=== PATIENT | female | born 1955 | race Caucasian/White ===

== ENCOUNTER 2016-11-10 20:14 | Inpatient (IN) | payer MEDICARE, MEDICAID ==
[2016-11-10 22:03] VITALS: BP 135/73
[2016-11-11] MEDS ORDERED: Magnesium Hydroxide (MOM) 30 mL UDC PO PRN (05:40)
[2016-11-11] MEDS ORDERED: INSULIN ASPART SLIDING SCALE 100 UNITS/ML UNIT SUBQ SCH (05:45)
[2016-11-11] MEDS: INSULIN ASPART SLIDING SCALE 100 UNITS/ML UNIT SUBQ SCH ×4 (06:30→21:20)
[2016-11-11] MEDS: Insulin Detemir 100 units/mL 10mL Vial SUBQ SCH ×2 (10:19→21:20)
--- NOTE | 2016-11-11 13:42 | History & Physical ---
INTERNAL MEDICINE CONSULT REFERRING PHYSICIAN: Dr. Ellis. REASON FOR CONSULT: Medical management, history of chronic renal insufficiency, anemia and type 2 diabetes. HISTORY OF PRESENT ILLNESS: The patient has been admitted to [facility] secondary to acute psych decompensation. She is a 61-year-old female with history of paranoid schizophrenia, medical noncompliance, who also has a history of type 2 diabetes, chronic renal insufficiency and anemia as mentioned above. She denies having any medical problems and apparently was recently admitted to [facility] where she was noted to have acute on chronic renal insufficiency for which she received IV fluids. She was also noted to have confusion consistent with encephalopathy, which was attributed in part to a urinary tract infection. She was placed on antibiotics and apparently had improvement both clinically and in her lab work. She has now been transferred for further psych supportive care. She currently denies any complaints including no chest pain, shortness of breath, palpitations or phlegm production. She does admit to daily smoking. PAST MEDICAL HISTORY: As noted above. PAST SURGICAL HISTORY: Denies. FAMILY HISTORY: Noncontributory. SOCIAL HISTORY: Smokes about a pack day and she was unable to quantify how many years, but she stated she started recently. Alcohol, does admit to occasional drinking socially. No IVDA. ALLERGIES: NKDA. TRANSFER MEDICATIONS: Tylenol 325 q. 6 h p.r.n., Keflex 500 mg q. 8, Epogen 10,000 units 3 times a week, famotidine 20 mg every day, insulin sliding scale per hospital protocol, Lantus insulin 8 units q. 12, lorazepam 1 mg q. 12 p.r.n. for anxiety, Milk of Magnesia 3 mL at bedtime, Risperdal 1.5 b.i.d., Renvela 800 mg q. 8 hours and Ambien 5 mg at bedtime p.r.n. for insomnia. REVIEW OF SYSTEMS: GENERAL: The patient denies any recent ailments. She denies any current fevers, chills. CARDIOVASCULAR: No chest pain. No angina type symptoms. PULMONARY: Denies any shortness of breath, any cough, any secretions. GASTROINTESTINAL: No bowel habit changes. GENITOURINARY: She does admit to having some dysuria the last few days, which has improved gradually improved with p.o. antibiotics. NEUROLOGIC: Denies any syncope, any changes in vision, any headaches. PHYSICAL EXAMINATION: VITAL SIGNS: She is afebrile, pulse 81, BP 135/73, respiratory rate 20, satting 98% on room air. GENERAL: She is awake, somewhat disoriented, and able to answer questions with yes and no, but overall poor historian. HEAD AND NECK: Normocephalic, atraumatic. Pupils are reactive to light. She is wearing eye glasses. NECK: There is no JVD or LAD. CARDIAC: Regular rate and rhythm with no murmurs noted. LUNGS: Decreased at the bases, but clear to auscultation overall. No rhonchi, wheezing or crackles noted. ABDOMEN: Soft, supple, nontender, nondistended, normoactive bowel sounds. EXTREMITIES: On lower extremity, there is no clubbing, cyanosis or edema. NEUROLOGIC: She is currently sitting up in a chair. Cranial nerves 2-12 appear to be intact. She is able to move all 4 extremities with equal force and strength. Gait and balance were not able to be tested. DIAGNOSTICS: Labs from previous hospitalization shows an H and H of 7.5/24 with a platelet count of 215. Sodium 130, potassium 4.1, chloride 104, CO2 20, BUN 64, creatinine 4 and glucose 253. UA was consistent with UTI with positive leukocyte. IMPRESSION: 1. Acute psych decompensation and slight psychosis. 2. History of paranoid schizophrenia. 3. Dementia. 4. Status post acute encephalopathy, which is likely secondary to urinary tract infection. 5. Urinary tract infection. 6. Acute on chronic renal insufficiency. 7. Type 2 diabetes. 8. Possible chronic obstructive pulmonary disease. 9. Nicotine dependence. PLAN: The patient has been admitted to [facility] for further management and care. At this time, the patient will be kept on her current medications including Epogen, insulin and the Keflex schedule. I will ask for a chem panel as well as CBC and repeat UA. I will also ask for TSH and a lipid panel. The patient will be followed on a daily basis. JOB# [id number]
[2016-11-11] MEDS: Epoetin Alfa 20000 Units/mL Vial SUBQ SCH (14:43)
[2016-11-11] MEDS ORDERED: Haloperidol Lactate 5 mg/mL 1mL Vial IM PRN (19:29)
--- NOTE | 2016-11-12 01:42 | Psychosocial Evaluation ---
INITIAL EVALUATION AND MENTAL STATUS EXAMINATION CHIEF COMPLAINT: Increased agitation and mood swings. HISTORY OF PRESENT ILLNESS: The patient is a 61-year-old female with history of psychosis. The patient has been paranoid and delusional and also confused. The patient also was not able to follow any directions [place] and she became more agitated and she was admitted to the hospital. In the hospital, the patient is confused and she is actively hallucinating. The patient also has not been cooperative with the staff. When I asked the patient about her age, she answered "15 years old." I was born in 2001. PAST PSYCHIATRIC HISTORY: The patient has history of psychosis and delusions. PAST MEDICAL HISTORY: The patient has history of kidney disease and urinary tract infection and diabetes mellitus. SOCIAL HISTORY: The patient lives in a detention. No known alcohol or drug use. Not much information known about her family ____ the patient says "I have 8 or 10 children." ALLERGIES: No known allergies. MENTAL STATUS EXAMINATION: The patient appears slightly older than her stated age. Anxious. Restless. Irritable mood. Thought processes are circumstantial and tangential with flight of ideas. The patient denies auditory or visual hallucinations, but seems to be actively responding to stimuli. The patient denies suicide or homicide. The patient is alert and is oriented to time, place, person and situation. The patient also is confused and impaired. Recent and remote memories ____ could not remember her first name or any events happened prior to her admission. Poor insight. Poor judgment. ASSESSMENT: PRIMARY DIAGNOSIS: Unspecified psychosis. SECONDARY DIAGNOSIS: Dementia, moderate, severe, with psychotic features. TREATMENT PLAN: We will monitor the patient's behavior closely. We will regret psychotic medications. Also, we will work on her uncooperativeness and delusion as well as poor impulse control. ESTIMATED LENGTH OF STAY: 7-10 days. THE PATIENT'S STRENGTHS AND WEAKNESSES: The patient's strength is not clear at this time. Weaknesses is ineffective coping and her paranoia and delusions. AFTER DISCHARGE PLAN: The patient will return to the detention and outpatient treatment and follow up and will continue as an outpatient. CRITERIA FOR DISCHARGE: The patient will not be psychotic and stabilize psychotropic medications and establish outpatient treatment plans. JOB# [id number]
[2016-11-12] MEDS: INSULIN ASPART SLIDING SCALE 100 UNITS/ML UNIT SUBQ SCH ×4 (06:36→20:47)
[2016-11-12] MEDS: Insulin Detemir 100 units/mL 10mL Vial SUBQ SCH ×2 (09:59→20:59)
[2016-11-12 14:08] LABS: % BASOPHILS 0.7 % (0.0-2.0); % EOSINOPHILS 1.6 % (0.0-5.0); % LYMPHOCYTES 25.9 % (20.0-50.0); % MONOCYTES 9.9 % (2.0-10.0); % NEUTROPHILS 61.9 % (40.0-80.0); ALB/GLOB RATIO 1.5 (1.0-1.8); ANION GAP 9.9 (7.0-16.0); BILIRUBIN,TOTAL 0.2 mg/dL (0.3-1.0); BUN/CREATININE RATIO 24.1; CALCIUM SERUM 9.2 mg/dL (8.6-10.3); CARBON DIOXIDE 21.4 mEq/L (21.0-31.0); CREATININE - SERUM 2.7 mg/dL (0.6-1.2); HEMATOCRIT 27.9 % (35.0-45.0); HEMOGLOBIN 9.3 gm/dL (11.7-15.5); MEAN CELL VOLUME 91.6 fl (81-100); MEAN CORPUSCULAR HEMOGLOBIN 30.5 pg (27.0-31.0); MEAN CORPUSCULAR HGB CONC 33.3 pg (28.0-36.0); MEAN PLATELET VOLUME 8.5 fl; NEUTROPHILE ABSOLUTE 2.1 Th/cmm (1.8-8.0); PLATELET COUNT 241 Th/cmm (150-400); POTASSIUM SERUM 4.3 mEq/L (3.5-5.1); RED BLOOD COUNT 3.05 Mil/cmm (3.80-5.10); RED CELL DISTRIBUTION WIDTH 13.9 % (11.5-20.0); WHITE BLOOD COUNT 3.4 Th/cmm (4.8-10.8)
[2016-11-12] MEDS: Ferrous Sulfate 325 MG TAB PO SCH (17:31)
[2016-11-13] MEDS: Levothyroxine 0.05 Mg Tab PO SCH (06:37)
[2016-11-13] MEDS: INSULIN ASPART SLIDING SCALE 100 UNITS/ML UNIT SUBQ SCH ×5 (06:39→20:31)
[2016-11-13] MEDS: Ferrous Sulfate 325 MG TAB PO SCH ×2 (08:22→16:28)
[2016-11-13] MEDS: Insulin Detemir 100 units/mL 10mL Vial SUBQ SCH ×3 (08:23→20:34)
[2016-11-13] MEDS: Epoetin Alfa 20000 Units/mL Vial SUBQ SCH (09:23)
--- NOTE | 2016-11-13 18:55 | Progress Notes ---
SUBJECTIVE: Chart reviewed and the patient interviewed. Also discussed the patient's condition with the staff and reviewed records and labs. The patient is still delusional and is still in irritable mood. The patient also is still suspicious and paranoid and confused. She also is still unable to make any appropriate answers and she is very paranoid and very suspicious. Otherwise, the patient started to comply with taking her medications with no side effects of medications. ASSESSMENT: The patient is still psychotic and agitated. TREATMENT PLAN: We will continue monitoring her behavior and her condition closely. Also, continue adjusting psychotropic medications and follow up closely. [facility]# [id number]
[2016-11-14] MEDS: Levothyroxine 0.05 Mg Tab PO SCH (06:32)
[2016-11-14] MEDS: INSULIN ASPART SLIDING SCALE 100 UNITS/ML UNIT SUBQ SCH ×4 (06:36→21:37)
[2016-11-14] MEDS: Ferrous Sulfate 325 MG TAB PO SCH ×2 (08:31→16:14)
[2016-11-14] MEDS: Insulin Detemir 100 units/mL 10mL Vial SUBQ SCH ×2 (08:32→21:35)
--- NOTE | 2016-11-14 09:40 | Progress Notes ---
Covering for Dr. Ellis. Case was discussed with staff of the patient, reviewed records. This is a 61-year-old female who was admitted on 11/10/2016, with a history of psychosis. She has been agitated. Mood irritable, paranoid, delusional, confused and unable to follow direction. She has a history of psychosis and delusion. The patient was diagnosed with unspecified psychosis and dementia. The patient continues to be delusional, continues to be unable to participate in a meaningful conversation. She has been on Haldol as needed. She is concerned ____ treating her with Haldol. She refused this medication that was approved by the conservator. Currently, she is on Risperdal ____ mg twice a day with no side effects, no sedation, no nausea and we will continue to work with the patient in group therapy, milieu therapy and adjust medication as needed. [facility]# [id number]
[2016-11-14] MEDS ORDERED: Maalox 30 mL Cup PO PRN (18:49)
[2016-11-15] MEDS: INSULIN ASPART SLIDING SCALE 100 UNITS/ML UNIT SUBQ SCH ×4 (06:39→20:48)
[2016-11-15] MEDS: Levothyroxine 0.05 Mg Tab PO SCH (06:42)
--- NOTE | 2016-11-15 08:29 | Progress Notes ---
The patient of Dr. Ellis. Case was discussed with staff of the patient, reviewed records. The patient continues to be confused and agitated, continues to be unable to make safe plan for self care, continues to need redirection. She is sleeping, eating well. She was able to go to the dining room and feed herself. No side effects from the medication, no sedation, no nausea, no extrapyramidal symptoms and we will continue to work with the patient in group therapy, milieu therapy, adjust medication as needed. JOB# [id number]
[2016-11-15] MEDS: Insulin Detemir 100 units/mL 10mL Vial SUBQ SCH ×2 (09:39→20:51)
[2016-11-15] MEDS: Ferrous Sulfate 325 MG TAB PO SCH ×2 (09:39→16:28)
--- NOTE | 2016-11-16 04:27 | Progress Notes ---
Covering for Dr. Ellis. Case discussed with staff of the patient, reviewed records. The patient continues to be unpredictable, impulsive, needing redirection. Continues to have poor insight. Continues to be unable to make safe plan for self-care, easily agitated. Looking disheveled, disorganized, internally preoccupied. Lab work showed negative ____ isolated and it was called to the medical doctor. His chemistry panel showed low bilirubin. Lipid panel within normal range. She also had low sodium, high chloride, high blood sugar, high BUN, high creatinine and that all will be reported to Dr. Malik. Her CBC also showed low hemoglobin and hematocrit, low white cells. TSH is high at 9.[address] Malik will be informed about it and no side effects with the medication, no sedation, no nausea and we will continue to work with patient in group therapy, milieu therapy, adjust the medication as needed. JOB# [id number]
[2016-11-16] MEDS: Levothyroxine 0.05 Mg Tab PO SCH (06:47)
[2016-11-16] MEDS: INSULIN ASPART SLIDING SCALE 100 UNITS/ML UNIT SUBQ SCH ×4 (06:48→21:10)
[2016-11-16] MEDS: Insulin Detemir 100 units/mL 10mL Vial SUBQ SCH ×2 (10:06→21:08)
[2016-11-16] MEDS: Ferrous Sulfate 325 MG TAB PO SCH ×2 (10:08→17:18)
[2016-11-16] MEDS: Epoetin Alfa 20000 Units/mL Vial SUBQ SCH (11:45)
--- NOTE | 2016-11-16 22:46 | Progress Notes ---
SUBJECTIVE: Chart reviewed and the patient interviewed. Also discussed the patient's condition with the staff and reviewed records and labs. The patient is still manicy and "will go to live in [place]." She also added "Bailee Del Rio is cristopher and the [facility] will come to pick me up." The patient has grandiose delusions and she is still delusional and paranoid. The patient also is suspicious and is still paranoid. She also is still restless and manicy and pacing around the unit interfering and intrusive to other patients and staff. The patient also at times is demanding. She also is in angry and in irritable mood. Otherwise, the patient is compliant with medications with no side effects of medications. During interview thought processes are circumstantial and tangential with flight of ideas. ASSESSMENT: The patient is still psychotic. TREATMENT PLAN: We will continue monitoring her behavior and her condition closely. Also, continue to work on her manic behavior and adjusting psychotropic medications and we will continue to follow up. JOB# [id number]
[2016-11-17] MEDS: Levothyroxine 0.05 Mg Tab PO SCH (06:40)
[2016-11-17] MEDS: INSULIN ASPART SLIDING SCALE 100 UNITS/ML UNIT SUBQ SCH ×4 (06:44→21:30)
[2016-11-17] MEDS: Ferrous Sulfate 325 MG TAB PO SCH ×2 (08:32→16:41)
[2016-11-17] MEDS: Insulin Detemir 100 units/mL 10mL Vial SUBQ SCH ×3 (08:43→21:32)
--- NOTE | 2016-11-18 04:32 | Progress Notes ---
SUBJECTIVE: Chart reviewed and the patient interviewed. Also discussed the patient's condition with the staff and reviewed records and labs. The patient continues to be delusional and continues to be paranoid. The patient also is less anxious ____. The patient is talking about wanting to go to home with "my Kenyon Patten." She also is still talking about Bailee Del Rio ____. She also is still restless and she is still intrusive to others. Otherwise, the patient is compliant with taking her medications with no side effect of medications. During interview, the patient is suspicious and paranoid and she is rambling. Also, hygiene is still poor. ASSESSMENT: The patient is still psychotic and manic ____ and has manic behavior. TREATMENT PLAN: We will continue monitoring her behavior and her condition closely. Also, we will increase Risperdal to 2 mg twice a day and start lithium 150 mg twice a day. Side effects, benefits and alternatives explained to the patient and the patient agreed to ____. JOB# [id number]
[2016-11-18] MEDS: Levothyroxine 0.05 Mg Tab PO SCH (06:36)
[2016-11-18] MEDS: INSULIN ASPART SLIDING SCALE 100 UNITS/ML UNIT SUBQ SCH ×4 (06:39→21:26)
[2016-11-18] MEDS: Ferrous Sulfate 325 MG TAB PO SCH ×2 (08:35→16:41)
[2016-11-18] MEDS: Insulin Detemir 100 units/mL 10mL Vial SUBQ SCH ×2 (08:38→21:26)
[2016-11-18] MEDS: Epoetin Alfa 20000 Units/mL Vial SUBQ SCH (09:39)
[2016-11-19] MEDS: INSULIN ASPART SLIDING SCALE 100 UNITS/ML UNIT SUBQ SCH ×4 (06:58→21:10)
[2016-11-19] MEDS: Levothyroxine 0.05 Mg Tab PO SCH (06:59)
[2016-11-19] MEDS: Insulin Detemir 100 units/mL 10mL Vial SUBQ SCH ×2 (09:14→21:21)
[2016-11-19] MEDS: Ferrous Sulfate 325 MG TAB PO SCH ×2 (09:15→16:44)
--- NOTE | 2016-11-19 09:18 | Progress Notes ---
SUBJECTIVE: Chart reviewed and the patient interviewed. Also, discussed the patient's condition with the staff and reviewed records and labs. The patient continued to be delusional and she is still in irritable mood. The patient has been suspicious and paranoid and delusional and she thinks that she is " ." The patient also is still intrusive to others and in angry and in irritable mood. On the other hand, but easier to redirect her and the patient has been compliant with taking her medications. During interview, the patient is paranoid and personal hygiene is still poor. She also is still rambling and disorganized thought. ASSESSMENT: The patient is still psychotic and ____ agitated. TREATMENT PLAN: We will continue monitoring her behavior and her condition closely and we will continue to follow up . JOB# [id number]
--- NOTE | 2016-11-20 06:05 | Progress Notes ---
SUBJECTIVE: Chart was reviewed and the patient interviewed. Also discussed the patient's condition with the staff and reviewed records and labs. The patient is still actively hallucinating and she is still actively responding to stimuli. The patient also is still talking about going to [place] and about ____ Quang who is the cristopher of [place] who will come to take her there. The patient also thinks that she is a Lady Gaga. She also is still manicky and hyperverbal, hyper-talkative with pressured speech. She also is still intrusive to other. On the other hand, slightly easier to redirect her. ASSESSMENT: The patient is still manicky. TREATMENT PLAN: We will continue monitoring her behavior and her condition closely. Also, continue to adjust psychotropic medications and we will continue to follow up. [facility]# [id number]
[2016-11-20] MEDS: Levothyroxine 0.05 Mg Tab PO SCH (06:38)
[2016-11-20] MEDS: INSULIN ASPART SLIDING SCALE 100 UNITS/ML UNIT SUBQ SCH ×4 (06:41→20:25)
[2016-11-20] MEDS: Ferrous Sulfate 325 MG TAB PO SCH ×2 (09:50→17:05)
[2016-11-20] MEDS: Insulin Detemir 100 units/mL 10mL Vial SUBQ SCH ×3 (09:51→21:30)
[2016-11-20] MEDS: Epoetin Alfa 20000 Units/mL Vial SUBQ SCH (09:54)
--- NOTE | 2016-11-20 21:46 | Progress Notes ---
SUBJECTIVE: The patient seen, chart reviewed, discussed with staff. The patient is currently in the hospital, paranoid, delusional, believes that "my ran after me." States the year is 2018. She knows the month. She currently states she is in the hospital with "just passing by for a visit." Not answering questions appropriately. Noted to be actively hallucinating, believing that she was 15 years old, born in 2001. The patient is still requiring a lot of prompting for ADLs, prompting for eating, not safe for discharge. ASSESSMENT: The patient remains symptomatic, highly confused, delusional, paranoid, psychotic, unable to care for herself at a lower level of care. PLAN: Continue to monitor. We will adjust medications. JOB# [id number]
[2016-11-21] MEDS: Levothyroxine 0.05 Mg Tab PO SCH (06:49)
[2016-11-21] MEDS: INSULIN ASPART SLIDING SCALE 100 UNITS/ML UNIT SUBQ SCH ×4 (07:11→21:47)
[2016-11-21] MEDS: Ferrous Sulfate 325 MG TAB PO SCH ×2 (08:47→16:51)
[2016-11-21] MEDS: Insulin Detemir 100 units/mL 10mL Vial SUBQ SCH ×2 (08:53→21:45)
[2016-11-21 21:35] LABS: URINE BILIRUBIN NEGATIVE (NEGATIVE); URINE BLOOD TRACE (NEGATIVE); URINE COLOR YELLOW; URINE GLUCOSE (UA) NEGATIVE (NEGATIVE); URINE KETONE NEGATIVE (NEGATIVE); URINE PROTEIN TRACE mg/dL (NEGATIVE); URINE UROBILINOGEN 0.2 E.U./dL (0.2 - 1.0)
[2016-11-21 21:36] LABS: URINE BACTERIA FEW /hpf (NONE SEEN); URINE EPITHELIAL CELLS OCCASIONAL /lpf (FEW); URINE RBC 0-2 /hpf (0-5)
--- NOTE | 2016-11-21 23:37 | Progress Notes ---
SUBJECTIVE: The patient seen, chart reviewed, discussed with staff. The patient remains delusional, sometime believes she is , very focused on food, hyperverbal, paranoid, delusional. The patient is believing that her is continuing to "run after her." She does not know where she is. She does not know why she is here, continues to actively hallucinate, still requiring a lot of prompting for ADLs, prompting for eating, not safe for discharge. No overt side effects noted. No EPS for example. ASSESSMENT: The patient remains symptomatic, highly confused, delusional believes that she is . PLAN: Continue to monitor. We will continue to adjust medications. Due to the severity of the patient's symptoms, she is not safe for a lower level of care at this time. [facility]# [id number]
[2016-11-22] MEDS: Levothyroxine 0.05 Mg Tab PO SCH (06:54)
[2016-11-22] MEDS: INSULIN ASPART SLIDING SCALE 100 UNITS/ML UNIT SUBQ SCH ×4 (06:55→21:37)
[2016-11-22] MEDS: Ferrous Sulfate 325 MG TAB PO SCH ×2 (08:17→16:50)
[2016-11-22] MEDS: Insulin Detemir 100 units/mL 10mL Vial SUBQ SCH ×2 (09:30→21:38)
[2016-11-23] MEDS: Levothyroxine 0.05 Mg Tab PO SCH (06:59)
[2016-11-23] MEDS: INSULIN ASPART SLIDING SCALE 100 UNITS/ML UNIT SUBQ SCH ×4 (07:00→20:48)
--- NOTE | 2016-11-23 07:53 | Progress Notes ---
Case was discussed with staff of the patient, reviewed records. This is a well known case to me, I have seen her. I will be covering for Dr. Ellis. The patient continues to be isolating herself, delusional, believes that she is , focus on food, hyperverbal, paranoid. Continues to be unable to participate in meaningful conversation or make safe plan for self-care. She has been compliant with the medication with no side effects. She is ____. She is on Haldol as needed. She refused oral medications. She is on lithium 150 mg twice a day and Risperdal was increased to 2 mg twice a day with no side effects, no sedation, no nausea. I will be increasing the dose to 2.5 mg twice a day and so far, no side effects, no sedation, no nausea, no extrapyramidal symptoms and we will continue to work with the patient in group therapy, milieu therapy, adjust the medication as needed. JOB# [id number]
[2016-11-23] MEDS: Ferrous Sulfate 325 MG TAB PO SCH ×3 (09:32→17:48)
[2016-11-23] MEDS: Insulin Detemir 100 units/mL 10mL Vial SUBQ SCH ×2 (09:38→20:47)
[2016-11-23] MEDS: Epoetin Alfa 20000 Units/mL Vial SUBQ SCH (10:27)
--- NOTE | 2016-11-24 02:52 | Progress Notes ---
Case was discussed with staff of the patient, reviewed records. The patient reported to be delusional, unpredictable, and impulsive needing redirection. Continues to have false belief that she is . Continues to be unpredictable. Continues to look disheveled and disorganized. She is compliant with the medication with no side effects, no sedation, no nausea, and no extrapyramidal symptoms. She is on Haldol, to be given if she refuses all her medication and [place]. I did increase her Risperdal dose yesterday to 2.5 mg twice a day, and we will continue to work with the patient in group therapy, milieu therapy, and adjust the medication as needed. JOB# [id number]
[2016-11-24] MEDS: Levothyroxine 0.05 Mg Tab PO SCH (06:35)
[2016-11-24] MEDS: INSULIN ASPART SLIDING SCALE 100 UNITS/ML UNIT SUBQ SCH ×3 (06:37→16:33)
[2016-11-24] MEDS: Insulin Detemir 100 units/mL 10mL Vial SUBQ SCH (09:33)
[2016-11-24] MEDS: Ferrous Sulfate 325 MG TAB PO SCH ×2 (09:41→16:34)
--- NOTE | 2016-11-24 18:39 | Discharge Summary ---
FINAL DIAGNOSIS/PRIMARY DIAGNOSIS: Bipolar disorder, mixed type, with psychotic features. SECONDARY DIAGNOSIS: Dementia, moderate, with psychotic features. REASON FOR HOSPITALIZATION: The patient was admitted to the hospital because of increased paranoia and delusions and confusion and manic behavior. HOSPITAL COURSE: The patient continued to be confused and continued to be in angry and in irritable mood. The patient also continued to be delusional. The patient was talking about being Lady [place] and that the [place] of [place], "Bailee Del Rio is coming to take her to [facility]." The patient on the other hand was compliant with taking her medications and no side effects of medications. Physical exam of the patient showed no acute medical problems. AFTER DISCHARGE PLANS: The patient will be discharged from the hospital to continue her treatment in [facility]. The patient will follow up there. DISCHARGE MEDICATIONS: [place] 150 mg twice a day and Risperdal 2.5 mg twice a day. EXPECTED OUTCOME AFTER DISCHARGE: Fair, if the patient continues to take her medications and follow up with treatment. [facility]# [id number]
== END 2016-11-24 16:55 | DRG 885 ==
LOC: GERO 20:14
PROVIDERS: ADMIT Psychiatry & Neurology Psychiatry; ATTEND Psychiatry & Neurology Psychiatry
DX: F31.60 Bipolar disorder, current episode mixed, unspecified (principal); G93.40 Encephalopathy, unspecified; N17.9 Acute kidney failure, unspecified; N18.4 Chronic kidney disease, stage 4 (severe); F03.90 Unspecified dementia, unspecified severity, without behavioral disturbance, psychotic disturbance, mood disturbance, and anxiety; N39.0 Urinary tract infection, site not specified; F29 Unspecified psychosis not due to a substance or known physiological condition; E11.22 Type 2 diabetes mellitus with diabetic chronic kidney disease; I12.9 Hypertensive chronic kidney disease with stage 1 through stage 4 chronic kidney disease, or unspecified chronic kidney disease; D63.1 Anemia in chronic kidney disease; E03.9 Hypothyroidism, unspecified; F20.0 Paranoid schizophrenia; F17.210 Nicotine dependence, cigarettes, uncomplicated; Z91.14 Patient's other noncompliance with medication regimen
CPT/HCPCS: 36415-UA; 80053-TC; 80061-TC; 81001-TC; 82948-90; 84443-TC; 85025-TC; 90899; 93005; G0410; J0885; J1815; Z7610

== ENCOUNTER 2017-07-04 15:59 | Inpatient (IN) | payer MEDICARE, MEDICAID ==
[2017-07-04 16:33] LABS: MEAN CELL VOLUME 90.6 fl (81-100); MEAN CORPUSCULAR HEMOGLOBIN 31.2 pg (27.0-31.0); MEAN CORPUSCULAR HGB CONC 34.4 pg (28.0-36.0); MEAN PLATELET VOLUME 6.8 fl; PLATELET COUNT 288 Th/cmm (150-400); RED CELL DISTRIBUTION WIDTH 13.4 % (11.5-20.0)
[2017-07-04 16:43] LABS: INR 0.95 (0.5-1.4); PROTHROMBIN TIME (TEST) 9.9 SECONDS (9.5-11.5)
[2017-07-04 16:46] LABS: ALB/GLOB RATIO 1.4 (1.0-1.8); ANION GAP 13.4 (7.0-16.0); BILIRUBIN,TOTAL 0.3 mg/dL (0.3-1.0); BUN/CREATININE RATIO 11.3; CALCIUM SERUM 9.3 mg/dL (8.6-10.3); CARBON DIOXIDE 16.2 mEq/L (21.0-31.0); CHOLESTEROL 159 mg/dL (<200); CREATININE - SERUM 3.2 mg/dL (0.6-1.2); POTASSIUM SERUM 3.6 mEq/L (3.5-5.1); TRIGLYCERIDES 102 mg/dL (<150)
[2017-07-04 16:50] LABS: HEMATOCRIT 16.3 % (35.0-45.0); HEMOGLOBIN 5.6 gm/dL (11.7-15.5)
--- NOTE | 2017-07-04 17:11 | ED Physician Chart ---
ED Chief Complaint/HPI - Patient Information Date Seen:: 07/04/17 Time Seen:: 16:06 Chief Complaint:: WEAKNESS History of Present Illness:: THIS IS A 61 YO FEMALE SENT TO THIS ER FOR EVALUATION AND TREATMENT AND PLACEMENT IN THE [facility]. SHE IS COOPERATIVE BUT DISORIENTED TIMES FOUR AND UNABLE TO GIVE A HISTORY AND REVIEW OF SYSTEMS. Allergies:: Allergies Allergy/AdvReac Type Severity Reaction Status Date / Time No Known Allergies Allergy Verified 11/10/16 22:03 Vitals:: Vital Signs - 8 hr 07/04/17 16:04 Temp 97.7 F HR 95 RR 18 BP 119/44 O2 Sat % 99 Historian:: EMS, Medical Records Review:: Nurse's Note Reviewed ED Review of Systems - Review of Systems General/Constitutional: No fever, No chills, No weight loss, No weakness, No diaphoresis, No edema, No loss of appetite, Other (SHE IS UNABLE TO GIVE A REVIEW OF SYSTEMS.) Skin: No skin lesions, No rash, No bruising Head: No headache, No light-headedness Eyes: No loss of vision, No pain, No diplopia ENT: No earache, No nasal drainage, No sore throat, No tinnitus Neck: No neck pain, No swelling, No thyromegaly, No stiffness, No mass noted Cardio Vascular: No chest pain, No palpitations, No PND, No orthopnea, No edema Pulmonary: No SOB, No cough, No sputum, No wheezing GI: No nausea, No vomiting, No diarrhea, No pain, No melena, No hematochezia, No constipation, No hematemesis G/U: No dysuria, No frequency, No hematuria Musculoskeletal: No bone or joint pain, No back pain, No muscle pain Endocrine: No polyuria, No polydipsia Psychiatric: No prior psych history, No depression, No anxiety, No suicidal ideation Hematopoietic: No bruising, No lymphadenopathy Allergic/Immuno: No urticaria, No angioedema Neurological: No syncope, No focal symptoms, No weakness, No paresthesia, No headache, No seizure, No dizziness, No confusion, No vertigo ED Past Medical History - Past Medical History Obtainable: Yes Past Medical History: HTN, Dyslipidemia, PUD/GERD, Thyroid disorder, Dementia, Other (CANCER OF THE MANDIBLE) Family History: None Social History: Non Smoker, No Alcohol, No Drug Use, Care Facility Surgical History: None Psychiatricy History: Schizophrenia, Dementia Medication: Reviewed Family Medical History - Family Member Mother History Unknown: Yes Ethnicity: Unknown Living Status: Unknown Hx Family Cancer: No Hx Family Coronary Artery Disease: No Hx Family Congestive Heart Failure: No Hx Family Hypertension: No Hx Family Stroke: No Hx Family Diabetes: No Hx Family Seizures: No Hx Family Dementia: No Hx Family AIDS: No Hx Family HIV: No Hx Family COPD: No Hx Family Hepatitis: No Hx Family Psychiatric Problems: No Hx Family Tuberculosis: No ED Physical Exam - Physical Examination General/Constitutional: Well-developed, well-nourished, Alert, No distress, GCS 15, Non-toxic appearing, Ambulatory Other Gen/Cons comments:: DISORIENTED TIMES FOUR Head: Atraumatic Eyes: Lids, conjuctiva normal, PERRL, EOMI Skin: Nl inspection, No rash, No skin lesions, No ecchymosis, Well hydrated, No lymphadenopathy ENMT: External ears, nose nl, Nasal exam nl, Lips, teeth, gums nl Neck: Nontender, Full ROM w/o pain, No JVD, No nuchal rigidity, No bruit, No mass, No stridor Respiratory: Nl effort/Exclusion, Clear to Auscultation, No Wheeze/Rhonchi/Rales Cardio Vascular: RRR, No murmur, gallop, rubs, NL S1 S2 GI: No tenderness/rebounding/guarding, No organomegaly, No hernia, Normal BS's, Nondistended, No mass/bruits, No McBurney tenderness : No CVA tenderness Extremities: No tenderness or effusion, Full ROM, normal strength in all extremities, No edema, Normal digits & nails Neuro/Psych: Alert/oriented, DTR's symmetric, Normal sensory exam, Normal motor strength, Judgement/insight normal, Mood normal, Normal gait, No focal deficits Misc: normal gait, Normal back, No paraspinal tenderness ED Labs/Radiology/EKG Results - Lab Results Results: Laboratory Tests 07/04/17 07/04/17 07/04/17 16:21 16:21 16:21 WBC 5.0 D RBC 1.80 L Hgb 5.6 L* Hct 16.3 L* D MCV 90.6 MCH 31.2 H MCHC Differential 34.4 RDW 13.4 Plt Count 288 MPV 6.8 PT 9.9 INR 0.95 PTT (Actin FS) 26.8 Sodium Potassium Chloride Carbon Dioxide Anion Gap BUN Creatinine Est GFR ( Amer) Est GFR (Non-Af Amer) BUN/Creatinine Ratio Glucose Calcium Total Bilirubin AST ALT Alkaline Phosphatase Troponin I Total Protein Albumin Globulin Albumin/Globulin Ratio Triglycerides 102 Cholesterol 159 LDL Cholesterol Direct 94 HDL Cholesterol 51 07/04/17 07/04/17 16:21 16:21 WBC RBC Hgb Hct MCV MCH MCHC Differential RDW Plt Count MPV PT INR PTT (Actin FS) Sodium 135 L Potassium 3.6 Chloride 109 H Carbon Dioxide 16.2 L Anion Gap 13.4 BUN 36 H Creatinine 3.2 H Est GFR ( Amer) 18.9 Est GFR (Non-Af Amer) 15.6 BUN/Creatinine Ratio 11.3 Glucose 158 H Calcium 9.3 Total Bilirubin 0.3 AST 13 ALT 5 L Alkaline Phosphatase 153 H Troponin I < 0.01 L Total Protein 6.6 Albumin 3.8 Globulin 2.8 Albumin/Globulin Ratio 1.4 Triglycerides Cholesterol LDL Cholesterol Direct HDL Cholesterol - Radiology Results Results: CHEST X-RAY = RIGHT HILAR AREA NODULE - EKG Interpretations EKG Time:: 16:22 Rate & Rhythm: RATE=93 SINUS [place]: RIGHT ED Assessment - Assessment General Assessment: SEVERE ANEMIA ED Septic Shock - . Is Septic Shock (SBP<90, OR Lactate>4 mmol\L) present?: No - <6hrs of presentation: Vital Signs: Vital Signs - 8 hr 07/04/17 16:04 Temp 97.7 F HR 95 RR 18 BP 119/44 O2 Sat % 99 ED Reassessment (Disposition) - Diagnosis Diagnosis:: SEVERE ANEMIA - Patient Disposition Discharge/Transfer:: Acute Care w/in this hosp Admitted to:: Med/Surg Admitting Medical Physician:: Alfonso Meza Condition at Disposition:: Stable ED Discharge Plan - Patient Disposition Admit/Discharge/Transfer: Acute Care w/in this hosp Condition at Disposition: Unchanged Instructions: Psychosis
[2017-07-04 17:42] LABS: ANISOCYTOSIS 1+; EOSINOPHIL 1 % (0-5); NEUTROPHILS 85 % (40-80); PLATELET ESTIMATE ADEQUATE (NORMAL); TOTAL CELLS COUNTED 100
[2017-07-04] MEDS ORDERED: Magnesium Hydroxide (MOM) 30 mL UDC PO PRN (20:34)
[2017-07-04 20:49] LABS: MEAN CELL VOLUME 90.6 fl (81-100); MEAN CORPUSCULAR HEMOGLOBIN 30.5 pg (27.0-31.0); MEAN CORPUSCULAR HGB CONC 33.7 pg (28.0-36.0); MEAN PLATELET VOLUME 7.3 fl; PLATELET COUNT 299 Th/cmm (150-400); RED BLOOD COUNT 1.87 Mil/cmm (3.80-5.10); RED CELL DISTRIBUTION WIDTH 13.9 % (11.5-20.0); WHITE BLOOD COUNT 5.6 Th/cmm (4.8-10.8)
[2017-07-04 20:53] LABS: HEMATOCRIT 16.9 % (35.0-45.0); HEMOGLOBIN 5.7 gm/dL (11.7-15.5)
[2017-07-04 22:22] LABS: BAND NEUTROPHILE 5 % (0-10); EOSINOPHIL 1 % (0-5); HYPOCHROMIA 2+; NEUTROPHILS 75 % (40-80); PLATELET ESTIMATE ADEQUATE (NORMAL); POLYCHROMASIA 1+; TOTAL CELLS COUNTED 100
[2017-07-04] MEDS: Sodium Chloride 0.9% 1,000 ML IV SCH (22:30)
[2017-07-04] MEDS ORDERED: Haloperidol Lactate 5 mg/mL 1mL Vial IM STA (23:17)
--- NOTE | 2017-07-04 23:53 | History & Physical ---
ADMIT DATE: 07/04/2017 The patient was brought to the Emergency Room for psych evaluation in Psych Unit, but apparently, the patient had medical issues including his sodium was 135 and his glucose was 158 and he also had a chest x-ray showed right hilar infiltrate and his hemoglobin was very low 5.6 indicating patient requires medical attention, so the patient was admitted. Essentially, this patient known to have history of psychosis, no prior history could be obtained and a very difficult historian. REVIEW OF SYSTEMS: Otherwise, negative. PAST MEDICAL HISTORY: Hypertension, hyperlipidemia, thyroid disorder, GERD, dementia. PHYSICAL EXAMINATION: HEAD: Normal. ENT: Normal. LUNGS: Clear. CARDIOVASCULAR SYSTEM: S1, S2 heard. ABDOMEN: Soft. Bowel sounds are heard. CENTRAL NERVOUS SYSTEM: Decreased sensorium and confused. LABORATORY DATA: Hemoglobin was 5.6, hematocrit was 16.6 and the right upper lobe perihilar nodule. EKG showed sinus rhythm. DIAGNOSES: Severe anemia, rule out gastrointestinal bleeding, history of psychosis, history of hyperlipidemia, history of gastroesophageal reflux disease, history of hypertension. PLAN: The patient is being admitted. I will go ahead and transfuse 2 unit and have GI consult and I will follow the patient closely and also replace electrolyte imbalance. JOB# [id number]
[2017-07-04] MEDS: Insulin Detemir 100 units/mL 10mL Vial SUBQ SCH (23:57)
[2017-07-05 01:54] VITALS: BP 103/65
[2017-07-05] MEDS ORDERED: Levothyroxine 0.05 Mg Tab PO SCH (07:30)
[2017-07-05 07:31] LABS: URINE BILIRUBIN NEGATIVE (NEGATIVE); URINE COLOR YELLOW; URINE GLUCOSE (UA) NEGATIVE (NEGATIVE); URINE KETONE NEGATIVE (NEGATIVE)
[2017-07-05 07:32] LABS: URINE BLOOD SMALL (NEGATIVE); URINE PH 6.5 (4.6 - 8.0); URINE PROTEIN 100 mg/dL (NEGATIVE); URINE UROBILINOGEN 0.2 E.U./dL (0.2 - 1.0)
[2017-07-05 07:36] LABS: URINE EPITHELIAL CELLS FEW /lpf (FEW); URINE WBC 50-100 /hpf (0-5)
[2017-07-05 07:37] LABS: URINE BACTERIA MANY /hpf (NONE SEEN)
--- NOTE | 2017-07-05 08:15 | Diagnostic Imaging Report ---
CHEST X-RAY: AP view INDICATION: Shortness of breath COMPARISON: None FINDINGS: Left-sided Port-A-Cath is seen with tip in the cavoatrial junction. Mild chronic lung changes are noted. There is no focal consolidation or pleural effusions mild cardiomegaly is noted. Suboptimal lung volumes are noted. Degenerative changes of the spine are noted. Right fourth and eighth rib fractures are noted. Left 6 rib fracture is noted. Findings are age indeterminate but favor chronic etiology. IMPRESSION: Mild chronic changes with no focal consolidation identified. Mild cardiomegaly. Left-sided Port-A-Cath noted. Bilateral rib fractures, age-indeterminate but probably chronic. Please correlate with clinical findings and old exams.
[2017-07-05] MEDS: Ferrous Sulfate 325 MG TAB PO SCH (10:18)
[2017-07-05] MEDS: Multivitamin w/ Minerals Tab PO SCH (10:19)
[2017-07-05] MEDS: Pantoprazole 40 mg EC Tab PO SCH (10:19)
[2017-07-05] MEDS: Insulin Detemir 100 units/mL 10mL Vial SUBQ SCH ×2 (10:20→22:57)
[2017-07-05 10:27] LABS: % BASOPHILS 0.6 % (0.0-2.0); % EOSINOPHILS 0.8 % (0.0-5.0); % MONOCYTES 7.7 % (2.0-10.0); % NEUTROPHILS 78.9 % (40.0-80.0); MEAN CELL VOLUME 88.3 fl (81-100); MEAN CORPUSCULAR HEMOGLOBIN 30.2 pg (27.0-31.0); MEAN CORPUSCULAR HGB CONC 34.2 pg (28.0-36.0); MEAN PLATELET VOLUME 6.8 fl; NEUTROPHILE ABSOLUTE 3.4 Th/cmm (1.8-8.0); PLATELET COUNT 263 Th/cmm (150-400); RED BLOOD COUNT 2.65 Mil/cmm (3.80-5.10); RED CELL DISTRIBUTION WIDTH 13.2 % (11.5-20.0); WHITE BLOOD COUNT 4.2 Th/cmm (4.8-10.8)
[2017-07-05] MEDS ORDERED: Pneumococcal Vaccine 0.5 mL Vial IM ONE (10:27)
[2017-07-05 10:41] LABS: HEMATOCRIT 23.4 % (35.0-45.0)
[2017-07-05 11:52] LABS: INR 0.96 (0.5-1.4)
[2017-07-05 12:04] LABS: ALB/GLOB RATIO 1.3 (1.0-1.8); ANION GAP 9.8 (7.0-16.0); BILIRUBIN,TOTAL 1.3 mg/dL (0.3-1.0); BUN/CREATININE RATIO 11.1; CALCIUM SERUM 8.6 mg/dL (8.6-10.3); CARBON DIOXIDE 19.3 mEq/L (21.0-31.0); CREATININE - SERUM 2.8 mg/dL (0.6-1.2); POTASSIUM SERUM 3.1 mEq/L (3.5-5.1)
[2017-07-05] MEDS: Sevelamer Carnonate 800 mg Tab PO SCH ×2 (14:15→17:45)
--- NOTE | 2017-07-05 14:24 | General Progress Note ---
Subjective - Review of Systems Events since last encounter: patient awake c/o weakness blood transfusion done yesterday Objective - Results Result Diagrams: 07/05/17 10:15 07/05/17 10:15 Recent Labs: Laboratory Last Values WBC 4.2 Th/cmm (4.8-10.8) L D 07/05/17 10:15 RBC 2.65 Mil/cmm (3.80-5.10) L 07/05/17 10:15 Hgb 8.0 gm/dL (11.7-15.5) L D 07/05/17 10:15 Hct 23.4 % (35.0-45.0) L* D 07/05/17 10:15 MCV 88.3 fl (81-100) 07/05/17 10:15 MCH 30.2 pg (27.0-31.0) 07/05/17 10:15 MCHC Differential 34.2 pg (28.0-36.0) 07/05/17 10:15 RDW 13.2 % (11.5-20.0) 07/05/17 10:15 Plt Count 263 Th/cmm (150-400) 07/05/17 10:15 MPV 6.8 fl 07/05/17 10:15 Neutrophils % 78.9 % (40.0-80.0) 07/05/17 10:15 Band Neutrophils % 5 % (0-10) 07/04/17 20:30 Lymphocytes % 12.0 % (20.0-50.0) L 07/05/17 10:15 Monocytes % 7.7 % (2.0-10.0) 07/05/17 10:15 Eosinophils % 0.8 % (0.0-5.0) 07/05/17 10:15 Basophils % 0.6 % (0.0-2.0) 07/05/17 10:15 Neutrophils (Manual) 75 % (40-80) 07/04/17 20:30 Lymphocytes 15 % (20-50) L 07/04/17 20:30 Monocytes 4 % (2-10) 07/04/17 20:30 Eosinophils 1 % (0-5) 07/04/17 20:30 Hypochromia 2+ 07/04/17 20:30 Platelet Estimate ADEQUATE (NORMAL) 07/04/17 20:30 Polychromasia 1+ 07/04/17 20:30 Anisocytosis 1+ 07/04/17 16:21 RBC Morph Micro Appear ABNORMAL (NORMAL) 07/04/17 16:21 PT 10.0 SECONDS (9.5-11.5) 07/05/17 10:15 INR 0.96 (0.5-1.4) 07/05/17 10:15 PTT (Actin FS) 26.6 SECONDS (26.0-38.0) 07/05/17 10:15 Sodium 134 mEq/L (136-145) L 07/05/17 10:15 Potassium 3.1 mEq/L (3.5-5.1) L 07/05/17 10:15 Chloride 108 mEq/L (98-107) H 07/05/17 10:15 Carbon Dioxide 19.3 mEq/L (21.0-31.0) L 07/05/17 10:15 Anion Gap 9.8 (7.0-16.0) 07/05/17 10:15 BUN 31 mg/dL (7-25) H 07/05/17 10:15 Creatinine 2.8 mg/dL (0.6-1.2) H 07/05/17 10:15 Est GFR ( Amer) 22.0 ml/min (>90) 07/05/17 10:15 Est GFR (Non-Af Amer) 18.2 ml/min 07/05/17 10:15 BUN/Creatinine Ratio 11.1 07/05/17 10:15 Glucose 188 mg/dL (70-105) H 07/05/17 10:15 POC Glucose 218 MG/DL (70 - 105) H 07/04/17 22:29 Hemoglobin A1c % 6.9 % (4.0-6.0) H 07/05/17 10:15 Calcium 8.6 mg/dL (8.6-10.3) 07/05/17 10:15 Total Bilirubin 1.3 mg/dL (0.3-1.0) H 07/05/17 10:15 AST 12 U/L (13-39) L 07/05/17 10:15 ALT 6 U/L (7-52) L 07/05/17 10:15 Alkaline Phosphatase 137 U/L (34-104) H 07/05/17 10:15 Troponin I < 0.01 ng/mL (0.01-0.05) L 07/04/17 16:21 Total Protein 6.0 gm/dL (6.0-8.3) 07/05/17 10:15 Albumin 3.4 gm/dL (3.7-5.3) L 07/05/17 10:15 Globulin 2.6 gm/dL 07/05/17 10:15 Albumin/Globulin Ratio 1.3 (1.0-1.8) 07/05/17 10:15 Triglycerides 102 mg/dL (<150) 07/04/17 16:21 Cholesterol 159 mg/dL (<200) 07/04/17 16:21 LDL Cholesterol Direct 94 mg/dL (75-193) 07/04/17 16:21 HDL Cholesterol 51 mg/dL (23-92) 07/04/17 16:21 TSH 1.98 uIU/ml (0.34-5.60) 07/04/17 16:21 Urine Source CLEAN C 07/05/17 06:00 Urine Color YELLOW 07/05/17 06:00 Urine Clarity HAZY (CLEAR) 07/05/17 06:00 Urine pH 6.5 (4.6 - 8.0) 07/05/17 06:00 Ur Specific [place] 1.015 (1.005-1.030) 07/05/17 06:00 Urine Protein 100 mg/dL (NEGATIVE) H 07/05/17 06:00 Urine Glucose (UA) NEGATIVE mg/dL (NEGATIVE) 07/05/17 06:00 Urine Ketones NEGATIVE mg/dL (NEGATIVE) 07/05/17 06:00 Urine Blood SMALL (NEGATIVE) H 07/05/17 06:00 Urine Nitrate POSITIVE (NEGATIVE) H 07/05/17 06:00 Urine Bilirubin NEGATIVE (NEGATIVE) 07/05/17 06:00 Urine Ictotest NEGATIVE (NEGATIVE) 07/05/17 06:00 Urine Urobilinogen 0.2 E.U./dL (0.2 - 1.0) 07/05/17 06:00 Ur Leukocyte Esterase LARGE (NEGATIVE) H 07/05/17 06:00 Urine RBC 5-10 /hpf (0-5) H 07/05/17 06:00 Urine WBC 50-100 /hpf (0-5) H 07/05/17 06:00 Ur Epithelial Cells FEW /lpf (FEW) 07/05/17 06:00 Urine Bacteria MANY /hpf (NONE SEEN) 07/05/17 06:00 RPR NONREACTIVE (NONREACTIVE) 07/04/17 16:21 Blood Type A POSITIVE 07/04/17 17:10 Antibody Screen NEGATIVE 07/04/17 17:10 Crossmatch See Detail 07/04/17 17:10 - Physical Exam Vitals and I&O: Vital Signs Temp 98.6 F 07/05/17 12:00 Pulse 72 07/05/17 12:00 Resp 18 07/05/17 12:00 BP 120/76 07/05/17 12:00 Pulse Ox 98 07/05/17 12:00 Intake & Output 07/04/17 07/05/17 07/05/17 18:59 06:59 18:59 Intake Total 150 Balance 150 Weight (lbs) 74.389 kg Intake: Oral 150 Other: # Voids 4 # Bowel Movements 0 Stool Characteristics Formed Active Medications: Current Medications Acetaminophen (Tylenol) 650 mg PO Q4H PRN PRN Reason: Pain (Moderate) Stop: 09/02/17 20:33 Docusate Sodium (Colace) 100 mg PO BID [facility] Stop: 09/03/17 08:59 Last Admin: 07/05/17 10:18 Dose: Not Given Ferrous Sulfate (Iron) 325 mg PO DAILY PABLO Stop: 09/03/17 08:59 Last Admin: 07/05/17 10:18 Dose: Not Given Folic Acid (Folate) 1 mg PO DAILY PABLO Stop: 09/03/17 08:59 Last Admin: 07/05/17 10:18 Dose: Not Given Sodium Chloride (Nacl 0.9%) 1,000 mls @ 100 mls/hr IV .Q10H PABLO Stop: 09/02/17 20:30 Last Admin: 07/04/17 22:30 Dose: 100 mls/hr Insulin Detemir (Levemir Insulin) 10 units SUBQ Q12HR PABLO PRN Reason: Protocol Stop: 09/02/17 20:59 Last Admin: 07/05/17 10:20 Dose: Not Given Levothyroxine Sodium (Synthroid) 0.075 mg PO QDAC [facility] Stop: 09/03/17 07:29 Last Admin: 07/05/17 06:52 Dose: 0.075 mg Lorazepam (Ativan) 1 mg IVP Q4HR PRN; Protocol PRN Reason: Agitation Stop: 09/02/17 22:33 Last Admin: 07/05/17 10:12 Dose: 1 mg Magnesium Hydroxide (Milk Of Magnesia) 30 ml PO DAILY PRN PRN Reason: Constipation Stop: 09/02/17 20:33 Pantoprazole Sodium (Protonix) 40 mg PO DAILY PABLO Stop: 09/03/17 08:59 Last Admin: 07/05/17 10:19 Dose: Not Given Quetiapine Fumarate (Seroquel) 50 mg PO BID PABLO PRN Reason: Protocol Stop: 09/03/17 08:59 Last Admin: 07/05/17 14:15 Dose: Not Given Sevelamer Carbonate (Renvela) 800 mg PO TIDWM [facility] Stop: 09/02/17 20:59 Last Admin: 07/05/17 14:15 Dose: Not Given General: No acute distress HEENT: Atraumatic Cardiovascular: Regular rate, Normal S1, Normal S2 Assessment/Plan - Problem List Patient Problems: All Active Problems UNCOOPERATIVE WITH CARE AND AGGRESSIVE (Acute) ANEMIA (Acute) CHRONIC RENAL INSUFFICIENCY (Acute) PARANOID SCHIZOPHRENIA (Acute) TYPE II DM (Acute) - Plan Plan: as per psych will monitor closely labs monitor vitals/diet
[2017-07-05] MEDS ORDERED: VTE Chemical Prophylaxis Screen/Admission MC PRN (15:04)
[2017-07-05 17:11] LABS: % BASOPHILS 0.2 % (0.0-2.0); % EOSINOPHILS 0.9 % (0.0-5.0); % LYMPHOCYTES 15.1 % (20.0-50.0); % MONOCYTES 9.3 % (2.0-10.0); % NEUTROPHILS 74.5 % (40.0-80.0); HEMATOCRIT 24.1 % (35.0-45.0); HEMOGLOBIN 8.4 gm/dL (11.7-15.5); MEAN CELL VOLUME 87.9 fl (81-100); MEAN CORPUSCULAR HEMOGLOBIN 30.5 pg (27.0-31.0); MEAN CORPUSCULAR HGB CONC 34.7 pg (28.0-36.0); PLATELET COUNT 269 Th/cmm (150-400); RED BLOOD COUNT 2.74 Mil/cmm (3.80-5.10); RED CELL DISTRIBUTION WIDTH 13.4 % (11.5-20.0)
[2017-07-05] MEDS ORDERED: Potassium Chloride 20 mEq ER Tab PO ONE (21:21)
[2017-07-05] MEDS ORDERED: Piperacillin Sodium/Tazobact 3.375 gm Vial IV ONE (22:29)
--- NOTE | 2017-07-05 22:39 | Consultation ---
DATE OF CONSULTATION: 07/05/2017 CONSULTING PHYSICIAN: Dr. Meza REASON FOR CONSULTATION: Anemia. HISTORY OF PRESENT ILLNESS: The patient is a 61-year-old female with past medical history significant for bipolar disorder with psychosis who was admitted to the hospital for a psych evaluation and found to be anemic. At the time of patient's interview, the patient is psychotic and unable to really give a history at all. Thus, most history is obtained from the chart. At the current time, the patient is perseverating on the fact that she is restrained in her bed and is not willing to answer any other questions and does not believe that she is undergoing the medical evaluation. In the ER, the patient was found to have hemoglobin of 5.7 and has been transfused 2 units since that time and now has a hemoglobin of 8.0 this morning. As per nursing report, there is no obvious melena or hematemesis that has occurred since the patient has been under supervised care. It is unable to be determined if the patient has had any sort of endoscopic evaluation in the past. PAST MEDICAL HISTORY: Bipolar disorder with psychosis as documented on previous visits to this hospital. PAST SURGICAL HISTORY: Unable to be obtained given the patient's mental status. FAMILY HISTORY: Unable to be obtained given the patient's mental status. SOCIAL HISTORY: Unable to be obtained given the patient's mental status. ALLERGIES: No known drug allergies. REVIEW OF SYSTEMS: A 12-point review of systems were unable to be performed given the patient's mental status. CURRENT MEDICATIONS: Tylenol, Colace, iron, folate, insulin, Synthroid, Ativan, milk of magnesia, Protonix, and Seroquel. PHYSICAL EXAMINATION: VITAL SIGNS: Blood pressure 125/70, pulse of 76 beats per minute, respiratory rate 18, oxygen saturation 99% on room air, and temperature 98.2 Fahrenheit. GENERAL: The patient is lying flat in bed. She has 2-point restraints on and is moving around violently. HEENT: No scleral icterus is obvious. Pupils are equal and reactive. Moist mucous membranes. NECK: Supple. No obvious thyromegaly. CHEST: Unable to be examined given the patient's refusal. CARDIOVASCULAR: Unable to be examined given the patient refusal. ABDOMEN: Soft. No obvious tenderness to palpation. No guarding. No rebound. EXTREMITIES: Moving all extremities spontaneously. No obvious pitting edema. SKIN: No obvious jaundice or other rashes. LABORATORY DATA: White blood cell count 5.0, hemoglobin on admission 5.6, now 8.0, and platelet count 288,000. INR is 0.9. Sodium 135, BUN 36, creatinine 3.2 on admission, now 2.8. AST 13. ALT 5. Alkaline phosphatase 153. Total bilirubin 0.3. IMAGING: No imaging was performed. IMPRESSION: This is a 61-year-old female with history of bipolar disorder with psychosis who was sent to the Emergency Room for psych evaluation and found to be acutely anemic. PROBLEMS: 1. Anemia. 2. Bipolar disorder with psychosis. DISCUSSION: The patient's anemia is certainly concerning, especially given no obvious source of overt gastrointestinal bleeding. I would suspect GI malignancy higher on the differential and endoscopic evaluation is definitely warranted, although the patient at current time is not able to consent for this and is frankly combative. Given there is no obvious bleeding that is going on at this moment, it is reasonable that the patient continues to have psychiatric treatment, so that she may be more lucid or at least able to undergo this procedure in a more reasonable manner. Of course if the patient does have any sort of decompensating event or large amount of GI bleeding, we can do a more urgent endoscopic evaluation using 2-physician consent. In the meantime, I will obtain iron study labs and continue to trend her hemoglobin levels. Given no procedure is planned at the moment, she can definitely be given a soft diet. PLAN: 1. Iron studies. 2. diet. 3. Recommend psychiatric evaluation and treatment, so the patient may be more agreeable to endoscopic evaluation of her GI tract. 4. Serial CBCs and transfusion to hemoglobin goal of 8. 5. If any sign of worsening GI bleeding, we will consider doing endoscopic evaluation more urgently with 2-physician consent. 6. I will continue to follow. Thank you for allowing me to participate in the care of this patient. Please call with any further questions. JOB# [id number]
--- NOTE | 2017-07-06 01:32 | Consultation ---
DATE OF CONSULTATION: 07/05/2017 Case was discussed. MENTAL STATUS EXAMINATION: The patient is looking disheveled, disorganized, yelling and screaming. Unable to participate in meaningful conversation and answer any question regarding a formal mental status exam. She is shouting, yelling, screaming, unpredictable, impulsive, unable to test her memory, and unable to answer questions or suicide, homicide hallucinations. I am not sure how she sleep or eat. Insight and judgment is impaired. IMPRESSION: AXIS I: Chronic undifferentiated schizophrenia. MEDICAL DIAGNOSIS: Refer to the medical doctor. Anemia. PLAN: Recommend to restart her psychotropic medication. The patient does have a conservator. Thank very much for allowing me to participate in the care of this most interesting lady. JOB# [id number]
--- NOTE | 2017-07-06 04:37 | Consultation ---
DATE OF CONSULTATION: 07/05/2017 IDENTIFYING INFORMATION: The patient is a 61-year-old female. HISTORY OF PRESENT ILLNESS: The patient was supposed to come to the [facility], but then she ended up in this place, because of her anemia. The patient herself was a poor historian. She was yelling and screaming, very irritable in her bed. Unable to participate in a meaningful conversation. She is a well-known case to me, as I have been seeing her at [place]. PAST PSYCHIATRIC HISTORY: The patient has multiple prior admissions to this facility and other facility because of psychosis. She is conserved. MEDICAL HISTORY: Deferred to the medical doctor. FAMILY AND SOCIAL HISTORY: Unobtainable at this time, but refer to her old records. MENTAL STATUS EXAMINATION: The patient is appropriately dressed, not well groomed. She was yelling and screaming, moving all her extremities. She is unpredictable, impulsive, needing redirection, unable to participate in a meaningful DICTATION ENDS HERE [facility]# [id number]
[2017-07-06] MEDS: Sodium Chloride 0.9% 1,000 ML IV SCH ×2 (06:41→21:04)
[2017-07-06] MEDS: Levothyroxine 0.075 Mg Tab PO SCH (06:55)
--- NOTE | 2017-07-06 09:54 | General Progress Note ---
Subjective - Review of Systems Events since last encounter: patient awake ,no acute distress still weak Objective - Results Result Diagrams: 07/05/17 17:00 07/05/17 10:15 Recent Labs: Laboratory Last Values WBC 4.0 Th/cmm (4.8-10.8) L 07/05/17 17:00 RBC 2.74 Mil/cmm (3.80-5.10) L 07/05/17 17:00 Hgb 8.4 gm/dL (11.7-15.5) L 07/05/17 17:00 Hct 24.1 % (35.0-45.0) L 07/05/17 17:00 MCV 87.9 fl (81-100) 07/05/17 17:00 MCH 30.5 pg (27.0-31.0) 07/05/17 17:00 MCHC Differential 34.7 pg (28.0-36.0) 07/05/17 17:00 RDW 13.4 % (11.5-20.0) 07/05/17 17:00 Plt Count 269 Th/cmm (150-400) 07/05/17 17:00 MPV 7.0 fl 07/05/17 17:00 Neutrophils % 74.5 % (40.0-80.0) 07/05/17 17:00 Band Neutrophils % 5 % (0-10) 07/04/17 20:30 Lymphocytes % 15.1 % (20.0-50.0) L 07/05/17 17:00 Monocytes % 9.3 % (2.0-10.0) 07/05/17 17:00 Eosinophils % 0.9 % (0.0-5.0) 07/05/17 17:00 Basophils % 0.2 % (0.0-2.0) 07/05/17 17:00 Neutrophils (Manual) 75 % (40-80) 07/04/17 20:30 Lymphocytes 15 % (20-50) L 07/04/17 20:30 Monocytes 4 % (2-10) 07/04/17 20:30 Eosinophils 1 % (0-5) 07/04/17 20:30 Hypochromia 2+ 07/04/17 20:30 Platelet Estimate ADEQUATE (NORMAL) 07/04/17 20:30 Polychromasia 1+ 07/04/17 20:30 Anisocytosis 1+ 07/04/17 16:21 RBC Morph Micro Appear ABNORMAL (NORMAL) 07/04/17 16:21 PT 10.0 SECONDS (9.5-11.5) 07/05/17 10:15 INR 0.96 (0.5-1.4) 07/05/17 10:15 PTT (Actin FS) 26.6 SECONDS (26.0-38.0) 07/05/17 10:15 Sodium 134 mEq/L (136-145) L 07/05/17 10:15 Potassium 3.1 mEq/L (3.5-5.1) L 07/05/17 10:15 Chloride 108 mEq/L (98-107) H 07/05/17 10:15 Carbon Dioxide 19.3 mEq/L (21.0-31.0) L 07/05/17 10:15 Anion Gap 9.8 (7.0-16.0) 07/05/17 10:15 BUN 31 mg/dL (7-25) H 07/05/17 10:15 Creatinine 2.8 mg/dL (0.6-1.2) H 07/05/17 10:15 Est GFR ( Amer) 22.0 ml/min (>90) 07/05/17 10:15 Est GFR (Non-Af Amer) 18.2 ml/min 07/05/17 10:15 BUN/Creatinine Ratio 11.1 07/05/17 10:15 Glucose 188 mg/dL (70-105) H 07/05/17 10:15 POC Glucose 150 MG/DL (70 - 105) H 07/05/17 21:50 Hemoglobin A1c % 6.9 % (4.0-6.0) H 07/05/17 10:15 Calcium 8.6 mg/dL (8.6-10.3) 07/05/17 10:15 Total Bilirubin 1.3 mg/dL (0.3-1.0) H 07/05/17 10:15 AST 12 U/L (13-39) L 07/05/17 10:15 ALT 6 U/L (7-52) L 07/05/17 10:15 Alkaline Phosphatase 137 U/L (34-104) H 07/05/17 10:15 Troponin I < 0.01 ng/mL (0.01-0.05) L 07/04/17 16:21 Total Protein 6.0 gm/dL (6.0-8.3) 07/05/17 10:15 Albumin 3.4 gm/dL (3.7-5.3) L 07/05/17 10:15 Globulin 2.6 gm/dL 07/05/17 10:15 Albumin/Globulin Ratio 1.3 (1.0-1.8) 07/05/17 10:15 Triglycerides 102 mg/dL (<150) 07/04/17 16:21 Cholesterol 159 mg/dL (<200) 07/04/17 16:21 LDL Cholesterol Direct 94 mg/dL (75-193) 07/04/17 16:21 HDL Cholesterol 51 mg/dL (23-92) 07/04/17 16:21 TSH 1.98 uIU/ml (0.34-5.60) 07/04/17 16:21 Urine Source CLEAN C 07/05/17 06:00 Urine Color YELLOW 07/05/17 06:00 Urine Clarity HAZY (CLEAR) 07/05/17 06:00 Urine pH 6.5 (4.6 - 8.0) 07/05/17 06:00 Ur Specific [place] 1.015 (1.005-1.030) 07/05/17 06:00 Urine Protein 100 mg/dL (NEGATIVE) H 07/05/17 06:00 Urine Glucose (UA) NEGATIVE mg/dL (NEGATIVE) 07/05/17 06:00 Urine Ketones NEGATIVE mg/dL (NEGATIVE) 07/05/17 06:00 Urine Blood SMALL (NEGATIVE) H 07/05/17 06:00 Urine Nitrate POSITIVE (NEGATIVE) H 07/05/17 06:00 Urine Bilirubin NEGATIVE (NEGATIVE) 07/05/17 06:00 Urine Ictotest NEGATIVE (NEGATIVE) 07/05/17 06:00 Urine Urobilinogen 0.2 E.U./dL (0.2 - 1.0) 07/05/17 06:00 Ur Leukocyte Esterase LARGE (NEGATIVE) H 07/05/17 06:00 Urine RBC 5-10 /hpf (0-5) H 07/05/17 06:00 Urine WBC 50-100 /hpf (0-5) H 07/05/17 06:00 Ur Epithelial Cells FEW /lpf (FEW) 07/05/17 06:00 Urine Bacteria MANY /hpf (NONE SEEN) 07/05/17 06:00 RPR NONREACTIVE (NONREACTIVE) 07/04/17 16:21 Blood Type A POSITIVE 07/04/17 17:10 Antibody Screen NEGATIVE 07/04/17 17:10 Crossmatch See Detail 07/04/17 17:10 - Physical Exam Vitals and I&O: Vital Signs Temp 97.9 F 07/06/17 04:00 Pulse 74 07/06/17 04:00 Resp 18 07/06/17 04:00 BP 107/73 07/06/17 04:00 Pulse Ox 100 07/06/17 04:00 Intake & Output 07/05/17 07/06/17 07/06/17 18:59 06:59 18:59 Intake Total 1500 305 Balance 1500 305 Weight (lbs) 70.08 kg 70.307 kg Intake: Intake, IV Amount 1000 105 Piperacillin Sodium/ 100 Tazobact 3.375 gm In Sodium Chloride 0.9% 50 ml @ 100 mls/hr IV Q8HR [facility] Rx#:[id number] Sodium Chloride 0.9% 1, 1000 5 000 ml @ 100 mls/hr IV . Q10H [facility] Rx#:[id number] Oral 500 200 Other: # Voids 3 2 # Bowel Movements 0 Active Medications: Current Medications Acetaminophen (Tylenol) 650 mg PO Q4H PRN PRN Reason: Pain (Moderate) Stop: 09/02/17 20:33 Docusate Sodium (Colace) 100 mg PO BID [facility] Stop: 09/03/17 08:59 Last Admin: 07/05/17 17:45 Dose: Not Given Ferrous Sulfate (Iron) 325 mg PO DAILY [facility] Stop: 09/03/17 08:59 Last Admin: 07/05/17 10:18 Dose: Not Given Folic Acid (Folate) 1 mg PO DAILY [facility] Stop: 09/03/17 08:59 Last Admin: 07/05/17 10:18 Dose: Not Given Sodium Chloride (Nacl 0.9%) 1,000 mls @ 100 mls/hr IV .Q10H [facility] Stop: 09/02/17 20:30 Last Infusion: 07/06/17 06:44 Dose: 100 mls/hr Piperacillin Sod/Tazobactam (Sod 3.375 gm/ Sodium Chloride) 50 mls @ 100 mls/ hr IV Q8HR [facility] Stop: 09/03/17 20:59 Last Infusion: 07/06/17 06:23 Dose: Infused Insulin Detemir (Levemir Insulin) 10 units SUBQ Q12HR [facility] PRN Reason: Protocol Stop: 09/02/17 20:59 Last Admin: 07/05/17 22:57 Dose: Not Given Levothyroxine Sodium (Synthroid) 0.075 mg PO QDAC [facility] Stop: 09/03/17 07:29 Last Admin: 07/06/17 06:55 Dose: 0.075 mg Lorazepam (Ativan) 1 mg IVP Q4HR PRN; Protocol PRN Reason: Agitation Stop: 09/02/17 22:33 Last Admin: 07/05/17 22:14 Dose: 1 mg Magnesium Hydroxide (Milk Of Magnesia) 30 ml PO DAILY PRN PRN Reason: Constipation Stop: 09/02/17 20:33 Miscellaneous (Vte Chemical Prophylaxis Screen/ Admission) 1 ea [facility] PRN PRN PRN Reason: PROTOCOL Stop: 09/03/17 15:03 Pantoprazole Sodium (Protonix) 40 mg PO DAILY [facility] Stop: 09/03/17 08:59 Last Admin: 07/05/17 10:19 Dose: Not Given Quetiapine Fumarate (Seroquel) 50 mg PO BID [facility] PRN Reason: Protocol Stop: 09/03/17 08:59 Last Admin: 07/05/17 17:45 Dose: Not Given Sevelamer Carbonate (Renvela) 800 mg PO TIDWM [facility] Stop: 09/02/17 20:59 Last Admin: 07/05/17 17:45 Dose: Not Given General: No acute distress HEENT: Atraumatic Cardiovascular: Regular rate, Normal S1, Normal S2 Assessment/Plan - Problem List Patient Problems: All Active Problems UNCOOPERATIVE WITH CARE AND AGGRESSIVE (Acute) ANEMIA (Acute) CHRONIC RENAL INSUFFICIENCY (Acute) PARANOID SCHIZOPHRENIA (Acute) TYPE II DM (Acute) - Plan Plan: as per psych will monitor closely labs monitor vitals/diet Nutritional Asmnt/Malnutr-PDOC - Dietary Evaluation Malnutrition Findings (Please click <Entered> for more info): Nutritional Asmnt/Malnutrition Start: 07/05/17 16: 56 Text: Status: Complete Freq: Document 07/05/17 16:56 GSUN (Rec: 07/05/17 17:05 [email or web address] [email or web address]) Nutritional Asmnt/Malnutrition Patient General Information Nutritional Screening Consult Diagnosis Severe anemia, r/o GI bleeding , chronic renal insufficiency, DM Pertinent Medical Hx/Surgical Hx HTN, hyperlipidemia, thyroid disorder, GERD, dementia, psychosis, apranoid schizophrenia Subjective Information 61 year old female from SNF. RD consult for elevated BG. Pt was verbally and physically agressive with restriants on during visit, unable to interview. Limited phsical assessment, observed large abdomen, lose skin to thighs, no wastings noted. Spoke to [employer]ITTING MACHINE OPERATOR HELPER sitter at [facility], SLITTING MACHINE OPERATOR HELPER stated pt with good apeptite, ate 100%, edentulous, no difficulties. Current Diet Order/ Nutrition Support [facility] soft ground, [facility] Pertinent Medications Colace, Iron, Folate, Levemir, MOM, Protonix, Seroquel Pertinent Labs Potassium 3.1L, BUN 31H, creatinine 2.8H, glucose 188H, A1c 6.9H Nutritional Hx/Data Height 1.52 m Height (Calculated Centimeters) 152.4 Current Weight (lbs) 70.08 kg Weight (Calculated Kilograms) 70.1 Weight (Calculated Grams) 93299.0 [place] Body Weight 100 Weight Status Overweight GI Symptoms Usual diet at home [place] [facility]: [facility] Skin Integrity/Comment: Tristan 15. Skin intact. Current %PO Good (75-100%) Estimated Nutritional Goals BEE in Kcals: Adj wt of IBW Calories/Kcals/Kg AdjBW 113.6lb/51.6kg Kcals Calculated 1290-1548kcal (25-30kcal/kg) Protein: Adj wt of IBW Protein Calculated 41-52g (0.8-1g/kg, monitor renal labs) Fluid: ml 1290-1548ml (1ml/kcal) Nutritional Problem 2. Problem Problem Impaired nutrient utilization related to Etiology chronic renal insufficiency aeb Signs/Symptoms: BUN 31H, creatinine 2.8H 1. Problem Problem Altered nutrition related laboratory values related to Etiology DM aeb Signs/Symptoms: A1c 6.9H, glucose 188H Intervention/Recommendation Comments 1. Recommend continue with current diet order with low sodium restriction to aid in renal function. Expected Outcomes/Goals Expected Outcomes/Goals 1. PO intake to meet at least 75% of estimated nutritional needs.
--- NOTE | 2017-07-06 11:03 | GI Progress Note ---
Subjective - Review of Systems Service Date: 07/06/17 Subjective: Pt still reporting that MD has mistaken her for her mother, does not acknowledge current clinical situation. Combatitive with staff Objective - Results Result Diagrams: 07/05/17 17:00 07/05/17 10:15 Recent Labs: Laboratory Last Values WBC 4.0 Th/cmm (4.8-10.8) L 07/05/17 17:00 RBC 2.74 Mil/cmm (3.80-5.10) L 07/05/17 17:00 Hgb 8.4 gm/dL (11.7-15.5) L 07/05/17 17:00 Hct 24.1 % (35.0-45.0) L 07/05/17 17:00 MCV 87.9 fl (81-100) 07/05/17 17:00 MCH 30.5 pg (27.0-31.0) 07/05/17 17:00 MCHC Differential 34.7 pg (28.0-36.0) 07/05/17 17:00 RDW 13.4 % (11.5-20.0) 07/05/17 17:00 Plt Count 269 Th/cmm (150-400) 07/05/17 17:00 MPV 7.0 fl 07/05/17 17:00 Neutrophils % 74.5 % (40.0-80.0) 07/05/17 17:00 Band Neutrophils % 5 % (0-10) 07/04/17 20:30 Lymphocytes % 15.1 % (20.0-50.0) L 07/05/17 17:00 Monocytes % 9.3 % (2.0-10.0) 07/05/17 17:00 Eosinophils % 0.9 % (0.0-5.0) 07/05/17 17:00 Basophils % 0.2 % (0.0-2.0) 07/05/17 17:00 Neutrophils (Manual) 75 % (40-80) 07/04/17 20:30 Lymphocytes 15 % (20-50) L 07/04/17 20:30 Monocytes 4 % (2-10) 07/04/17 20:30 Eosinophils 1 % (0-5) 07/04/17 20:30 Hypochromia 2+ 07/04/17 20:30 Platelet Estimate ADEQUATE (NORMAL) 07/04/17 20:30 Polychromasia 1+ 07/04/17 20:30 Anisocytosis 1+ 07/04/17 16:21 RBC Morph Micro Appear ABNORMAL (NORMAL) 07/04/17 16:21 PT 10.0 SECONDS (9.5-11.5) 07/05/17 10:15 INR 0.96 (0.5-1.4) 07/05/17 10:15 PTT (Actin FS) 26.6 SECONDS (26.0-38.0) 07/05/17 10:15 Sodium 134 mEq/L (136-145) L 07/05/17 10:15 Potassium 3.1 mEq/L (3.5-5.1) L 07/05/17 10:15 Chloride 108 mEq/L (98-107) H 07/05/17 10:15 Carbon Dioxide 19.3 mEq/L (21.0-31.0) L 07/05/17 10:15 Anion Gap 9.8 (7.0-16.0) 07/05/17 10:15 BUN 31 mg/dL (7-25) H 07/05/17 10:15 Creatinine 2.8 mg/dL (0.6-1.2) H 07/05/17 10:15 Est GFR ( Amer) 22.0 ml/min (>90) 07/05/17 10:15 Est GFR (Non-Af Amer) 18.2 ml/min 07/05/17 10:15 BUN/Creatinine Ratio 11.1 07/05/17 10:15 Glucose 188 mg/dL (70-105) H 07/05/17 10:15 POC Glucose 150 MG/DL (70 - 105) H 07/05/17 21:50 Hemoglobin A1c % 6.9 % (4.0-6.0) H 07/05/17 10:15 Calcium 8.6 mg/dL (8.6-10.3) 07/05/17 10:15 Total Bilirubin 1.3 mg/dL (0.3-1.0) H 07/05/17 10:15 AST 12 U/L (13-39) L 07/05/17 10:15 ALT 6 U/L (7-52) L 07/05/17 10:15 Alkaline Phosphatase 137 U/L (34-104) H 07/05/17 10:15 Troponin I < 0.01 ng/mL (0.01-0.05) L 07/04/17 16:21 Total Protein 6.0 gm/dL (6.0-8.3) 07/05/17 10:15 Albumin 3.4 gm/dL (3.7-5.3) L 07/05/17 10:15 Globulin 2.6 gm/dL 07/05/17 10:15 Albumin/Globulin Ratio 1.3 (1.0-1.8) 07/05/17 10:15 Triglycerides 102 mg/dL (<150) 07/04/17 16:21 Cholesterol 159 mg/dL (<200) 07/04/17 16:21 LDL Cholesterol Direct 94 mg/dL (75-193) 07/04/17 16:21 HDL Cholesterol 51 mg/dL (23-92) 07/04/17 16:21 TSH 1.98 uIU/ml (0.34-5.60) 07/04/17 16:21 Urine Source CLEAN C 07/05/17 06:00 Urine Color YELLOW 07/05/17 06:00 Urine Clarity HAZY (CLEAR) 07/05/17 06:00 Urine pH 6.5 (4.6 - 8.0) 07/05/17 06:00 Ur Specific [place] 1.015 (1.005-1.030) 07/05/17 06:00 Urine Protein 100 mg/dL (NEGATIVE) H 07/05/17 06:00 Urine Glucose (UA) NEGATIVE mg/dL (NEGATIVE) 07/05/17 06:00 Urine Ketones NEGATIVE mg/dL (NEGATIVE) 07/05/17 06:00 Urine Blood SMALL (NEGATIVE) H 07/05/17 06:00 Urine Nitrate POSITIVE (NEGATIVE) H 07/05/17 06:00 Urine Bilirubin NEGATIVE (NEGATIVE) 07/05/17 06:00 Urine Ictotest NEGATIVE (NEGATIVE) 07/05/17 06:00 Urine Urobilinogen 0.2 E.U./dL (0.2 - 1.0) 07/05/17 06:00 Ur Leukocyte Esterase LARGE (NEGATIVE) H 07/05/17 06:00 Urine RBC 5-10 /hpf (0-5) H 07/05/17 06:00 Urine WBC 50-100 /hpf (0-5) H 07/05/17 06:00 Ur Epithelial Cells FEW /lpf (FEW) 07/05/17 06:00 Urine Bacteria MANY /hpf (NONE SEEN) 07/05/17 06:00 RPR NONREACTIVE (NONREACTIVE) 07/04/17 16:21 Blood Type A POSITIVE 07/04/17 17:10 Antibody Screen NEGATIVE 07/04/17 17:10 Crossmatch See Detail 07/04/17 17:10 - Physical Exam Vitals and I&O: Vital Signs Temp 97.9 F 07/06/17 04:00 Pulse 74 07/06/17 04:00 Resp 18 07/06/17 04:00 BP 107/73 07/06/17 04:00 Pulse Ox 100 07/06/17 04:00 Intake & Output 07/05/17 07/06/17 07/06/17 18:59 06:59 18:59 Intake Total 1500 305 Balance 1500 305 Weight (lbs) 70.08 kg 70.307 kg Intake: Intake, IV Amount 1000 105 Piperacillin Sodium/ 100 Tazobact 3.375 gm In Sodium Chloride 0.9% 50 ml @ 100 mls/hr IV Q8HR [facility] Rx#:[id number] Sodium Chloride 0.9% 1, 1000 5 000 ml @ 100 mls/hr IV . Q10H [facility] Rx#:[id number] Oral 500 200 Other: # Voids 3 2 # Bowel Movements 0 Active Medications: Current Medications Acetaminophen (Tylenol) 650 mg PO Q4H PRN PRN Reason: Pain (Moderate) Stop: 09/02/17 20:33 Docusate Sodium (Colace) 100 mg PO BID [facility] Stop: 09/03/17 08:59 Last Admin: 07/05/17 17:45 Dose: Not Given Ferrous Sulfate (Iron) 325 mg PO DAILY [facility] Stop: 09/03/17 08:59 Last Admin: 07/05/17 10:18 Dose: Not Given Folic Acid (Folate) 1 mg PO DAILY [facility] Stop: 09/03/17 08:59 Last Admin: 07/05/17 10:18 Dose: Not Given Sodium Chloride (Nacl 0.9%) 1,000 mls @ 100 mls/hr IV .Q10H [facility] Stop: 09/02/17 20:30 Last Infusion: 07/06/17 06:44 Dose: 100 mls/hr Piperacillin Sod/Tazobactam (Sod 3.375 gm/ Sodium Chloride) 50 mls @ 100 mls/ hr IV Q8HR [facility] Stop: 09/03/17 20:59 Last Infusion: 07/06/17 06:23 Dose: Infused Insulin Detemir (Levemir Insulin) 10 units SUBQ Q12HR [facility] PRN Reason: Protocol Stop: 09/02/17 20:59 Last Admin: 07/05/17 22:57 Dose: Not Given Levothyroxine Sodium (Synthroid) 0.075 mg PO QDAC [facility] Stop: 09/03/17 07:29 Last Admin: 07/06/17 06:55 Dose: 0.075 mg Lorazepam (Ativan) 1 mg IVP Q4HR PRN; Protocol PRN Reason: Agitation Stop: 09/02/17 22:33 Last Admin: 07/05/17 22:14 Dose: 1 mg Magnesium Hydroxide (Milk Of Magnesia) 30 ml PO DAILY PRN PRN Reason: Constipation Stop: 09/02/17 20:33 Miscellaneous (Vte Chemical Prophylaxis Screen/ Admission) 1 ea [facility] PRN PRN PRN Reason: PROTOCOL Stop: 09/03/17 15:03 Pantoprazole Sodium (Protonix) 40 mg PO DAILY [facility] Stop: 09/03/17 08:59 Last Admin: 07/05/17 10:19 Dose: Not Given Quetiapine Fumarate (Seroquel) 50 mg PO BID [facility] PRN Reason: Protocol Stop: 09/03/17 08:59 Last Admin: 07/05/17 17:45 Dose: Not Given Sevelamer Carbonate (Renvela) 800 mg PO TIDWM [facility] Stop: 09/02/17 20:59 Last Admin: 07/05/17 17:45 Dose: Not Given General: No acute distress HEENT: Atraumatic Cardiovascular: Regular rate, Normal S1, Normal S2 Assessment/Plan - Problem List Patient Problems: All Active Problems UNCOOPERATIVE WITH CARE AND AGGRESSIVE (Acute) ANEMIA (Acute) CHRONIC RENAL INSUFFICIENCY (Acute) PARANOID SCHIZOPHRENIA (Acute) TYPE II DM (Acute) - Assessment Assessment: # Fe deficiency anemia # Bipolar disorder with psychosis Pt's presenting hgb of 5.6 is concerning for a GI source of blood loss, including malignancy. She warrants EGD and colonoscopy, but will need to become more cooperative with her treatment prior to this being done. If she shows active bleeding or becomes transfusion dependent, we can perform these exams on a more urgent basis. FOr now, will track her progress towards a more lucid psychiatric state before planning endoscopic examination. Plan: - EGD and colonoscopy after patient becomes more cooperative. Can do this more urgently if signs of active bleeding or recurrent anemia (consent would be from her conservator) - serial CBCs, transfuse as needed for hgb > 8 - continue psychiatric eval and treatment
[2017-07-06] MEDS: Sevelamer Carnonate 800 mg Tab PO SCH ×3 (11:54→18:19)
[2017-07-06] MEDS: Ferrous Sulfate 325 MG TAB PO SCH (11:54)
[2017-07-06] MEDS: Pantoprazole 40 mg EC Tab PO SCH (11:55)
[2017-07-06] MEDS: Insulin Detemir 100 units/mL 10mL Vial SUBQ SCH ×2 (11:55→21:40)
[2017-07-06] MEDS: Multivitamin w/ Minerals Tab PO SCH (11:55)
[2017-07-06] MEDS ORDERED: Probiotic Screen MC PRN (15:08)
[2017-07-06] MEDS: Lactobacillus Rhamnosus 10 Billion CFU Capsule PO SCH (18:19)
--- NOTE | 2017-07-07 01:20 | Progress Notes ---
DATE: 07/06/2017 Case was discussed with staff of the patient, reviewed records. The patient today is a bit calmer. The staff will be trying to give her medications as they said she did not take her medication yesterday. She is anemic. She is still unpredictable, impulsive and needs redirection. [facility], [facility]. Thank you very much for allowing me to participate in the care of this most interesting lady. JOB# [id number]
[2017-07-07] MEDS: Levothyroxine 0.075 Mg Tab PO SCH (07:40)
[2017-07-07] MEDS: Lactobacillus Rhamnosus 10 Billion CFU Capsule PO SCH (08:26)
[2017-07-07] MEDS: Pantoprazole 40 mg EC Tab PO SCH (08:26)
[2017-07-07] MEDS: Ferrous Sulfate 325 MG TAB PO SCH (08:26)
[2017-07-07] MEDS: Sevelamer Carnonate 800 mg Tab PO SCH ×3 (08:27→17:01)
[2017-07-07] MEDS: Multivitamin w/ Minerals Tab PO SCH (08:29)
--- NOTE | 2017-07-07 08:44 | General Progress Note ---
Subjective - Review of Systems Events since last encounter: no distress awake alert Objective - Results Result Diagrams: 07/05/17 17:00 07/05/17 10:15 Recent Labs: Laboratory Last Values WBC 4.0 Th/cmm (4.8-10.8) L 07/05/17 17:00 RBC 2.74 Mil/cmm (3.80-5.10) L 07/05/17 17:00 Hgb 8.4 gm/dL (11.7-15.5) L 07/05/17 17:00 Hct 24.1 % (35.0-45.0) L 07/05/17 17:00 MCV 87.9 fl (81-100) 07/05/17 17:00 MCH 30.5 pg (27.0-31.0) 07/05/17 17:00 MCHC Differential 34.7 pg (28.0-36.0) 07/05/17 17:00 RDW 13.4 % (11.5-20.0) 07/05/17 17:00 Plt Count 269 Th/cmm (150-400) 07/05/17 17:00 MPV 7.0 fl 07/05/17 17:00 Neutrophils % 74.5 % (40.0-80.0) 07/05/17 17:00 Band Neutrophils % 5 % (0-10) 07/04/17 20:30 Lymphocytes % 15.1 % (20.0-50.0) L 07/05/17 17:00 Monocytes % 9.3 % (2.0-10.0) 07/05/17 17:00 Eosinophils % 0.9 % (0.0-5.0) 07/05/17 17:00 Basophils % 0.2 % (0.0-2.0) 07/05/17 17:00 Neutrophils (Manual) 75 % (40-80) 07/04/17 20:30 Lymphocytes 15 % (20-50) L 07/04/17 20:30 Monocytes 4 % (2-10) 07/04/17 20:30 Eosinophils 1 % (0-5) 07/04/17 20:30 Hypochromia 2+ 07/04/17 20:30 Platelet Estimate ADEQUATE (NORMAL) 07/04/17 20:30 Polychromasia 1+ 07/04/17 20:30 Anisocytosis 1+ 07/04/17 16:21 RBC Morph Micro Appear ABNORMAL (NORMAL) 07/04/17 16:21 PT 10.0 SECONDS (9.5-11.5) 07/05/17 10:15 INR 0.96 (0.5-1.4) 07/05/17 10:15 PTT (Actin FS) 26.6 SECONDS (26.0-38.0) 07/05/17 10:15 Sodium 134 mEq/L (136-145) L 07/05/17 10:15 Potassium 3.1 mEq/L (3.5-5.1) L 07/05/17 10:15 Chloride 108 mEq/L (98-107) H 07/05/17 10:15 Carbon Dioxide 19.3 mEq/L (21.0-31.0) L 07/05/17 10:15 Anion Gap 9.8 (7.0-16.0) 07/05/17 10:15 BUN 31 mg/dL (7-25) H 07/05/17 10:15 Creatinine 2.8 mg/dL (0.6-1.2) H 07/05/17 10:15 Est GFR ( Amer) 22.0 ml/min (>90) 07/05/17 10:15 Est GFR (Non-Af Amer) 18.2 ml/min 07/05/17 10:15 BUN/Creatinine Ratio 11.1 07/05/17 10:15 Glucose 188 mg/dL (70-105) H 07/05/17 10:15 POC Glucose 150 MG/DL (70 - 105) H 07/05/17 21:50 Hemoglobin A1c % 6.9 % (4.0-6.0) H 07/05/17 10:15 Calcium 8.6 mg/dL (8.6-10.3) 07/05/17 10:15 Total Bilirubin 1.3 mg/dL (0.3-1.0) H 07/05/17 10:15 AST 12 U/L (13-39) L 07/05/17 10:15 ALT 6 U/L (7-52) L 07/05/17 10:15 Alkaline Phosphatase 137 U/L (34-104) H 07/05/17 10:15 Troponin I < 0.01 ng/mL (0.01-0.05) L 07/04/17 16:21 Total Protein 6.0 gm/dL (6.0-8.3) 07/05/17 10:15 Albumin 3.4 gm/dL (3.7-5.3) L 07/05/17 10:15 Globulin 2.6 gm/dL 07/05/17 10:15 Albumin/Globulin Ratio 1.3 (1.0-1.8) 07/05/17 10:15 Triglycerides 102 mg/dL (<150) 07/04/17 16:21 Cholesterol 159 mg/dL (<200) 07/04/17 16:21 LDL Cholesterol Direct 94 mg/dL (75-193) 07/04/17 16:21 HDL Cholesterol 51 mg/dL (23-92) 07/04/17 16:21 TSH 1.98 uIU/ml (0.34-5.60) 07/04/17 16:21 Urine Source CLEAN C 07/05/17 06:00 Urine Color YELLOW 07/05/17 06:00 Urine Clarity HAZY (CLEAR) 07/05/17 06:00 Urine pH 6.5 (4.6 - 8.0) 07/05/17 06:00 Ur Specific [place] 1.015 (1.005-1.030) 07/05/17 06:00 Urine Protein 100 mg/dL (NEGATIVE) H 07/05/17 06:00 Urine Glucose (UA) NEGATIVE mg/dL (NEGATIVE) 07/05/17 06:00 Urine Ketones NEGATIVE mg/dL (NEGATIVE) 07/05/17 06:00 Urine Blood SMALL (NEGATIVE) H 07/05/17 06:00 Urine Nitrate POSITIVE (NEGATIVE) H 07/05/17 06:00 Urine Bilirubin NEGATIVE (NEGATIVE) 07/05/17 06:00 Urine Ictotest NEGATIVE (NEGATIVE) 07/05/17 06:00 Urine Urobilinogen 0.2 E.U./dL (0.2 - 1.0) 07/05/17 06:00 Ur Leukocyte Esterase LARGE (NEGATIVE) H 07/05/17 06:00 Urine RBC 5-10 /hpf (0-5) H 07/05/17 06:00 Urine WBC 50-100 /hpf (0-5) H 07/05/17 06:00 Ur Epithelial Cells FEW /lpf (FEW) 07/05/17 06:00 Urine Bacteria MANY /hpf (NONE SEEN) 07/05/17 06:00 RPR NONREACTIVE (NONREACTIVE) 07/04/17 16:21 Blood Type A POSITIVE 07/04/17 17:10 Antibody Screen NEGATIVE 07/04/17 17:10 Crossmatch See Detail 07/04/17 17:10 - Physical Exam Vitals and I&O: Vital Signs Temp 97.8 F 07/07/17 04:00 Pulse 76 07/07/17 08:19 Resp 18 07/07/17 08:19 BP 134/60 07/07/17 04:00 Pulse Ox 98 07/07/17 08:19 Intake & Output 07/06/17 07/07/17 07/07/17 18:59 06:59 18:59 Intake Total 1994 350 Balance 1994 350 Weight (lbs) 70.307 kg 70.307 kg Intake: Intake, IV Amount 1045 50 Piperacillin Sodium/ 50 50 Tazobact 3.375 gm In Sodium Chloride 0.9% 50 ml @ 100 mls/hr IV Q8HR [facility] Rx#:[id number] Sodium Chloride 0.9% 1, 995 000 ml @ 100 mls/hr IV . Q10H [facility] Rx#:[id number] Oral 950 300 Other: # Voids 4 # Bowel Movements 1 0 Active Medications: Current Medications Acetaminophen (Tylenol) 650 mg PO Q4H PRN PRN Reason: Pain (Moderate) Stop: 09/02/17 20:33 Last Admin: 07/06/17 22:03 Dose: 650 mg Docusate Sodium (Colace) 100 mg PO BID [facility] Stop: 09/03/17 08:59 Last Admin: 07/07/17 08:27 Dose: 100 mg Ferrous Sulfate (Iron) 325 mg PO DAILY [facility] Stop: 09/03/17 08:59 Last Admin: 07/07/17 08:26 Dose: 325 mg Folic Acid (Folate) 1 mg PO DAILY [facility] Stop: 09/03/17 08:59 Last Admin: 07/07/17 08:26 Dose: 1 mg Sodium Chloride (Nacl 0.9%) 1,000 mls @ 100 mls/hr IV .Q10H [facility] Stop: 09/02/17 20:30 Last Admin: 07/06/17 21:04 Dose: 100 mls/hr Piperacillin Sod/Tazobactam (Sod 3.375 gm/ Sodium Chloride) 50 mls @ 100 mls/ hr IV Q8HR [facility] Stop: 09/03/17 20:59 Last Admin: 07/07/17 05:40 Dose: 100 mls/hr Insulin Detemir (Levemir Insulin) 10 units SUBQ Q12HR [facility] PRN Reason: Protocol Stop: 09/02/17 20:59 Last Admin: 07/06/17 21:40 Dose: Not Given Lactobacillus Rhamnosus (Culturelle) 1 each PO DAILY [facility] Stop: 09/04/17 15:59 Last Admin: 07/07/17 08:26 Dose: 1 each Levothyroxine Sodium (Synthroid) 0.075 mg PO QDAC [facility] Stop: 09/03/17 07:29 Last Admin: 07/07/17 07:40 Dose: 0.075 mg Lorazepam (Ativan) 1 mg IVP Q4HR PRN; Protocol PRN Reason: Agitation Stop: 09/02/17 22:33 Last Admin: 07/07/17 08:27 Dose: 1 mg Magnesium Hydroxide (Milk Of Magnesia) 30 ml PO DAILY PRN PRN Reason: Constipation Stop: 09/02/17 20:33 Miscellaneous (Vte Chemical Prophylaxis Screen/ Admission) 1 ea PRN PRN PRN Reason: PROTOCOL Stop: 09/03/17 15:03 Miscellaneous (Probiotic Screen) 1 ea PRN PRN PRN Reason: PROTOCOL Stop: 09/04/17 15:07 Pantoprazole Sodium (Protonix) 40 mg PO DAILY [facility] Stop: 09/03/17 08:59 Last Admin: 07/07/17 08:26 Dose: 40 mg Quetiapine Fumarate (Seroquel) 50 mg PO BID [facility] PRN Reason: Protocol Stop: 09/03/17 08:59 Last Admin: 07/07/17 08:26 Dose: 50 mg Sevelamer Carbonate (Renvela) 800 mg PO TIDWM [facility] Stop: 09/02/17 20:59 Last Admin: 07/07/17 08:27 Dose: 800 mg General: No acute distress HEENT: Atraumatic Cardiovascular: Regular rate, Normal S1, Normal S2 Assessment/Plan - Problem List Patient Problems: All Active Problems UNCOOPERATIVE WITH CARE AND AGGRESSIVE (Acute) ANEMIA (Acute) CHRONIC RENAL INSUFFICIENCY (Acute) PARANOID SCHIZOPHRENIA (Acute) TYPE II DM (Acute) - Plan Plan: as per psych will monitor closely labs monitor vitals/diet Nutritional Asmnt/Malnutr-PDOC - Dietary Evaluation Malnutrition Findings (Please click <Entered> for more info): Nutritional Asmnt/Malnutrition Start: 07/05/17 16: 56 Text: Status: Complete Freq: Document 07/05/17 16:56 MICHELLESHRUTHI (Rec: 07/05/17 17:05 [email or web address]) Nutritional Asmnt/Malnutrition Patient General Information Nutritional Screening Consult Diagnosis Severe anemia, r/o GI bleeding , chronic renal insufficiency, DM Pertinent Medical Hx/Surgical Hx HTN, hyperlipidemia, thyroid disorder, GERD, dementia, psychosis, apranoid schizophrenia Subjective Information 61 year old female from SNF. RD consult for elevated BG. Pt was verbally and physically agressive with restriants on during visit, unable to interview. Limited phsical assessment, observed large abdomen, lose skin to thighs, no wastings noted. Spoke to IMMIGRATION COORDINATOR sitter at [facility], IMMIGRATION COORDINATOR stated pt with good apeptite, ate 100%, edentulous, no difficulties. Current Diet Order/ Nutrition Support [facility] soft ground, [facility] Pertinent Medications Colace, Iron, Folate, Levemir, MOM, Protonix, Seroquel Pertinent Labs Potassium 3.1L, BUN 31H, creatinine 2.8H, glucose 188H, A1c 6.9H Nutritional Hx/Data Height 1.52 m Height (Calculated Centimeters) 152.4 Current Weight (lbs) 70.08 kg Weight (Calculated Kilograms) 70.1 Weight (Calculated Grams) 20357.0 [place] Body Weight 100 Weight Status Overweight GI Symptoms Usual diet at home [place] [facility]: [facility] soft, [place], [facility] Skin Integrity/Comment: Tristan 15. Skin intact. Current %PO Good (75-100%) Estimated Nutritional Goals BEE in Kcals: Adj wt of IBW Calories/Kcals/Kg AdjBW 113.6lb/51.6kg Kcals Calculated 1290-1548kcal (25-30kcal/kg) Protein: Adj wt of IBW Protein Calculated 41-52g (0.8-1g/kg, monitor renal labs) Fluid: ml 1290-1548ml (1ml/kcal) Nutritional Problem 2. Problem Problem Impaired nutrient utilization related to Etiology chronic renal insufficiency aeb Signs/Symptoms: BUN 31H, creatinine 2.8H 1. Problem Problem Altered nutrition related laboratory values related to Etiology DM aeb Signs/Symptoms: A1c 6.9H, glucose 188H Intervention/Recommendation Comments 1. Recommend continue with current diet order with low sodium restriction to aid in renal function. Expected Outcomes/Goals Expected Outcomes/Goals 1. PO intake to meet at least 75% of estimated nutritional needs.
--- NOTE | 2017-07-07 10:43 | GI Progress Note ---
Subjective - Review of Systems Service Date: 07/07/17 Subjective: Sleeping now, reportedly very agitated and Combatitive with staff overnight Objective - Results Result Diagrams: 07/05/17 17:00 07/05/17 10:15 Recent Labs: Laboratory Last Values WBC 4.0 Th/cmm (4.8-10.8) L 07/05/17 17:00 RBC 2.74 Mil/cmm (3.80-5.10) L 07/05/17 17:00 Hgb 8.4 gm/dL (11.7-15.5) L 07/05/17 17:00 Hct 24.1 % (35.0-45.0) L 07/05/17 17:00 MCV 87.9 fl (81-100) 07/05/17 17:00 MCH 30.5 pg (27.0-31.0) 07/05/17 17:00 MCHC Differential 34.7 pg (28.0-36.0) 07/05/17 17:00 RDW 13.4 % (11.5-20.0) 07/05/17 17:00 Plt Count 269 Th/cmm (150-400) 07/05/17 17:00 MPV 7.0 fl 07/05/17 17:00 Neutrophils % 74.5 % (40.0-80.0) 07/05/17 17:00 Band Neutrophils % 5 % (0-10) 07/04/17 20:30 Lymphocytes % 15.1 % (20.0-50.0) L 07/05/17 17:00 Monocytes % 9.3 % (2.0-10.0) 07/05/17 17:00 Eosinophils % 0.9 % (0.0-5.0) 07/05/17 17:00 Basophils % 0.2 % (0.0-2.0) 07/05/17 17:00 Neutrophils (Manual) 75 % (40-80) 07/04/17 20:30 Lymphocytes 15 % (20-50) L 07/04/17 20:30 Monocytes 4 % (2-10) 07/04/17 20:30 Eosinophils 1 % (0-5) 07/04/17 20:30 Hypochromia 2+ 07/04/17 20:30 Platelet Estimate ADEQUATE (NORMAL) 07/04/17 20:30 Polychromasia 1+ 07/04/17 20:30 Anisocytosis 1+ 07/04/17 16:21 RBC Morph Micro Appear ABNORMAL (NORMAL) 07/04/17 16:21 PT 10.0 SECONDS (9.5-11.5) 07/05/17 10:15 INR 0.96 (0.5-1.4) 07/05/17 10:15 PTT (Actin FS) 26.6 SECONDS (26.0-38.0) 07/05/17 10:15 Sodium 134 mEq/L (136-145) L 07/05/17 10:15 Potassium 3.1 mEq/L (3.5-5.1) L 07/05/17 10:15 Chloride 108 mEq/L (98-107) H 07/05/17 10:15 Carbon Dioxide 19.3 mEq/L (21.0-31.0) L 07/05/17 10:15 Anion Gap 9.8 (7.0-16.0) 07/05/17 10:15 BUN 31 mg/dL (7-25) H 07/05/17 10:15 Creatinine 2.8 mg/dL (0.6-1.2) H 07/05/17 10:15 Est GFR ( Amer) 22.0 ml/min (>90) 07/05/17 10:15 Est GFR (Non-Af Amer) 18.2 ml/min 07/05/17 10:15 BUN/Creatinine Ratio 11.1 07/05/17 10:15 Glucose 188 mg/dL (70-105) H 07/05/17 10:15 POC Glucose 150 MG/DL (70 - 105) H 07/05/17 21:50 Hemoglobin A1c % 6.9 % (4.0-6.0) H 07/05/17 10:15 Calcium 8.6 mg/dL (8.6-10.3) 07/05/17 10:15 Total Bilirubin 1.3 mg/dL (0.3-1.0) H 07/05/17 10:15 AST 12 U/L (13-39) L 07/05/17 10:15 ALT 6 U/L (7-52) L 07/05/17 10:15 Alkaline Phosphatase 137 U/L (34-104) H 07/05/17 10:15 Troponin I < 0.01 ng/mL (0.01-0.05) L 07/04/17 16:21 Total Protein 6.0 gm/dL (6.0-8.3) 07/05/17 10:15 Albumin 3.4 gm/dL (3.7-5.3) L 07/05/17 10:15 Globulin 2.6 gm/dL 07/05/17 10:15 Albumin/Globulin Ratio 1.3 (1.0-1.8) 07/05/17 10:15 Triglycerides 102 mg/dL (<150) 07/04/17 16:21 Cholesterol 159 mg/dL (<200) 07/04/17 16:21 LDL Cholesterol Direct 94 mg/dL (75-193) 07/04/17 16:21 HDL Cholesterol 51 mg/dL (23-92) 07/04/17 16:21 TSH 1.98 uIU/ml (0.34-5.60) 07/04/17 16:21 Urine Source CLEAN C 07/05/17 06:00 Urine Color YELLOW 07/05/17 06:00 Urine Clarity HAZY (CLEAR) 07/05/17 06:00 Urine pH 6.5 (4.6 - 8.0) 07/05/17 06:00 Ur Specific [place] 1.015 (1.005-1.030) 07/05/17 06:00 Urine Protein 100 mg/dL (NEGATIVE) H 07/05/17 06:00 Urine Glucose (UA) NEGATIVE mg/dL (NEGATIVE) 07/05/17 06:00 Urine Ketones NEGATIVE mg/dL (NEGATIVE) 07/05/17 06:00 Urine Blood SMALL (NEGATIVE) H 07/05/17 06:00 Urine Nitrate POSITIVE (NEGATIVE) H 07/05/17 06:00 Urine Bilirubin NEGATIVE (NEGATIVE) 07/05/17 06:00 Urine Ictotest NEGATIVE (NEGATIVE) 07/05/17 06:00 Urine Urobilinogen 0.2 E.U./dL (0.2 - 1.0) 07/05/17 06:00 Ur Leukocyte Esterase LARGE (NEGATIVE) H 07/05/17 06:00 Urine RBC 5-10 /hpf (0-5) H 07/05/17 06:00 Urine WBC 50-100 /hpf (0-5) H 07/05/17 06:00 Ur Epithelial Cells FEW /lpf (FEW) 07/05/17 06:00 Urine Bacteria MANY /hpf (NONE SEEN) 07/05/17 06:00 RPR NONREACTIVE (NONREACTIVE) 07/04/17 16:21 Blood Type A POSITIVE 07/04/17 17:10 Antibody Screen NEGATIVE 07/04/17 17:10 Crossmatch See Detail 07/04/17 17:10 - Physical Exam Vitals and I&O: Vital Signs Temp 97.4 F 07/07/17 08:00 Pulse 76 07/07/17 08:19 Resp 18 07/07/17 08:19 BP 130/61 07/07/17 08:00 Pulse Ox 98 07/07/17 08:19 Intake & Output 07/06/17 07/07/17 07/07/17 18:59 06:59 18:59 Intake Total 1994 350 Balance 1994 350 Weight (lbs) 70.307 kg 70.307 kg 70.307 kg Intake: Intake, IV Amount 1045 50 Piperacillin Sodium/ 50 50 Tazobact 3.375 gm In Sodium Chloride 0.9% 50 ml @ 100 mls/hr IV Q8HR [facility] Rx#:[id number] Sodium Chloride 0.9% 1, 995 000 ml @ 100 mls/hr IV . Q10H [facility] Rx#:[id number] Oral 950 300 Other: # Voids 4 # Bowel Movements 1 0 Active Medications: Current Medications Acetaminophen (Tylenol) 650 mg PO Q4H PRN PRN Reason: Pain (Moderate) Stop: 09/02/17 20:33 Last Admin: 07/06/17 22:03 Dose: 650 mg Docusate Sodium (Colace) 100 mg PO BID [facility] Stop: 09/03/17 08:59 Last Admin: 07/07/17 08:27 Dose: 100 mg Ferrous Sulfate (Iron) 325 mg PO DAILY [facility] Stop: 09/03/17 08:59 Last Admin: 07/07/17 08:26 Dose: 325 mg Folic Acid (Folate) 1 mg PO DAILY [facility] Stop: 09/03/17 08:59 Last Admin: 07/07/17 08:26 Dose: 1 mg Sodium Chloride (Nacl 0.9%) 1,000 mls @ 100 mls/hr IV .Q10H [facility] Stop: 09/02/17 20:30 Last Admin: 07/06/17 21:04 Dose: 100 mls/hr Piperacillin Sod/Tazobactam (Sod 3.375 gm/ Sodium Chloride) 50 mls @ 100 mls/ hr IV Q8HR [facility] Stop: 09/03/17 20:59 Last Admin: 07/07/17 05:40 Dose: 100 mls/hr Insulin Detemir (Levemir Insulin) 10 units SUBQ Q12HR [facility] PRN Reason: Protocol Stop: 09/02/17 20:59 Last Admin: 07/06/17 21:40 Dose: Not Given Lactobacillus Rhamnosus (Culturelle) 1 each PO DAILY [facility] Stop: 09/04/17 15:59 Last Admin: 07/07/17 08:26 Dose: 1 each Levothyroxine Sodium (Synthroid) 0.075 mg PO QDAC [facility] Stop: 09/03/17 07:29 Last Admin: 07/07/17 07:40 Dose: 0.075 mg Lorazepam (Ativan) 1 mg IVP Q4HR PRN; Protocol PRN Reason: Agitation Stop: 09/02/17 22:33 Last Admin: 07/07/17 08:27 Dose: 1 mg Magnesium Hydroxide (Milk Of Magnesia) 30 ml PO DAILY PRN PRN Reason: Constipation Stop: 09/02/17 20:33 Miscellaneous (Vte Chemical Prophylaxis Screen/ Admission) 1 ea PRN PRN PRN Reason: PROTOCOL Stop: 09/03/17 15:03 Miscellaneous (Probiotic Screen) 1 ea PRN PRN PRN Reason: PROTOCOL Stop: 09/04/17 15:07 Pantoprazole Sodium (Protonix) 40 mg PO DAILY [facility] Stop: 09/03/17 08:59 Last Admin: 07/07/17 08:26 Dose: 40 mg Quetiapine Fumarate (Seroquel) 50 mg PO BID [facility] PRN Reason: Protocol Stop: 09/03/17 08:59 Last Admin: 07/07/17 08:26 Dose: 50 mg Sevelamer Carbonate (Renvela) 800 mg PO TIDWM [facility] Stop: 09/02/17 20:59 Last Admin: 07/07/17 08:27 Dose: 800 mg General: No acute distress HEENT: Atraumatic Cardiovascular: Regular rate, Normal S1, Normal S2 Assessment/Plan - Problem List Patient Problems: All Active Problems UNCOOPERATIVE WITH CARE AND AGGRESSIVE (Acute) ANEMIA (Acute) CHRONIC RENAL INSUFFICIENCY (Acute) PARANOID SCHIZOPHRENIA (Acute) TYPE II DM (Acute) - Assessment Assessment: # Fe deficiency anemia # Bipolar disorder with psychosis Pt's presenting hgb of 5.6 is concerning for a GI source of blood loss, including malignancy. She warrants EGD and colonoscopy, but will need to become more cooperative with her treatment prior to this being done. If she shows active bleeding or becomes transfusion dependent, we can perform these exams on a more urgent basis. FOr now, will track her progress towards a more lucid psychiatric state before planning endoscopic examination. Plan: - EGD and colonoscopy after patient becomes more cooperative. Can do this more urgently if signs of active bleeding or recurrent anemia (consent would be from her conservator) - serial CBCs, transfuse as needed for hgb > 8. Needs CBC today - continue psychiatric eval and treatment
[2017-07-07] MEDS: Insulin Detemir 100 units/mL 10mL Vial SUBQ SCH ×2 (10:51→20:33)
--- NOTE | 2017-07-07 11:10 | Consultation ---
Consult Note - Consult Note Service Date: 07/07/17 Referring Physician: Alfonso Meza Consult Note: PHYSICIAN Consultation Note: Date of Admission: 07/04/17 Purpose of Consultation: UTI. Chief Complaint: Patient NAHEED JEAN was admitted to location Medical/Surgical Unit I with SEVERE ANEMIA. History of Present Illness: Patient, 61 year female, was sent to er for evaluation for placement in geropsych unit. She was found to have severe anemia with Hb 5.6, so she was admitted to the med surg unit. She was found to have UTI So Zosyn was started and ID consult was called for antibiotic mangement. Past Medical History: HTN, Dyslipidemia, PUD/GERD, Thyroid disorder, Dementia, Other (CANCER OF THE MANDIBLE) Diagnoses ANEMIA, UNSPECIFIED (07/04/17) HYPERLIPIDEMIA, UNSPECIFIED (07/04/17) SCHIZOPHRENIA, UNSPECIFIED (07/04/17) UNSP PSYCHOSIS NOT DUE TO A SUBSTANCE OR KNOWN PHYSIOL COND (07/04/17) BIPOLAR DISORDER, UNSPECIFIED (07/04/17) ESSENTIAL (PRIMARY) HYPERTENSION (07/04/17) GASTRO-ESOPHAGEAL REFLUX DISEASE WITHOUT ESOPHAGITIS (07/04/17) Allergies Allergy/AdvReac Type Severity Reaction Status Date / Time No Known Allergies Allergy Verified 11/10/16 22:03 Vital Signs Temp 97.4 F 07/07/17 08:00 Pulse 76 07/07/17 08:19 Resp 18 07/07/17 08:19 BP 130/61 07/07/17 08:00 Pulse Ox 98 07/07/17 08:19 Intake & Output 07/06/17 07/07/17 07/07/17 18:59 06:59 18:59 Intake Total 1994 350 Balance 1994 350 Weight (lbs) 70.307 kg 70.307 kg 70.307 kg Intake: Intake, IV Amount 1045 50 Piperacillin Sodium/ 50 50 Tazobact 3.375 gm In Sodium Chloride 0.9% 50 ml @ 100 mls/hr IV Q8HR [facility] Rx#:[id number] Sodium Chloride 0.9% 1, 995 000 ml @ 100 mls/hr IV . Q10H [facility] Rx#:[id number] Oral 950 300 Other: # Voids 4 # Bowel Movements 1 0 Home Medication Medication Instructions Recorded Type Folic Acid [Folate*] 1 mg PO DAILY #0 tab 11/24/16 Rx Insulin Detemir [Levemir Insulin] 10 units SUBQ Q12H #0 vial 11/24/16 Rx Sevelamer Hydrochloride [Renagel] 800 mg PO Q8HR #0 tab 11/24/16 Rx Acetaminophen [Tylenol] 650 mg PO Q4H PRN 07/04/17 History Cranberry Fruit [Cranberry] 450 mg PO DAILY 07/04/17 History Docusate Sodium [Colace] 100 mg PO BID 07/04/17 History Ferrous Sulfate [Iron] 325 mg PO DAILY 07/04/17 History Insulin Aspart Sliding Scale See Protocol SUBQ ACHS 07/04/17 History [NovoLOG INSULIN SLIDING SCALE] Levothyroxine [Synthroid] 0.075 mg PO QDAC 07/04/17 History Magnesium Hydroxide [Milk of 30 ml PO DAILY PRN 07/04/17 History Magnesia] Melatonin 3 mg PO HS 07/04/17 History Multivitamin w/ Minerals 1 tab PO DAILY 07/04/17 History [Theragran M] Pantoprazole Sodium 40 mg PO DAILY 07/04/17 History QUEtiapine Fumarate [SEROquel] 50 mg PO BID 07/04/17 History Current Medications Generic Name Dose Route Start Last Admin Trade Name Freq PRN Reason Stop Dose Admin Acetaminophen 650 mg 07/04/17 20:34 07/06/17 22:03 Tylenol PO 09/02/17 20:33 650 mg Q4H PRN Administration Pain (Moderate) Docusate Sodium 100 mg 07/05/17 09:00 07/07/17 08:27 Colace PO 09/03/17 08:59 100 mg BID [facility] Administration Ferrous Sulfate 325 mg 07/05/17 09:00 07/07/17 08:26 Iron PO 09/03/17 08:59 325 mg DAILY [facility] Administration Folic Acid 1 mg 07/05/17 09:00 07/07/17 08:26 Folate PO 09/03/17 08:59 1 mg DAILY [facility] Administration Sodium Chloride 1,000 mls @ 100 mls/hr 07/04/17 20:31 07/06/17 21:04 Nacl 0.9% IV 09/02/17 20:30 100 mls/hr .Q10H [facility] Administration Piperacillin Sod/Tazobactam 50 mls @ 100 mls/hr 07/05/17 21:00 07/07/17 05:40 Sod 3.375 gm/ Sodium Chloride IV 09/03/17 20:59 100 mls/hr Q8HR [facility] Administration Insulin Detemir 10 units 07/04/17 21:00 07/07/17 10:51 Levemir Insulin SUBQ 09/02/17 20:59 Not Given Q12HR [facility] Protocol Lactobacillus Rhamnosus 1 each 07/06/17 16:00 07/07/17 08:26 Culturelle PO 09/04/17 15:59 1 each DAILY [facility] Administration Levothyroxine Sodium 0.075 mg 07/05/17 14:59 07/07/17 07:40 Synthroid PO 09/03/17 07:29 0.075 mg QDAC PABLO Administration Lorazepam 1 mg 07/04/17 22:34 07/07/17 08:27 Ativan IVP 09/02/17 22:33 1 mg Q4HR PRN Administration Agitation Protocol Magnesium Hydroxide 30 ml 07/04/17 20:34 Milk Of Magnesia PO 09/02/17 20:33 DAILY PRN Constipation Miscellaneous 1 07/05/17 15:04 Vte Chemical Prophylaxis Screen/ Admission 09/03/17 15:03 PRN PRN PROTOCOL Miscellaneous 1 07/06/17 15:08 Probiotic Screen 09/04/17 15:07 PRN PRN PROTOCOL Pantoprazole Sodium 40 mg 07/05/17 09:00 07/07/17 08:26 Protonix PO 09/03/17 08:59 40 mg DAILY PABLO Administration Quetiapine Fumarate 50 mg 07/05/17 09:00 07/07/17 08:26 Seroquel PO 09/03/17 08:59 50 mg BID PABLO Administration Protocol Sevelamer Carbonate 800 mg 07/05/17 12:00 07/07/17 08:27 Renvela PO 09/02/17 20:59 800 mg TIDWM PABLO Administration Review of Systems: A 12 point ROS was reviewed with the pertinent positive and negatives noted in the HPI. Social History Smoking Status Unknown if ever smoked Family Medical History Unknown Physical Exam: General: Comfortable, not in distress. HEENT: Head: Normocephalic, not in acute distress. Neck: Supple, no JVD, no carotid bruit. Cardio: S1 and S2 WNL. Respiratory: Vesicular breath sounds. no crackles. Abdominal: Soft NT ND BS present. Genital/Urinary: deferred Extremities: NCCE. Neurological: Assessment: 1. UTI. 2. Psychosis. 3. Klebsiella infection. 4. HTN 5. Dyslipidemia. 6. Anemia. Plan: Depending o the culture report define final antibiotic therapy. Change zosyn to Bactrim PO for 7 days if renal US comes negative. Renal; US. GI consult and hematology consult. Signed, Shekhar Villanueva M.D. 07/07/391613
[2017-07-07 11:34] LABS: HEMATOCRIT 23.8 % (41.0-60); MEAN CELL VOLUME 90.2 fl (81-100); MEAN CORPUSCULAR HEMOGLOBIN 29.8 pg (27.0-31.0); MEAN PLATELET VOLUME 7.4 fl; PLATELET COUNT 238 Th/cmm (150-400); RED BLOOD COUNT 2.63 Mil/cmm (3.80-5.10); RED CELL DISTRIBUTION WIDTH 13.8 % (11.5-20.0)
[2017-07-07 11:40] LABS: WHITE BLOOD COUNT 2.6 Th/cmm (4.8-10.8)
[2017-07-07 11:44] LABS: HEMOGLOBIN 7.8 gm/dL (12-16)
[2017-07-07 11:59] LABS: EOSINOPHIL 5 % (0-5); NEUTROPHILS 65 % (40-80); TOTAL CELLS COUNTED 100
[2017-07-07 13:16] LABS: CARCINOEMBRYONIC ANTIGEN 7.1 ng/mL (0.0-4.7)
[2017-07-07] MEDS: Sodium Chloride 0.9% 1,000 ML IV SCH (16:58)
--- NOTE | 2017-07-07 23:12 | Progress Notes ---
DATE: 07/07/2017 Case was discussed with staff of the patient, reviewed records. The patient took all her medication. She is not eating. She is still internally preoccupied, not able to carrying out conversation or make safe plan for self-care. No side effects with the medication, no sedation, no nausea, no extrapyramidal symptoms. The patient can be transferred to [facility] when medically cleared. Thank you very much for allowing me to participate in the care of this patient. JOB# [id number]
[2017-07-08] MEDS: Sodium Chloride 0.9% 1,000 ML IV SCH (04:34)
[2017-07-08] MEDS: Levothyroxine 0.075 Mg Tab PO SCH (06:37)
[2017-07-08] MEDS: Pantoprazole 40 mg EC Tab PO SCH (08:21)
[2017-07-08] MEDS: Lactobacillus Rhamnosus 10 Billion CFU Capsule PO SCH (08:21)
[2017-07-08] MEDS: Sevelamer Carnonate 800 mg Tab PO SCH ×2 (08:21→12:10)
[2017-07-08] MEDS: Multivitamin w/ Minerals Tab PO SCH (08:21)
[2017-07-08] MEDS: Ferrous Sulfate 325 MG TAB PO SCH (08:21)
--- NOTE | 2017-07-08 08:25 | General Progress Note ---
Subjective - Review of Systems Events since last encounter: no distress patient still not eating well anxious Objective - Results Result Diagrams: 07/07/17 11:22 07/05/17 10:15 Recent Labs: Laboratory Last Values WBC 2.6 Th/cmm (4.8-10.8) L D 07/07/17 11:22 RBC 2.63 Mil/cmm (3.80-5.10) L 07/07/17 11:22 Hgb 7.8 gm/dL (12-16) L* 07/07/17 11:22 Hct 23.8 % (41.0-60) L 07/07/17 11:22 MCV 90.2 fl (81-100) 07/07/17 11:22 MCH 29.8 pg (27.0-31.0) 07/07/17 11: MCHC Differential 33.0 pg (28.0-36.0) 07/07/17 11: RDW 13.8 % (11.5-20.0) 07/07/17 11: Plt Count 238 Th/cmm (150-400) 07/07/17 11:22 MPV 7.4 fl 07/07/17 11:22 Neutrophils % 74.5 % (40.0-80.0) 07/05/17 17:00 Band Neutrophils % 5 % (0-10) 07/04/17 20:30 Lymphocytes % 15.1 % (20.0-50.0) L 07/05/17 17:00 Monocytes % 9.3 % (2.0-10.0) 07/05/17 17:00 Eosinophils % 0.9 % (0.0-5.0) 07/05/17 17:00 Basophils % 0.2 % (0.0-2.0) 07/05/17 17:00 Neutrophils (Manual) 65 % (40-80) 07/07/17 11:22 Lymphocytes 28 % (20-50) 07/07/17 11:22 Monocytes 2 % (2-10) 07/07/17 11:22 Eosinophils 5 % (0-5) 07/07/17 11:22 Hypochromia 2+ 07/04/17 20:30 Platelet Estimate ADEQUATE (NORMAL) 07/04/17 20:30 Polychromasia 1+ 07/04/17 20:30 Anisocytosis 1+ 07/04/17 16:21 RBC Morph Micro Appear ABNORMAL (NORMAL) 07/04/17 16:21 PT 10.0 SECONDS (9.5-11.5) 07/05/17 10:15 INR 0.96 (0.5-1.4) 07/05/17 10:15 PTT (Actin FS) 26.6 SECONDS (26.0-38.0) 07/05/17 10:15 Sodium 134 mEq/L (136-145) L 07/05/17 10:15 Potassium 3.1 mEq/L (3.5-5.1) L 07/05/17 10:15 Chloride 108 mEq/L (98-107) H 07/05/17 10:15 Carbon Dioxide 19.3 mEq/L (21.0-31.0) L 07/05/17 10:15 Anion Gap 9.8 (7.0-16.0) 07/05/17 10:15 BUN 31 mg/dL (7-25) H 07/05/17 10:15 Creatinine 2.8 mg/dL (0.6-1.2) H 07/05/17 10:15 Est GFR ( Amer) 22.0 ml/min (>90) 07/05/17 10:15 Est GFR (Non-Af Amer) 18.2 ml/min 07/05/17 10:15 BUN/Creatinine Ratio 11.1 07/05/17 10:15 Glucose 188 mg/dL (70-105) H 07/05/17 10:15 POC Glucose 134 MG/DL (70 - 105) H 07/07/17 20:28 Hemoglobin A1c % 6.9 % (4.0-6.0) H 07/05/17 10:15 Calcium 8.6 mg/dL (8.6-10.3) 07/05/17 10:15 Iron 161 ug/dL (27-139) H 07/06/17 10:15 TIBC 196 ug/dL (250-450) L 07/06/17 10:15 Iron Saturation 82 % (15-55) H 07/06/17 10:15 Unsaturated IBC 35 ug/dL (118-369) L 07/06/17 10:15 Ferritin 591 ng/mL (15-150) H 07/06/17 10:15 Total Bilirubin 1.3 mg/dL (0.3-1.0) H 07/05/17 10:15 AST 12 U/L (13-39) L 07/05/17 10:15 ALT 6 U/L (7-52) L 07/05/17 10:15 Alkaline Phosphatase 137 U/L (34-104) H 07/05/17 10:15 Troponin I < 0.01 ng/mL (0.01-0.05) L 07/04/17 16:21 Total Protein 6.0 gm/dL (6.0-8.3) 07/05/17 10:15 Albumin 3.4 gm/dL (3.7-5.3) L 07/05/17 10:15 Globulin 2.6 gm/dL 07/05/17 10:15 Albumin/Globulin Ratio 1.3 (1.0-1.8) 07/05/17 10:15 Triglycerides 102 mg/dL (<150) 07/04/17 16:21 Cholesterol 159 mg/dL (<200) 07/04/17 16:21 LDL Cholesterol Direct 94 mg/dL (75-193) 07/04/17 16:21 HDL Cholesterol 51 mg/dL (23-92) 07/04/17 16:21 Carcinoembryonic Ag 7.1 ng/mL (0.0-4.7) H 07/06/17 10:15 CA 19-9 Antigen 14 U/mL (0-35) 07/06/17 10:15 TSH 1.98 uIU/ml (0.34-5.60) 07/04/17 16:21 Urine Source CLEAN C 07/05/17 06:00 Urine Color YELLOW 07/05/17 06:00 Urine Clarity HAZY (CLEAR) 07/05/17 06:00 Urine pH 6.5 (4.6 - 8.0) 07/05/17 06:00 Ur Specific [place] 1.015 (1.005-1.030) 07/05/17 06:00 Urine Protein 100 mg/dL (NEGATIVE) H 07/05/17 06:00 Urine Glucose (UA) NEGATIVE mg/dL (NEGATIVE) 07/05/17 06:00 Urine Ketones NEGATIVE mg/dL (NEGATIVE) 07/05/17 06:00 Urine Blood SMALL (NEGATIVE) H 07/05/17 06:00 Urine Nitrate POSITIVE (NEGATIVE) H 07/05/17 06:00 Urine Bilirubin NEGATIVE (NEGATIVE) 07/05/17 06:00 Urine Ictotest NEGATIVE (NEGATIVE) 07/05/17 06:00 Urine Urobilinogen 0.2 E.U./dL (0.2 - 1.0) 07/05/17 06:00 Ur Leukocyte Esterase LARGE (NEGATIVE) H 07/05/17 06:00 Urine RBC 5-10 /hpf (0-5) H 07/05/17 06:00 Urine WBC 50-100 /hpf (0-5) H 07/05/17 06:00 Ur Epithelial Cells FEW /lpf (FEW) 07/05/17 06:00 Urine Bacteria MANY /hpf (NONE SEEN) 07/05/17 06:00 RPR NONREACTIVE (NONREACTIVE) 07/04/17 16:21 Blood Type A POSITIVE 07/04/17 17:10 Antibody Screen NEGATIVE 07/04/17 17:10 Crossmatch See Detail 07/04/17 17:10 - Physical Exam Vitals and I&O: Vital Signs Temp 97.5 F 07/08/17 04:00 Pulse 86 07/08/17 07:29 Resp 18 07/08/17 07:29 BP 138/63 07/08/17 04:00 Pulse Ox 96 07/08/17 07:29 Intake & Output 07/07/17 07/08/17 07/08/17 18:59 06:59 18:59 Intake Total 1050 1200 Output Total 3 Balance 1050 1197 Weight (lbs) 70.307 kg 71.668 kg Intake: Intake, IV Amount 1050 1100 Piperacillin Sodium/ 50 100 Tazobact 3.375 gm In Sodium Chloride 0.9% 50 ml @ 100 mls/hr IV Q8HR [facility] Rx#:[id number] Sodium Chloride 0.9% 1, 1000 1000 000 ml @ 100 mls/hr IV . Q10H [facility] Rx#:[id number] Oral 100 Output: Urine 3 Other: Stool Characteristics Soft Formed Active Medications: Current Medications Acetaminophen (Tylenol) 650 mg PO Q4H PRN PRN Reason: Pain (Moderate) Stop: 09/02/17 20:33 Last Admin: 07/06/17 22:03 Dose: 650 mg Docusate Sodium (Colace) 100 mg PO BID [facility] Stop: 09/03/17 08:59 Last Admin: 07/08/17 08:21 Dose: Not Given Ferrous Sulfate (Iron) 325 mg PO DAILY [facility] Stop: 09/03/17 08:59 Last Admin: 07/08/17 08:21 Dose: Not Given Folic Acid (Folate) 1 mg PO DAILY [facility]LO Stop: 09/03/17 08:59 Last Admin: 07/08/17 08:21 Dose: Not Given Sodium Chloride (Nacl 0.9%) 1,000 mls @ 100 mls/hr IV .Q10H [facility] Stop: 09/02/17 20:30 Last Admin: 07/08/17 04:34 Dose: 100 mls/hr Piperacillin Sod/Tazobactam (Sod 3.375 gm/ Sodium Chloride) 50 mls @ 100 mls/ hr IV Q8HR [facility] Stop: 09/03/17 20:59 Last Infusion: 07/08/17 04:58 Dose: Infused Insulin Detemir (Levemir Insulin) 10 units SUBQ Q12HR [facility] PRN Reason: Protocol Stop: 09/02/17 20:59 Last Admin: 07/07/17 20:33 Dose: 10 units Lactobacillus Rhamnosus (Culturelle) 1 each PO DAILY [facility] Stop: 09/04/17 15:59 Last Admin: 07/08/17 08:21 Dose: Not Given Levothyroxine Sodium (Synthroid) 0.075 mg PO QDAC [facility] Stop: 09/03/17 07:29 Last Admin: 07/08/17 06:37 Dose: 0.075 mg Lorazepam (Ativan) 1 mg IVP Q4HR PRN; Protocol PRN Reason: Agitation Stop: 09/02/17 22:33 Last Admin: 07/08/17 05:17 Dose: 1 mg Magnesium Hydroxide (Milk Of Magnesia) 30 ml PO DAILY PRN PRN Reason: Constipation Stop: 09/02/17 20:33 Miscellaneous (Vte Chemical Prophylaxis Screen/ Admission) 1 ea PRN PRN PRN Reason: PROTOCOL Stop: 09/03/17 15:03 Miscellaneous (Probiotic Screen) 1 ea PRN PRN PRN Reason: PROTOCOL Stop: 09/04/17 15:07 Pantoprazole Sodium (Protonix) 40 mg PO DAILY [facility] Stop: 09/03/17 08:59 Last Admin: 07/08/17 08:21 Dose: Not Given Quetiapine Fumarate (Seroquel) 50 mg PO BID [facility] PRN Reason: Protocol Stop: 09/03/17 08:59 Last Admin: 07/08/17 08:22 Dose: Not Given Sevelamer Carbonate (Renvela) 800 mg PO TIDWM [facility] Stop: 09/02/17 20:59 Last Admin: 07/08/17 08:21 Dose: Not Given General: No acute distress HEENT: Atraumatic Cardiovascular: Regular rate, Normal S1, Normal S2 Assessment/Plan - Problem List Patient Problems: All Active Problems UNCOOPERATIVE WITH CARE AND AGGRESSIVE (Acute) ANEMIA (Acute) CHRONIC RENAL INSUFFICIENCY (Acute) PARANOID SCHIZOPHRENIA (Acute) TYPE II DM (Acute) - Plan Plan: as per psych will monitor closely labs monitor vitals/diet Nutritional Asmnt/Malnutr-PDOC - Dietary Evaluation Malnutrition Findings (Please click <Entered> for more info): Nutritional Asmnt/Malnutrition Start: 07/05/17 16: 56 Text: Status: Complete Freq: Document 07/05/17 16:56 GSUN (Rec: 07/05/17 17:05 GSUN [email or web address]) Nutritional Asmnt/Malnutrition Patient General Information Nutritional Screening Consult Diagnosis Severe anemia, r/o GI bleeding , chronic renal insufficiency, DM Pertinent Medical Hx/Surgical Hx HTN, hyperlipidemia, thyroid disorder, GERD, dementia, psychosis, apranoid schizophrenia Subjective Information 61 year old female from SNF. RD consult for elevated BG. Pt was verbally and physically agressive with restriants on during visit, unable to interview. Limited phsical assessment, observed large abdomen, lose skin to thighs, no wastings noted. Spoke to [employer] sitter at [facility], D[employer] OPERATOR stated pt with good apeptite, ate 100%, edentulous, no difficulties. Current Diet Order/ Nutrition Support Mech soft ground, CCHO Pertinent Medications Colace, Iron, Folate, Levemir, MOM, Protonix, Seroquel Pertinent Labs Potassium 3.1L, BUN 31H, creatinine 2.8H, glucose 188H, A1c 6.9H Nutritional Hx/Data Height 1.52 m Height (Calculated Centimeters) 152.4 Current Weight (lbs) 70.08 kg Weight (Calculated Kilograms) 70.1 Weight (Calculated Grams) 73135.0 [place] Body Weight 100 Weight Status Overweight GI Symptoms Usual diet at home [place] [facility]A, CCHO Skin Integrity/Comment: Tristan 15. Skin intact. Current %PO Good (75-100%) Estimated Nutritional Goals BEE in Kcals: Adj wt of IBW Calories/Kcals/Kg AdjBW 113.6lb/51.6kg Kcals Calculated 1290-1548kcal (25-30kcal/kg) Protein: Adj wt of IBW Protein Calculated 41-52g (0.8-1g/kg, monitor renal labs) Fluid: ml 1290-1548ml (1ml/kcal) Nutritional Problem 2. Problem Problem Impaired nutrient utilization related to Etiology chronic renal insufficiency aeb Signs/Symptoms: BUN 31H, creatinine 2.8H 1. Problem Problem Altered nutrition related laboratory values related to Etiology DM aeb Signs/Symptoms: A1c 6.9H, glucose 188H Intervention/Recommendation Comments 1. Recommend continue with current diet order with low sodium restriction to aid in renal function. Expected Outcomes/Goals Expected Outcomes/Goals 1. PO intake to meet at least 75% of estimated nutritional needs.
[2017-07-08] MEDS: Insulin Detemir 100 units/mL 10mL Vial SUBQ SCH (08:42)
[2017-07-08 10:53] LABS: % BASOPHILS 0.1 % (0.0-2.0); HEMOGLOBIN 8.4 gm/dL (12-16); RED BLOOD COUNT 2.77 Mil/cmm (3.80-5.10)
[2017-07-08 10:55] LABS: % LYMPHOCYTES 17.1 % (20.0-50.0); % MONOCYTES 7.8 % (2.0-10.0); HEMATOCRIT 24.7 % (41.0-60); MEAN CELL VOLUME 89.1 fl (81-100); MEAN CORPUSCULAR HEMOGLOBIN 30.5 pg (27.0-31.0); MEAN CORPUSCULAR HGB CONC 34.2 pg (28.0-36.0); NEUTROPHILE ABSOLUTE 2.6 Th/cmm (1.8-8.0); PLATELET COUNT 255 Th/cmm (150-400); RED CELL DISTRIBUTION WIDTH 13.7 % (11.5-20.0)
[2017-07-08 11:02] LABS: WHITE BLOOD COUNT 3.6 Th/cmm (4.8-10.8)
--- NOTE | 2017-07-08 12:49 | GI Progress Note ---
Subjective - Review of Systems Subjective: Preoccupied, not participating in interview. Objective - Results Result Diagrams: 07/08/17 10:45 07/05/17 10:15 Recent Labs: Laboratory Last Values WBC 3.6 Th/cmm (4.8-10.8) L D 07/08/17 10:45 RBC 2.77 Mil/cmm (3.80-5.10) L 07/08/17 10:45 Hgb 8.4 gm/dL (12-16) L 07/08/17 10:45 Hct 24.7 % (41.0-60) L 07/08/17 10:45 MCV 89.1 fl (81-100) 07/08/17 10:45 MCH 30.5 pg (27.0-31.0) 07/08/17 10:45 MCHC Differential 34.2 pg (28.0-36.0) 07/08/17 10:45 RDW 13.7 % (11.5-20.0) 07/08/17 10:45 Plt Count 255 Th/cmm (150-400) 07/08/17 10:45 MPV 7.0 fl 07/08/17 10:45 Neutrophils % 73.0 % (40.0-80.0) 07/08/17 10:45 Band Neutrophils % 5 % (0-10) 07/04/17 20:30 Lymphocytes % 17.1 % (20.0-50.0) L 07/08/17 10:45 Monocytes % 7.8 % (2.0-10.0) 07/08/17 10:45 Eosinophils % 2.0 % (0.0-5.0) 07/08/17 10:45 Basophils % 0.1 % (0.0-2.0) 07/08/17 10:45 Neutrophils (Manual) 65 % (40-80) 07/07/17 11:22 Lymphocytes 28 % (20-50) 07/07/17 11:22 Monocytes 2 % (2-10) 07/07/17 11:22 Eosinophils 5 % (0-5) 07/07/17 11:22 Hypochromia 2+ 07/04/17 20:30 Platelet Estimate ADEQUATE (NORMAL) 07/04/17 20:30 Polychromasia 1+ 07/04/17 20:30 Anisocytosis 1+ 07/04/17 16:21 RBC Morph Micro Appear ABNORMAL (NORMAL) 07/04/17 16:21 PT 10.0 SECONDS (9.5-11.5) 07/05/17 10:15 INR 0.96 (0.5-1.4) 07/05/17 10:15 PTT (Actin FS) 26.6 SECONDS (26.0-38.0) 07/05/17 10:15 Sodium 134 mEq/L (136-145) L 07/05/17 10:15 Potassium 3.1 mEq/L (3.5-5.1) L 07/05/17 10:15 Chloride 108 mEq/L (98-107) H 07/05/17 10:15 Carbon Dioxide 19.3 mEq/L (21.0-31.0) L 07/05/17 10:15 Anion Gap 9.8 (7.0-16.0) 07/05/17 10:15 BUN 31 mg/dL (7-25) H 07/05/17 10:15 Creatinine 2.8 mg/dL (0.6-1.2) H 07/05/17 10:15 Est GFR ( Amer) 22.0 ml/min (>90) 07/05/17 10:15 Est GFR (Non-Af Amer) 18.2 ml/min 07/05/17 10:15 BUN/Creatinine Ratio 11.1 07/05/17 10:15 Glucose 188 mg/dL (70-105) H 07/05/17 10:15 POC Glucose 99 MG/DL (70 - 105) 07/08/17 08:15 Hemoglobin A1c % 6.9 % (4.0-6.0) H 07/05/17 10:15 Calcium 8.6 mg/dL (8.6-10.3) 07/05/17 10:15 Iron 161 ug/dL (27-139) H 07/06/17 10:15 TIBC 196 ug/dL (250-450) L 07/06/17 10:15 Iron Saturation 82 % (15-55) H 07/06/17 10:15 Unsaturated IBC 35 ug/dL (118-369) L 07/06/17 10:15 Ferritin 591 ng/mL (15-150) H 07/06/17 10:15 Total Bilirubin 1.3 mg/dL (0.3-1.0) H 07/05/17 10:15 AST 12 U/L (13-39) L 07/05/17 10:15 ALT 6 U/L (7-52) L 07/05/17 10:15 Alkaline Phosphatase 137 U/L (34-104) H 07/05/17 10:15 Troponin I < 0.01 ng/mL (0.01-0.05) L 07/04/17 16:21 Total Protein 6.0 gm/dL (6.0-8.3) 07/05/17 10:15 Albumin 3.4 gm/dL (3.7-5.3) L 07/05/17 10:15 Globulin 2.6 gm/dL 07/05/17 10:15 Albumin/Globulin Ratio 1.3 (1.0-1.8) 07/05/17 10:15 Triglycerides 102 mg/dL (<150) 07/04/17 16:21 Cholesterol 159 mg/dL (<200) 07/04/17 16:21 LDL Cholesterol Direct 94 mg/dL (75-193) 07/04/17 16:21 HDL Cholesterol 51 mg/dL (23-92) 07/04/17 16:21 Carcinoembryonic Ag 7.1 ng/mL (0.0-4.7) H 07/06/17 10:15 CA 19-9 Antigen 14 U/mL (0-35) 07/06/17 10:15 TSH 1.98 uIU/ml (0.34-5.60) 07/04/17 16:21 Urine Source CLEAN C 07/05/17 06:00 Urine Color YELLOW 07/05/17 06:00 Urine Clarity HAZY (CLEAR) 07/05/17 06:00 Urine pH 6.5 (4.6 - 8.0) 07/05/17 06:00 Ur Specific [place] 1.015 (1.005-1.030) 07/05/17 06:00 Urine Protein 100 mg/dL (NEGATIVE) H 07/05/17 06:00 Urine Glucose (UA) NEGATIVE mg/dL (NEGATIVE) 07/05/17 06:00 Urine Ketones NEGATIVE mg/dL (NEGATIVE) 07/05/17 06:00 Urine Blood SMALL (NEGATIVE) H 07/05/17 06:00 Urine Nitrate POSITIVE (NEGATIVE) H 07/05/17 06:00 Urine Bilirubin NEGATIVE (NEGATIVE) 07/05/17 06:00 Urine Ictotest NEGATIVE (NEGATIVE) 07/05/17 06:00 Urine Urobilinogen 0.2 E.U./dL (0.2 - 1.0) 07/05/17 06:00 Ur Leukocyte Esterase LARGE (NEGATIVE) H 07/05/17 06:00 Urine RBC 5-10 /hpf (0-5) H 07/05/17 06:00 Urine WBC 50-100 /hpf (0-5) H 07/05/17 06:00 Ur Epithelial Cells FEW /lpf (FEW) 07/05/17 06:00 Urine Bacteria MANY /hpf (NONE SEEN) 07/05/17 06:00 RPR NONREACTIVE (NONREACTIVE) 07/04/17 16:21 Blood Type A POSITIVE 07/04/17 17:10 Antibody Screen NEGATIVE 07/04/17 17:10 Crossmatch See Detail 07/04/17 17:10 - Physical Exam Vitals and I&O: Vital Signs Temp 98.1 F 07/08/17 12:00 Pulse 78 07/08/17 12:00 Resp 20 07/08/17 12:00 BP 109/63 07/08/17 12:00 Pulse Ox 100 07/08/17 08:00 Intake & Output 07/07/17 07/08/17 07/08/17 18:59 06:59 18:59 Intake Total 1050 1200 Output Total 3 Balance 1050 1197 Weight (lbs) 70.307 kg 71.668 kg Intake: Intake, IV Amount 1050 1100 Piperacillin Sodium/ 50 100 Tazobact 3.375 gm In Sodium Chloride 0.9% 50 ml @ 100 mls/hr IV Q8HR [facility] Rx#:[id number] Sodium Chloride 0.9% 1, 1000 1000 000 ml @ 100 mls/hr IV . Q10H [facility] Rx#:[id number] Oral 100 Output: Urine 3 Other: Stool Characteristics Soft Soft Formed Formed Active Medications: Current Medications Acetaminophen (Tylenol) 650 mg PO Q4H PRN PRN Reason: Pain (Moderate) Stop: 09/02/17 20:33 Last Admin: 07/06/17 22:03 Dose: 650 mg Docusate Sodium (Colace) 100 mg PO BID [facility] Stop: 09/03/17 08:59 Last Admin: 07/08/17 08:21 Dose: Not Given Ferrous Sulfate (Iron) 325 mg PO DAILY [facility] Stop: 09/03/17 08:59 Last Admin: 07/08/17 08:21 Dose: Not Given Folic Acid (Folate) 1 mg PO DAILY [facility] Stop: 09/03/17 08:59 Last Admin: 07/08/17 08:21 Dose: Not Given Sodium Chloride (Nacl 0.9%) 1,000 mls @ 100 mls/hr IV .Q10H [facility] Stop: 09/02/17 20:30 Last Admin: 07/08/17 04:34 Dose: 100 mls/hr Piperacillin Sod/Tazobactam (Sod 3.375 gm/ Sodium Chloride) 50 mls @ 100 mls/ hr IV Q8HR [facility] Stop: 09/03/17 20:59 Last Admin: 07/08/17 12:05 Dose: 100 mls/hr Insulin Detemir (Levemir Insulin) 10 units SUBQ Q12HR [facility] PRN Reason: Protocol Stop: 09/02/17 20:59 Last Admin: 07/08/17 08:42 Dose: Not Given Lactobacillus Rhamnosus (Culturelle) 1 each PO DAILY [facility] Stop: 09/04/17 15:59 Last Admin: 07/08/17 08:21 Dose: Not Given Levothyroxine Sodium (Synthroid) 0.075 mg PO QDAC [facility] Stop: 09/03/17 07:29 Last Admin: 07/08/17 06:37 Dose: 0.075 mg Lorazepam (Ativan) 1 mg IVP Q4HR PRN; Protocol PRN Reason: Agitation Stop: 09/02/17 22:33 Last Admin: 07/08/17 05:17 Dose: 1 mg Magnesium Hydroxide (Milk Of Magnesia) 30 ml PO DAILY PRN PRN Reason: Constipation Stop: 09/02/17 20:33 Miscellaneous (Vte Chemical Prophylaxis Screen/ Admission) 1 ea [facility] PRN PRN PRN Reason: PROTOCOL Stop: 09/03/17 15:03 Miscellaneous (Probiotic Screen) 1 ea [facility] PRN PRN PRN Reason: PROTOCOL Stop: 09/04/17 15:07 Pantoprazole Sodium (Protonix) 40 mg PO DAILY [facility] Stop: 09/03/17 08:59 Last Admin: 07/08/17 08:21 Dose: Not Given Quetiapine Fumarate (Seroquel) 50 mg PO BID [facility] PRN Reason: Protocol Stop: 09/03/17 08:59 Last Admin: 07/08/17 08:22 Dose: Not Given Sevelamer Carbonate (Renvela) 800 mg PO TIDWM [facility] Stop: 09/02/17 20:59 Last Admin: 07/08/17 12:10 Dose: Not Given General: No acute distress HEENT: Atraumatic Cardiovascular: Regular rate, Normal S1, Normal S2 Assessment/Plan - Problem List Patient Problems: All Active Problems UNCOOPERATIVE WITH CARE AND AGGRESSIVE (Acute) ANEMIA (Acute) CHRONIC RENAL INSUFFICIENCY (Acute) PARANOID SCHIZOPHRENIA (Acute) TYPE II DM (Acute) - Assessment Assessment: # Fe deficiency anemia # Bipolar disorder with psychosis Pt's presenting hgb of 5.6 is concerning for a GI source of blood loss, including malignancy. She warrants EGD and colonoscopy, but will need to become more cooperative with her treatment prior to this being done. If she shows active bleeding or becomes transfusion dependent, we can perform these exams on a more urgent basis. FOr now, will track her progress towards a more lucid psychiatric state before planning endoscopic examination. Continues today to be combatative, and would not be able to take bowel prep. Will continue to track. She is reportedly taking her psychiatric medications. Plan: - EGD and colonoscopy after patient becomes more cooperative. Can do this more urgently if signs of active bleeding or recurrent anemia (consent would be from her conservator) - serial CBCs, transfuse as needed for hgb > 8. Needs CBC today - continue psychiatric eval and treatment
[2017-07-08] MEDS ORDERED: Epoetin Alfa 20000 Units/mL Vial SUBQ SCH (15:00)
--- NOTE | 2017-07-26 09:59 | Discharge Summary ---
DATE OF DISCHARGE: HOSPITAL COURSE: The patient was admitted on 07/08/2017 to [facility] and went to [facility] on 07/11/2017. The patient apparently is known to have history of anemia, gastrointestinal bleeding. Hemoglobin was given blood transfusion. He also had hyperlipidemia, GERD. The patient improved. The patient was in a stable condition, was discharged to [facility] Unit for psychiatric problem where I will be following the patient. CONDITION AT THE TIME OF DISCHARGE: Stable. JOB# [id number]
== END 2017-07-08 15:45 | DRG 811 ==
LOC: ER 15:59 → MSI 17:15
PROVIDERS: ADMIT Internal Medicine; ATTEND Internal Medicine
PROC: 30233N1 Transfusion of Nonautologous Red Blood Cells into Peripheral Vein, Percutaneous Approach (ICD-10-PCS; principal; 2017-07-06)
DX: D50.9 Iron deficiency anemia, unspecified (principal); N17.1 Acute kidney failure with acute cortical necrosis; I10 Essential (primary) hypertension; F03.90 Unspecified dementia, unspecified severity, without behavioral disturbance, psychotic disturbance, mood disturbance, and anxiety; E11.9 Type 2 diabetes mellitus without complications; B96.1 Klebsiella pneumoniae [K. pneumoniae] as the cause of diseases classified elsewhere; N39.0 Urinary tract infection, site not specified; F20.5 Residual schizophrenia; F20.0 Paranoid schizophrenia; F29 Unspecified psychosis not due to a substance or known physiological condition; E78.5 Hyperlipidemia, unspecified; F31.9 Bipolar disorder, unspecified; K21.9 Gastro-esophageal reflux disease without esophagitis; F41.9 Anxiety disorder, unspecified; Z85.89 Personal history of malignant neoplasm of other organs and systems; Z79.4 Long term (current) use of insulin
CPT/HCPCS: 36415-UA; 71010-TC; 80053-TC; 80061-TC; 81001-TC; 82378-90; 82607-90; 82728-90; 82948-90; 83036-90; 83540-90; 83550-90; 84443-TC; 84484-TC; 85007-TC; 85025-TC; 85027-TC; 85610-TC; 85730-TC; 86301-90; 86592-TC; 86850-TC; 86900-TC; 86901-TC; 86922-TC; 87086-90; 93005; 94760; J0885; J1200; J1630; J1815; J2060; J2543; J7030; P9016; Z7610

== ENCOUNTER 2017-07-08 15:50 | Inpatient (IN) | payer MEDICARE, MEDICAID ==
[2017-07-08] MEDS ORDERED: Magnesium Hydroxide (MOM) 30 mL UDC PO PRN ×2 (16:09→20:56)
[2017-07-08] MEDS ORDERED: Maalox 30 mL Cup PO PRN (16:09)
[2017-07-08 16:31] VITALS: BP 139/59
--- NOTE | 2017-07-08 17:10 | Consultation ---
DATE OF CONSULTATION: 07/08/2017 ONCOLOGY CONSULTATION REFERRED BY: Dr. Meza. REASON FOR CONSULTATION: Neutropenia. HISTORY OF PRESENT ILLNESS: The patient is a 61-year-old female who was admitted initially to a psych unit and then transferred to the medical unit after she was found to have severe anemia, hemoglobin was 5.6 and was transfused packed red blood cells. Stool occult blood was ordered and pending. The patient was found to have a urinary tract infection, started on antibiotics. Her white count was 2.6 and now 3.6, seems to be slowly improving. She is followed by the psychiatrist as the patient has chronic schizophrenia. MEDICATIONS: Reviewed. She is on folic acid, iron, Synthroid, Protonix, Zosyn, and Seroquel. PHYSICAL EXAMINATION: GENERAL: The patient is closing her eyes, verbalizing what is ____. She is not able to provide any information. VITAL SIGNS: Stable. HEENT: Atraumatic. NECK: No lymphadenopathy. CHEST: There is a MediPort on the left side. ABDOMEN: Soft. EXTREMITIES: No ecchymosis or hematoma. There are no signs of bleeding. LABORATORY DATA: White count 3.6, hemoglobin 8.4 after transfusion, platelets 255, neutrophils 73%, bands 5%, lymphocytes 17%, ferritin 591, creatinine 2.8. Urine culture klebsiella and pneumonia. Reviewing of old records showed the patient had chronic anemia and chronic kidney disease and also chronic leukopenia. ASSESSMENT: Leukopenia, not neutropenic, likely bone marrow suppression ____ sepsis, which is expected to improve with treatment of the urinary tract infection. PLAN: I will obtain B12 level and abdominal ultrasound. Continue folic acid. Discontinue iron and add Epogen for further management of anemia of chronic kidney disease. No need for Neupogen since the patient is not neutropenic. Thank you, Dr. eMza, for the opportunity to participate in the care of this interesting case with you. JOB# [id number]
[2017-07-08] MEDS: Insulin Detemir 100 units/mL 10mL Vial SUBQ SCH (21:50)
[2017-07-08] MEDS: INSULIN ASPART SLIDING SCALE 100 UNITS/ML UNIT SUBQ SCH (21:51)
--- NOTE | 2017-07-08 23:20 | Progress Notes ---
DATE: 07/08/2017 Case was discussed with staff of the patient, reviewed records. The patient continues to do the same, but the staff report she is compliant with medications. She continues to be internally preoccupied, unpredictable, impulsive, and needing redirection. She is still not eating well. The patient will be going to be transferred to [facility] today for further treatment and adjustment of her medications. Thank you very much for allowing me to participate in the care of this most interesting lady. JOB# [id number]
[2017-07-09] MEDS: INSULIN ASPART SLIDING SCALE 100 UNITS/ML UNIT SUBQ SCH ×4 (06:39→21:42)
[2017-07-09] MEDS: Levothyroxine 0.025 Mg Tab PO SCH (06:48)
[2017-07-09] MEDS: Insulin Detemir 100 units/mL 10mL Vial SUBQ SCH ×2 (09:00→21:43)
[2017-07-09] MEDS ORDERED: Multivitamin w/ Minerals Tab PO SCH (09:00)
[2017-07-09] MEDS: Pantoprazole 40 mg EC Tab PO SCH (09:55)
[2017-07-09] MEDS: Multivitamin Tab PO SCH (09:55)
[2017-07-09] MEDS: Ferrous Sulfate 325 MG TAB PO SCH (09:55)
--- NOTE | 2017-07-09 18:41 | History & Physical ---
ADMIT DATE: 07/09/2017 CHIEF COMPLAINT: Psychosis. HISTORY OF PRESENT ILLNESS: This is a 61-year-old female with past medical history significant for psychiatric disorder, was transferred to acute unit for severe anemia. The patient was evaluated and treated there and now sent back to [facility] Unit for further psychiatric evaluation. The patient is seen sitting in a wheelchair. She is fairly stoic and does not contribute much to history, but able to talk and make needs known, appears in no acute distress. PAST MEDICAL HISTORY: The patient has history of chronic anemia, chronic kidney disease, gastroesophageal reflux disorder, hypothyroidism, schizophrenia, and insulin-dependent diabetes mellitus. MEDICATIONS: See reconciliation. ALLERGIES: No known drug allergies. SOCIAL HISTORY: Denies tobacco, alcohol, or illicit drug use. FAMILY HISTORY: Noncontributory. REVIEW OF SYSTEMS: IMMUNOLOGIC: No recurrent infections. CARDIOVASCULAR: No known heart disease or hypertension. GASTROINTESTINAL: The patient has GERD. No nausea, vomiting, or diarrhea. ENDOCRINE: The patient is diabetic and has thyroid disorder. NEUROLOGIC: No seizure or stroke. HEMATOLOGIC: No bleeding or clotting disorder. PHYSICAL EXAMINATION: GENERAL: The patient is awake and alert, in no acute distress. VITAL SIGNS: Temperature 97.6, pulse is 94, respiration is 18, and blood pressure 138/90. HEENT: Pupils are equally round, anicteric sclerae. NECK: Supple. No JVD, mass, or bruit. LUNGS: Clear to auscultation. HEART: S1, S2, regular rate and rhythm. ABDOMEN: Soft. Nontender. Positive bowel sounds. EXTREMITIES: No clubbing, cyanosis, or edema. NEUROLOGIC: Moves all extremities equally. No lateralizing signs. Generally weak. ASSESSMENT: 1. Leukopenia. 2. Chronic anemia. 3. Chronic kidney disease. 4. Gastroesophageal reflux disorder. 5. Hypothyroidism. 6. Status post urinary tract infection. 7. Schizophrenia. 8. Insulin-dependent diabetes mellitus. PLAN: Continue current medications. The patient will continue her usual medications and will continue to be monitored ____ facility. JOB# [id number]
--- NOTE | 2017-07-09 22:44 | Psychosocial Evaluation ---
DATE OF SERVICE: 07/09/2017 PHYSICIAN: Dr. Shields, also Dr. Ellis. CHIEF COMPLAINT: Agitation and mood swings. HISTORY OF PRESENT ILLNESS: The patient is a 61-year-old female who was transferred from med/surg unit because of increased agitation and irritability. The patient also has been delusional and confused and paranoid. The patient also has been uncooperative and has been confused and seems to be forgetful. The patient also has been paranoid and responding. PAST PSYCHIATRIC HISTORY: The patient has history of psychiatric treatment for psychosis. She has diagnosis of unspecified psychosis as well as dementia. PAST MEDICAL HISTORY: The patient has a history of diabetes mellitus as well as hypothyroidism. SOCIAL HISTORY: The patient lives in [facility]. No known alcohol or drug use. ALLERGIES: No known allergies. MENTAL STATUS EXAMINATION: The patient appears her stated age. Disheveled. Anxious. Easily agitated. It seems to be preoccupied and responding. Her thought processes are circumstantial with occasional flight of ideas. The patient denies any auditory or visual hallucinations, but seems to be suspicious and paranoid. The patient denies suicidal or homicidal ideations. The patient is alert and oriented to time, place, person, and situation. Also seems to be slightly confused. Intact recent and remote memories; partly impaired recent memories. Poor insight. Poor judgment. ASSESSMENT: PRIMARY DIAGNOSIS: Unspecified psychosis. MEDICAL DIAGNOSES: 1. Hypothyroidism. 2. Diabetes mellitus. TREATMENT PLAN: We will continue monitoring her behavior and her condition closely. Also, continue to work on her psychosis and adjusting psychotropic medications. ESTIMATED LENGTH OF STAY: 7-10 days. PATIENT'S STRENGTHS AND WEAKNESSES: The patient's strength is not clear at this time except that she is compliant with taking her medications. Weaknesses is ineffective coping and her paranoia and psychosis. AFTER DISCHARGE PLAN: The patient will return to [place] with plans for outpatient treatment and followup there. CRITERIA FOR DISCHARGE: The patient will not be psychotic and will stabilize psychotropic medications and will establish outpatient treatment plans. JOB# [id number]
[2017-07-10 06:27] LABS: ANION GAP 11.6 (7.0-16.0); BUN/CREATININE RATIO 6.8; CALCIUM SERUM 9.6 mg/dL (8.6-10.3); CARBON DIOXIDE 21.6 mEq/L (21.0-31.0); CREATININE - SERUM 2.8 mg/dL (0.6-1.2); POTASSIUM SERUM 4.2 mEq/L (3.5-5.1)
[2017-07-10] MEDS: INSULIN ASPART SLIDING SCALE 100 UNITS/ML UNIT SUBQ SCH ×5 (06:35→21:43)
[2017-07-10] MEDS: Levothyroxine 0.025 Mg Tab PO SCH (06:42)
[2017-07-10 06:49] LABS: HEMATOCRIT 25.3 % (41.0-60); HEMOGLOBIN 8.7 gm/dL (12-16); MEAN CELL VOLUME 88.7 fl (81-100); MEAN CORPUSCULAR HEMOGLOBIN 30.6 pg (27.0-31.0); MEAN CORPUSCULAR HGB CONC 34.5 pg (28.0-36.0); MEAN PLATELET VOLUME 7.5 fl; PLATELET COUNT 267 Th/cmm (150-400); RED BLOOD COUNT 2.85 Mil/cmm (3.80-5.10); RED CELL DISTRIBUTION WIDTH 13.5 % (11.5-20.0); WHITE BLOOD COUNT 3.5 Th/cmm (4.8-10.8)
[2017-07-10 07:40] LABS: NEUTROPHILS 69 % (40-80); TOTAL CELLS COUNTED 100
[2017-07-10 07:41] LABS: PLATELET ESTIMATE ADEQUATE (NORMAL); PLATELET MORPHOLOGY NORMAL (NORMAL)
--- NOTE | 2017-07-10 08:03 | General Progress Note ---
Subjective - Review of Systems Service Date: 07/10/17 Subjective: resting comfortably in wheelchair no complaints Objective - Results Result Diagrams: 07/10/17 05:56 07/10/17 05:56 Recent Labs: Laboratory Last Values WBC 3.5 Th/cmm (4.8-10.8) L 07/10/17 05:56 RBC 2.85 Mil/cmm (3.80-5.10) L 07/10/17 05:56 Hgb 8.7 gm/dL (12-16) L 07/10/17 05:56 Hct 25.3 % (41.0-60) L 07/10/17 05:56 MCV 88.7 fl (81-100) 07/10/17 05:56 MCH 30.6 pg (27.0-31.0) 07/10/17 05:56 MCHC Differential 34.5 pg (28.0-36.0) 07/10/17 05:56 RDW 13.5 % (11.5-20.0) 07/10/17 05:56 Plt Count 267 Th/cmm (150-400) 07/10/17 05:56 MPV 7.5 fl 07/10/17 05:56 Neutrophils (Manual) 69 % (40-80) 07/10/17 05:56 Lymphocytes 24 % (20-50) 07/10/17 05:56 Monocytes 7 % (2-10) 07/10/17 05:56 Platelet Estimate ADEQUATE (NORMAL) 07/10/17 05:56 Platelet Morphology NORMAL (NORMAL) 07/10/17 05:56 RBC Morph Micro Appear NORMAL (NORMAL) 07/10/17 05:56 Sodium 140 mEq/L (136-145) 07/10/17 05:56 Potassium 4.2 mEq/L (3.5-5.1) 07/10/17 05:56 Chloride 111 mEq/L (98-107) H 07/10/17 05:56 Carbon Dioxide 21.6 mEq/L (21.0-31.0) 07/10/17 05:56 Anion Gap 11.6 (7.0-16.0) 07/10/17 05:56 BUN 19 mg/dL (7-25) 07/10/17 05:56 Creatinine 2.8 mg/dL (0.6-1.2) H 07/10/17 05:56 Est GFR ( Amer) 22.0 ml/min (>90) 07/10/17 05:56 Est GFR (Non-Af Amer) 18.2 ml/min 07/10/17 05:56 BUN/Creatinine Ratio 6.8 07/10/17 05:56 Glucose 89 mg/dL (70-105) 07/10/17 05:56 POC Glucose 90 MG/DL (70 - 105) 07/10/17 06:04 Calcium 9.6 mg/dL (8.6-10.3) 07/10/17 05:56 - Physical Exam Vitals and I&O: Vital Signs Temp 98.1 F 07/10/17 07:02 Pulse 85 07/10/17 07:02 Resp 19 07/10/17 07:02 BP 141/69 07/10/17 07:02 Pulse Ox 97 07/10/17 07:02 Intake & Output 07/09/17 07/10/17 07/10/17 18:59 06:59 18:59 Intake Total 950 480 480 Balance 950 480 480 Intake: Oral 950 480 480 Other: # Voids 4 1 2 # Bowel Movements 1 Active Medications: Current Medications Acetaminophen (Tylenol) 650 mg PO Q4HR PRN PRN Reason: Mild Pain / Temp above 100 Stop: 09/06/17 16:08 Acetaminophen (Tylenol) 650 mg PO Q4H PRN PRN Reason: Pain (Moderate) Stop: 09/06/17 20:55 Al Hydrox/Mg Hydrox/Simethicone (Maalox) 30 ml PO Q4HR PRN PRN Reason: GI DISTRESS Stop: 09/06/17 16:08 Docusate Sodium (Colace) 100 mg PO BID [facility] Stop: 09/07/17 08:59 Last Admin: 07/09/17 17:44 Dose: Not Given Ferrous Sulfate (Iron) 325 mg PO DAILY [facility] Stop: 09/07/17 08:59 Last Admin: 07/09/17 09:55 Dose: 325 mg Folic Acid (Folate) 1 mg PO DAILY [facility] Stop: 09/07/17 08:59 Last Admin: 07/09/17 09:55 Dose: 1 mg Insulin Aspart (Novolog Insulin Sliding Scale) 0 units SUBQ ACHS [facility] PRN Reason: Protocol Stop: 09/06/17 20:59 Last Admin: 07/10/17 06:35 Dose: Not Given Insulin Detemir (Levemir Insulin) 10 units SUBQ Q12H [facility] PRN Reason: Protocol Stop: 09/06/17 20:59 Last Admin: 07/09/17 21:43 Dose: 10 units Levothyroxine Sodium (Synthroid) 0.075 mg PO QDAC [facility] Stop: 09/07/17 07:29 Last Admin: 07/10/17 06:42 Dose: 0.075 mg Lorazepam (Ativan) 0.5 mg PO Q4HR PRN; Protocol PRN Reason: Anxiety Stop: 08/07/17 16:08 Multivitamins/Vitamin C (Theragran) 1 tab PO DAILY [facility] Stop: 09/07/17 08:59 Last Admin: 07/09/17 09:55 Dose: 1 tab Pantoprazole Sodium (Protonix) 40 mg PO DAILY [facility] Stop: 09/07/17 08:59 Last Admin: 07/09/17 09:55 Dose: 40 mg Quetiapine Fumarate (Seroquel) 50 mg PO BID [facility] PRN Reason: Protocol Stop: 09/07/17 08:59 Sevelamer HCl (Renagel) 800 mg PO TIDWM [facility] Stop: 09/07/17 07:59 Last Admin: 07/09/17 17:44 Dose: Not Given Zolpidem Tartrate (Ambien) 5 mg PO HS PRN PRN Reason: Insomnia Stop: 09/06/17 16:08 General: Alert, No acute distress HEENT: Atraumatic, PERRLA, EOMI Neck: Supple, JVD Cardiovascular: Regular rate, Normal S1, Normal S2 Lungs: Clear to auscultation Abdomen: Bowel sounds, Soft Assessment/Plan - Problem List Patient Problems: All Active Problems ANEMIA (Acute) CHRONIC RENAL INSUFFICIENCY (Acute) PARANOID SCHIZOPHRENIA (Acute) TYPE II DM (Acute) UNCOOPERATIVE WITH CARE AND AGGRESSIVE (Acute) - Assessment Assessment: SCHIZOPHRENIA DM HYPOTHYROIDISM CKD ANEMIA - Plan Plan: CONT CURRENT TREATMENT Nutritional Asmnt/Malnutr-PDOC - Dietary Evaluation Malnutrition Findings (Please click <Entered> for more info): Nutritional Asmnt/Malnutrition Start: 07/09/17 09: 39 Text: Status: Complete Freq: Document 07/09/17 09:39 [email or web address] (Rec: 07/09/17 09:49 VANESSA LARIOS- [email or web address]) Nutritional Asmnt/Malnutrition Patient General Information Nutritional Screening High Risk Screening Diagnosis Psychosis Pertinent Medical Hx/Surgical Hx Paranoid Schizophrenia, Anxiety disorder, Dementia, Anemia, GERD, DM II, Hypothyroidism, CKD, Dysphagia , and difficulty in walking. Per nursing notes, she became combative whenever approached. Subjective Information Patient admitted from SNF on 5150 hold. Patient confused and not able to answer questions about dietary history. Current Diet Order/ Nutrition Support Mechanical soft ground CCHO 60gm Low sodium Patient / S.O Not Indicated Pertinent Medications maalox, colace, iron, folate, novolog, levemir, synthroid, MOM, MVI w/C, Protonix Pertinent Labs POC glucose 203 on admission Nutritional Hx/Data Height 1.52 m Height (Calculated Centimeters) 152.4 Current Weight (lbs) 71.668 kg Weight (Calculated Kilograms) 71.7 Weight (Calculated Grams) 21965.6 Benson Body Weight 100 % Benson Body Weight 158 Recent Weight Change No Weight Status Obese GI Symptoms GI Symptoms None Food Allergies No Cultural/Ethnic/[employer] Belief None indicated Usual diet at home Unknown Skin Integrity/Comment: Bruises on bilateral wrist and forearm, Tristan 18 Estimated Nutritional Goals BEE in Kcals: Using Current wt Calories/Kcals/Kg 20-25 kcal/kg (based on current weight of 71.8kg) - obese Kcals Calculated ~3799-7873 kcal/day Protein: Using Current wt Protein g/k gm/kg (based on current weight of 71.8kg) Protein Calculated ~70 gm/day Fluid: ml ~5752-5238 ml/day (25-30 ml/kg ) Nutritional Problem 1. Problem Problem Altered nutrition related lab values related to Etiology hyperglycemia aeb Signs/Symptoms: blood glucose 188 on admission and POC glucose 203 Intervention/Recommendation Comments 1. Continue current diet as tolerated by patient. ( mechanical soft ground, CCHO 60gm, Low sodium). 2. MD to modify insulin regimen as needed for optimal glycemic control. Expected Outcomes/Goals Expected Outcomes/Goals Blood glucose normalizes (80- 180), oral intake to meet >75% Of estiamted nutrient needs, weight remains stable or trends toward ideal body weight.
--- NOTE | 2017-07-10 11:27 | General Progress Note ---
Subjective - Review of Systems Events since last encounter: no complaints patient awake alert Objective - Results Result Diagrams: 07/10/17 05:56 07/10/17 05:56 Recent Labs: Laboratory Last Values WBC 3.5 Th/cmm (4.8-10.8) L 07/10/17 05:56 RBC 2.85 Mil/cmm (3.80-5.10) L 07/10/17 05:56 Hgb 8.7 gm/dL (12-16) L 07/10/17 05:56 Hct 25.3 % (41.0-60) L 07/10/17 05:56 MCV 88.7 fl (81-100) 07/10/17 05:56 MCH 30.6 pg (27.0-31.0) 07/10/17 05:56 MCHC Differential 34.5 pg (28.0-36.0) 07/10/17 05:56 RDW 13.5 % (11.5-20.0) 07/10/17 05:56 Plt Count 267 Th/cmm (150-400) 07/10/17 05:56 MPV 7.5 fl 07/10/17 05:56 Neutrophils (Manual) 69 % (40-80) 07/10/17 05:56 Lymphocytes 24 % (20-50) 07/10/17 05:56 Monocytes 7 % (2-10) 07/10/17 05:56 Platelet Estimate ADEQUATE (NORMAL) 07/10/17 05:56 Platelet Morphology NORMAL (NORMAL) 07/10/17 05:56 RBC Morph Micro Appear NORMAL (NORMAL) 07/10/17 05:56 Sodium 140 mEq/L (136-145) 07/10/17 05:56 Potassium 4.2 mEq/L (3.5-5.1) 07/10/17 05:56 Chloride 111 mEq/L (98-107) H 07/10/17 05:56 Carbon Dioxide 21.6 mEq/L (21.0-31.0) 07/10/17 05:56 Anion Gap 11.6 (7.0-16.0) 07/10/17 05:56 BUN 19 mg/dL (7-25) 07/10/17 05:56 Creatinine 2.8 mg/dL (0.6-1.2) H 07/10/17 05:56 Est GFR ( Amer) 22.0 ml/min (>90) 07/10/17 05:56 Est GFR (Non-Af Amer) 18.2 ml/min 07/10/17 05:56 BUN/Creatinine Ratio 6.8 07/10/17 05:56 Glucose 89 mg/dL (70-105) 07/10/17 05:56 POC Glucose 90 MG/DL (70 - 105) 07/10/17 06:04 Calcium 9.6 mg/dL (8.6-10.3) 07/10/17 05:56 - Physical Exam Vitals and I&O: Vital Signs Temp 98.1 F 07/10/17 07:02 Pulse 85 07/10/17 07:02 Resp 19 07/10/17 07:02 BP 141/69 07/10/17 07:02 Pulse Ox 97 07/10/17 07:02 Intake & Output 07/09/17 07/10/17 07/10/17 18:59 06:59 18:59 Intake Total 950 480 480 Balance 950 480 480 Intake: Oral 950 480 480 Other: # Voids 4 1 2 # Bowel Movements 1 Active Medications: Current Medications Acetaminophen (Tylenol) 650 mg PO Q4HR PRN PRN Reason: Mild Pain / Temp above 100 Stop: 09/06/17 16:08 Acetaminophen (Tylenol) 650 mg PO Q4H PRN PRN Reason: Pain (Moderate) Stop: 09/06/17 20:55 Al Hydrox/Mg Hydrox/Simethicone (Maalox) 30 ml PO Q4HR PRN PRN Reason: GI DISTRESS Stop: 09/06/17 16:08 Docusate Sodium (Colace) 100 mg PO BID [facility] Stop: 09/07/17 08:59 Last Admin: 07/09/17 17:44 Dose: Not Given Ferrous Sulfate (Iron) 325 mg PO DAILY [facility] Stop: 09/07/17 08:59 Last Admin: 07/09/17 09:55 Dose: 325 mg Folic Acid (Folate) 1 mg PO DAILY [facility] Stop: 09/07/17 08:59 Last Admin: 07/09/17 09:55 Dose: 1 mg Insulin Aspart (Novolog Insulin Sliding Scale) 0 units SUBQ ACHS [facility] PRN Reason: Protocol Stop: 09/06/17 20:59 Last Admin: 07/10/17 06:35 Dose: Not Given Insulin Detemir (Levemir Insulin) 10 units SUBQ Q12H [facility] PRN Reason: Protocol Stop: 09/06/17 20:59 Last Admin: 07/09/17 21:43 Dose: 10 units Levothyroxine Sodium (Synthroid) 0.075 mg PO QDAC [facility] Stop: 09/07/17 07:29 Last Admin: 07/10/17 06:42 Dose: 0.075 mg Lorazepam (Ativan) 0.5 mg PO Q4HR PRN; Protocol PRN Reason: Anxiety Stop: 08/07/17 16:08 Multivitamins/Vitamin C (Theragran) 1 tab PO DAILY [facility] Stop: 09/07/17 08:59 Last Admin: 07/09/17 09:55 Dose: 1 tab Pantoprazole Sodium (Protonix) 40 mg PO DAILY [facility] Stop: 09/07/17 08:59 Last Admin: 07/09/17 09:55 Dose: 40 mg Quetiapine Fumarate (Seroquel) 50 mg PO BID [facility] PRN Reason: Protocol Stop: 09/07/17 08:59 Sevelamer HCl (Renagel) 800 mg PO TIDWM [facility] Stop: 09/07/17 07:59 Last Admin: 07/09/17 17:44 Dose: Not Given Zolpidem Tartrate (Ambien) 5 mg PO HS PRN PRN Reason: Insomnia Stop: 09/06/17 16:08 General: Alert, No acute distress HEENT: Atraumatic, PERRLA, EOMI Neck: Supple, JVD Cardiovascular: Regular rate, Normal S1, Normal S2 Lungs: Clear to auscultation Abdomen: Bowel sounds, Soft Assessment/Plan - Problem List Patient Problems: All Active Problems ANEMIA (Acute) CHRONIC RENAL INSUFFICIENCY (Acute) PARANOID SCHIZOPHRENIA (Acute) TYPE II DM (Acute) UNCOOPERATIVE WITH CARE AND AGGRESSIVE (Acute) Nutritional Asmnt/Malnutr-PDOC - Dietary Evaluation Malnutrition Findings (Please click <Entered> for more info): Nutritional Asmnt/Malnutrition Start: 07/09/17 09: 39 Text: Status: Complete Freq: Document 07/09/17 09:39 VANESSA (Rec: 07/09/17 09:[address] [facility]) Nutritional Asmnt/Malnutrition Patient General Information Nutritional Screening High Risk Screening Diagnosis Psychosis Pertinent Medical Hx/Surgical Hx Paranoid Schizophrenia, Anxiety disorder, Dementia, Anemia, GERD, DM II, Hypothyroidism, CKD, Dysphagia , and difficulty in walking. Per nursing notes, she became combative whenever approached. Subjective Information Patient admitted from SNF on 5150 hold. Patient confused and not able to answer questions about dietary history. Current Diet Order/ Nutrition Support Mechanical soft ground CCHO 60gm Low sodium Patient / S.O Not Indicated Pertinent Medications maalox, colace, iron, folate, novolog, levemir, synthroid, MOM, MVI w/C, Protonix Pertinent Labs POC glucose 203 on admission Nutritional Hx/Data Height 1.52 m Height (Calculated Centimeters) 152.4 Current Weight (lbs) 71.668 kg Weight (Calculated Kilograms) 71.7 Weight (Calculated Grams) 94211.6 Sarah Body Weight 100 % Sarah Body Weight 158 Recent Weight Change No Weight Status Obese GI Symptoms GI Symptoms None Food Allergies No Cultural/Ethnic/[employer] Belief None indicated Usual diet at home Unknown Skin Integrity/Comment: Bruises on bilateral wrist and forearm, Tristan 18 Estimated Nutritional Goals BEE in Kcals: Using Current wt Calories/Kcals/Kg 20-25 kcal/kg (based on current weight of 71.8kg) - obese Kcals Calculated ~3890-6792 kcal/day Protein: Using Current wt Protein g/k gm/kg (based on current weight of 71.8kg) Protein Calculated ~70 gm/day Fluid: ml ~2467-6683 ml/day (25-30 ml/kg ) Nutritional Problem 1. Problem Problem Altered nutrition related lab values related to Etiology hyperglycemia aeb Signs/Symptoms: blood glucose 188 on admission and POC glucose 203 Intervention/Recommendation Comments 1. Continue current diet as tolerated by patient. ( mechanical soft ground, CCHO 60gm, Low sodium). 2. MD to modify insulin regimen as needed for optimal glycemic control. Expected Outcomes/Goals Expected Outcomes/Goals Blood glucose normalizes (80- 180), oral intake to meet >75% Of estiamted nutrient needs, weight remains stable or trends toward ideal body weight.
[2017-07-10] MEDS: Ferrous Sulfate 325 MG TAB PO SCH (11:38)
[2017-07-10] MEDS: Pantoprazole 40 mg EC Tab PO SCH (11:39)
[2017-07-10] MEDS: Multivitamin Tab PO SCH (11:39)
[2017-07-10] MEDS: Insulin Detemir 100 units/mL 10mL Vial SUBQ SCH ×2 (11:39→21:43)
--- NOTE | 2017-07-10 20:23 | History & Physical ---
ADMIT DATE: 07/08/2017 HISTORY OF PRESENT ILLNESS: A 61-year-old female patient, who has severe anemia and received some blood transfusion, history of chronic kidney disease, esophageal reflux disease, hypothyroidism, history of diabetes, insulin dependent, and also has schizophrenia. The patient was transferred to psychiatric side because of the psychosis. REVIEW OF SYSTEMS: Essentially complains of no major medical problems, negative. PAST MEDICAL HISTORY: As enumerated above. PHYSICAL EXAMINATION: GENERAL: The patient is alert, awake. VITAL SIGNS: Stable. Respirations 18, blood pressure is 138/90, pulse was 94, respirations normal. HEAD: Normal. ENT: Normal . LUNGS: Clear. CARDIOVASCULAR SYSTEM: S1, S2 heard. ABDOMEN: Soft. Bowel sounds are heard. CENTRAL NERVOUS SYSTEM: Grossly normal. DIAGNOSES: Acute and chronic anemia, the patient is status post blood transfusion; leukopenia; chronic kidney disease; esophageal reflux disease; history of status post urinary infection, treated; history of insulin-dependent diabetes; hypothyroidism; and I will follow medically and psychiatric gene. JOB# [id number]
--- NOTE | 2017-07-10 20:52 | Progress Notes ---
DATE: 07/10/2017 SUBJECTIVE: Chart reviewed and the patient interviewed. Also discussed the patient's condition with the staff and reviewed records and labs. The patient is still restless and she is still anxious. The patient also is still demanding and she is coming to the nurse's station with multiple questions and multiple demands and gets agitated when staff tries to redirect her. She also still has difficulty with her appetite and her mood. She also seems to be slightly suspicious and paranoid. During interview, the patient is in a wheelchair and she is talking irritable and agitated during interview; the patient seems to be preoccupied. ASSESSMENT: The patient is still psychotic and agitated. TREATMENT PLAN: We will continue monitoring her behavior and her condition closely. Also, continue Seroquel in a dose of 50 mg twice a day and we will continue to follow up closely. [facility]# [id number]
[2017-07-11] MEDS: INSULIN ASPART SLIDING SCALE 100 UNITS/ML UNIT SUBQ SCH ×4 (06:34→21:38)
[2017-07-11] MEDS: Levothyroxine 0.025 Mg Tab PO SCH (06:35)
[2017-07-11 07:47] LABS: % BASOPHILS 0.8 % (0.0-2.0); % EOSINOPHILS 1.6 % (0.0-5.0); % LYMPHOCYTES 21.2 % (20.0-50.0); % MONOCYTES 9.1 % (2.0-10.0); % NEUTROPHILS 67.3 % (40.0-80.0); HEMATOCRIT 24.7 % (41.0-60); HEMOGLOBIN 8.3 gm/dL (12-16); MEAN CELL VOLUME 89.4 fl (81-100); MEAN CORPUSCULAR HEMOGLOBIN 30.1 pg (27.0-31.0); MEAN CORPUSCULAR HGB CONC 33.7 pg (28.0-36.0); MEAN PLATELET VOLUME 6.9 fl; NEUTROPHILE ABSOLUTE 2.7 Th/cmm (1.8-8.0); PLATELET COUNT 274 Th/cmm (150-400); RED BLOOD COUNT 2.76 Mil/cmm (3.80-5.10); RED CELL DISTRIBUTION WIDTH 13.6 % (11.5-20.0); WHITE BLOOD COUNT 4.1 Th/cmm (4.8-10.8)
--- NOTE | 2017-07-11 08:42 | General Progress Note ---
Subjective - Review of Systems Events since last encounter: no acute distress Objective - Results Result Diagrams: 07/11/17 07:35 07/10/17 05:56 Recent Labs: Laboratory Last Values WBC 4.1 Th/cmm (4.8-10.8) L 07/11/17 07:35 RBC 2.76 Mil/cmm (3.80-5.10) L 07/11/17 07:35 Hgb 8.3 gm/dL (12-16) L 07/11/17 07:35 Hct 24.7 % (41.0-60) L 07/11/17 07:35 MCV 89.4 fl (81-100) 07/11/17 07:35 MCH 30.1 pg (27.0-31.0) 07/11/17 07:35 MCHC Differential 33.7 pg (28.0-36.0) 07/11/17 07:35 RDW 13.6 % (11.5-20.0) 07/11/17 07:35 Plt Count 274 Th/cmm (150-400) 07/11/17 07:35 MPV 6.9 fl 07/11/17 07:35 Neutrophils % 67.3 % (40.0-80.0) 07/11/17 07:35 Lymphocytes % 21.2 % (20.0-50.0) 07/11/17 07:35 Monocytes % 9.1 % (2.0-10.0) 07/11/17 07:35 Eosinophils % 1.6 % (0.0-5.0) 07/11/17 07:35 Basophils % 0.8 % (0.0-2.0) 07/11/17 07:35 Neutrophils (Manual) 69 % (40-80) 07/10/17 05:56 Lymphocytes 24 % (20-50) 07/10/17 05:56 Monocytes 7 % (2-10) 07/10/17 05:56 Platelet Estimate ADEQUATE (NORMAL) 07/10/17 05:56 Platelet Morphology NORMAL (NORMAL) 07/10/17 05:56 RBC Morph Micro Appear NORMAL (NORMAL) 07/10/17 05:56 Sodium 140 mEq/L (136-145) 07/10/17 05:56 Potassium 4.2 mEq/L (3.5-5.1) 07/10/17 05:56 Chloride 111 mEq/L (98-107) H 07/10/17 05:56 Carbon Dioxide 21.6 mEq/L (21.0-31.0) 07/10/17 05:56 Anion Gap 11.6 (7.0-16.0) 07/10/17 05:56 BUN 19 mg/dL (7-25) 07/10/17 05:56 Creatinine 2.8 mg/dL (0.6-1.2) H 07/10/17 05:56 Est GFR ( Amer) 22.0 ml/min (>90) 07/10/17 05:56 Est GFR (Non-Af Amer) 18.2 ml/min 07/10/17 05:56 BUN/Creatinine Ratio 6.8 07/10/17 05:56 Glucose 89 mg/dL (70-105) 07/10/17 05:56 POC Glucose 174 MG/DL (70 - 105) H 07/11/17 05:58 Calcium 9.6 mg/dL (8.6-10.3) 07/10/17 05:56 - Physical Exam Vitals and I&O: Vital Signs Temp 97.9 F 07/11/17 06:35 Pulse 89 07/11/17 06:35 Resp 19 07/11/17 06:35 BP 145/60 07/11/17 06:35 Pulse Ox 99 07/11/17 06:35 Intake & Output 07/10/17 07/11/17 07/11/17 18:59 06:59 18:59 Intake Total 1330 560 Balance 1330 560 Intake: Oral 1330 560 Other: # Voids 3 1 # Bowel Movements 0 0 Active Medications: Current Medications Acetaminophen (Tylenol) 650 mg PO Q4HR PRN PRN Reason: Mild Pain / Temp above 100 Stop: 09/06/17 16:08 Acetaminophen (Tylenol) 650 mg PO Q4H PRN PRN Reason: Pain (Moderate) Stop: 09/06/17 20:55 Al Hydrox/Mg Hydrox/Simethicone (Maalox) 30 ml PO Q4HR PRN PRN Reason: GI DISTRESS Stop: 09/06/17 16:08 Docusate Sodium (Colace) 100 mg PO BID [facility] Stop: 09/07/17 08:59 Last Admin: 07/10/17 18:05 Dose: Not Given Ferrous Sulfate (Iron) 325 mg PO DAILY [facility] Stop: 09/07/17 08:59 Last Admin: 07/10/17 11:38 Dose: Not Given Folic Acid (Folate) 1 mg PO DAILY [facility] Stop: 09/07/17 08:59 Last Admin: 07/10/17 11:38 Dose: Not Given Insulin Aspart (Novolog Insulin Sliding Scale) 0 units SUBQ ACHS [facility] PRN Reason: Protocol Stop: 09/06/17 20:59 Last Admin: 07/11/17 06:34 Dose: 2 units Insulin Detemir (Levemir Insulin) 10 units SUBQ Q12H [facility] PRN Reason: Protocol Stop: 09/06/17 20:59 Last Admin: 07/10/17 21:43 Dose: Not Given Levothyroxine Sodium (Synthroid) 0.075 mg PO QDAC [facility] Stop: 09/07/17 07:29 Last Admin: 07/11/17 06:35 Dose: Not Given Lorazepam (Ativan) 0.5 mg PO Q4HR PRN; Protocol PRN Reason: Anxiety Stop: 08/07/17 16:08 Multivitamins/Vitamin C (Theragran) 1 tab PO DAILY [facility] Stop: 09/07/17 08:59 Last Admin: 07/10/17 11:39 Dose: Not Given Pantoprazole Sodium (Protonix) 40 mg PO DAILY [facility] Stop: 09/07/17 08:59 Last Admin: 07/10/17 11:39 Dose: Not Given Quetiapine Fumarate (Seroquel) 50 mg PO BID [facility] PRN Reason: Protocol Stop: 09/07/17 08:59 Last Admin: 07/10/17 18:05 Dose: Not Given Sevelamer HCl (Renagel) 800 mg PO TIDWM [facility] Stop: 09/07/17 07:59 Last Admin: 07/10/17 18:05 Dose: Not Given Zolpidem Tartrate (Ambien) 5 mg PO HS PRN PRN Reason: Insomnia Stop: 09/06/17 16:08 General: Alert, No acute distress HEENT: Atraumatic, PERRLA, EOMI Neck: Supple, JVD Cardiovascular: Regular rate, Normal S1, Normal S2 Lungs: Clear to auscultation Abdomen: Bowel sounds, Soft - Procedures Procedures: Procedures Procedure Code Date TRANSFUSE NONAUT RED BLOOD CELLS IN PERIPH VEIN, PERC 13636M8 07/04/17 Assessment/Plan - Problem List Patient Problems: All Active Problems ANEMIA (Acute) CHRONIC RENAL INSUFFICIENCY (Acute) PARANOID SCHIZOPHRENIA (Acute) TYPE II DM (Acute) UNCOOPERATIVE WITH CARE AND AGGRESSIVE (Acute) - Plan Plan: psych f/u cpm Nutritional Asmnt/Malnutr-PDOC - Dietary Evaluation Malnutrition Findings (Please click <Entered> for more info): Nutritional Asmnt/Malnutrition Start: 07/09/17 09: 39 Text: Status: Complete Freq: Document 07/09/17 09:39 MMULN (Rec: 07/09/17 09:49 MMULHERN HARRIET- FNS1) Nutritional Asmnt/Malnutrition Patient General Information Nutritional Screening High Risk Screening Diagnosis Psychosis Pertinent Medical Hx/Surgical Hx Paranoid Schizophrenia, Anxiety disorder, Dementia, Anemia, GERD, DM II, Hypothyroidism, CKD, Dysphagia , and difficulty in walking. Per nursing notes, she became combative whenever approached. Subjective Information Patient admitted from SNF on 5150 hold. Patient confused and not able to answer questions about dietary history. Current Diet Order/ Nutrition Support Mechanical soft ground CCHO 60gm Low sodium Patient / S.O Not Indicated Pertinent Medications maalox, colace, iron, folate, novolog, levemir, synthroid, MOM, MVI w/C, Protonix Pertinent Labs POC glucose 203 on admission Nutritional Hx/Data Height 1.52 m Height (Calculated Centimeters) 152.4 Current Weight (lbs) 71.668 kg Weight (Calculated Kilograms) 71.7 Weight (Calculated Grams) 70134.6 [place] Body Weight 100 % [place] Body Weight 158 Recent Weight Change No Weight Status Obese GI Symptoms GI Symptoms None Food Allergies No Cultural/Ethnic/Anglican Belief None indicated Usual diet at home Unknown Skin Integrity/Comment: Bruises on bilateral wrist and forearm, Tristan 18 Estimated Nutritional Goals BEE in Kcals: Using Current wt Calories/Kcals/Kg 20-25 kcal/kg (based on current weight of 71.8kg) - obese Kcals Calculated ~6695-6551 kcal/day Protein: Using Current wt Protein g/k gm/kg (based on current weight of 71.8kg) Protein Calculated ~70 gm/day Fluid: ml ~5235-6428 ml/day (25-30 ml/kg ) Nutritional Problem 1. Problem Problem Altered nutrition related lab values related to Etiology hyperglycemia aeb Signs/Symptoms: blood glucose 188 on admission and POC glucose 203 Intervention/Recommendation Comments 1. Continue current diet as tolerated by patient. ( mechanical soft ground, CCHO 60gm, Low sodium). 2. MD to modify insulin regimen as needed for optimal glycemic control. Expected Outcomes/Goals Expected Outcomes/Goals Blood glucose normalizes (80- 180), oral intake to meet >75% Of estiamted nutrient needs, weight remains stable or trends toward ideal body weight.
[2017-07-11] MEDS: Pantoprazole 40 mg EC Tab PO SCH (09:57)
[2017-07-11] MEDS: Ferrous Sulfate 325 MG TAB PO SCH (09:57)
[2017-07-11] MEDS: Insulin Detemir 100 units/mL 10mL Vial SUBQ SCH ×2 (09:58→21:38)
[2017-07-11] MEDS: Multivitamin Tab PO SCH (09:59)
--- NOTE | 2017-07-12 03:48 | Progress Notes ---
DATE: 07/11/2017 Case was discussed with staff of the patient. The patient continues to be irritable, psychotic, responding to internal stimuli. Continues to be unpredictable, impulsive, needing redirection; however, she is not eating. She is compliant with the medication, no side effects, no sedation, no nausea, no extrapyramidal symptoms, and Seroquel 50 mg twice a day. I will be increasing the dose of Seroquel to 175 mg twice a day and we will continue to work with the patient in group therapy, milieu therapy, adjust the medication as needed. JOB# [id number]
[2017-07-12] MEDS: INSULIN ASPART SLIDING SCALE 100 UNITS/ML UNIT SUBQ SCH ×3 (06:33→20:37)
[2017-07-12] MEDS: Levothyroxine 0.075 Mg Tab PO SCH (06:33)
--- NOTE | 2017-07-12 08:46 | General Progress Note ---
Subjective - Review of Systems Events since last encounter: patient continues to be irritable ,confused not wanting to eat Objective - Results Result Diagrams: 07/11/17 07:35 07/10/17 05:56 Recent Labs: Laboratory Last Values WBC 4.1 Th/cmm (4.8-10.8) L 07/11/17 07:35 RBC 2.76 Mil/cmm (3.80-5.10) L 07/11/17 07:35 Hgb 8.3 gm/dL (12-16) L 07/11/17 07:35 Hct 24.7 % (41.0-60) L 07/11/17 07:35 MCV 89.4 fl (81-100) 07/11/17 07:35 MCH 30.1 pg (27.0-31.0) 07/11/17 07:35 MCHC Differential 33.7 pg (28.0-36.0) 07/11/17 07:35 RDW 13.6 % (11.5-20.0) 07/11/17 07:35 Plt Count 274 Th/cmm (150-400) 07/11/17 07:35 MPV 6.9 fl 07/11/17 07:35 Neutrophils % 67.3 % (40.0-80.0) 07/11/17 07:35 Lymphocytes % 21.2 % (20.0-50.0) 07/11/17 07:35 Monocytes % 9.1 % (2.0-10.0) 07/11/17 07:35 Eosinophils % 1.6 % (0.0-5.0) 07/11/17 07:35 Basophils % 0.8 % (0.0-2.0) 07/11/17 07:35 Neutrophils (Manual) 69 % (40-80) 07/10/17 05:56 Lymphocytes 24 % (20-50) 07/10/17 05:56 Monocytes 7 % (2-10) 07/10/17 05:56 Platelet Estimate ADEQUATE (NORMAL) 07/10/17 05:56 Platelet Morphology NORMAL (NORMAL) 07/10/17 05:56 RBC Morph Micro Appear NORMAL (NORMAL) 07/10/17 05:56 Sodium 140 mEq/L (136-145) 07/10/17 05:56 Potassium 4.2 mEq/L (3.5-5.1) 07/10/17 05:56 Chloride 111 mEq/L (98-107) H 07/10/17 05:56 Carbon Dioxide 21.6 mEq/L (21.0-31.0) 07/10/17 05:56 Anion Gap 11.6 (7.0-16.0) 07/10/17 05:56 BUN 19 mg/dL (7-25) 07/10/17 05:56 Creatinine 2.8 mg/dL (0.6-1.2) H 07/10/17 05:56 Est GFR ( Amer) 22.0 ml/min (>90) 07/10/17 05:56 Est GFR (Non-Af Amer) 18.2 ml/min 07/10/17 05:56 BUN/Creatinine Ratio 6.8 07/10/17 05:56 Glucose 89 mg/dL (70-105) 07/10/17 05:56 POC Glucose 165 MG/DL (70 - 105) H 07/11/17 19:59 Calcium 9.6 mg/dL (8.6-10.3) 07/10/17 05:56 - Physical Exam Vitals and I&O: Vital Signs Temp 98.4 F 07/12/17 06:18 Pulse 95 07/12/17 06:18 Resp 19 07/12/17 06:18 BP 159/72 07/12/17 06:18 Pulse Ox 98 07/12/17 06:18 Intake & Output 07/11/17 07/12/17 07/12/17 18:59 06:59 18:59 Intake Total 2200 240 Balance 2200 240 Intake: Oral 2200 240 Other: # Voids 4 3 # Bowel Movements 2 0 Active Medications: Current Medications Acetaminophen (Tylenol) 650 mg PO Q4HR PRN PRN Reason: Mild Pain / Temp above 100 Stop: 09/06/17 16:08 Acetaminophen (Tylenol) 650 mg PO Q4H PRN PRN Reason: Pain (Moderate) Stop: 09/06/17 20:55 Al Hydrox/Mg Hydrox/Simethicone (Maalox) 30 ml PO Q4HR PRN PRN Reason: GI DISTRESS Stop: 09/06/17 16:08 Last Admin: 07/11/17 10:02 Dose: 30 ml Docusate Sodium (Colace) 100 mg PO BID [facility] Stop: 09/07/17 08:59 Last Admin: 07/11/17 18:20 Dose: Not Given Ferrous Sulfate (Iron) 325 mg PO DAILY [facility] Stop: 09/07/17 08:59 Last Admin: 07/11/17 09:57 Dose: 325 mg Folic Acid (Folate) 1 mg PO DAILY [facility] Stop: 09/07/17 08:59 Last Admin: 07/11/17 09:57 Dose: 1 mg Insulin Aspart (Novolog Insulin Sliding Scale) 0 units SUBQ ACHS [facility] PRN Reason: Protocol Stop: 09/06/17 20:59 Last Admin: 07/12/17 06:33 Dose: Not Given Insulin Detemir (Levemir Insulin) 10 units SUBQ Q12H [facility] PRN Reason: Protocol Stop: 09/06/17 20:59 Last Admin: 07/11/17 21:38 Dose: 10 units Levothyroxine Sodium (Synthroid) 0.075 mg PO QDAC [facility] Stop: 09/10/17 07:29 Last Admin: 07/12/17 06:33 Dose: Not Given Lorazepam (Ativan) 0.5 mg PO Q4HR PRN; Protocol PRN Reason: Anxiety Stop: 08/07/17 16:08 Last Admin: 07/11/17 18:22 Dose: 0.5 mg Multivitamins/Vitamin C (Theragran) 1 tab PO DAILY [facility] Stop: 09/07/17 08:59 Last Admin: 07/11/17 09:59 Dose: Not Given Pantoprazole Sodium (Protonix) 40 mg PO DAILY [facility] Stop: 09/07/17 08:59 Last Admin: 07/11/17 09:57 Dose: 40 mg Quetiapine Fumarate (Seroquel) 75 mg PO BID [facility] PRN Reason: Protocol Stop: 09/09/17 16:59 Last Admin: 07/11/17 18:21 Dose: 75 mg Sevelamer HCl (Renagel) 800 mg PO TIDWM [facility] Stop: 09/07/17 07:59 Last Admin: 07/11/17 18:22 Dose: 800 mg Zolpidem Tartrate (Ambien) 5 mg PO HS PRN PRN Reason: Insomnia Stop: 09/06/17 16:08 General: Alert, No acute distress HEENT: Atraumatic, PERRLA, EOMI Neck: Supple, JVD Cardiovascular: Regular rate, Normal S1, Normal S2 Lungs: Clear to auscultation Abdomen: Bowel sounds, Soft - Procedures Procedures: Procedures Procedure Code Date TRANSFUSE NONAUT RED BLOOD CELLS IN PERIPH VEIN, PERC 87010V5 07/04/17 Assessment/Plan - Problem List Patient Problems: All Active Problems ANEMIA (Acute) CHRONIC RENAL INSUFFICIENCY (Acute) PARANOID SCHIZOPHRENIA (Acute) TYPE II DM (Acute) UNCOOPERATIVE WITH CARE AND AGGRESSIVE (Acute) - Plan Plan: psych f/u cpm Nutritional Asmnt/Malnutr-PDOC - Dietary Evaluation Malnutrition Findings (Please click <Entered> for more info): Nutritional Asmnt/Malnutrition Start: 07/09/17 09: 39 Text: Status: Complete Freq: Document 07/09/17 09:39 MMULRUBÉN (Rec: 07/09/17 09:49 MMULRUBÉN LARIOS- FNS1) Nutritional Asmnt/Malnutrition Patient General Information Nutritional Screening High Risk Screening Diagnosis Psychosis Pertinent Medical Hx/Surgical Hx Paranoid Schizophrenia, Anxiety disorder, Dementia, Anemia, GERD, DM II, Hypothyroidism, CKD, Dysphagia , and difficulty in walking. Per nursing notes, she became combative whenever approached. Subjective Information Patient admitted from SNF on 5150 hold. Patient confused and not able to answer questions about dietary history. Current Diet Order/ Nutrition Support Mechanical soft ground CCHO 60gm Low sodium Patient / S.O Not Indicated Pertinent Medications maalox, colace, iron, folate, novolog, levemir, synthroid, MOM, MVI w/C, Protonix Pertinent Labs POC glucose 203 on admission Nutritional Hx/Data Height 1.52 m Height (Calculated Centimeters) 152.4 Current Weight (lbs) 71.668 kg Weight (Calculated Kilograms) 71.7 Weight (Calculated Grams) 12064.6 [place] Body Weight 100 % [place] Body Weight 158 Recent Weight Change No Weight Status Obese GI Symptoms GI Symptoms None Food Allergies No Cultural/Ethnic/Druze Belief None indicated Usual diet at home Unknown Skin Integrity/Comment: Bruises on bilateral wrist and forearm, Tristan 18 Estimated Nutritional Goals BEE in Kcals: Using Current wt Calories/Kcals/Kg 20-25 kcal/kg (based on current weight of 71.8kg) - obese Kcals Calculated ~6798-4098 kcal/day Protein: Using Current wt Protein g/k gm/kg (based on current weight of 71.8kg) Protein Calculated ~70 gm/day Fluid: ml ~2085-1620 ml/day (25-30 ml/kg ) Nutritional Problem 1. Problem Problem Altered nutrition related lab values related to Etiology hyperglycemia aeb Signs/Symptoms: blood glucose 188 on admission and POC glucose 203 Intervention/Recommendation Comments 1. Continue current diet as tolerated by patient. ( mechanical soft ground, CCHO 60gm, Low sodium). 2. MD to modify insulin regimen as needed for optimal glycemic control. Expected Outcomes/Goals Expected Outcomes/Goals Blood glucose normalizes (80- 180), oral intake to meet >75% Of estiamted nutrient needs, weight remains stable or trends toward ideal body weight.
[2017-07-12] MEDS: Pantoprazole 40 mg EC Tab PO SCH (09:40)
[2017-07-12] MEDS: Ferrous Sulfate 325 MG TAB PO SCH (09:40)
[2017-07-12] MEDS: Multivitamin Tab PO SCH (09:41)
[2017-07-12] MEDS: Insulin Detemir 100 units/mL 10mL Vial SUBQ SCH ×2 (10:40→20:36)
--- NOTE | 2017-07-12 19:58 | Internal Medicine Prog Note ---
Internal Medicine Subjective - Subjective Service Date: 07/12/17 Patient is:: awake, verbal, talking Per staff patient has:: no adverse event (THE PATIENT FEELS WELL,TAKING MEDICATION .) Internal Medicine Objective - Results Result Diagrams: 07/11/17 07:35 07/10/17 05:56 Recent Labs: Laboratory Last Values WBC 4.1 Th/cmm (4.8-10.8) L 07/11/17 07:35 RBC 2.76 Mil/cmm (3.80-5.10) L 07/11/17 07:35 Hgb 8.3 gm/dL (12-16) L 07/11/17 07:35 Hct 24.7 % (41.0-60) L 07/11/17 07:35 MCV 89.4 fl (81-100) 07/11/17 07:35 MCH 30.1 pg (27.0-31.0) 07/11/17 07:35 MCHC Differential 33.7 pg (28.0-36.0) 07/11/17 07:35 RDW 13.6 % (11.5-20.0) 07/11/17 07:35 Plt Count 274 Th/cmm (150-400) 07/11/17 07:35 MPV 6.9 fl 07/11/17 07:35 Neutrophils % 67.3 % (40.0-80.0) 07/11/17 07:35 Lymphocytes % 21.2 % (20.0-50.0) 07/11/17 07:35 Monocytes % 9.1 % (2.0-10.0) 07/11/17 07:35 Eosinophils % 1.6 % (0.0-5.0) 07/11/17 07:35 Basophils % 0.8 % (0.0-2.0) 07/11/17 07:35 Neutrophils (Manual) 69 % (40-80) 07/10/17 05:56 Lymphocytes 24 % (20-50) 07/10/17 05:56 Monocytes 7 % (2-10) 07/10/17 05:56 Platelet Estimate ADEQUATE (NORMAL) 07/10/17 05:56 Platelet Morphology NORMAL (NORMAL) 07/10/17 05:56 RBC Morph Micro Appear NORMAL (NORMAL) 07/10/17 05:56 Sodium 140 mEq/L (136-145) 07/10/17 05:56 Potassium 4.2 mEq/L (3.5-5.1) 07/10/17 05:56 Chloride 111 mEq/L (98-107) H 07/10/17 05:56 Carbon Dioxide 21.6 mEq/L (21.0-31.0) 07/10/17 05:56 Anion Gap 11.6 (7.0-16.0) 07/10/17 05:56 BUN 19 mg/dL (7-25) 07/10/17 05:56 Creatinine 2.8 mg/dL (0.6-1.2) H 07/10/17 05:56 Est GFR ( Amer) 22.0 ml/min (>90) 07/10/17 05:56 Est GFR (Non-Af Amer) 18.2 ml/min 07/10/17 05:56 BUN/Creatinine Ratio 6.8 07/10/17 05:56 Glucose 89 mg/dL (70-105) 07/10/17 05:56 POC Glucose 258 MG/DL (70 - 105) H 07/12/17 19:37 Calcium 9.6 mg/dL (8.6-10.3) 07/10/17 05:56 - Physical Exam Vitals and I&O: Vital Signs Temp 97.9 F 07/12/17 19:37 Pulse 108 07/12/17 19:37 Resp 20 07/12/17 19:37 BP 130/59 07/12/17 19:37 Pulse Ox 100 07/12/17 19:37 Intake & Output 07/12/17 07/12/17 07/13/17 06:59 18:59 06:59 Intake Total 240 700 120 Balance 240 700 120 Intake: Oral 240 700 120 Other: # Voids 3 3 3 # Bowel Movements 0 1 0 Active Medications: Current Medications Acetaminophen (Tylenol) 650 mg PO Q4HR PRN PRN Reason: Mild Pain / Temp above 100 Stop: 09/06/17 16:08 Acetaminophen (Tylenol) 650 mg PO Q4H PRN PRN Reason: Pain (Moderate) Stop: 09/06/17 20:55 Al Hydrox/Mg Hydrox/Simethicone (Maalox) 30 ml PO Q4HR PRN PRN Reason: GI DISTRESS Stop: 09/06/17 16:08 Last Admin: 07/11/17 10:02 Dose: 30 ml Docusate Sodium (Colace) 100 mg PO BID [facility] Stop: 09/07/17 08:59 Last Admin: 07/12/17 17:34 Dose: Not Given Ferrous Sulfate (Iron) 325 mg PO DAILY [facility] Stop: 09/07/17 08:59 Last Admin: 07/12/17 09:40 Dose: 325 mg Folic Acid (Folate) 1 mg PO DAILY [facility] Stop: 09/07/17 08:59 Last Admin: 07/12/17 09:40 Dose: 1 mg Insulin Aspart (Novolog Insulin Sliding Scale) 0 units SUBQ ACHS [facility] PRN Reason: Protocol Stop: 09/06/17 20:59 Last Admin: 07/12/17 17:31 Dose: Not Given Insulin Detemir (Levemir Insulin) 10 units SUBQ Q12H [facility] PRN Reason: Protocol Stop: 09/06/17 20:59 Last Admin: 07/12/17 10:40 Dose: 10 units Levothyroxine Sodium (Synthroid) 0.075 mg PO QDAC [facility] Stop: 09/10/17 07:29 Last Admin: 07/12/17 06:33 Dose: Not Given Lorazepam (Ativan) 0.5 mg PO Q4HR PRN; Protocol PRN Reason: Anxiety Stop: 08/07/17 16:08 Last Admin: 07/12/17 09:39 Dose: 0.5 mg Multivitamins/Vitamin C (Theragran) 1 tab PO DAILY [facility] Stop: 09/07/17 08:59 Last Admin: 07/12/17 09:41 Dose: Not Given Pantoprazole Sodium (Protonix) 40 mg PO DAILY [facility] Stop: 09/07/17 08:59 Last Admin: 07/12/17 09:40 Dose: 40 mg Quetiapine Fumarate (Seroquel) 100 mg PO BID [facility] PRN Reason: Protocol Stop: 09/10/17 16:59 Last Admin: 07/12/17 17:34 Dose: Not Given Sevelamer HCl (Renagel) 800 mg PO TIDWM [facility] Stop: 09/07/17 07:59 Last Admin: 07/12/17 17:34 Dose: Not Given Zolpidem Tartrate (Ambien) 5 mg PO HS PRN PRN Reason: Insomnia Stop: 09/06/17 16:08 General: demented HEENT: NC/AT, PERRLA, EOMI, anicteric sclerae, throat clear Neck: Supple, No JVD, No thyromegaly, +2 carotid pulse wo bruit, No LAD Lungs: CTAB Cardiovascular: Normal S1, Normal S2, without murmur Abdomen: non-tender, non-distended Neurological: no change - Procedures Procedures: Procedures Procedure Code Date TRANSFUSE NONAUT RED BLOOD CELLS IN PERIPH VEIN, PERC 92007G0 07/04/17 Internal Medicine Assmt/Plan - Assessment Assessment: 1.DM. 2.HYPOTHYROIDISIM. 3.ANEMIA. 4.SCHIZOPHRENEA. - Plan Plan: CONTINUE ON CURRENT MEDICATION AND SLIDING SCALE. Nutritional Asmnt/Malnutr-PDOC - Dietary Evaluation Malnutrition Findings (Please click <Entered> for more info): Nutritional Asmnt/Malnutrition Start: 07/09/17 09: 39 Text: Status: Complete Freq: Document 07/09/17 09:39 MMULHERCierra (Rec: 07/09/17 09:49 MMULHERN HARRIET- FNS1) Nutritional Asmnt/Malnutrition Patient General Information Nutritional Screening High Risk Screening Diagnosis Psychosis Pertinent Medical Hx/Surgical Hx Paranoid Schizophrenia, Anxiety disorder, Dementia, Anemia, GERD, DM II, Hypothyroidism, CKD, Dysphagia , and difficulty in walking. Per nursing notes, she became combative whenever approached. Subjective Information Patient admitted from SNF on 5150 hold. Patient confused and not able to answer questions about dietary history. Current Diet Order/ Nutrition Support Mechanical soft ground CCHO 60gm Low sodium Patient / S.O Not Indicated Pertinent Medications maalox, colace, iron, folate, novolog, levemir, synthroid, MOM, MVI w/C, Protonix Pertinent Labs POC glucose 203 on admission Nutritional Hx/Data Height 1.52 m Height (Calculated Centimeters) 152.4 Current Weight (lbs) 71.668 kg Weight (Calculated Kilograms) 71.7 Weight (Calculated Grams) 12452.6 [place] Body Weight 100 % [place] Body Weight 158 Recent Weight Change No Weight Status Obese GI Symptoms GI Symptoms None Food Allergies No Cultural/Ethnic/Gnosticist Belief None indicated Usual diet at home Unknown Skin Integrity/Comment: Bruises on bilateral wrist and forearm, Tristan 18 Estimated Nutritional Goals BEE in Kcals: Using Current wt Calories/Kcals/Kg 20-25 kcal/kg (based on current weight of 71.8kg) - obese Kcals Calculated ~7587-7039 kcal/day Protein: Using Current wt Protein g/k gm/kg (based on current weight of 71.8kg) Protein Calculated ~70 gm/day Fluid: ml ~9788-4230 ml/day (25-30 ml/kg ) Nutritional Problem 1. Problem Problem Altered nutrition related lab values related to Etiology hyperglycemia aeb Signs/Symptoms: blood glucose 188 on admission and POC glucose 203 Intervention/Recommendation Comments 1. Continue current diet as tolerated by patient. ( mechanical soft ground, CCHO 60gm, Low sodium). 2. MD to modify insulin regimen as needed for optimal glycemic control. Expected Outcomes/Goals Expected Outcomes/Goals Blood glucose normalizes (80- 180), oral intake to meet >75% Of estiamted nutrient needs, weight remains stable or trends toward ideal body weight.
--- NOTE | 2017-07-13 01:49 | Progress Notes ---
DATE: 07/12/2017 SUBJECTIVE: Case was discussed with staff of the patient, reviewed records. The patient continues to be internally preoccupied. Continues to be unpredictable, impulsive, unable to make safe plan for self-care. When I talked to her, she denied that was her; however, the staff reported that is how she behaves. She is in general compliant with the medication with no side effects, no sedation, no nausea, no extrapyramidal symptoms. PLAN OF CARE: I will be increasing her Seroquel dose to 100 mg twice a day to help with her psychosis and we will continue to work with the patient in group therapy, milieu therapy, adjust the medication as needed. JOB# [id number]
[2017-07-13] MEDS: Levothyroxine 0.075 Mg Tab PO SCH (06:49)
[2017-07-13] MEDS: Ferrous Sulfate 325 MG TAB PO SCH (10:05)
[2017-07-13] MEDS: Insulin Detemir 100 units/mL 10mL Vial SUBQ SCH ×2 (10:05→20:15)
[2017-07-13] MEDS: Pantoprazole 40 mg EC Tab PO SCH (10:06)
[2017-07-13] MEDS: Multivitamin Tab PO SCH (10:07)
--- NOTE | 2017-07-13 10:43 | Internal Medicine Prog Note ---
Internal Medicine Subjective - Subjective Service Date: 07/13/17 Patient seen and examined:: without staff Patient is:: awake, verbal, talking Per staff patient has:: no adverse event (THE PATIENT FEELS WELL,TAKING MEDICATION .) Internal Medicine Objective - Results Result Diagrams: 07/11/17 07:35 07/10/17 05:56 Recent Labs: Laboratory Last Values WBC 4.1 Th/cmm (4.8-10.8) L 07/11/17 07:35 RBC 2.76 Mil/cmm (3.80-5.10) L 07/11/17 07:35 Hgb 8.3 gm/dL (12-16) L 07/11/17 07:35 Hct 24.7 % (41.0-60) L 07/11/17 07:35 MCV 89.4 fl (81-100) 07/11/17 07:35 MCH 30.1 pg (27.0-31.0) 07/11/17 07:35 MCHC Differential 33.7 pg (28.0-36.0) 07/11/17 07:35 RDW 13.6 % (11.5-20.0) 07/11/17 07:35 Plt Count 274 Th/cmm (150-400) 07/11/17 07:35 MPV 6.9 fl 07/11/17 07:35 Neutrophils % 67.3 % (40.0-80.0) 07/11/17 07:35 Lymphocytes % 21.2 % (20.0-50.0) 07/11/17 07:35 Monocytes % 9.1 % (2.0-10.0) 07/11/17 07:35 Eosinophils % 1.6 % (0.0-5.0) 07/11/17 07:35 Basophils % 0.8 % (0.0-2.0) 07/11/17 07:35 Neutrophils (Manual) 69 % (40-80) 07/10/17 05:56 Lymphocytes 24 % (20-50) 07/10/17 05:56 Monocytes 7 % (2-10) 07/10/17 05:56 Platelet Estimate ADEQUATE (NORMAL) 07/10/17 05:56 Platelet Morphology NORMAL (NORMAL) 07/10/17 05:56 RBC Morph Micro Appear NORMAL (NORMAL) 07/10/17 05:56 Sodium 140 mEq/L (136-145) 07/10/17 05:56 Potassium 4.2 mEq/L (3.5-5.1) 07/10/17 05:56 Chloride 111 mEq/L (98-107) H 07/10/17 05:56 Carbon Dioxide 21.6 mEq/L (21.0-31.0) 07/10/17 05:56 Anion Gap 11.6 (7.0-16.0) 07/10/17 05:56 BUN 19 mg/dL (7-25) 07/10/17 05:56 Creatinine 2.8 mg/dL (0.6-1.2) H 07/10/17 05:56 Est GFR ( Amer) 22.0 ml/min (>90) 07/10/17 05:56 Est GFR (Non-Af Amer) 18.2 ml/min 07/10/17 05:56 BUN/Creatinine Ratio 6.8 07/10/17 05:56 Glucose 89 mg/dL (70-105) 07/10/17 05:56 POC Glucose 130 MG/DL (70 - 105) H 07/13/17 06:13 Calcium 9.6 mg/dL (8.6-10.3) 07/10/17 05:56 - Physical Exam Vitals and I&O: Vital Signs Temp 97.3 F 07/13/17 06:24 Pulse 89 07/13/17 06:24 Resp 20 07/13/17 06:24 BP 141/78 07/13/17 06:24 Pulse Ox 99 07/13/17 06:24 Intake & Output 07/12/17 07/13/17 07/13/17 18:59 06:59 18:59 Intake Total 700 240 Balance 700 240 Intake: Oral 700 240 Other: # Voids 3 3 # Bowel Movements 1 0 Active Medications: Current Medications Acetaminophen (Tylenol) 650 mg PO Q4HR PRN PRN Reason: Mild Pain / Temp above 100 Stop: 09/06/17 16:08 Acetaminophen (Tylenol) 650 mg PO Q4H PRN PRN Reason: Pain (Moderate) Stop: 09/06/17 20:55 Al Hydrox/Mg Hydrox/Simethicone (Maalox) 30 ml PO Q4HR PRN PRN Reason: GI DISTRESS Stop: 09/06/17 16:08 Last Admin: 07/11/17 10:02 Dose: 30 ml Docusate Sodium (Colace) 100 mg PO BID PABLO Stop: 09/07/17 08:59 Last Admin: 07/13/17 10:05 Dose: Not Given Ferrous Sulfate (Iron) 325 mg PO DAILY PABLO Stop: 09/07/17 08:59 Last Admin: 07/13/17 10:05 Dose: 325 mg Folic Acid (Folate) 1 mg PO DAILY PABLO Stop: 09/07/17 08:59 Last Admin: 07/13/17 10:05 Dose: 1 mg Insulin Aspart (Novolog Insulin Sliding Scale) 0 units SUBQ ACHS PABLO PRN Reason: Protocol Stop: 09/06/17 20:59 Last Admin: 07/12/17 20:37 Dose: 6 units Insulin Detemir (Levemir Insulin) 10 units SUBQ Q12H PABLO PRN Reason: Protocol Stop: 09/06/17 20:59 Last Admin: 07/13/17 10:05 Dose: 10 units Levothyroxine Sodium (Synthroid) 0.075 mg PO QDAC [facility] Stop: 09/10/17 07:29 Last Admin: 07/13/17 06:49 Dose: Not Given Lorazepam (Ativan) 0.5 mg PO Q4HR PRN; Protocol PRN Reason: Anxiety Stop: 08/07/17 16:08 Last Admin: 07/13/17 10:06 Dose: 0.5 mg Multivitamins/Vitamin C (Theragran) 1 tab PO DAILY PABLO Stop: 09/07/17 08:59 Last Admin: 07/13/17 10:07 Dose: Not Given Pantoprazole Sodium (Protonix) 40 mg PO DAILY PABLO Stop: 09/07/17 08:59 Last Admin: 07/13/17 10:06 Dose: 40 mg Quetiapine Fumarate (Seroquel) 100 mg PO BID PABLO PRN Reason: Protocol Stop: 09/10/17 16:59 Last Admin: 07/13/17 10:06 Dose: 100 mg Sevelamer HCl (Renagel) 800 mg PO TIDWM PABLO Stop: 09/07/17 07:59 Last Admin: 07/13/17 10:05 Dose: Not Given Zolpidem Tartrate (Ambien) 5 mg PO HS PRN PRN Reason: Insomnia Stop: 09/06/17 16:08 General: demented HEENT: NC/AT, PERRLA, EOMI, anicteric sclerae, throat clear Neck: Supple, No JVD, No thyromegaly, +2 carotid pulse wo bruit, No LAD Lungs: CTAB Cardiovascular: Normal S1, Normal S2, without murmur Abdomen: non-tender, non-distended Neurological: no change - Procedures Procedures: Procedures Procedure Code Date TRANSFUSE NONAUT RED BLOOD CELLS IN PERIPH VEIN, PERC 24387W8 07/04/17 Internal Medicine Assmt/Plan - Assessment Assessment: 1.DM. 2.HYPOTHYROIDISIM. 3.ANEMIA. 4.SCHIZOPHRENEA. - Plan Plan: CONTINUE ON CURRENT MEDICATION . Nutritional Asmnt/Malnutr-PDOC - Dietary Evaluation Malnutrition Findings (Please click <Entered> for more info): Nutritional Asmnt/Malnutrition Start: 07/09/17 09: 39 Text: Status: Complete Freq: Document 07/09/17 09:39 MMULHERCierra (Rec: 07/09/17 09:49 MMULHERN HARRIET- [email or web address]) Nutritional Asmnt/Malnutrition Patient General Information Nutritional Screening High Risk Screening Diagnosis Psychosis Pertinent Medical Hx/Surgical Hx Paranoid Schizophrenia, Anxiety disorder, Dementia, Anemia, GERD, DM II, Hypothyroidism, CKD, Dysphagia , and difficulty in walking. Per nursing notes, she became combative whenever approached. Subjective Information Patient admitted from SNF on 5150 hold. Patient confused and not able to answer questions about dietary history. Current Diet Order/ Nutrition Support Mechanical soft ground CCHO 60gm Low sodium Patient / S.O Not Indicated Pertinent Medications maalox, colace, iron, folate, novolog, levemir, synthroid, MOM, MVI w/C, Protonix Pertinent Labs POC glucose 203 on admission Nutritional Hx/Data Height 1.52 m Height (Calculated Centimeters) 152.4 Current Weight (lbs) 71.668 kg Weight (Calculated Kilograms) 71.7 Weight (Calculated Grams) 80389.6 [place] Body Weight 100 % [place] Body Weight 158 Recent Weight Change No Weight Status Obese GI Symptoms GI Symptoms None Food Allergies No Cultural/Ethnic/Judaism Belief None indicated Usual diet at home Unknown Skin Integrity/Comment: Bruises on bilateral wrist and forearm, Tristan 18 Estimated Nutritional Goals BEE in Kcals: Using Current wt Calories/Kcals/Kg 20-25 kcal/kg (based on current weight of 71.8kg) - obese Kcals Calculated ~0235-3374 kcal/day Protein: Using Current wt Protein g/k gm/kg (based on current weight of 71.8kg) Protein Calculated ~70 gm/day Fluid: ml ~6745-1198 ml/day (25-30 ml/kg ) Nutritional Problem 1. Problem Problem Altered nutrition related lab values related to Etiology hyperglycemia aeb Signs/Symptoms: blood glucose 188 on admission and POC glucose 203 Intervention/Recommendation Comments 1. Continue current diet as tolerated by patient. ( mechanical soft ground, CCHO 60gm, Low sodium). 2. MD to modify insulin regimen as needed for optimal glycemic control. Expected Outcomes/Goals Expected Outcomes/Goals Blood glucose normalizes (80- 180), oral intake to meet >75% Of estiamted nutrient needs, weight remains stable or trends toward ideal body weight.
[2017-07-13] MEDS: INSULIN ASPART SLIDING SCALE 100 UNITS/ML UNIT SUBQ SCH ×2 (17:17→20:15)
--- NOTE | 2017-07-13 23:49 | Progress Notes ---
DATE: 07/13/2017 Case was discussed with staff of the patient, reviewed records. The patient continues to be internally preoccupied. Continues to have poor insight. Continues to be unable to make safe plan for self care. Continues to be responding to internal stimuli, needing redirection, but she is sleeping better, eating better, taking her medications. No side effects, no sedation, no nausea, no extrapyramidal symptoms. I did increase her Seroquel dose yesterday to 100 mg twice a day with no side effects, no sedation, no nausea, no extrapyramidal symptoms. It is too early to make further changes. We will continue to work with the patient in group therapy, milieu therapy, adjust medication as needed. JOB# [id number]
[2017-07-14] MEDS: INSULIN ASPART SLIDING SCALE 100 UNITS/ML UNIT SUBQ SCH ×4 (06:53→21:39)
[2017-07-14] MEDS: Levothyroxine 0.075 Mg Tab PO SCH (06:53)
[2017-07-14] MEDS: Ferrous Sulfate 325 MG TAB PO SCH (09:02)
[2017-07-14] MEDS: Pantoprazole 40 mg EC Tab PO SCH (09:02)
[2017-07-14] MEDS: Multivitamin Tab PO SCH (09:03)
[2017-07-14] MEDS: Insulin Detemir 100 units/mL 10mL Vial SUBQ SCH ×2 (10:05→21:40)
--- NOTE | 2017-07-14 20:08 | Internal Medicine Prog Note ---
Internal Medicine Subjective - Subjective Service Date: 07/14/17 Patient seen and examined:: with staff Patient is:: awake, verbal, talking Per staff patient has:: no adverse event (THE PATIENT FEELS WELL,TAKING MEDICATION .) Internal Medicine Objective - Results Result Diagrams: 07/11/17 07:35 07/10/17 05:56 Recent Labs: Laboratory Last Values WBC 4.1 Th/cmm (4.8-10.8) L 07/11/17 07:35 RBC 2.76 Mil/cmm (3.80-5.10) L 07/11/17 07:35 Hgb 8.3 gm/dL (12-16) L 07/11/17 07:35 Hct 24.7 % (41.0-60) L 07/11/17 07:35 MCV 89.4 fl (81-100) 07/11/17 07:35 MCH 30.1 pg (27.0-31.0) 07/11/17 07:35 MCHC Differential 33.7 pg (28.0-36.0) 07/11/17 07:35 RDW 13.6 % (11.5-20.0) 07/11/17 07:35 Plt Count 274 Th/cmm (150-400) 07/11/17 07:35 MPV 6.9 fl 07/11/17 07:35 Neutrophils % 67.3 % (40.0-80.0) 07/11/17 07:35 Lymphocytes % 21.2 % (20.0-50.0) 07/11/17 07:35 Monocytes % 9.1 % (2.0-10.0) 07/11/17 07:35 Eosinophils % 1.6 % (0.0-5.0) 07/11/17 07:35 Basophils % 0.8 % (0.0-2.0) 07/11/17 07:35 Neutrophils (Manual) 69 % (40-80) 07/10/17 05:56 Lymphocytes 24 % (20-50) 07/10/17 05:56 Monocytes 7 % (2-10) 07/10/17 05:56 Platelet Estimate ADEQUATE (NORMAL) 07/10/17 05:56 Platelet Morphology NORMAL (NORMAL) 07/10/17 05:56 RBC Morph Micro Appear NORMAL (NORMAL) 07/10/17 05:56 Sodium 140 mEq/L (136-145) 07/10/17 05:56 Potassium 4.2 mEq/L (3.5-5.1) 07/10/17 05:56 Chloride 111 mEq/L (98-107) H 07/10/17 05:56 Carbon Dioxide 21.6 mEq/L (21.0-31.0) 07/10/17 05:56 Anion Gap 11.6 (7.0-16.0) 07/10/17 05:56 BUN 19 mg/dL (7-25) 07/10/17 05:56 Creatinine 2.8 mg/dL (0.6-1.2) H 07/10/17 05:56 Est GFR ( Amer) 22.0 ml/min (>90) 07/10/17 05:56 Est GFR (Non-Af Amer) 18.2 ml/min 07/10/17 05:56 BUN/Creatinine Ratio 6.8 07/10/17 05:56 Glucose 89 mg/dL (70-105) 07/10/17 05:56 POC Glucose 163 MG/DL (70 - 105) H 07/14/17 09:50 Calcium 9.6 mg/dL (8.6-10.3) 07/10/17 05:56 - Physical Exam Vitals and I&O: Vital Signs Temp 97.8 F 07/14/17 18:39 Pulse 107 07/14/17 18:39 Resp 18 07/14/17 18:39 BP 119/76 07/14/17 18:39 Pulse Ox 98 07/14/17 18:39 Intake & Output 07/14/17 07/14/17 07/15/17 06:59 18:59 06:59 Intake Total 120 700 Balance 120 700 Intake: Oral 120 700 Other: # Voids 3 3 # Bowel Movements 2 Active Medications: Current Medications Acetaminophen (Tylenol) 650 mg PO Q4HR PRN PRN Reason: Mild Pain / Temp above 100 Stop: 09/06/17 16:08 Acetaminophen (Tylenol) 650 mg PO Q4H PRN PRN Reason: Pain (Moderate) Stop: 09/06/17 20:55 Al Hydrox/Mg Hydrox/Simethicone (Maalox) 30 ml PO Q4HR PRN PRN Reason: GI DISTRESS Stop: 09/06/17 16:08 Last Admin: 07/11/17 10:02 Dose: 30 ml Docusate Sodium (Colace) 100 mg PO BID PABLO Stop: 09/07/17 08:59 Last Admin: 07/14/17 17:08 Dose: 100 mg Ferrous Sulfate (Iron) 325 mg PO DAILY PABLO Stop: 09/07/17 08:59 Last Admin: 07/14/17 09:02 Dose: Not Given Folic Acid (Folate) 1 mg PO DAILY PABLO Stop: 09/07/17 08:59 Last Admin: 07/14/17 09:03 Dose: Not Given Insulin Aspart (Novolog Insulin Sliding Scale) 0 units SUBQ ACHS PABLO PRN Reason: Protocol Stop: 09/06/17 20:59 Last Admin: 07/14/17 16:58 Dose: 2 units Insulin Detemir (Levemir Insulin) 10 units SUBQ Q12H PABLO PRN Reason: Protocol Stop: 09/06/17 20:59 Last Admin: 07/14/17 10:05 Dose: 10 units Levothyroxine Sodium (Synthroid) 0.075 mg PO QDAC [facility] Stop: 09/10/17 07:29 Last Admin: 07/14/17 06:53 Dose: 0.075 mg Lorazepam (Ativan) 0.5 mg PO Q4HR PRN; Protocol PRN Reason: Anxiety Stop: 08/07/17 16:08 Last Admin: 07/13/17 10:06 Dose: 0.5 mg Multivitamins/Vitamin C (Theragran) 1 tab PO DAILY PABLO Stop: 09/07/17 08:59 Last Admin: 07/14/17 09:03 Dose: Not Given Pantoprazole Sodium (Protonix) 40 mg PO DAILY PABLO Stop: 09/07/17 08:59 Last Admin: 07/14/17 09:02 Dose: Not Given Quetiapine Fumarate 100 mg/ (Quetiapine Fumarate 25 mg) 125 mg PO BID [facility] Stop: 09/12/17 16:59 Last Admin: 07/14/17 17:08 Dose: 125 mg Sevelamer HCl (Renagel) 800 mg PO TIDWM PABLO Stop: 09/07/17 07:59 Last Admin: 07/14/17 17:08 Dose: 800 mg Zolpidem Tartrate (Ambien) 5 mg PO HS PRN PRN Reason: Insomnia Stop: 09/06/17 16:08 General: demented HEENT: NC/AT, PERRLA, EOMI, anicteric sclerae, throat clear Neck: Supple, No JVD, No thyromegaly, +2 carotid pulse wo bruit, No LAD Lungs: CTAB Cardiovascular: Normal S1, Normal S2, without murmur Abdomen: non-tender, non-distended Neurological: no change - Procedures Procedures: Procedures Procedure Code Date TRANSFUSE NONAUT RED BLOOD CELLS IN PERIPH VEIN, PERC 50090J1 07/04/17 Internal Medicine Assmt/Plan - Assessment Assessment: 1.DM. 2.HYPOTHYROIDISIM. 3.ANEMIA. 4.SCHIZOPHRENEA. - Plan Plan: CONTINUE ON CURRENT MEDICATION . Nutritional Asmnt/Malnutr-PDOC - Dietary Evaluation Malnutrition Findings (Please click <Entered> for more info): Nutritional Asmnt/Malnutrition Start: 07/09/17 09: 39 Text: Status: Complete Freq: Document 07/09/17 09:39 MMULHERN (Rec: 07/09/17 09:49 MMULHERN HARRIET- FNS1) Nutritional Asmnt/Malnutrition Patient General Information Nutritional Screening High Risk Screening Diagnosis Psychosis Pertinent Medical Hx/Surgical Hx Paranoid Schizophrenia, Anxiety disorder, Dementia, Anemia, GERD, DM II, Hypothyroidism, CKD, Dysphagia , and difficulty in walking. Per nursing notes, she became combative whenever approached. Subjective Information Patient admitted from SNF on 5150 hold. Patient confused and not able to answer questions about dietary history. Current Diet Order/ Nutrition Support Mechanical soft ground CCHO 60gm Low sodium Patient / S.O Not Indicated Pertinent Medications maalox, colace, iron, folate, novolog, levemir, synthroid, MOM, MVI w/C, Protonix Pertinent Labs POC glucose 203 on admission Nutritional Hx/Data Height 1.52 m Height (Calculated Centimeters) 152.4 Current Weight (lbs) 71.668 kg Weight (Calculated Kilograms) 71.7 Weight (Calculated Grams) 08657.6 [place] Body Weight 100 % [place] Body Weight 158 Recent Weight Change No Weight Status Obese GI Symptoms GI Symptoms None Food Allergies No Cultural/Ethnic/Scientologist Belief None indicated Usual diet at home Unknown Skin Integrity/Comment: Bruises on bilateral wrist and forearm, Tristan 18 Estimated Nutritional Goals BEE in Kcals: Using Current wt Calories/Kcals/Kg 20-25 kcal/kg (based on current weight of 71.8kg) - obese Kcals Calculated ~9103-3786 kcal/day Protein: Using Current wt Protein g/k gm/kg (based on current weight of 71.8kg) Protein Calculated ~70 gm/day Fluid: ml ~3883-4594 ml/day (25-30 ml/kg ) Nutritional Problem 1. Problem Problem Altered nutrition related lab values related to Etiology hyperglycemia aeb Signs/Symptoms: blood glucose 188 on admission and POC glucose 203 Intervention/Recommendation Comments 1. Continue current diet as tolerated by patient. ( mechanical soft ground, CCHO 60gm, Low sodium). 2. MD to modify insulin regimen as needed for optimal glycemic control. Expected Outcomes/Goals Expected Outcomes/Goals Blood glucose normalizes (80- 180), oral intake to meet >75% Of estiamted nutrient needs, weight remains stable or trends toward ideal body weight.
--- NOTE | 2017-07-14 23:52 | Progress Notes ---
DATE: 07/14/2017 Case was discussed with staff of the patient, reviewed records. The patient continues to be unpredictable, impulsive. Looking disheveled, responding to internal stimuli, unable to make safe plan for self-care or make a reasonable conversation. Continues to have poor insight. She has been compliant with the medication with no side effects. I will be increasing the Seroquel further to 125 mg twice a day and so far, no side effects, no sedation, no nausea, no extrapyramidal symptoms. We will continue to work with the patient in group therapy, milieu therapy, adjust medication as needed. JOB# [id number]
[2017-07-15] MEDS: INSULIN ASPART SLIDING SCALE 100 UNITS/ML UNIT SUBQ SCH ×4 (06:34→21:35)
[2017-07-15] MEDS: Levothyroxine 0.075 Mg Tab PO SCH (06:35)
[2017-07-15] MEDS: Multivitamin Tab PO SCH (09:18)
[2017-07-15] MEDS: Pantoprazole 40 mg EC Tab PO SCH (09:18)
[2017-07-15] MEDS: Ferrous Sulfate 325 MG TAB PO SCH (09:18)
[2017-07-15] MEDS: Insulin Detemir 100 units/mL 10mL Vial SUBQ SCH ×2 (09:35→21:36)
--- NOTE | 2017-07-15 17:34 | Internal Medicine Prog Note ---
Internal Medicine Subjective - Subjective Service Date: 07/15/17 Patient seen and examined:: with staff Patient is:: awake, verbal, talking Per staff patient has:: no adverse event (THE PATIENT FEELS WELL,TAKING MEDICATION .) Internal Medicine Objective - Results Result Diagrams: 07/11/17 07:35 07/10/17 05:56 Recent Labs: Laboratory Last Values WBC 4.1 Th/cmm (4.8-10.8) L 07/11/17 07:35 RBC 2.76 Mil/cmm (3.80-5.10) L 07/11/17 07:35 Hgb 8.3 gm/dL (12-16) L 07/11/17 07:35 Hct 24.7 % (41.0-60) L 07/11/17 07:35 MCV 89.4 fl (81-100) 07/11/17 07:35 MCH 30.1 pg (27.0-31.0) 07/11/17 07:35 MCHC Differential 33.7 pg (28.0-36.0) 07/11/17 07:35 RDW 13.6 % (11.5-20.0) 07/11/17 07:35 Plt Count 274 Th/cmm (150-400) 07/11/17 07:35 MPV 6.9 fl 07/11/17 07:35 Neutrophils % 67.3 % (40.0-80.0) 07/11/17 07:35 Lymphocytes % 21.2 % (20.0-50.0) 07/11/17 07:35 Monocytes % 9.1 % (2.0-10.0) 07/11/17 07:35 Eosinophils % 1.6 % (0.0-5.0) 07/11/17 07:35 Basophils % 0.8 % (0.0-2.0) 07/11/17 07:35 Neutrophils (Manual) 69 % (40-80) 07/10/17 05:56 Lymphocytes 24 % (20-50) 07/10/17 05:56 Monocytes 7 % (2-10) 07/10/17 05:56 Platelet Estimate ADEQUATE (NORMAL) 07/10/17 05:56 Platelet Morphology NORMAL (NORMAL) 07/10/17 05:56 RBC Morph Micro Appear NORMAL (NORMAL) 07/10/17 05:56 Sodium 140 mEq/L (136-145) 07/10/17 05:56 Potassium 4.2 mEq/L (3.5-5.1) 07/10/17 05:56 Chloride 111 mEq/L (98-107) H 07/10/17 05:56 Carbon Dioxide 21.6 mEq/L (21.0-31.0) 07/10/17 05:56 Anion Gap 11.6 (7.0-16.0) 07/10/17 05:56 BUN 19 mg/dL (7-25) 07/10/17 05:56 Creatinine 2.8 mg/dL (0.6-1.2) H 07/10/17 05:56 Est GFR ( Amer) 22.0 ml/min (>90) 07/10/17 05:56 Est GFR (Non-Af Amer) 18.2 ml/min 07/10/17 05:56 BUN/Creatinine Ratio 6.8 07/10/17 05:56 Glucose 89 mg/dL (70-105) 07/10/17 05:56 POC Glucose 121 MG/DL (70 - 105) H 07/15/17 16:10 Calcium 9.6 mg/dL (8.6-10.3) 07/10/17 05:56 - Physical Exam Vitals and I&O: Vital Signs Temp 97.6 F 07/15/17 16:07 Pulse 97 07/15/17 16:07 Resp 18 07/15/17 16:07 BP 109/64 07/15/17 16:07 Pulse Ox 96 07/15/17 16:07 Intake & Output 07/14/17 07/15/17 07/15/17 18:59 06:59 18:59 Intake Total 700 120 Balance 700 120 Intake: Oral 700 120 Other: # Voids 3 3 # Bowel Movements 2 Active Medications: Current Medications Acetaminophen (Tylenol) 650 mg PO Q4HR PRN PRN Reason: Mild Pain / Temp above 100 Stop: 09/06/17 16:08 Acetaminophen (Tylenol) 650 mg PO Q4H PRN PRN Reason: Pain (Moderate) Stop: 09/06/17 20:55 Al Hydrox/Mg Hydrox/Simethicone (Maalox) 30 ml PO Q4HR PRN PRN Reason: GI DISTRESS Stop: 09/06/17 16:08 Last Admin: 07/11/17 10:02 Dose: 30 ml Docusate Sodium (Colace) 100 mg PO BID PABLO Stop: 09/07/17 08:59 Last Admin: 07/15/17 16:40 Dose: 100 mg Ferrous Sulfate (Iron) 325 mg PO DAILY PABLO Stop: 09/07/17 08:59 Last Admin: 07/15/17 09:18 Dose: 325 mg Folic Acid (Folate) 1 mg PO DAILY PABLO Stop: 09/07/17 08:59 Last Admin: 07/15/17 09:18 Dose: 1 mg Insulin Aspart (Novolog Insulin Sliding Scale) 0 units SUBQ ACHS PABLO PRN Reason: Protocol Stop: 09/06/17 20:59 Last Admin: 07/15/17 16:45 Dose: Not Given Insulin Detemir (Levemir Insulin) 10 units SUBQ Q12H PABLO PRN Reason: Protocol Stop: 09/06/17 20:59 Last Admin: 07/15/17 09:35 Dose: 10 units Levothyroxine Sodium (Synthroid) 0.075 mg PO QDAC [facility] Stop: 09/10/17 07:29 Last Admin: 07/15/17 06:35 Dose: Not Given Lorazepam (Ativan) 0.5 mg PO Q4HR PRN; Protocol PRN Reason: Anxiety Stop: 08/07/17 16:08 Last Admin: 07/13/17 10:06 Dose: 0.5 mg Multivitamins/Vitamin C (Theragran) 1 tab PO DAILY PABLO Stop: 09/07/17 08:59 Last Admin: 07/15/17 09:18 Dose: 1 tab Pantoprazole Sodium (Protonix) 40 mg PO DAILY PABLO Stop: 09/07/17 08:59 Last Admin: 07/15/17 09:18 Dose: 40 mg Quetiapine Fumarate (Seroquel) 150 mg PO BID [facility] Stop: 09/13/17 11:28 Last Admin: 07/15/17 16:41 Dose: 150 mg Sevelamer HCl (Renagel) 800 mg PO TIDWM PABLO Stop: 09/07/17 07:59 Last Admin: 07/15/17 16:40 Dose: 800 mg Zolpidem Tartrate (Ambien) 5 mg PO HS PRN PRN Reason: Insomnia Stop: 09/06/17 16:08 General: demented HEENT: NC/AT, PERRLA, EOMI, anicteric sclerae, throat clear Neck: Supple, No JVD, No thyromegaly, +2 carotid pulse wo bruit, No LAD Lungs: CTAB Cardiovascular: Normal S1, Normal S2, without murmur Abdomen: non-tender, non-distended Neurological: no change - Procedures Procedures: Procedures Procedure Code Date TRANSFUSE NONAUT RED BLOOD CELLS IN PERIPH VEIN, PERC 05567L7 07/04/17 Internal Medicine Assmt/Plan - Assessment Assessment: 1.DM. 2.HYPOTHYROIDISIM. 3.ANEMIA. 4.SCHIZOPHRENEA. - Plan Plan: CONTINUE ON CURRENT MEDICATION . Nutritional Asmnt/Malnutr-PDOC - Dietary Evaluation Malnutrition Findings (Please click <Entered> for more info): Nutritional Asmnt/Malnutrition Start: 07/09/17 09: 39 Text: Status: Complete Freq: Document 07/09/17 09:39 MMULRUBÉN (Rec: 07/09/17 09:49 MMULHERN HARRIET [email or web address]) Nutritional Asmnt/Malnutrition Patient General Information Nutritional Screening High Risk Screening Diagnosis Psychosis Pertinent Medical Hx/Surgical Hx Paranoid Schizophrenia, Anxiety disorder, Dementia, Anemia, GERD, DM II, Hypothyroidism, CKD, Dysphagia , and difficulty in walking. Per nursing notes, she became combative whenever approached. Subjective Information Patient admitted from SNF on 5150 hold. Patient confused and not able to answer questions about dietary history. Current Diet Order/ Nutrition Support Mechanical soft ground CCHO 60gm Low sodium Patient / S.O Not Indicated Pertinent Medications maalox, colace, iron, folate, novolog, levemir, synthroid, MOM, MVI w/C, Protonix Pertinent Labs POC glucose 203 on admission Nutritional Hx/Data Height 1.52 m Height (Calculated Centimeters) 152.4 Current Weight (lbs) 71.668 kg Weight (Calculated Kilograms) 71.7 Weight (Calculated Grams) 14019.6 [place] Body Weight 100 % [place] Body Weight 158 Recent Weight Change No Weight Status Obese GI Symptoms GI Symptoms None Food Allergies No Cultural/Ethnic/Oriental Orthodox Belief None indicated Usual diet at home Unknown Skin Integrity/Comment: Bruises on bilateral wrist and forearm, Tristan 18 Estimated Nutritional Goals BEE in Kcals: Using Current wt Calories/Kcals/Kg 20-25 kcal/kg (based on current weight of 71.8kg) - obese Kcals Calculated ~7675-2640 kcal/day Protein: Using Current wt Protein g/k gm/kg (based on current weight of 71.8kg) Protein Calculated ~70 gm/day Fluid: ml ~6544-3102 ml/day (25-30 ml/kg ) Nutritional Problem 1. Problem Problem Altered nutrition related lab values related to Etiology hyperglycemia aeb Signs/Symptoms: blood glucose 188 on admission and POC glucose 203 Intervention/Recommendation Comments 1. Continue current diet as tolerated by patient. ( mechanical soft ground, CCHO 60gm, Low sodium). 2. MD to modify insulin regimen as needed for optimal glycemic control. Expected Outcomes/Goals Expected Outcomes/Goals Blood glucose normalizes (80- 180), oral intake to meet >75% Of estiamted nutrient needs, weight remains stable or trends toward ideal body weight.
--- NOTE | 2017-07-16 01:22 | Progress Notes ---
DATE: 07/15/2017 Case was discussed with staff of the patient, reviewed records. The patient is reported to have been not taking her medication for 2 days and then she took them this morning. When I approached the patient to talk about that, nobody told me before that she had taken her medication. The patient reported that she took so there is no point to ask her why she was not taking medication before and if we need to change her medication. She is still unpredictable, impulsive, continues to have poor insight. Continues to look disheveled, unable to carry on the conversation or make safe plan for self-care. I will be increasing her medication further to 150 mg twice a day of Seroquel and so far no side effects with the medication, no sedation, no nausea, no extrapyramidal symptoms and we will continue to work with the patient in group therapy, milieu therapy, and adjust medication as needed. JOB# [id number]
[2017-07-16] MEDS: Levothyroxine 0.075 Mg Tab PO SCH (06:34)
[2017-07-16] MEDS: INSULIN ASPART SLIDING SCALE 100 UNITS/ML UNIT SUBQ SCH ×4 (06:40→21:54)
[2017-07-16] MEDS: Ferrous Sulfate 325 MG TAB PO SCH (08:32)
[2017-07-16] MEDS: Pantoprazole 40 mg EC Tab PO SCH (08:33)
[2017-07-16] MEDS: Multivitamin Tab PO SCH (08:33)
[2017-07-16] MEDS: Insulin Detemir 100 units/mL 10mL Vial SUBQ SCH ×2 (08:40→21:53)
--- NOTE | 2017-07-16 14:50 | Internal Medicine Prog Note ---
Internal Medicine Subjective - Subjective Service Date: 07/16/17 Patient seen and examined:: with staff Patient is:: awake, verbal, talking Per staff patient has:: no adverse event (THE PATIENT FEELS WELL,TAKING MEDICATION .) Internal Medicine Objective - Results Result Diagrams: 07/11/17 07:35 07/10/17 05:56 Recent Labs: Laboratory Last Values WBC 4.1 Th/cmm (4.8-10.8) L 07/11/17 07:35 RBC 2.76 Mil/cmm (3.80-5.10) L 07/11/17 07:35 Hgb 8.3 gm/dL (12-16) L 07/11/17 07:35 Hct 24.7 % (41.0-60) L 07/11/17 07:35 MCV 89.4 fl (81-100) 07/11/17 07:35 MCH 30.1 pg (27.0-31.0) 07/11/17 07:35 MCHC Differential 33.7 pg (28.0-36.0) 07/11/17 07:35 RDW 13.6 % (11.5-20.0) 07/11/17 07:35 Plt Count 274 Th/cmm (150-400) 07/11/17 07:35 MPV 6.9 fl 07/11/17 07:35 Neutrophils % 67.3 % (40.0-80.0) 07/11/17 07:35 Lymphocytes % 21.2 % (20.0-50.0) 07/11/17 07:35 Monocytes % 9.1 % (2.0-10.0) 07/11/17 07:35 Eosinophils % 1.6 % (0.0-5.0) 07/11/17 07:35 Basophils % 0.8 % (0.0-2.0) 07/11/17 07:35 Neutrophils (Manual) 69 % (40-80) 07/10/17 05:56 Lymphocytes 24 % (20-50) 07/10/17 05:56 Monocytes 7 % (2-10) 07/10/17 05:56 Platelet Estimate ADEQUATE (NORMAL) 07/10/17 05:56 Platelet Morphology NORMAL (NORMAL) 07/10/17 05:56 RBC Morph Micro Appear NORMAL (NORMAL) 07/10/17 05:56 Sodium 140 mEq/L (136-145) 07/10/17 05:56 Potassium 4.2 mEq/L (3.5-5.1) 07/10/17 05:56 Chloride 111 mEq/L (98-107) H 07/10/17 05:56 Carbon Dioxide 21.6 mEq/L (21.0-31.0) 07/10/17 05:56 Anion Gap 11.6 (7.0-16.0) 07/10/17 05:56 BUN 19 mg/dL (7-25) 07/10/17 05:56 Creatinine 2.8 mg/dL (0.6-1.2) H 07/10/17 05:56 Est GFR ( Amer) 22.0 ml/min (>90) 07/10/17 05:56 Est GFR (Non-Af Amer) 18.2 ml/min 07/10/17 05:56 BUN/Creatinine Ratio 6.8 07/10/17 05:56 Glucose 89 mg/dL (70-105) 07/10/17 05:56 POC Glucose 286 MG/DL (70 - 105) H 07/16/17 11:28 Calcium 9.6 mg/dL (8.6-10.3) 07/10/17 05:56 - Physical Exam Vitals and I&O: Vital Signs Temp 97.9 F 07/16/17 06:27 Pulse 94 07/16/17 06:27 Resp 20 07/16/17 06:27 BP 123/81 07/16/17 06:27 Pulse Ox 96 07/16/17 06:27 Intake & Output 07/15/17 07/16/17 07/16/17 18:59 06:59 18:59 Intake Total 700 360 Balance 700 360 Intake: Oral 700 360 Other: # Voids 3 3 Active Medications: Current Medications Acetaminophen (Tylenol) 650 mg PO Q4HR PRN PRN Reason: Mild Pain / Temp above 100 Stop: 09/06/17 16:08 Acetaminophen (Tylenol) 650 mg PO Q4H PRN PRN Reason: Pain (Moderate) Stop: 09/06/17 20:55 Al Hydrox/Mg Hydrox/Simethicone (Maalox) 30 ml PO Q4HR PRN PRN Reason: GI DISTRESS Stop: 09/06/17 16:08 Last Admin: 07/11/17 10:02 Dose: 30 ml Docusate Sodium (Colace) 100 mg PO BID PABLO Stop: 09/07/17 08:59 Last Admin: 07/16/17 08:32 Dose: 100 mg Ferrous Sulfate (Iron) 325 mg PO DAILY PABLO Stop: 09/07/17 08:59 Last Admin: 07/16/17 08:32 Dose: 325 mg Folic Acid (Folate) 1 mg PO DAILY PABLO Stop: 09/07/17 08:59 Last Admin: 07/16/17 08:33 Dose: 1 mg Insulin Aspart (Novolog Insulin Sliding Scale) 0 units SUBQ ACHS PABLO PRN Reason: Protocol Stop: 09/06/17 20:59 Last Admin: 07/16/17 11:35 Dose: 6 units Insulin Detemir (Levemir Insulin) 10 units SUBQ Q12H PABLO PRN Reason: Protocol Stop: 09/06/17 20:59 Last Admin: 07/16/17 08:40 Dose: 10 units Levothyroxine Sodium (Synthroid) 0.075 mg PO QDAC [facility] Stop: 09/10/17 07:29 Last Admin: 07/16/17 06:34 Dose: 0.075 mg Lorazepam (Ativan) 0.5 mg PO Q4HR PRN; Protocol PRN Reason: Anxiety Stop: 08/07/17 16:08 Last Admin: 07/13/17 10:06 Dose: 0.5 mg Multivitamins/Vitamin C (Theragran) 1 tab PO DAILY PABLO Stop: 09/07/17 08:59 Last Admin: 07/16/17 08:33 Dose: 1 tab Pantoprazole Sodium (Protonix) 40 mg PO DAILY PABLO Stop: 09/07/17 08:59 Last Admin: 07/16/17 08:33 Dose: 40 mg Quetiapine Fumarate (Seroquel) 150 mg PO BID [facility] Stop: 09/13/17 11:28 Last Admin: 07/16/17 08:34 Dose: 150 mg Sevelamer HCl (Renagel) 800 mg PO TIDWM PABLO Stop: 09/07/17 07:59 Last Admin: 07/16/17 11:38 Dose: 800 mg Zolpidem Tartrate (Ambien) 5 mg PO HS PRN PRN Reason: Insomnia Stop: 09/06/17 16:08 General: demented HEENT: NC/AT, PERRLA, EOMI, anicteric sclerae, throat clear Neck: Supple, No JVD, No thyromegaly, +2 carotid pulse wo bruit, No LAD Lungs: CTAB Cardiovascular: Normal S1, Normal S2, without murmur Abdomen: non-tender, non-distended Neurological: no change - Procedures Procedures: Procedures Procedure Code Date TRANSFUSE NONAUT RED BLOOD CELLS IN PERIPH VEIN, PERC 73853Q1 07/04/17 Internal Medicine Assmt/Plan - Assessment Assessment: 1.DM. 2.HYPOTHYROIDISIM. 3.ANEMIA. 4.SCHIZOPHRENEA. - Plan Plan: CONTINUE ON CURRENT MEDICATION . Nutritional Asmnt/Malnutr-PDOC - Dietary Evaluation Malnutrition Findings (Please click <Entered> for more info): Nutritional Asmnt/Malnutrition Start: 07/09/17 09: 39 Text: Status: Complete Freq: Document 07/09/17 09:39 MMULRUBÉN (Rec: 07/09/17 09:49 MMULRUBÉN LARIOS- FNS1) Nutritional Asmnt/Malnutrition Patient General Information Nutritional Screening High Risk Screening Diagnosis Psychosis Pertinent Medical Hx/Surgical Hx Paranoid Schizophrenia, Anxiety disorder, Dementia, Anemia, GERD, DM II, Hypothyroidism, CKD, Dysphagia , and difficulty in walking. Per nursing notes, she became combative whenever approached. Subjective Information Patient admitted from SNF on 5150 hold. Patient confused and not able to answer questions about dietary history. Current Diet Order/ Nutrition Support Mechanical soft ground CCHO 60gm Low sodium Patient / S.O Not Indicated Pertinent Medications maalox, colace, iron, folate, novolog, levemir, synthroid, MOM, MVI w/C, Protonix Pertinent Labs POC glucose 203 on admission Nutritional Hx/Data Height 1.52 m Height (Calculated Centimeters) 152.4 Current Weight (lbs) 71.668 kg Weight (Calculated Kilograms) 71.7 Weight (Calculated Grams) 19537.6 [place] Body Weight 100 % [place] Body Weight 158 Recent Weight Change No Weight Status Obese GI Symptoms GI Symptoms None Food Allergies No Cultural/Ethnic/[employer] Belief None indicated Usual diet at home Unknown Skin Integrity/Comment: Bruises on bilateral wrist and forearm, Tristan 18 Estimated Nutritional Goals BEE in Kcals: Using Current wt Calories/Kcals/Kg 20-25 kcal/kg (based on current weight of 71.8kg) - obese Kcals Calculated ~5727-3208 kcal/day Protein: Using Current wt Protein g/k gm/kg (based on current weight of 71.8kg) Protein Calculated ~70 gm/day Fluid: ml ~8951-8857 ml/day (25-30 ml/kg ) Nutritional Problem 1. Problem Problem Altered nutrition related lab values related to Etiology hyperglycemia aeb Signs/Symptoms: blood glucose 188 on admission and POC glucose 203 Intervention/Recommendation Comments 1. Continue current diet as tolerated by patient. ( mechanical soft ground, CCHO 60gm, Low sodium). 2. MD to modify insulin regimen as needed for optimal glycemic control. Expected Outcomes/Goals Expected Outcomes/Goals Blood glucose normalizes (80- 180), oral intake to meet >75% Of estiamted nutrient needs, weight remains stable or trends toward ideal body weight.
--- NOTE | 2017-07-16 22:38 | Progress Notes ---
DATE: 07/16/[address] Ellis covering for Dr. Shields . SUBJECTIVE: Chart reviewed and the patient interviewed. Also discussed the patient's condition with the staff and reviewed records and labs. The patient is still confused and she is still wandering around the unit, entering other patients' rooms and needs lots of redirections. The patient also is restless and is in angry and in irritable mood. She also has been having difficulty with her anger. The patient also is easily agitated and easily irritable. Otherwise, the patient is compliant with taking her medications with no side effects of medications. ASSESSMENT: The patient is still confused and psychotic. TREATMENT PLAN: Continue to monitor her behavior and her condition closely. Also, continue to work on her irritability and confusion and continue to follow up. [facility]# [id number]
[2017-07-17] MEDS: INSULIN ASPART SLIDING SCALE 100 UNITS/ML UNIT SUBQ SCH ×4 (06:43→21:39)
[2017-07-17] MEDS: Levothyroxine 0.075 Mg Tab PO SCH (06:44)
[2017-07-17] MEDS: Multivitamin Tab PO SCH (08:12)
[2017-07-17] MEDS: Ferrous Sulfate 325 MG TAB PO SCH (08:12)
[2017-07-17] MEDS: Insulin Detemir 100 units/mL 10mL Vial SUBQ SCH ×2 (08:12→21:38)
[2017-07-17] MEDS: Pantoprazole 40 mg EC Tab PO SCH (08:12)
--- NOTE | 2017-07-17 19:21 | Internal Medicine Prog Note ---
Internal Medicine Subjective - Subjective Service Date: 07/17/17 Patient seen and examined:: without staff Patient is:: awake, verbal, talking Per staff patient has:: no adverse event (THE PATIENT FEELS WELL,TAKING MEDICATION .) Internal Medicine Objective - Results Result Diagrams: 07/11/17 07:35 07/10/17 05:56 Recent Labs: Laboratory Last Values WBC 4.1 Th/cmm (4.8-10.8) L 07/11/17 07:35 RBC 2.76 Mil/cmm (3.80-5.10) L 07/11/17 07:35 Hgb 8.3 gm/dL (12-16) L 07/11/17 07:35 Hct 24.7 % (41.0-60) L 07/11/17 07:35 MCV 89.4 fl (81-100) 07/11/17 07:35 MCH 30.1 pg (27.0-31.0) 07/11/17 07:35 MCHC Differential 33.7 pg (28.0-36.0) 07/11/17 07:35 RDW 13.6 % (11.5-20.0) 07/11/17 07:35 Plt Count 274 Th/cmm (150-400) 07/11/17 07:35 MPV 6.9 fl 07/11/17 07:35 Neutrophils % 67.3 % (40.0-80.0) 07/11/17 07:35 Lymphocytes % 21.2 % (20.0-50.0) 07/11/17 07:35 Monocytes % 9.1 % (2.0-10.0) 07/11/17 07:35 Eosinophils % 1.6 % (0.0-5.0) 07/11/17 07:35 Basophils % 0.8 % (0.0-2.0) 07/11/17 07:35 Neutrophils (Manual) 69 % (40-80) 07/10/17 05:56 Lymphocytes 24 % (20-50) 07/10/17 05:56 Monocytes 7 % (2-10) 07/10/17 05:56 Platelet Estimate ADEQUATE (NORMAL) 07/10/17 05:56 Platelet Morphology NORMAL (NORMAL) 07/10/17 05:56 RBC Morph Micro Appear NORMAL (NORMAL) 07/10/17 05:56 Sodium 140 mEq/L (136-145) 07/10/17 05:56 Potassium 4.2 mEq/L (3.5-5.1) 07/10/17 05:56 Chloride 111 mEq/L (98-107) H 07/10/17 05:56 Carbon Dioxide 21.6 mEq/L (21.0-31.0) 07/10/17 05:56 Anion Gap 11.6 (7.0-16.0) 07/10/17 05:56 BUN 19 mg/dL (7-25) 07/10/17 05:56 Creatinine 2.8 mg/dL (0.6-1.2) H 07/10/17 05:56 Est GFR ( Amer) 22.0 ml/min (>90) 07/10/17 05:56 Est GFR (Non-Af Amer) 18.2 ml/min 07/10/17 05:56 BUN/Creatinine Ratio 6.8 07/10/17 05:56 Glucose 89 mg/dL (70-105) 07/10/17 05:56 POC Glucose 198 MG/DL (70 - 105) H 07/17/17 16:38 Calcium 9.6 mg/dL (8.6-10.3) 07/10/17 05:56 - Physical Exam Vitals and I&O: Vital Signs Temp 97.4 F 07/17/17 14:00 Pulse 105 07/17/17 14:00 Resp 20 07/17/17 14:00 BP 101/64 07/17/17 14:00 Pulse Ox 98 07/17/17 14:00 Intake & Output 07/17/17 07/17/17 07/18/17 06:59 18:59 06:59 Intake Total 2400 Balance 2400 Intake: Oral 2400 Other: # Voids 3 4 # Bowel Movements 0 1 Active Medications: Current Medications Acetaminophen (Tylenol) 650 mg PO Q4HR PRN PRN Reason: Mild Pain / Temp above 100 Stop: 09/06/17 16:08 Acetaminophen (Tylenol) 650 mg PO Q4H PRN PRN Reason: Pain (Moderate) Stop: 09/06/17 20:55 Al Hydrox/Mg Hydrox/Simethicone (Maalox) 30 ml PO Q4HR PRN PRN Reason: GI DISTRESS Stop: 09/06/17 16:08 Last Admin: 07/11/17 10:02 Dose: 30 ml Docusate Sodium (Colace) 100 mg PO BID PABLO Stop: 09/07/17 08:59 Last Admin: 07/17/17 16:58 Dose: 100 mg Ferrous Sulfate (Iron) 325 mg PO DAILY PABLO Stop: 09/07/17 08:59 Last Admin: 07/17/17 08:12 Dose: 325 mg Folic Acid (Folate) 1 mg PO DAILY PABLO Stop: 09/07/17 08:59 Last Admin: 07/17/17 08:12 Dose: 1 mg Insulin Aspart (Novolog Insulin Sliding Scale) 0 units SUBQ ACHS PABLO PRN Reason: Protocol Stop: 09/06/17 20:59 Last Admin: 07/17/17 16:58 Dose: 2 units Insulin Detemir (Levemir Insulin) 10 units SUBQ Q12H PABLO PRN Reason: Protocol Stop: 09/06/17 20:59 Last Admin: 07/17/17 08:12 Dose: 10 units Levothyroxine Sodium (Synthroid) 0.075 mg PO QDAC [facility] Stop: 09/10/17 07:29 Last Admin: 07/17/17 06:44 Dose: 0.075 mg Lorazepam (Ativan) 0.5 mg PO Q4HR PRN; Protocol PRN Reason: Anxiety Stop: 08/07/17 16:08 Last Admin: 07/13/17 10:06 Dose: 0.5 mg Multivitamins/Vitamin C (Theragran) 1 tab PO DAILY PABLO Stop: 09/07/17 08:59 Last Admin: 07/17/17 08:12 Dose: 1 tab Pantoprazole Sodium (Protonix) 40 mg PO DAILY PABLO Stop: 09/07/17 08:59 Last Admin: 07/17/17 08:12 Dose: 40 mg Quetiapine Fumarate (Seroquel) 150 mg PO BID [facility] Stop: 09/13/17 11:28 Last Admin: 07/17/17 16:58 Dose: 150 mg Sevelamer HCl (Renagel) 800 mg PO TIDWM PABLO Stop: 09/07/17 07:59 Last Admin: 07/17/17 16:58 Dose: 800 mg Zolpidem Tartrate (Ambien) 5 mg PO HS PRN PRN Reason: Insomnia Stop: 09/06/17 16:08 General: demented HEENT: NC/AT, PERRLA, EOMI, anicteric sclerae, throat clear Neck: Supple, No JVD, No thyromegaly, +2 carotid pulse wo bruit, No LAD Lungs: CTAB Cardiovascular: Normal S1, Normal S2, without murmur Abdomen: non-tender, non-distended Neurological: no change - Procedures Procedures: Procedures Procedure Code Date TRANSFUSE NONAUT RED BLOOD CELLS IN PERIPH VEIN, PERC 26928T6 07/04/17 Internal Medicine Assmt/Plan - Assessment Assessment: 1.DM. 2.HYPOTHYROIDISIM. 3.ANEMIA. 4.SCHIZOPHRENEA. - Plan Plan: CONTINUE ON CURRENT MEDICATION . Nutritional Asmnt/Malnutr-PDOC - Dietary Evaluation Malnutrition Findings (Please click <Entered> for more info): Nutritional Asmnt/Malnutrition Start: 07/09/17 09: 39 Text: Status: Complete Freq: Document 07/09/17 09:39 MMULRUBÉN (Rec: 07/09/17 09:49 MMULHERN HARRIET- FNS1) Nutritional Asmnt/Malnutrition Patient General Information Nutritional Screening High Risk Screening Diagnosis Psychosis Pertinent Medical Hx/Surgical Hx Paranoid Schizophrenia, Anxiety disorder, Dementia, Anemia, GERD, DM II, Hypothyroidism, CKD, Dysphagia , and difficulty in walking. Per nursing notes, she became combative whenever approached. Subjective Information Patient admitted from SNF on 5150 hold. Patient confused and not able to answer questions about dietary history. Current Diet Order/ Nutrition Support Mechanical soft ground CCHO 60gm Low sodium Patient / S.O Not Indicated Pertinent Medications maalox, colace, iron, folate, novolog, levemir, synthroid, MOM, MVI w/C, Protonix Pertinent Labs POC glucose 203 on admission Nutritional Hx/Data Height 1.52 m Height (Calculated Centimeters) 152.4 Current Weight (lbs) 71.668 kg Weight (Calculated Kilograms) 71.7 Weight (Calculated Grams) 58342.6 [place] Body Weight 100 % [place] Body Weight 158 Recent Weight Change No Weight Status Obese GI Symptoms GI Symptoms None Food Allergies No Cultural/Ethnic/[employer] Belief None indicated Usual diet at home Unknown Skin Integrity/Comment: Bruises on bilateral wrist and forearm, Tristan 18 Estimated Nutritional Goals BEE in Kcals: Using Current wt Calories/Kcals/Kg 20-25 kcal/kg (based on current weight of 71.8kg) - obese Kcals Calculated ~2854-4692 kcal/day Protein: Using Current wt Protein g/k gm/kg (based on current weight of 71.8kg) Protein Calculated ~70 gm/day Fluid: ml ~6052-7278 ml/day (25-30 ml/kg ) Nutritional Problem 1. Problem Problem Altered nutrition related lab values related to Etiology hyperglycemia aeb Signs/Symptoms: blood glucose 188 on admission and POC glucose 203 Intervention/Recommendation Comments 1. Continue current diet as tolerated by patient. ( mechanical soft ground, CCHO 60gm, Low sodium). 2. MD to modify insulin regimen as needed for optimal glycemic control. Expected Outcomes/Goals Expected Outcomes/Goals Blood glucose normalizes (80- 180), oral intake to meet >75% Of estiamted nutrient needs, weight remains stable or trends toward ideal body weight.
--- NOTE | 2017-07-17 21:00 | Progress Notes ---
DATE: 07/17/2017 SUBJECTIVE: Chart reviewed and the patient interviewed. Also discussed the patient's condition with the staff and reviewed records and labs. The patient is still confused and she is still anxious. The patient also is restless and she is having difficulty following directions. The patient also still wants to be left alone. On the other hand, the patient is more compliant with taking her medications. No side effects of medications. Personal hygiene is still poor. ASSESSMENT: The patient is still psychotic. TREATMENT PLAN: We will continue monitoring her behavior and her condition closely. Also, the patient continued to take Seroquel 150 mg twice a day with no side effects. We will continue same dose and continue to follow up her behavior and her condition closely. [facility]# [id number]
[2017-07-18] MEDS: INSULIN ASPART SLIDING SCALE 100 UNITS/ML UNIT SUBQ SCH ×4 (06:39→21:35)
[2017-07-18] MEDS: Levothyroxine 0.075 Mg Tab PO SCH (06:53)
[2017-07-18] MEDS: Pantoprazole 40 mg EC Tab PO SCH (08:55)
[2017-07-18] MEDS: Ferrous Sulfate 325 MG TAB PO SCH (08:57)
[2017-07-18] MEDS: Multivitamin Tab PO SCH (08:57)
[2017-07-18] MEDS: Insulin Detemir 100 units/mL 10mL Vial SUBQ SCH ×2 (09:02→21:36)
--- NOTE | 2017-07-18 22:01 | Internal Medicine Prog Note ---
Internal Medicine Subjective - Subjective Service Date: 07/18/17 Patient seen and examined:: without staff Patient is:: awake, verbal, talking Per staff patient has:: no adverse event (THE PATIENT FEELS WELL,TAKING MEDICATION .) Internal Medicine Objective - Results Result Diagrams: 07/11/17 07:35 07/10/17 05:56 Recent Labs: Laboratory Last Values WBC 4.1 Th/cmm (4.8-10.8) L 07/11/17 07:35 RBC 2.76 Mil/cmm (3.80-5.10) L 07/11/17 07:35 Hgb 8.3 gm/dL (12-16) L 07/11/17 07:35 Hct 24.7 % (41.0-60) L 07/11/17 07:35 MCV 89.4 fl (81-100) 07/11/17 07:35 MCH 30.1 pg (27.0-31.0) 07/11/17 07:35 MCHC Differential 33.7 pg (28.0-36.0) 07/11/17 07:35 RDW 13.6 % (11.5-20.0) 07/11/17 07:35 Plt Count 274 Th/cmm (150-400) 07/11/17 07:35 MPV 6.9 fl 07/11/17 07:35 Neutrophils % 67.3 % (40.0-80.0) 07/11/17 07:35 Lymphocytes % 21.2 % (20.0-50.0) 07/11/17 07:35 Monocytes % 9.1 % (2.0-10.0) 07/11/17 07:35 Eosinophils % 1.6 % (0.0-5.0) 07/11/17 07:35 Basophils % 0.8 % (0.0-2.0) 07/11/17 07:35 Neutrophils (Manual) 69 % (40-80) 07/10/17 05:56 Lymphocytes 24 % (20-50) 07/10/17 05:56 Monocytes 7 % (2-10) 07/10/17 05:56 Platelet Estimate ADEQUATE (NORMAL) 07/10/17 05:56 Platelet Morphology NORMAL (NORMAL) 07/10/17 05:56 RBC Morph Micro Appear NORMAL (NORMAL) 07/10/17 05:56 Sodium 140 mEq/L (136-145) 07/10/17 05:56 Potassium 4.2 mEq/L (3.5-5.1) 07/10/17 05:56 Chloride 111 mEq/L (98-107) H 07/10/17 05:56 Carbon Dioxide 21.6 mEq/L (21.0-31.0) 07/10/17 05:56 Anion Gap 11.6 (7.0-16.0) 07/10/17 05:56 BUN 19 mg/dL (7-25) 07/10/17 05:56 Creatinine 2.8 mg/dL (0.6-1.2) H 07/10/17 05:56 Est GFR ( Amer) 22.0 ml/min (>90) 07/10/17 05:56 Est GFR (Non-Af Amer) 18.2 ml/min 07/10/17 05:56 BUN/Creatinine Ratio 6.8 07/10/17 05:56 Glucose 89 mg/dL (70-105) 07/10/17 05:56 POC Glucose 183 MG/DL (70 - 105) H 07/18/17 19:59 Calcium 9.6 mg/dL (8.6-10.3) 07/10/17 05:56 - Physical Exam Vitals and I&O: Vital Signs Temp 98.4 F 07/18/17 20:29 Pulse 104 07/18/17 20:29 Resp 19 07/18/17 20:29 BP 138/95 07/18/17 20:29 Pulse Ox 100 07/18/17 20:29 Intake & Output 07/18/17 07/18/17 07/19/17 06:59 18:59 06:59 Intake Total 120 1000 240 Balance 120 1000 240 Intake: Oral 120 1000 240 Other: # Voids 4 4 2 # Bowel Movements 0 1 Active Medications: Current Medications Acetaminophen (Tylenol) 650 mg PO Q4HR PRN PRN Reason: Mild Pain / Temp above 100 Stop: 09/06/17 16:08 Acetaminophen (Tylenol) 650 mg PO Q4H PRN PRN Reason: Pain (Moderate) Stop: 09/06/17 20:55 Al Hydrox/Mg Hydrox/Simethicone (Maalox) 30 ml PO Q4HR PRN PRN Reason: GI DISTRESS Stop: 09/06/17 16:08 Last Admin: 07/11/17 10:02 Dose: 30 ml Docusate Sodium (Colace) 100 mg PO BID PABLO Stop: 09/07/17 08:59 Last Admin: 07/18/17 16:25 Dose: 100 mg Ferrous Sulfate (Iron) 325 mg PO DAILY PABLO Stop: 09/07/17 08:59 Last Admin: 07/18/17 08:57 Dose: 325 mg Folic Acid (Folate) 1 mg PO DAILY PABLO Stop: 09/07/17 08:59 Last Admin: 07/18/17 08:57 Dose: 1 mg Insulin Aspart (Novolog Insulin Sliding Scale) 0 units SUBQ ACHS PABLO PRN Reason: Protocol Stop: 09/06/17 20:59 Last Admin: 07/18/17 21:35 Dose: Not Given Insulin Detemir (Levemir Insulin) 10 units SUBQ Q12H PABLO PRN Reason: Protocol Stop: 09/06/17 20:59 Last Admin: 07/18/17 21:36 Dose: Not Given Levothyroxine Sodium (Synthroid) 0.075 mg PO QDAC PABLO Stop: 09/10/17 07:29 Last Admin: 07/18/17 06:53 Dose: 0.075 mg Lorazepam (Ativan) 0.5 mg PO Q4HR PRN; Protocol PRN Reason: Anxiety Stop: 08/07/17 16:08 Last Admin: 07/13/17 10:06 Dose: 0.5 mg Multivitamins/Vitamin C (Theragran) 1 tab PO DAILY PABLO Stop: 09/07/17 08:59 Last Admin: 07/18/17 08:57 Dose: 1 tab Pantoprazole Sodium (Protonix) 40 mg PO DAILY PABLO Stop: 09/07/17 08:59 Last Admin: 07/18/17 08:55 Dose: 40 mg Quetiapine Fumarate 100 mg/Quetiapine Fumarate 50 mg/Quetiapine Fumarate 25 mg 175 mg PO BID PABLO Stop: 09/16/17 16:59 Last Admin: 07/18/17 16:25 Dose: 175 mg Sevelamer HCl (Renagel) 800 mg PO TIDWM PABLO Stop: 09/07/17 07:59 Last Admin: 07/18/17 16:25 Dose: 800 mg Zolpidem Tartrate (Ambien) 5 mg PO HS PRN PRN Reason: Insomnia Stop: 09/06/17 16:08 General: demented HEENT: NC/AT, PERRLA, EOMI, anicteric sclerae, throat clear Neck: Supple, No JVD, No thyromegaly, +2 carotid pulse wo bruit, No LAD Lungs: CTAB Cardiovascular: Normal S1, Normal S2, without murmur Abdomen: non-tender, non-distended Neurological: no change - Procedures Procedures: Procedures Procedure Code Date TRANSFUSE NONAUT RED BLOOD CELLS IN PERIPH VEIN, PERC 48949N2 07/04/17 Internal Medicine Assmt/Plan - Assessment Assessment: 1.DM. 2.HYPOTHYROIDISIM. 3.ANEMIA. 4.SCHIZOPHRENEA. - Plan Plan: CONTINUE ON CURRENT MEDICATION . Nutritional Asmnt/Malnutr-PDOC - Dietary Evaluation Malnutrition Findings (Please click <Entered> for more info): Nutritional Asmnt/Malnutrition Start: 07/09/17 09: 39 Text: Status: Complete Freq: Document 07/09/17 09:39 MMULRUBÉN (Rec: 07/09/17 09:49 MMULHERN HARRIET- FN) Nutritional Asmnt/Malnutrition Patient General Information Nutritional Screening High Risk Screening Diagnosis Psychosis Pertinent Medical Hx/Surgical Hx Paranoid Schizophrenia, Anxiety disorder, Dementia, Anemia, GERD, DM II, Hypothyroidism, CKD, Dysphagia , and difficulty in walking. Per nursing notes, she became combative whenever approached. Subjective Information Patient admitted from SNF on 5150 hold. Patient confused and not able to answer questions about dietary history. Current Diet Order/ Nutrition Support Mechanical soft ground CCHO 60gm Low sodium Patient / S.O Not Indicated Pertinent Medications maalox, colace, iron, folate, novolog, levemir, synthroid, MOM, MVI w/C, Protonix Pertinent Labs POC glucose 203 on admission Nutritional Hx/Data Height 1.52 m Height (Calculated Centimeters) 152.4 Current Weight (lbs) 71.668 kg Weight (Calculated Kilograms) 71.7 Weight (Calculated Grams) 91970.6 [place] Body Weight 100 % [place] Body Weight 158 Recent Weight Change No Weight Status Obese GI Symptoms GI Symptoms None Food Allergies No Cultural/Ethnic/Congregation Belief None indicated Usual diet at home Unknown Skin Integrity/Comment: Bruises on bilateral wrist and forearm, Tristan 18 Estimated Nutritional Goals BEE in Kcals: Using Current wt Calories/Kcals/Kg 20-25 kcal/kg (based on current weight of 71.8kg) - obese Kcals Calculated ~3258-4142 kcal/day Protein: Using Current wt Protein g/k gm/kg (based on current weight of 71.8kg) Protein Calculated ~70 gm/day Fluid: ml ~8195-6526 ml/day (25-30 ml/kg ) Nutritional Problem 1. Problem Problem Altered nutrition related lab values related to Etiology hyperglycemia aeb Signs/Symptoms: blood glucose 188 on admission and POC glucose 203 Intervention/Recommendation Comments 1. Continue current diet as tolerated by patient. ( mechanical soft ground, CCHO 60gm, Low sodium). 2. MD to modify insulin regimen as needed for optimal glycemic control. Expected Outcomes/Goals Expected Outcomes/Goals Blood glucose normalizes (80- 180), oral intake to meet >75% Of estiamted nutrient needs, weight remains stable or trends toward ideal body weight.
--- NOTE | 2017-07-18 23:51 | Progress Notes ---
DATE: 07/18/2017 Case was discussed with staff of the patient. The patient continues to be psychotic, entering other patient's room. The patient continues to be unpredictable, impulsive, responding to internal stimuli, having poor insight. She has been compliant, however, with the medication with no side effects, no sedation, no nausea, no extrapyramidal symptoms. I will be increasing her Seroquel dose to 175 mg twice a day. I will continue to work with the patient in group therapy, milieu therapy, and adjust the medication as needed. JOB# [id number]
[2017-07-19] MEDS: INSULIN ASPART SLIDING SCALE 100 UNITS/ML UNIT SUBQ SCH ×3 (06:42→20:12)
[2017-07-19] MEDS: Levothyroxine 0.075 Mg Tab PO SCH (06:47)
--- NOTE | 2017-07-19 11:21 | Internal Medicine Prog Note ---
Internal Medicine Subjective - Subjective Service Date: 07/19/17 Patient seen and examined:: with staff (HE FEELS BETTER,HAD BM.) Patient is:: awake, verbal, talking Per staff patient has:: no adverse event (THE PATIENT FEELS WELL,TAKING MEDICATION .) Internal Medicine Objective - Results Result Diagrams: 07/11/17 07:35 07/10/17 05:56 Recent Labs: Laboratory Last Values WBC 4.1 Th/cmm (4.8-10.8) L 07/11/17 07:35 RBC 2.76 Mil/cmm (3.80-5.10) L 07/11/17 07:35 Hgb 8.3 gm/dL (12-16) L 07/11/17 07:35 Hct 24.7 % (41.0-60) L 07/11/17 07:35 MCV 89.4 fl (81-100) 07/11/17 07:35 MCH 30.1 pg (27.0-31.0) 07/11/17 07:35 MCHC Differential 33.7 pg (28.0-36.0) 07/11/17 07:35 RDW 13.6 % (11.5-20.0) 07/11/17 07:35 Plt Count 274 Th/cmm (150-400) 07/11/17 07:35 MPV 6.9 fl 07/11/17 07:35 Neutrophils % 67.3 % (40.0-80.0) 07/11/17 07:35 Lymphocytes % 21.2 % (20.0-50.0) 07/11/17 07:35 Monocytes % 9.1 % (2.0-10.0) 07/11/17 07:35 Eosinophils % 1.6 % (0.0-5.0) 07/11/17 07:35 Basophils % 0.8 % (0.0-2.0) 07/11/17 07:35 Neutrophils (Manual) 69 % (40-80) 07/10/17 05:56 Lymphocytes 24 % (20-50) 07/10/17 05:56 Monocytes 7 % (2-10) 07/10/17 05:56 Platelet Estimate ADEQUATE (NORMAL) 07/10/17 05:56 Platelet Morphology NORMAL (NORMAL) 07/10/17 05:56 RBC Morph Micro Appear NORMAL (NORMAL) 07/10/17 05:56 Sodium 140 mEq/L (136-145) 07/10/17 05:56 Potassium 4.2 mEq/L (3.5-5.1) 07/10/17 05:56 Chloride 111 mEq/L (98-107) H 07/10/17 05:56 Carbon Dioxide 21.6 mEq/L (21.0-31.0) 07/10/17 05:56 Anion Gap 11.6 (7.0-16.0) 07/10/17 05:56 BUN 19 mg/dL (7-25) 07/10/17 05:56 Creatinine 2.8 mg/dL (0.6-1.2) H 07/10/17 05:56 Est GFR ( Amer) 22.0 ml/min (>90) 07/10/17 05:56 Est GFR (Non-Af Amer) 18.2 ml/min 07/10/17 05:56 BUN/Creatinine Ratio 6.8 07/10/17 05:56 Glucose 89 mg/dL (70-105) 07/10/17 05:56 POC Glucose 104 MG/DL (70 - 105) 07/19/17 06:17 Calcium 9.6 mg/dL (8.6-10.3) 07/10/17 05:56 - Physical Exam Vitals and I&O: Vital Signs Temp 98.0 F 07/19/17 06:05 Pulse 92 07/19/17 06:05 Resp 20 07/19/17 06:05 BP 122/78 07/19/17 06:05 Pulse Ox 98 07/19/17 06:05 Intake & Output 07/18/17 07/19/17 07/19/17 18:59 06:59 18:59 Intake Total 1000 360 Balance 1000 360 Intake: Oral 1000 360 Other: # Voids 4 1 # Bowel Movements 1 0 Active Medications: Current Medications Acetaminophen (Tylenol) 650 mg PO Q4HR PRN PRN Reason: Mild Pain / Temp above 100 Stop: 09/06/17 16:08 Last Admin: 07/19/17 00:17 Dose: 650 mg Acetaminophen (Tylenol) 650 mg PO Q4H PRN PRN Reason: Pain (Moderate) Stop: 09/06/17 20:55 Al Hydrox/Mg Hydrox/Simethicone (Maalox) 30 ml PO Q4HR PRN PRN Reason: GI DISTRESS Stop: 09/06/17 16:08 Last Admin: 07/11/17 10:02 Dose: 30 ml Docusate Sodium (Colace) 100 mg PO BID PABLO Stop: 09/07/17 08:59 Last Admin: 07/18/17 16:25 Dose: 100 mg Ferrous Sulfate (Iron) 325 mg PO DAILY PABLO Stop: 09/07/17 08:59 Last Admin: 07/18/17 08:57 Dose: 325 mg Folic Acid (Folate) 1 mg PO DAILY PABLO Stop: 09/07/17 08:59 Last Admin: 07/18/17 08:57 Dose: 1 mg Insulin Aspart (Novolog Insulin Sliding Scale) 0 units SUBQ ACHS PABLO PRN Reason: Protocol Stop: 09/06/17 20:59 Last Admin: 07/19/17 06:42 Dose: Not Given Insulin Detemir (Levemir Insulin) 10 units SUBQ Q12H PABLO PRN Reason: Protocol Stop: 09/06/17 20:59 Last Admin: 07/18/17 21:36 Dose: Not Given Levothyroxine Sodium (Synthroid) 0.075 mg PO QDAC PABLO Stop: 09/10/17 07:29 Last Admin: 07/19/17 06:47 Dose: Not Given Lorazepam (Ativan) 0.5 mg PO Q4HR PRN; Protocol PRN Reason: Anxiety Stop: 08/07/17 16:08 Last Admin: 07/19/17 03:33 Dose: 0.5 mg Multivitamins/Vitamin C (Theragran) 1 tab PO DAILY PABLO Stop: 09/07/17 08:59 Last Admin: 07/18/17 08:57 Dose: 1 tab Pantoprazole Sodium (Protonix) 40 mg PO DAILY PABLO Stop: 09/07/17 08:59 Last Admin: 07/18/17 08:55 Dose: 40 mg Quetiapine Fumarate 100 mg/Quetiapine Fumarate 50 mg/Quetiapine Fumarate 25 mg 175 mg PO BID PABLO Stop: 09/16/17 16:59 Last Admin: 07/18/17 16:25 Dose: 175 mg Sevelamer HCl (Renagel) 800 mg PO TIDWM PABLO Stop: 09/07/17 07:59 Last Admin: 07/18/17 16:25 Dose: 800 mg Zolpidem Tartrate (Ambien) 5 mg PO HS PRN PRN Reason: Insomnia Stop: 09/06/17 16:08 General: demented HEENT: NC/AT, PERRLA, EOMI, anicteric sclerae, throat clear Neck: Supple, No JVD, No thyromegaly, +2 carotid pulse wo bruit, No LAD Lungs: CTAB Cardiovascular: Normal S1, Normal S2, without murmur Abdomen: non-tender, non-distended Neurological: no change - Procedures Procedures: Procedures Procedure Code Date TRANSFUSE NONAUT RED BLOOD CELLS IN PERIPH VEIN, PERC 72178U6 07/04/17 Internal Medicine Assmt/Plan - Assessment Assessment: 1.DM. 2.HYPOTHYROIDISIM. 3.ANEMIA. 4.SCHIZOPHRENEA. - Plan Plan: CONTINUE ON CURRENT MEDICATION . Nutritional Asmnt/Malnutr-PDOC - Dietary Evaluation Malnutrition Findings (Please click <Entered> for more info): Nutritional Asmnt/Malnutrition Start: 07/09/17 09: 39 Text: Status: Complete Freq: Document 07/09/17 09:39 [email or web address] (Rec: 07/09/17 09:49 MMULRUBÉN HARRIET- [email or web address]) Nutritional Asmnt/Malnutrition Patient General Information Nutritional Screening High Risk Screening Diagnosis Psychosis Pertinent Medical Hx/Surgical Hx Paranoid Schizophrenia, Anxiety disorder, Dementia, Anemia, GERD, DM II, Hypothyroidism, CKD, Dysphagia , and difficulty in walking. Per nursing notes, she became combative whenever approached. Subjective Information Patient admitted from SNF on 5150 hold. Patient confused and not able to answer questions about dietary history. Current Diet Order/ Nutrition Support Mechanical soft ground CCHO 60gm Low sodium Patient / S.O Not Indicated Pertinent Medications maalox, colace, iron, folate, novolog, levemir, synthroid, MOM, MVI w/C, Protonix Pertinent Labs POC glucose 203 on admission Nutritional Hx/Data Height 1.52 m Height (Calculated Centimeters) 152.4 Current Weight (lbs) 71.668 kg Weight (Calculated Kilograms) 71.7 Weight (Calculated Grams) 89658.6 [place] Body Weight 100 % [place] Body Weight 158 Recent Weight Change No Weight Status Obese GI Symptoms GI Symptoms None Food Allergies No Cultural/Ethnic/Anabaptist Belief None indicated Usual diet at home Unknown Skin Integrity/Comment: Bruises on bilateral wrist and forearm, Tristan 18 Estimated Nutritional Goals BEE in Kcals: Using Current wt Calories/Kcals/Kg 20-25 kcal/kg (based on current weight of 71.8kg) - obese Kcals Calculated ~9281-3261 kcal/day Protein: Using Current wt Protein g/k gm/kg (based on current weight of 71.8kg) Protein Calculated ~70 gm/day Fluid: ml ~9140-6083 ml/day (25-30 ml/kg ) Nutritional Problem 1. Problem Problem Altered nutrition related lab values related to Etiology hyperglycemia aeb Signs/Symptoms: blood glucose 188 on admission and POC glucose 203 Intervention/Recommendation Comments 1. Continue current diet as tolerated by patient. ( mechanical soft ground, CCHO 60gm, Low sodium). 2. MD to modify insulin regimen as needed for optimal glycemic control. Expected Outcomes/Goals Expected Outcomes/Goals Blood glucose normalizes (80- 180), oral intake to meet >75% Of estiamted nutrient needs, weight remains stable or trends toward ideal body weight.
[2017-07-19] MEDS: Insulin Detemir 100 units/mL 10mL Vial SUBQ SCH (20:11)
--- NOTE | 2017-07-20 00:32 | Progress Notes ---
DATE: 07/19/2017 Case was discussed with staff of the patient, reviewed records. The patient continues to look disheveled, disorganized, internally preoccupied, inappropriate, needing redirection. She is up for renewal of her conservatorship, still unable to make safe plan for self-care, unable to make reasonable decisions. She has been compliant with the medication with no side effects, no sedation, no nausea, no extrapyramidal symptoms and her Seroquel dose was increased yesterday. So I will give her more time for further adjustment. We will continue to work with the patient in group therapy, milieu therapy and adjust the medication as needed. JOB# [id number]
[2017-07-20] MEDS: Levothyroxine 0.075 Mg Tab PO SCH (06:32)
[2017-07-20] MEDS: INSULIN ASPART SLIDING SCALE 100 UNITS/ML UNIT SUBQ SCH ×4 (06:32→20:56)
[2017-07-20] MEDS: Ferrous Sulfate 325 MG TAB PO SCH (08:59)
[2017-07-20] MEDS: Multivitamin Tab PO SCH (08:59)
[2017-07-20] MEDS: Pantoprazole 40 mg EC Tab PO SCH (08:59)
[2017-07-20] MEDS: Insulin Detemir 100 units/mL 10mL Vial SUBQ SCH ×2 (09:03→20:55)
--- NOTE | 2017-07-20 20:32 | Internal Medicine Prog Note ---
Internal Medicine Subjective - Subjective Service Date: 07/20/17 Patient seen and examined:: without staff Patient is:: awake, verbal, talking Per staff patient has:: no adverse event (THE PATIENT FEELS WELL,TAKING MEDICATION .) Internal Medicine Objective - Results Result Diagrams: 07/11/17 07:35 07/10/17 05:56 Recent Labs: Laboratory Last Values WBC 4.1 Th/cmm (4.8-10.8) L 07/11/17 07:35 RBC 2.76 Mil/cmm (3.80-5.10) L 07/11/17 07:35 Hgb 8.3 gm/dL (12-16) L 07/11/17 07:35 Hct 24.7 % (41.0-60) L 07/11/17 07:35 MCV 89.4 fl (81-100) 07/11/17 07:35 MCH 30.1 pg (27.0-31.0) 07/11/17 07:35 MCHC Differential 33.7 pg (28.0-36.0) 07/11/17 07:35 RDW 13.6 % (11.5-20.0) 07/11/17 07:35 Plt Count 274 Th/cmm (150-400) 07/11/17 07:35 MPV 6.9 fl 07/11/17 07:35 Neutrophils % 67.3 % (40.0-80.0) 07/11/17 07:35 Lymphocytes % 21.2 % (20.0-50.0) 07/11/17 07:35 Monocytes % 9.1 % (2.0-10.0) 07/11/17 07:35 Eosinophils % 1.6 % (0.0-5.0) 07/11/17 07:35 Basophils % 0.8 % (0.0-2.0) 07/11/17 07:35 Neutrophils (Manual) 69 % (40-80) 07/10/17 05:56 Lymphocytes 24 % (20-50) 07/10/17 05:56 Monocytes 7 % (2-10) 07/10/17 05:56 Platelet Estimate ADEQUATE (NORMAL) 07/10/17 05:56 Platelet Morphology NORMAL (NORMAL) 07/10/17 05:56 RBC Morph Micro Appear NORMAL (NORMAL) 07/10/17 05:56 Sodium 140 mEq/L (136-145) 07/10/17 05:56 Potassium 4.2 mEq/L (3.5-5.1) 07/10/17 05:56 Chloride 111 mEq/L (98-107) H 07/10/17 05:56 Carbon Dioxide 21.6 mEq/L (21.0-31.0) 07/10/17 05:56 Anion Gap 11.6 (7.0-16.0) 07/10/17 05:56 BUN 19 mg/dL (7-25) 07/10/17 05:56 Creatinine 2.8 mg/dL (0.6-1.2) H 07/10/17 05:56 Est GFR ( Amer) 22.0 ml/min (>90) 07/10/17 05:56 Est GFR (Non-Af Amer) 18.2 ml/min 07/10/17 05:56 BUN/Creatinine Ratio 6.8 07/10/17 05:56 Glucose 89 mg/dL (70-105) 07/10/17 05:56 POC Glucose 183 MG/DL (70 - 105) H 07/20/17 16:46 Calcium 9.6 mg/dL (8.6-10.3) 07/10/17 05:56 - Physical Exam Vitals and I&O: Vital Signs Temp 98.3 F 07/20/17 16:15 Pulse 103 07/20/17 16:15 Resp 20 07/20/17 16:15 BP 122/71 07/20/17 16:15 Pulse Ox 96 07/20/17 16:15 Intake & Output 07/20/17 07/20/17 07/21/17 06:59 18:59 06:59 Intake Total 240 1200 Balance 240 1200 Intake: Oral 240 1200 Other: # Voids 3 4 # Bowel Movements 0 1 Active Medications: Current Medications Acetaminophen (Tylenol) 650 mg PO Q4HR PRN PRN Reason: Mild Pain / Temp above 100 Stop: 09/06/17 16:08 Last Admin: 07/19/17 00:17 Dose: 650 mg Acetaminophen (Tylenol) 650 mg PO Q4H PRN PRN Reason: Pain (Moderate) Stop: 09/06/17 20:55 Al Hydrox/Mg Hydrox/Simethicone (Maalox) 30 ml PO Q4HR PRN PRN Reason: GI DISTRESS Stop: 09/06/17 16:08 Last Admin: 07/11/17 10:02 Dose: 30 ml Docusate Sodium (Colace) 100 mg PO BID PABLO Stop: 09/07/17 08:59 Last Admin: 07/20/17 08:58 Dose: 100 mg Ferrous Sulfate (Iron) 325 mg PO DAILY PABLO Stop: 09/07/17 08:59 Last Admin: 07/20/17 08:59 Dose: Not Given Folic Acid (Folate) 1 mg PO DAILY PABLO Stop: 09/07/17 08:59 Last Admin: 07/20/17 08:59 Dose: 1 mg Insulin Aspart (Novolog Insulin Sliding Scale) 0 units SUBQ ACHS PABLO PRN Reason: Protocol Stop: 09/06/17 20:59 Last Admin: 07/20/17 16:54 Dose: 2 units Insulin Detemir (Levemir Insulin) 10 units SUBQ Q12H PABLO PRN Reason: Protocol Stop: 09/06/17 20:59 Last Admin: 07/20/17 09:03 Dose: Not Given Levothyroxine Sodium (Synthroid) 0.075 mg PO QDAC PABLO Stop: 09/10/17 07:29 Last Admin: 07/20/17 06:32 Dose: Not Given Lorazepam (Ativan) 0.5 mg PO Q4HR PRN; Protocol PRN Reason: Anxiety Stop: 08/07/17 16:08 Last Admin: 07/19/17 03:33 Dose: 0.5 mg Multivitamins/Vitamin C (Theragran) 1 tab PO DAILY PABLO Stop: 09/07/17 08:59 Last Admin: 07/20/17 08:59 Dose: 1 tab Pantoprazole Sodium (Protonix) 40 mg PO DAILY PABLO Stop: 09/07/17 08:59 Last Admin: 07/20/17 08:59 Dose: Not Given Quetiapine Fumarate (Seroquel) 200 mg PO BID PABLO Stop: 09/18/17 08:59 Last Admin: 07/20/17 12:05 Dose: Not Given Sevelamer HCl (Renagel) 800 mg PO TIDWM PABLO Stop: 09/07/17 07:59 Last Admin: 07/20/17 12:12 Dose: Not Given Zolpidem Tartrate (Ambien) 5 mg PO HS PRN PRN Reason: Insomnia Stop: 09/06/17 16:08 General: demented HEENT: NC/AT, PERRLA, EOMI, anicteric sclerae, throat clear Neck: Supple, No JVD, No thyromegaly, +2 carotid pulse wo bruit, No LAD Lungs: CTAB Cardiovascular: Normal S1, Normal S2, without murmur Abdomen: non-tender, non-distended Neurological: no change - Procedures Procedures: Procedures Procedure Code Date TRANSFUSE NONAUT RED BLOOD CELLS IN PERIPH VEIN, PERC 65455K3 07/04/17 Internal Medicine Assmt/Plan - Assessment Assessment: 1.DM. 2.HYPOTHYROIDISIM. 3.ANEMIA. 4.SCHIZOPHRENEA. - Plan Plan: CONTINUE ON CURRENT MEDICATION . Nutritional Asmnt/Malnutr-PDOC - Dietary Evaluation Malnutrition Findings (Please click <Entered> for more info): Nutritional Asmnt/Malnutrition Start: 07/09/17 09: 39 Text: Status: Complete Freq: Document 07/09/17 09:39 MMULRUBÉN (Rec: 07/09/17 09:49 MMULHERN HARRIET FN) Nutritional Asmnt/Malnutrition Patient General Information Nutritional Screening High Risk Screening Diagnosis Psychosis Pertinent Medical Hx/Surgical Hx Paranoid Schizophrenia, Anxiety disorder, Dementia, Anemia, GERD, DM II, Hypothyroidism, CKD, Dysphagia , and difficulty in walking. Per nursing notes, she became combative whenever approached. Subjective Information Patient admitted from SNF on 5150 hold. Patient confused and not able to answer questions about dietary history. Current Diet Order/ Nutrition Support Mechanical soft ground CCHO 60gm Low sodium Patient / S.O Not Indicated Pertinent Medications maalox, colace, iron, folate, novolog, levemir, synthroid, MOM, MVI w/C, Protonix Pertinent Labs POC glucose 203 on admission Nutritional Hx/Data Height 1.52 m Height (Calculated Centimeters) 152.4 Current Weight (lbs) 71.668 kg Weight (Calculated Kilograms) 71.7 Weight (Calculated Grams) 91482.6 [place] Body Weight 100 % [place] Body Weight 158 Recent Weight Change No Weight Status Obese GI Symptoms GI Symptoms None Food Allergies No Cultural/Ethnic/Advent Belief None indicated Usual diet at home Unknown Skin Integrity/Comment: Bruises on bilateral wrist and forearm, Tristan 18 Estimated Nutritional Goals BEE in Kcals: Using Current wt Calories/Kcals/Kg 20-25 kcal/kg (based on current weight of 71.8kg) - obese Kcals Calculated ~6272-5589 kcal/day Protein: Using Current wt Protein g/k gm/kg (based on current weight of 71.8kg) Protein Calculated ~70 gm/day Fluid: ml ~8153-0487 ml/day (25-30 ml/kg ) Nutritional Problem 1. Problem Problem Altered nutrition related lab values related to Etiology hyperglycemia aeb Signs/Symptoms: blood glucose 188 on admission and POC glucose 203 Intervention/Recommendation Comments 1. Continue current diet as tolerated by patient. ( mechanical soft ground, CCHO 60gm, Low sodium). 2. MD to modify insulin regimen as needed for optimal glycemic control. Expected Outcomes/Goals Expected Outcomes/Goals Blood glucose normalizes (80- 180), oral intake to meet >75% Of estiamted nutrient needs, weight remains stable or trends toward ideal body weight.
--- NOTE | 2017-07-21 02:22 | Progress Notes ---
DATE: 07/20/2017 SUBJECTIVE: Case was discussed with staff of the patient, reviewed records. The patient continues to be internally preoccupied. Continues to be unable to make safe plan for self-care, unpredictable, impulsive, needing redirection and tangential in her speech. Unable to take care of herself. Her conservatorship is being renewed and so far no side effects with the medication, no sedation, no nausea, no extrapyramidal symptoms. PLAN OF CARE: I will be increasing her Seroquel to 200 mg twice a day and we will continue to work with the patient in group therapy, milieu therapy, adjust the medication as needed. JOB# [id number]
[2017-07-21] MEDS: INSULIN ASPART SLIDING SCALE 100 UNITS/ML UNIT SUBQ SCH ×4 (06:32→20:03)
[2017-07-21] MEDS: Levothyroxine 0.075 Mg Tab PO SCH (06:35)
[2017-07-21] MEDS: Ferrous Sulfate 325 MG TAB PO SCH (08:24)
[2017-07-21] MEDS: Pantoprazole 40 mg EC Tab PO SCH (08:25)
[2017-07-21] MEDS: Multivitamin Tab PO SCH (09:36)
[2017-07-21] MEDS: Insulin Detemir 100 units/mL 10mL Vial SUBQ SCH ×2 (09:37→20:03)
--- NOTE | 2017-07-21 16:08 | Internal Medicine Prog Note ---
Internal Medicine Subjective - Subjective Service Date: 07/21/17 Patient seen and examined:: with staff Patient is:: awake, verbal, talking Per staff patient has:: no adverse event (THE PATIENT FEELS WELL,TAKING MEDICATION .) Internal Medicine Objective - Results Result Diagrams: 07/11/17 07:35 07/10/17 05:56 Recent Labs: Laboratory Last Values WBC 4.1 Th/cmm (4.8-10.8) L 07/11/17 07:35 RBC 2.76 Mil/cmm (3.80-5.10) L 07/11/17 07:35 Hgb 8.3 gm/dL (12-16) L 07/11/17 07:35 Hct 24.7 % (41.0-60) L 07/11/17 07:35 MCV 89.4 fl (81-100) 07/11/17 07:35 MCH 30.1 pg (27.0-31.0) 07/11/17 07:35 MCHC Differential 33.7 pg (28.0-36.0) 07/11/17 07:35 RDW 13.6 % (11.5-20.0) 07/11/17 07:35 Plt Count 274 Th/cmm (150-400) 07/11/17 07:35 MPV 6.9 fl 07/11/17 07:35 Neutrophils % 67.3 % (40.0-80.0) 07/11/17 07:35 Lymphocytes % 21.2 % (20.0-50.0) 07/11/17 07:35 Monocytes % 9.1 % (2.0-10.0) 07/11/17 07:35 Eosinophils % 1.6 % (0.0-5.0) 07/11/17 07:35 Basophils % 0.8 % (0.0-2.0) 07/11/17 07:35 Neutrophils (Manual) 69 % (40-80) 07/10/17 05:56 Lymphocytes 24 % (20-50) 07/10/17 05:56 Monocytes 7 % (2-10) 07/10/17 05:56 Platelet Estimate ADEQUATE (NORMAL) 07/10/17 05:56 Platelet Morphology NORMAL (NORMAL) 07/10/17 05:56 RBC Morph Micro Appear NORMAL (NORMAL) 07/10/17 05:56 Sodium 140 mEq/L (136-145) 07/10/17 05:56 Potassium 4.2 mEq/L (3.5-5.1) 07/10/17 05:56 Chloride 111 mEq/L (98-107) H 07/10/17 05:56 Carbon Dioxide 21.6 mEq/L (21.0-31.0) 07/10/17 05:56 Anion Gap 11.6 (7.0-16.0) 07/10/17 05:56 BUN 19 mg/dL (7-25) 07/10/17 05:56 Creatinine 2.8 mg/dL (0.6-1.2) H 07/10/17 05:56 Est GFR ( Amer) 22.0 ml/min (>90) 07/10/17 05:56 Est GFR (Non-Af Amer) 18.2 ml/min 07/10/17 05:56 BUN/Creatinine Ratio 6.8 07/10/17 05:56 Glucose 89 mg/dL (70-105) 07/10/17 05:56 POC Glucose 222 MG/DL (70 - 105) H 07/21/17 11:47 Calcium 9.6 mg/dL (8.6-10.3) 07/10/17 05:56 - Physical Exam Vitals and I&O: Vital Signs Temp 97.7 F 07/21/17 06:40 Pulse 78 07/21/17 06:40 Resp 20 07/21/17 06:40 BP 113/74 07/21/17 06:40 Pulse Ox 99 07/21/17 06:40 Intake & Output 07/20/17 07/21/17 07/21/17 18:59 06:59 18:59 Intake Total 1320 Balance 1320 Intake: Oral 1320 Other: # Voids 3 # Bowel Movements 1 Active Medications: Current Medications Acetaminophen (Tylenol) 650 mg PO Q4HR PRN PRN Reason: Mild Pain / Temp above 100 Stop: 09/06/17 16:08 Last Admin: 07/19/17 00:17 Dose: 650 mg Acetaminophen (Tylenol) 650 mg PO Q4H PRN PRN Reason: Pain (Moderate) Stop: 09/06/17 20:55 Al Hydrox/Mg Hydrox/Simethicone (Maalox) 30 ml PO Q4HR PRN PRN Reason: GI DISTRESS Stop: 09/06/17 16:08 Last Admin: 07/11/17 10:02 Dose: 30 ml Docusate Sodium (Colace) 100 mg PO BID PABLO Stop: 09/07/17 08:59 Last Admin: 07/21/17 09:36 Dose: 100 mg Ferrous Sulfate (Iron) 325 mg PO DAILY PABLO Stop: 09/07/17 08:59 Last Admin: 07/21/17 08:24 Dose: Not Given Folic Acid (Folate) 1 mg PO DAILY PABLO Stop: 09/07/17 08:59 Last Admin: 07/21/17 09:36 Dose: Not Given Insulin Aspart (Novolog Insulin Sliding Scale) 0 units SUBQ ACHS PABLO PRN Reason: Protocol Stop: 09/06/17 20:59 Last Admin: 07/21/17 11:55 Dose: 4 units Insulin Detemir (Levemir Insulin) 10 units SUBQ Q12H PABLO PRN Reason: Protocol Stop: 09/06/17 20:59 Last Admin: 07/21/17 09:37 Dose: Not Given Levothyroxine Sodium (Synthroid) 0.075 mg PO QDAC PABLO Stop: 09/10/17 07:29 Last Admin: 07/21/17 06:35 Dose: 0.075 mg Lorazepam (Ativan) 0.5 mg PO Q4HR PRN; Protocol PRN Reason: Anxiety Stop: 08/07/17 16:08 Last Admin: 07/19/17 03:33 Dose: 0.5 mg Multivitamins/Vitamin C (Theragran) 1 tab PO DAILY PABLO Stop: 09/07/17 08:59 Last Admin: 07/21/17 09:36 Dose: Not Given Pantoprazole Sodium (Protonix) 40 mg PO DAILY PABLO Stop: 09/07/17 08:59 Last Admin: 07/21/17 08:25 Dose: Not Given Quetiapine Fumarate (Seroquel) 200 mg PO BID PABLO Stop: 09/18/17 08:59 Last Admin: 07/21/17 09:35 Dose: 200 mg Sevelamer HCl (Renagel) 800 mg PO TIDWM PABLO Stop: 09/07/17 07:59 Last Admin: 07/21/17 12:04 Dose: Not Given Zolpidem Tartrate (Ambien) 5 mg PO HS PRN PRN Reason: Insomnia Stop: 09/06/17 16:08 General: demented HEENT: NC/AT, PERRLA, EOMI, anicteric sclerae, throat clear Neck: Supple, No JVD, No thyromegaly, +2 carotid pulse wo bruit, No LAD Lungs: CTAB Cardiovascular: Normal S1, Normal S2, without murmur Abdomen: non-tender, non-distended Neurological: no change - Procedures Procedures: Procedures Procedure Code Date TRANSFUSE NONAUT RED BLOOD CELLS IN PERIPH VEIN, PERC 35463Z8 07/04/17 Internal Medicine Assmt/Plan - Assessment Assessment: 1.DM. 2.HYPOTHYROIDISIM. 3.ANEMIA. 4.SCHIZOPHRENEA. - Plan Plan: CONTINUE ON CURRENT MEDICATION . Nutritional Asmnt/Malnutr-PDOC - Dietary Evaluation Malnutrition Findings (Please click <Entered> for more info): Nutritional Asmnt/Malnutrition Start: 07/09/17 09: 39 Text: Status: Complete Freq: Document 07/09/17 09:39 MMULRUBÉN (Rec: 07/09/17 09:49 MMULHERN HARRIET FN) Nutritional Asmnt/Malnutrition Patient General Information Nutritional Screening High Risk Screening Diagnosis Psychosis Pertinent Medical Hx/Surgical Hx Paranoid Schizophrenia, Anxiety disorder, Dementia, Anemia, GERD, DM II, Hypothyroidism, CKD, Dysphagia , and difficulty in walking. Per nursing notes, she became combative whenever approached. Subjective Information Patient admitted from SNF on 5150 hold. Patient confused and not able to answer questions about dietary history. Current Diet Order/ Nutrition Support Mechanical soft ground CCHO 60gm Low sodium Patient / S.O Not Indicated Pertinent Medications maalox, colace, iron, folate, novolog, levemir, synthroid, MOM, MVI w/C, Protonix Pertinent Labs POC glucose 203 on admission Nutritional Hx/Data Height 1.52 m Height (Calculated Centimeters) 152.4 Current Weight (lbs) 71.668 kg Weight (Calculated Kilograms) 71.7 Weight (Calculated Grams) 55342.6 [place] Body Weight 100 % [place] Body Weight 158 Recent Weight Change No Weight Status Obese GI Symptoms GI Symptoms None Food Allergies No Cultural/Ethnic/Rastafarian Belief None indicated Usual diet at home Unknown Skin Integrity/Comment: Bruises on bilateral wrist and forearm, Tristan 18 Estimated Nutritional Goals BEE in Kcals: Using Current wt Calories/Kcals/Kg 20-25 kcal/kg (based on current weight of 71.8kg) - obese Kcals Calculated ~2446-7488 kcal/day Protein: Using Current wt Protein g/k gm/kg (based on current weight of 71.8kg) Protein Calculated ~70 gm/day Fluid: ml ~5360-1711 ml/day (25-30 ml/kg ) Nutritional Problem 1. Problem Problem Altered nutrition related lab values related to Etiology hyperglycemia aeb Signs/Symptoms: blood glucose 188 on admission and POC glucose 203 Intervention/Recommendation Comments 1. Continue current diet as tolerated by patient. ( mechanical soft ground, CCHO 60gm, Low sodium). 2. MD to modify insulin regimen as needed for optimal glycemic control. Expected Outcomes/Goals Expected Outcomes/Goals Blood glucose normalizes (80- 180), oral intake to meet >75% Of estiamted nutrient needs, weight remains stable or trends toward ideal body weight.
--- NOTE | 2017-07-22 01:46 | Progress Notes ---
DATE: 07/21/2017 Case was discussed with staff of the patient, reviewed records. The patient refused to take her medications; however, she took it all the previous days. When I asked her about why she did not take her medication, she claims that she took it. She is still unpredictable, impulsive, needing redirection, continues to have poor insight, unable to make safe plan for self-care. I did increase her Seroquel dose yesterday to 200 mg twice a day; however, she has not taken this morning. No side effects with the medication, no sedation, no nausea, no extrapyramidal symptoms. We will continue to work with the patient in group therapy, milieu therapy, adjust medications as needed. JOB# [id number]
[2017-07-22] MEDS: Levothyroxine 0.075 Mg Tab PO SCH (06:29)
[2017-07-22] MEDS: INSULIN ASPART SLIDING SCALE 100 UNITS/ML UNIT SUBQ SCH ×4 (06:30→20:42)
[2017-07-22] MEDS: Ferrous Sulfate 325 MG TAB PO SCH (09:26)
[2017-07-22] MEDS: Insulin Detemir 100 units/mL 10mL Vial SUBQ SCH ×2 (09:27→20:42)
[2017-07-22] MEDS: Pantoprazole 40 mg EC Tab PO SCH (09:27)
[2017-07-22] MEDS: Multivitamin Tab PO SCH (09:31)
--- NOTE | 2017-07-22 14:02 | Internal Medicine Prog Note ---
Internal Medicine Subjective - Subjective Service Date: 07/22/17 Patient seen and examined:: without staff Patient is:: awake, verbal, talking Per staff patient has:: no adverse event (THE PATIENT FEELS WELL,TAKING MEDICATION .) Internal Medicine Objective - Results Result Diagrams: 07/11/17 07:35 07/10/17 05:56 Recent Labs: Laboratory Last Values WBC 4.1 Th/cmm (4.8-10.8) L 07/11/17 07:35 RBC 2.76 Mil/cmm (3.80-5.10) L 07/11/17 07:35 Hgb 8.3 gm/dL (12-16) L 07/11/17 07:35 Hct 24.7 % (41.0-60) L 07/11/17 07:35 MCV 89.4 fl (81-100) 07/11/17 07:35 MCH 30.1 pg (27.0-31.0) 07/11/17 07:35 MCHC Differential 33.7 pg (28.0-36.0) 07/11/17 07:35 RDW 13.6 % (11.5-20.0) 07/11/17 07:35 Plt Count 274 Th/cmm (150-400) 07/11/17 07:35 MPV 6.9 fl 07/11/17 07:35 Neutrophils % 67.3 % (40.0-80.0) 07/11/17 07:35 Lymphocytes % 21.2 % (20.0-50.0) 07/11/17 07:35 Monocytes % 9.1 % (2.0-10.0) 07/11/17 07:35 Eosinophils % 1.6 % (0.0-5.0) 07/11/17 07:35 Basophils % 0.8 % (0.0-2.0) 07/11/17 07:35 Neutrophils (Manual) 69 % (40-80) 07/10/17 05:56 Lymphocytes 24 % (20-50) 07/10/17 05:56 Monocytes 7 % (2-10) 07/10/17 05:56 Platelet Estimate ADEQUATE (NORMAL) 07/10/17 05:56 Platelet Morphology NORMAL (NORMAL) 07/10/17 05:56 RBC Morph Micro Appear NORMAL (NORMAL) 07/10/17 05:56 Sodium 140 mEq/L (136-145) 07/10/17 05:56 Potassium 4.2 mEq/L (3.5-5.1) 07/10/17 05:56 Chloride 111 mEq/L (98-107) H 07/10/17 05:56 Carbon Dioxide 21.6 mEq/L (21.0-31.0) 07/10/17 05:56 Anion Gap 11.6 (7.0-16.0) 07/10/17 05:56 BUN 19 mg/dL (7-25) 07/10/17 05:56 Creatinine 2.8 mg/dL (0.6-1.2) H 07/10/17 05:56 Est GFR ( Amer) 22.0 ml/min (>90) 07/10/17 05:56 Est GFR (Non-Af Amer) 18.2 ml/min 07/10/17 05:56 BUN/Creatinine Ratio 6.8 07/10/17 05:56 Glucose 89 mg/dL (70-105) 07/10/17 05:56 POC Glucose 216 MG/DL (70 - 105) H 07/22/17 11:13 Calcium 9.6 mg/dL (8.6-10.3) 07/10/17 05:56 - Physical Exam Vitals and I&O: Vital Signs Temp 97.3 F 07/22/17 06:39 Pulse 90 07/22/17 06:39 Resp 20 07/22/17 06:39 BP 110/64 07/22/17 06:39 Pulse Ox 97 07/22/17 06:39 Intake & Output 07/21/17 07/22/17 07/22/17 18:59 06:59 18:59 Intake Total 1800 120 Balance 1800 120 Intake: Oral 1800 120 Other: # Voids 4 3 # Bowel Movements 1 Active Medications: Current Medications Acetaminophen (Tylenol) 650 mg PO Q4HR PRN PRN Reason: Mild Pain / Temp above 100 Stop: 09/06/17 16:08 Last Admin: 07/19/17 00:17 Dose: 650 mg Acetaminophen (Tylenol) 650 mg PO Q4H PRN PRN Reason: Pain (Moderate) Stop: 09/06/17 20:55 Al Hydrox/Mg Hydrox/Simethicone (Maalox) 30 ml PO Q4HR PRN PRN Reason: GI DISTRESS Stop: 09/06/17 16:08 Last Admin: 07/11/17 10:02 Dose: 30 ml Docusate Sodium (Colace) 100 mg PO BID PABLO Stop: 09/07/17 08:59 Last Admin: 07/22/17 09:27 Dose: Not Given Ferrous Sulfate (Iron) 325 mg PO DAILY PABLO Stop: 09/07/17 08:59 Last Admin: 07/22/17 09:26 Dose: Not Given Folic Acid (Folate) 1 mg PO DAILY PABLO Stop: 09/07/17 08:59 Last Admin: 07/22/17 09:27 Dose: Not Given Insulin Aspart (Novolog Insulin Sliding Scale) 0 units SUBQ ACHS PABLO PRN Reason: Protocol Stop: 09/06/17 20:59 Last Admin: 07/22/17 11:22 Dose: 4 units Insulin Detemir (Levemir Insulin) 10 units SUBQ Q12H PABLO PRN Reason: Protocol Stop: 09/06/17 20:59 Last Admin: 07/22/17 09:27 Dose: Not Given Levothyroxine Sodium (Synthroid) 0.075 mg PO QDAC PABLO Stop: 09/10/17 07:29 Last Admin: 07/22/17 06:29 Dose: 0.075 mg Lorazepam (Ativan) 0.5 mg PO Q4HR PRN; Protocol PRN Reason: Anxiety Stop: 08/07/17 16:08 Last Admin: 07/22/17 08:19 Dose: 0.5 mg Multivitamins/Vitamin C (Theragran) 1 tab PO DAILY PABLO Stop: 09/07/17 08:59 Last Admin: 07/22/17 09:31 Dose: Not Given Pantoprazole Sodium (Protonix) 40 mg PO DAILY PABLO Stop: 09/07/17 08:59 Last Admin: 07/22/17 09:27 Dose: Not Given Quetiapine Fumarate (Seroquel) 200 mg PO BID PABLO Stop: 09/18/17 08:59 Last Admin: 07/22/17 09:26 Dose: Not Given Sevelamer HCl (Renagel) 800 mg PO TIDWM PABLO Stop: 09/07/17 07:59 Last Admin: 07/22/17 11:18 Dose: Not Given Zolpidem Tartrate (Ambien) 5 mg PO HS PRN PRN Reason: Insomnia Stop: 09/06/17 16:08 General: demented HEENT: NC/AT, PERRLA, EOMI, anicteric sclerae, throat clear Neck: Supple, No JVD, No thyromegaly, +2 carotid pulse wo bruit, No LAD Lungs: CTAB Cardiovascular: Normal S1, Normal S2, without murmur Abdomen: non-tender, non-distended Neurological: no change - Procedures Procedures: Procedures Procedure Code Date TRANSFUSE NONAUT RED BLOOD CELLS IN PERIPH VEIN, [facility] 72037X2 07/04/17 Internal Medicine Assmt/Plan - Assessment Assessment: 1.DM. 2.HYPOTHYROIDISIM. 3.ANEMIA. 4.SCHIZOPHRENEA. - Plan Plan: CONTINUE ON CURRENT MEDICATION . Nutritional Asmnt/Malnutr-PDOC - Dietary Evaluation Malnutrition Findings (Please click <Entered> for more info): Nutritional Asmnt/Malnutrition Start: 07/09/17 09: 39 Text: Status: Complete Freq: Document 07/09/17 09:39 MMULRUBÉN (Rec: 07/09/17 09:49 MMULHERN HARRIET- FN) Nutritional Asmnt/Malnutrition Patient General Information Nutritional Screening High Risk Screening Diagnosis Psychosis Pertinent Medical Hx/Surgical Hx Paranoid Schizophrenia, Anxiety disorder, Dementia, Anemia, GERD, DM II, Hypothyroidism, CKD, Dysphagia , and difficulty in walking. Per nursing notes, she became combative whenever approached. Subjective Information Patient admitted from SNF on 5150 hold. Patient confused and not able to answer questions about dietary history. Current Diet Order/ Nutrition Support Mechanical soft ground CCHO 60gm Low sodium Patient / S.O Not Indicated Pertinent Medications maalox, colace, iron, folate, novolog, levemir, synthroid, MOM, MVI w/C, Protonix Pertinent Labs POC glucose 203 on admission Nutritional Hx/Data Height 1.52 m Height (Calculated Centimeters) 152.4 Current Weight (lbs) 71.668 kg Weight (Calculated Kilograms) 71.7 Weight (Calculated Grams) 49511.6 [place] Body Weight 100 % [place] Body Weight 158 Recent Weight Change No Weight Status Obese GI Symptoms GI Symptoms None Food Allergies No Cultural/Ethnic/Religion Belief None indicated Usual diet at home Unknown Skin Integrity/Comment: Bruises on bilateral wrist and forearm, Tristan 18 Estimated Nutritional Goals BEE in Kcals: Using Current wt Calories/Kcals/Kg 20-25 kcal/kg (based on current weight of 71.8kg) - obese Kcals Calculated ~9261-0760 kcal/day Protein: Using Current wt Protein g/k gm/kg (based on current weight of 71.8kg) Protein Calculated ~70 gm/day Fluid: ml ~6993-9806 ml/day (25-30 ml/kg ) Nutritional Problem 1. Problem Problem Altered nutrition related lab values related to Etiology hyperglycemia aeb Signs/Symptoms: blood glucose 188 on admission and POC glucose 203 Intervention/Recommendation Comments 1. Continue current diet as tolerated by patient. ( mechanical soft ground, CCHO 60gm, Low sodium). 2. MD to modify insulin regimen as needed for optimal glycemic control. Expected Outcomes/Goals Expected Outcomes/Goals Blood glucose normalizes (80- 180), oral intake to meet >75% Of estiamted nutrient needs, weight remains stable or trends toward ideal body weight.
--- NOTE | 2017-07-23 00:10 | Progress Notes ---
DATE: 07/22/2017 SUBJECTIVE: Case was discussed with staff of the patient, reviewed records. Today, the patient took her medications yesterday. She is mclaughlin, irritable and unable to make safe plan for self-care, unpredictable, impulsive. No side effects with the medication. No sedation. No nausea, no extrapyramidal symptoms. We will continue to work with the patient in group therapy, milieu therapy, adjust the medication as needed. JOB# [id number]
[2017-07-23] MEDS: INSULIN ASPART SLIDING SCALE 100 UNITS/ML UNIT SUBQ SCH ×4 (06:43→21:14)
[2017-07-23] MEDS: Levothyroxine 0.075 Mg Tab PO SCH (06:43)
[2017-07-23] MEDS: Pantoprazole 40 mg EC Tab PO SCH (08:36)
[2017-07-23] MEDS: Multivitamin Tab PO SCH ×2 (08:36→16:37)
[2017-07-23] MEDS: Ferrous Sulfate 325 MG TAB PO SCH (08:36)
[2017-07-23] MEDS: Insulin Detemir 100 units/mL 10mL Vial SUBQ SCH ×2 (08:51→21:14)
--- NOTE | 2017-07-23 11:30 | General Progress Note ---
Subjective - Review of Systems Service Date: 07/23/17 Subjective: resting comfortably in bed no complaints Objective - Results Result Diagrams: 07/11/17 07:35 07/10/17 05:56 Recent Labs: Laboratory Last Values WBC 4.1 Th/cmm (4.8-10.8) L 07/11/17 07:35 RBC 2.76 Mil/cmm (3.80-5.10) L 07/11/17 07:35 Hgb 8.3 gm/dL (12-16) L 07/11/17 07:35 Hct 24.7 % (41.0-60) L 07/11/17 07:35 MCV 89.4 fl (81-100) 07/11/17 07:35 MCH 30.1 pg (27.0-31.0) 07/11/17 07:35 MCHC Differential 33.7 pg (28.0-36.0) 07/11/17 07:35 RDW 13.6 % (11.5-20.0) 07/11/17 07:35 Plt Count 274 Th/cmm (150-400) 07/11/17 07:35 MPV 6.9 fl 07/11/17 07:35 Neutrophils % 67.3 % (40.0-80.0) 07/11/17 07:35 Lymphocytes % 21.2 % (20.0-50.0) 07/11/17 07:35 Monocytes % 9.1 % (2.0-10.0) 07/11/17 07:35 Eosinophils % 1.6 % (0.0-5.0) 07/11/17 07:35 Basophils % 0.8 % (0.0-2.0) 07/11/17 07:35 Neutrophils (Manual) 69 % (40-80) 07/10/17 05:56 Lymphocytes 24 % (20-50) 07/10/17 05:56 Monocytes 7 % (2-10) 07/10/17 05:56 Platelet Estimate ADEQUATE (NORMAL) 07/10/17 05:56 Platelet Morphology NORMAL (NORMAL) 07/10/17 05:56 RBC Morph Micro Appear NORMAL (NORMAL) 07/10/17 05:56 Sodium 140 mEq/L (136-145) 07/10/17 05:56 Potassium 4.2 mEq/L (3.5-5.1) 07/10/17 05:56 Chloride 111 mEq/L (98-107) H 07/10/17 05:56 Carbon Dioxide 21.6 mEq/L (21.0-31.0) 07/10/17 05:56 Anion Gap 11.6 (7.0-16.0) 07/10/17 05:56 BUN 19 mg/dL (7-25) 07/10/17 05:56 Creatinine 2.8 mg/dL (0.6-1.2) H 07/10/17 05:56 Est GFR ( Amer) 22.0 ml/min (>90) 07/10/17 05:56 Est GFR (Non-Af Amer) 18.2 ml/min 07/10/17 05:56 BUN/Creatinine Ratio 6.8 07/10/17 05:56 Glucose 89 mg/dL (70-105) 07/10/17 05:56 POC Glucose 108 MG/DL (70 - 105) H 07/23/17 06:24 Calcium 9.6 mg/dL (8.6-10.3) 07/10/17 05:56 - Physical Exam Vitals and I&O: Vital Signs Temp 98.3 F 07/23/17 06:43 Pulse 96 07/23/17 06:43 Resp 19 07/23/17 06:43 BP 117/68 07/23/17 06:43 Pulse Ox 97 07/23/17 06:43 Intake & Output 07/22/17 07/23/17 07/23/17 18:59 06:59 18:59 Intake Total 800 120 Balance 800 120 Intake: Oral 800 120 Other: # Voids 3 3 # Bowel Movements 1 Active Medications: Current Medications Acetaminophen (Tylenol) 650 mg PO Q4HR PRN PRN Reason: Mild Pain / Temp above 100 Stop: 09/06/17 16:08 Last Admin: 07/19/17 00:17 Dose: 650 mg Acetaminophen (Tylenol) 650 mg PO Q4H PRN PRN Reason: Pain (Moderate) Stop: 09/06/17 20:55 Al Hydrox/Mg Hydrox/Simethicone (Maalox) 30 ml PO Q4HR PRN PRN Reason: GI DISTRESS Stop: 09/06/17 16:08 Last Admin: 07/11/17 10:02 Dose: 30 ml Docusate Sodium (Colace) 100 mg PO BID PABLO Stop: 09/07/17 08:59 Last Admin: 07/23/17 08:35 Dose: 100 mg Ferrous Sulfate (Iron) 325 mg PO DAILY PABLO Stop: 09/07/17 08:59 Last Admin: 07/23/17 08:36 Dose: 325 mg Folic Acid (Folate) 1 mg PO DAILY PABLO Stop: 09/07/17 08:59 Last Admin: 07/23/17 08:36 Dose: 1 mg Insulin Aspart (Novolog Insulin Sliding Scale) 0 units SUBQ ACHS PABLO PRN Reason: Protocol Stop: 09/06/17 20:59 Last Admin: 07/23/17 06:43 Dose: Not Given Insulin Detemir (Levemir Insulin) 10 units SUBQ Q12H PABLO PRN Reason: Protocol Stop: 09/06/17 20:59 Last Admin: 07/23/17 08:51 Dose: 10 units Levothyroxine Sodium (Synthroid) 0.075 mg PO QDAC PABLO Stop: 09/10/17 07:29 Last Admin: 07/23/17 06:43 Dose: 0.075 mg Multivitamins/Vitamin C (Theragran) 1 tab PO DAILY PABLO Stop: 09/07/17 08:59 Last Admin: 07/23/17 08:36 Dose: 1 tab Pantoprazole Sodium (Protonix) 40 mg PO DAILY PABLO Stop: 09/07/17 08:59 Last Admin: 07/23/17 08:36 Dose: 40 mg Quetiapine Fumarate (Seroquel) 200 mg PO BID PABLO Stop: 09/18/17 08:59 Last Admin: 07/23/17 08:36 Dose: 200 mg Sevelamer HCl (Renagel) 800 mg PO TIDWM PABLO Stop: 09/07/17 07:59 Last Admin: 07/23/17 08:35 Dose: 800 mg General: Alert, No acute distress HEENT: Atraumatic, PERRLA, EOMI Neck: Supple, JVD Cardiovascular: Regular rate, Normal S1, Normal S2 Lungs: Clear to auscultation Abdomen: Bowel sounds, Soft - Procedures Procedures: Procedures Procedure Code Date TRANSFUSE NONAUT RED BLOOD CELLS IN PERIPH VEIN, [facility] [id number] 07/04/17 Assessment/Plan - Problem List Patient Problems: All Active Problems ANEMIA (Acute) CHRONIC RENAL INSUFFICIENCY (Acute) PARANOID SCHIZOPHRENIA (Acute) TYPE II DM (Acute) UNCOOPERATIVE WITH CARE AND AGGRESSIVE (Acute) - Assessment Assessment: SCHIZOPHRENIA DM HYPOTHYROIDISM CKD ANEMIA - Plan Plan: CONT CURRENT TREATMENT Nutritional Asmnt/Malnutr-PDOC - Dietary Evaluation Malnutrition Findings (Please click <Entered> for more info): Nutritional Asmnt/Malnutrition Start: 07/09/17 09: 39 Text: Status: Complete Freq: Document 07/09/17 09:39 VANESSA (Rec: 07/09/17 09:49 MMKAPIL LARIOS- FNS1) Nutritional Asmnt/Malnutrition Patient General Information Nutritional Screening High Risk Screening Diagnosis Psychosis Pertinent Medical Hx/Surgical Hx Paranoid Schizophrenia, Anxiety disorder, Dementia, Anemia, GERD, DM II, Hypothyroidism, CKD, Dysphagia , and difficulty in walking. Per nursing notes, she became combative whenever approached. Subjective Information Patient admitted from SNF on 5150 hold. Patient confused and not able to answer questions about dietary history. Current Diet Order/ Nutrition Support Mechanical soft ground CCHO 60gm Low sodium Patient / S.O Not Indicated Pertinent Medications maalox, colace, iron, folate, novolog, levemir, synthroid, MOM, MVI w/C, Protonix Pertinent Labs POC glucose 203 on admission Nutritional Hx/Data Height 1.52 m Height (Calculated Centimeters) 152.4 Current Weight (lbs) 71.668 kg Weight (Calculated Kilograms) 71.7 Weight (Calculated Grams) 68317.6 [place] Body Weight 100 % [place] Body Weight 158 Recent Weight Change No Weight Status Obese GI Symptoms GI Symptoms None Food Allergies No Cultural/Ethnic/Quaker Belief None indicated Usual diet at home Unknown Skin Integrity/Comment: Bruises on bilateral wrist and forearm, Tristan 18 Estimated Nutritional Goals BEE in Kcals: Using Current wt Calories/Kcals/Kg 20-25 kcal/kg (based on current weight of 71.8kg) - obese Kcals Calculated ~8367-9280 kcal/day Protein: Using Current wt Protein g/k gm/kg (based on current weight of 71.8kg) Protein Calculated ~70 gm/day Fluid: ml ~0612-0985 ml/day (25-30 ml/kg ) Nutritional Problem 1. Problem Problem Altered nutrition related lab values related to Etiology hyperglycemia aeb Signs/Symptoms: blood glucose 188 on admission and POC glucose 203 Intervention/Recommendation Comments 1. Continue current diet as tolerated by patient. ( mechanical soft ground, CCHO 60gm, Low sodium). 2. MD to modify insulin regimen as needed for optimal glycemic control. Expected Outcomes/Goals Expected Outcomes/Goals Blood glucose normalizes (80- 180), oral intake to meet >75% Of estiamted nutrient needs, weight remains stable or trends toward ideal body weight.
--- NOTE | 2017-07-23 22:25 | Progress Notes ---
DATE: 07/23/2017 SUBJECTIVE: The patient seen, chart reviewed, discussed with staff. The patient is currently in the hospital, irritable, unpredictable, noted to be highly confused, disoriented, garbled speech, disorganized thought processes, flight of ideas, delusional, restless, anxious. Dr. Shields is still noting the patient remains irritable, unable to care for basic needs. Medications were noted. No side effects. The patient is sleeping fairly well, eating with prompting. ASSESSMENT: The patient remains symptomatic, not safe for discharge. Still disorganized, psychotic, disoriented. PLAN: The patient is not safe for a lower level of care. Medications were noted. We will continue to monitor and adjust appropriately. [facility]# [id number]
[2017-07-24] MEDS: Levothyroxine 0.075 Mg Tab PO SCH ×2 (06:31→06:48)
[2017-07-24] MEDS: INSULIN ASPART SLIDING SCALE 100 UNITS/ML UNIT SUBQ SCH ×4 (06:31→21:36)
--- NOTE | 2017-07-24 09:02 | Progress Notes ---
DATE: 07/24/2017 SUBJECTIVE: The patient seen, chart reviewed, discussed with staff. The patient remains confused, bizarre, making odd statements, talking with her daughter, but really disorganized. I cannot really follow her thought processes whatsoever. She is calm at this time. She is unable to care for her basic needs. She needs a lot of prompting and redirection, taking her medications, no side effects, no EPS. ASSESSMENT: The patient remains symptomatic, not safe for discharge, still disorganized. PLAN: We will continue to monitor, given her ongoing symptoms she is not safe for discharge at this time. Medications were noted. No overt side effects, no EPS for example. JOB# [id number]
[2017-07-24] MEDS: Insulin Detemir 100 units/mL 10mL Vial SUBQ SCH ×2 (13:06→21:37)
[2017-07-24] MEDS: Ferrous Sulfate 325 MG TAB PO SCH (13:06)
[2017-07-24] MEDS: Pantoprazole 40 mg EC Tab PO SCH (13:06)
[2017-07-24] MEDS: Multivitamin Tab PO SCH (13:07)
--- NOTE | 2017-07-24 19:47 | General Progress Note ---
Subjective - Review of Systems Service Date: 07/24/17 Subjective: resting comfortably in bed no complaints Objective - Results Result Diagrams: 07/11/17 07:35 07/10/17 05:56 Recent Labs: Laboratory Last Values WBC 4.1 Th/cmm (4.8-10.8) L 07/11/17 07:35 RBC 2.76 Mil/cmm (3.80-5.10) L 07/11/17 07:35 Hgb 8.3 gm/dL (12-16) L 07/11/17 07:35 Hct 24.7 % (41.0-60) L 07/11/17 07:35 MCV 89.4 fl (81-100) 07/11/17 07:35 MCH 30.1 pg (27.0-31.0) 07/11/17 07:35 MCHC Differential 33.7 pg (28.0-36.0) 07/11/17 07:35 RDW 13.6 % (11.5-20.0) 07/11/17 07:35 Plt Count 274 Th/cmm (150-400) 07/11/17 07:35 MPV 6.9 fl 07/11/17 07:35 Neutrophils % 67.3 % (40.0-80.0) 07/11/17 07:35 Lymphocytes % 21.2 % (20.0-50.0) 07/11/17 07:35 Monocytes % 9.1 % (2.0-10.0) 07/11/17 07:35 Eosinophils % 1.6 % (0.0-5.0) 07/11/17 07:35 Basophils % 0.8 % (0.0-2.0) 07/11/17 07:35 Neutrophils (Manual) 69 % (40-80) 07/10/17 05:56 Lymphocytes 24 % (20-50) 07/10/17 05:56 Monocytes 7 % (2-10) 07/10/17 05:56 Platelet Estimate ADEQUATE (NORMAL) 07/10/17 05:56 Platelet Morphology NORMAL (NORMAL) 07/10/17 05:56 RBC Morph Micro Appear NORMAL (NORMAL) 07/10/17 05:56 Sodium 140 mEq/L (136-145) 07/10/17 05:56 Potassium 4.2 mEq/L (3.5-5.1) 07/10/17 05:56 Chloride 111 mEq/L (98-107) H 07/10/17 05:56 Carbon Dioxide 21.6 mEq/L (21.0-31.0) 07/10/17 05:56 Anion Gap 11.6 (7.0-16.0) 07/10/17 05:56 BUN 19 mg/dL (7-25) 07/10/17 05:56 Creatinine 2.8 mg/dL (0.6-1.2) H 07/10/17 05:56 Est GFR ( Amer) 22.0 ml/min (>90) 07/10/17 05:56 Est GFR (Non-Af Amer) 18.2 ml/min 07/10/17 05:56 BUN/Creatinine Ratio 6.8 07/10/17 05:56 Glucose 89 mg/dL (70-105) 07/10/17 05:56 POC Glucose 167 MG/DL (70 - 105) H 07/24/17 11:33 Calcium 9.6 mg/dL (8.6-10.3) 07/10/17 05:56 - Physical Exam Vitals and I&O: Vital Signs Temp 98.2 F 07/24/17 19:45 Pulse 102 07/24/17 19:45 Resp 19 07/24/17 19:45 BP 111/71 07/24/17 19:45 Pulse Ox 96 07/24/17 19:45 Intake & Output 07/24/17 07/24/17 07/25/17 06:59 18:59 06:59 Intake Total 900 240 Balance 900 240 Intake: Oral 900 240 Other: # Voids 3 1 # Bowel Movements 2 Active Medications: Current Medications Acetaminophen (Tylenol) 650 mg PO Q4HR PRN PRN Reason: Mild Pain / Temp above 100 Stop: 09/06/17 16:08 Last Admin: 07/19/17 00:17 Dose: 650 mg Acetaminophen (Tylenol) 650 mg PO Q4H PRN PRN Reason: Pain (Moderate) Stop: 09/06/17 20:55 Al Hydrox/Mg Hydrox/Simethicone (Maalox) 30 ml PO Q4HR PRN PRN Reason: GI DISTRESS Stop: 09/06/17 16:08 Last Admin: 07/11/17 10:02 Dose: 30 ml Docusate Sodium (Colace) 100 mg PO BID PABLO Stop: 09/07/17 08:59 Last Admin: 07/24/17 18:01 Dose: Not Given Ferrous Sulfate (Iron) 325 mg PO DAILY PABLO Stop: 09/07/17 08:59 Last Admin: 07/24/17 13:06 Dose: Not Given Folic Acid (Folate) 1 mg PO DAILY [facility] Stop: 09/07/17 08:59 Last Admin: 07/24/17 13:06 Dose: Not Given Insulin Aspart (Novolog Insulin Sliding Scale) 0 units SUBQ ACHS PABLO PRN Reason: Protocol Stop: 09/06/17 20:59 Last Admin: 07/24/17 18:01 Dose: Not Given Insulin Detemir (Levemir Insulin) 10 units SUBQ Q12H PABLO PRN Reason: Protocol Stop: 09/06/17 20:59 Last Admin: 07/24/17 13:06 Dose: Not Given Levothyroxine Sodium (Synthroid) 0.075 mg PO QDAC [facility] Stop: 09/10/17 07:29 Last Admin: 07/24/17 06:48 Dose: Not Given Multivitamins/Vitamin C (Theragran) 1 tab PO DAILY PABLO Stop: 09/07/17 08:59 Last Admin: 07/24/17 13:07 Dose: Not Given Pantoprazole Sodium (Protonix) 40 mg PO DAILY [facility] Stop: 09/07/17 08:59 Last Admin: 07/24/17 13:06 Dose: Not Given Quetiapine Fumarate (Seroquel) 200 mg PO BID [facility] Stop: 09/18/17 08:59 Last Admin: 07/24/17 18:01 Dose: Not Given Sevelamer HCl (Renagel) 800 mg PO TIDWM [facility] Stop: 09/07/17 07:59 Last Admin: 07/24/17 18:01 Dose: Not Given General: Alert, No acute distress HEENT: Atraumatic, PERRLA, EOMI Neck: Supple, JVD Cardiovascular: Regular rate, Normal S1, Normal S2 Lungs: Clear to auscultation Abdomen: Bowel sounds, Soft - Procedures Procedures: Procedures Procedure Code Date TRANSFUSE NONAUT RED BLOOD CELLS IN PERIPH VEIN, [facility] [id number] 07/04/17 Assessment/Plan - Problem List Patient Problems: All Active Problems ANEMIA (Acute) CHRONIC RENAL INSUFFICIENCY (Acute) PARANOID SCHIZOPHRENIA (Acute) TYPE II DM (Acute) UNCOOPERATIVE WITH CARE AND AGGRESSIVE (Acute) - Assessment Assessment: SCHIZOPHRENIA DM HYPOTHYROIDISM CKD ANEMIA - Plan Plan: CONT CURRENT TREATMENT Nutritional Asmnt/Malnutr-PDOC - Dietary Evaluation Malnutrition Findings (Please click <Entered> for more info): Nutritional Asmnt/Malnutrition Start: 07/09/17 09: 39 Text: Status: Complete Freq: Document 07/09/17 09:39 VANESSA (Rec: 07/09/17 09:49 MMKAPIL LARIOS- FNS1) Nutritional Asmnt/Malnutrition Patient General Information Nutritional Screening High Risk Screening Diagnosis Psychosis Pertinent Medical Hx/Surgical Hx Paranoid Schizophrenia, Anxiety disorder, Dementia, Anemia, GERD, DM II, Hypothyroidism, CKD, Dysphagia , and difficulty in walking. Per nursing notes, she became combative whenever approached. Subjective Information Patient admitted from SNF on 5150 hold. Patient confused and not able to answer questions about dietary history. Current Diet Order/ Nutrition Support Mechanical soft ground CCHO 60gm Low sodium Patient / S.O Not Indicated Pertinent Medications maalox, colace, iron, folate, novolog, levemir, synthroid, MOM, MVI w/C, Protonix Pertinent Labs POC glucose 203 on admission Nutritional Hx/Data Height 1.52 m Height (Calculated Centimeters) 152.4 Current Weight (lbs) 71.668 kg Weight (Calculated Kilograms) 71.7 Weight (Calculated Grams) 66438.6 [place] Body Weight 100 % [place] Body Weight 158 Recent Weight Change No Weight Status Obese GI Symptoms GI Symptoms None Food Allergies No Cultural/Ethnic/Worship Belief None indicated Usual diet at home Unknown Skin Integrity/Comment: Bruises on bilateral wrist and forearm, Tristan 18 Estimated Nutritional Goals BEE in Kcals: Using Current wt Calories/Kcals/Kg 20-25 kcal/kg (based on current weight of 71.8kg) - obese Kcals Calculated ~2668-9640 kcal/day Protein: Using Current wt Protein g/k gm/kg (based on current weight of 71.8kg) Protein Calculated ~70 gm/day Fluid: ml ~2294-6737 ml/day (25-30 ml/kg ) Nutritional Problem 1. Problem Problem Altered nutrition related lab values related to Etiology hyperglycemia aeb Signs/Symptoms: blood glucose 188 on admission and POC glucose 203 Intervention/Recommendation Comments 1. Continue current diet as tolerated by patient. ( mechanical soft ground, CCHO 60gm, Low sodium). 2. MD to modify insulin regimen as needed for optimal glycemic control. Expected Outcomes/Goals Expected Outcomes/Goals Blood glucose normalizes (80- 180), oral intake to meet >75% Of estiamted nutrient needs, weight remains stable or trends toward ideal body weight.
[2017-07-25] MEDS: INSULIN ASPART SLIDING SCALE 100 UNITS/ML UNIT SUBQ SCH ×3 (06:33→21:05)
[2017-07-25] MEDS: Levothyroxine 0.075 Mg Tab PO SCH (06:34)
[2017-07-25] MEDS: Ferrous Sulfate 325 MG TAB PO SCH (09:55)
[2017-07-25] MEDS: Pantoprazole 40 mg EC Tab PO SCH (10:02)
[2017-07-25] MEDS: Insulin Detemir 100 units/mL 10mL Vial SUBQ SCH ×2 (12:32→21:02)
[2017-07-25] MEDS: Multivitamin Tab PO SCH (12:33)
--- NOTE | 2017-07-25 19:34 | Internal Medicine Prog Note ---
Internal Medicine Subjective - Subjective Service Date: 07/25/17 Patient seen and examined:: without staff Patient is:: awake, verbal, talking Per staff patient has:: no adverse event (THE PATIENT FEELS WELL,TAKING MEDICATION .) Internal Medicine Objective - Results Result Diagrams: 07/11/17 07:35 07/10/17 05:56 Recent Labs: Laboratory Last Values WBC 4.1 Th/cmm (4.8-10.8) L 07/11/17 07:35 RBC 2.76 Mil/cmm (3.80-5.10) L 07/11/17 07:35 Hgb 8.3 gm/dL (12-16) L 07/11/17 07:35 Hct 24.7 % (41.0-60) L 07/11/17 07:35 MCV 89.4 fl (81-100) 07/11/17 07:35 MCH 30.1 pg (27.0-31.0) 07/11/17 07:35 MCHC Differential 33.7 pg (28.0-36.0) 07/11/17 07:35 RDW 13.6 % (11.5-20.0) 07/11/17 07:35 Plt Count 274 Th/cmm (150-400) 07/11/17 07:35 MPV 6.9 fl 07/11/17 07:35 Neutrophils % 67.3 % (40.0-80.0) 07/11/17 07:35 Lymphocytes % 21.2 % (20.0-50.0) 07/11/17 07:35 Monocytes % 9.1 % (2.0-10.0) 07/11/17 07:35 Eosinophils % 1.6 % (0.0-5.0) 07/11/17 07:35 Basophils % 0.8 % (0.0-2.0) 07/11/17 07:35 Neutrophils (Manual) 69 % (40-80) 07/10/17 05:56 Lymphocytes 24 % (20-50) 07/10/17 05:56 Monocytes 7 % (2-10) 07/10/17 05:56 Platelet Estimate ADEQUATE (NORMAL) 07/10/17 05:56 Platelet Morphology NORMAL (NORMAL) 07/10/17 05:56 RBC Morph Micro Appear NORMAL (NORMAL) 07/10/17 05:56 Sodium 140 mEq/L (136-145) 07/10/17 05:56 Potassium 4.2 mEq/L (3.5-5.1) 07/10/17 05:56 Chloride 111 mEq/L (98-107) H 07/10/17 05:56 Carbon Dioxide 21.6 mEq/L (21.0-31.0) 07/10/17 05:56 Anion Gap 11.6 (7.0-16.0) 07/10/17 05:56 BUN 19 mg/dL (7-25) 07/10/17 05:56 Creatinine 2.8 mg/dL (0.6-1.2) H 07/10/17 05:56 Est GFR ( Amer) 22.0 ml/min (>90) 07/10/17 05:56 Est GFR (Non-Af Amer) 18.2 ml/min 07/10/17 05:56 BUN/Creatinine Ratio 6.8 07/10/17 05:56 Glucose 89 mg/dL (70-105) 07/10/17 05:56 POC Glucose 148 MG/DL (70 - 105) H 07/25/17 16:10 Calcium 9.6 mg/dL (8.6-10.3) 07/10/17 05:56 - Physical Exam Vitals and I&O: Vital Signs Temp 98 F 07/25/17 15:43 Pulse 91 07/25/17 15:43 Resp 20 07/25/17 15:43 BP 100/57 07/25/17 15:43 Pulse Ox 98 07/25/17 15:43 Intake & Output 07/25/17 07/25/17 07/26/17 06:59 18:59 06:59 Intake Total 360 1800 Balance 360 1800 Intake: Oral 360 1800 Other: # Voids 1 4 # Bowel Movements 0 1 Active Medications: Current Medications Acetaminophen (Tylenol) 650 mg PO Q4HR PRN PRN Reason: Mild Pain / Temp above 100 Stop: 09/06/17 16:08 Last Admin: 07/19/17 00:17 Dose: 650 mg Acetaminophen (Tylenol) 650 mg PO Q4H PRN PRN Reason: Pain (Moderate) Stop: 09/06/17 20:55 Al Hydrox/Mg Hydrox/Simethicone (Maalox) 30 ml PO Q4HR PRN PRN Reason: GI DISTRESS Stop: 09/06/17 16:08 Last Admin: 07/11/17 10:02 Dose: 30 ml Docusate Sodium (Colace) 100 mg PO BID PABLO Stop: 09/07/17 08:59 Last Admin: 07/25/17 16:08 Dose: Not Given Ferrous Sulfate (Iron) 325 mg PO DAILY PABLO Stop: 09/07/17 08:59 Last Admin: 07/25/17 09:55 Dose: 325 mg Folic Acid (Folate) 1 mg PO DAILY PABLO Stop: 09/07/17 08:59 Last Admin: 07/25/17 09:55 Dose: 1 mg Haloperidol (Haldol) 5 mg PO DAILY PABLO PRN Reason: Protocol Stop: 09/24/17 08:59 Insulin Aspart (Novolog Insulin Sliding Scale) 0 units SUBQ ACHS PABLO PRN Reason: Protocol Stop: 09/06/17 20:59 Last Admin: 07/25/17 12:32 Dose: Not Given Insulin Detemir (Levemir Insulin) 10 units SUBQ Q12H PABLO PRN Reason: Protocol Stop: 09/06/17 20:59 Last Admin: 07/25/17 12:32 Dose: Not Given Levothyroxine Sodium (Synthroid) 0.075 mg PO QDAC PABLO Stop: 09/10/17 07:29 Last Admin: 07/25/17 06:34 Dose: 0.075 mg Lorazepam (Ativan) 0.5 mg PO Q4HR PRN; Protocol PRN Reason: Agitation Stop: 08/24/17 00:29 Last Admin: 07/25/17 09:55 Dose: 0.5 mg Multivitamins/Vitamin C (Theragran) 1 tab PO DAILY PABLO Stop: 09/07/17 08:59 Last Admin: 07/25/17 12:33 Dose: Not Given Pantoprazole Sodium (Protonix) 40 mg PO DAILY PABLO Stop: 09/07/17 08:59 Last Admin: 07/25/17 10:02 Dose: Not Given Quetiapine Fumarate (Seroquel) 200 mg PO BID PABLO Stop: 09/18/17 08:59 Last Admin: 07/25/17 16:08 Dose: 200 mg Sevelamer HCl (Renagel) 800 mg PO TIDWM PABLO Stop: 09/07/17 07:59 Last Admin: 07/25/17 16:08 Dose: Not Given General: demented HEENT: NC/AT, PERRLA, EOMI, anicteric sclerae, throat clear Neck: Supple, No JVD, No thyromegaly, +2 carotid pulse wo bruit, No LAD Lungs: CTAB Cardiovascular: Normal S1, Normal S2, without murmur Abdomen: non-tender, non-distended Neurological: no change - Procedures Procedures: Procedures Procedure Code Date TRANSFUSE NONAUT RED BLOOD CELLS IN PERIPH VEIN, [facility] 50662C1 07/04/17 Internal Medicine Assmt/Plan - Assessment Assessment: 1.DM. 2.HYPOTHYROIDISIM. 3.ANEMIA. 4.SCHIZOPHRENEA. - Plan Plan: CONTINUE ON CURRENT MEDICATION . Nutritional Asmnt/Malnutr-PDOC - Dietary Evaluation Malnutrition Findings (Please click <Entered> for more info): Nutritional Asmnt/Malnutrition Start: 07/09/17 09: 39 Text: Status: Complete Freq: Document 07/09/17 09:39 MMULRUBÉN (Rec: 07/09/17 09:49 MMULHERN HARRIET- FNS1) Nutritional Asmnt/Malnutrition Patient General Information Nutritional Screening High Risk Screening Diagnosis Psychosis Pertinent Medical Hx/Surgical Hx Paranoid Schizophrenia, Anxiety disorder, Dementia, Anemia, GERD, DM II, Hypothyroidism, CKD, Dysphagia , and difficulty in walking. Per nursing notes, she became combative whenever approached. Subjective Information Patient admitted from SNF on 5150 hold. Patient confused and not able to answer questions about dietary history. Current Diet Order/ Nutrition Support Mechanical soft ground CCHO 60gm Low sodium Patient / S.O Not Indicated Pertinent Medications maalox, colace, iron, folate, novolog, levemir, synthroid, MOM, MVI w/C, Protonix Pertinent Labs POC glucose 203 on admission Nutritional Hx/Data Height 1.52 m Height (Calculated Centimeters) 152.4 Current Weight (lbs) 71.668 kg Weight (Calculated Kilograms) 71.7 Weight (Calculated Grams) 08488.6 [place] Body Weight 100 % [place] Body Weight 158 Recent Weight Change No Weight Status Obese GI Symptoms GI Symptoms None Food Allergies No Cultural/Ethnic/Mormonism Belief None indicated Usual diet at home Unknown Skin Integrity/Comment: Bruises on bilateral wrist and forearm, Tristan 18 Estimated Nutritional Goals BEE in Kcals: Using Current wt Calories/Kcals/Kg 20-25 kcal/kg (based on current weight of 71.8kg) - obese Kcals Calculated ~3268-8293 kcal/day Protein: Using Current wt Protein g/k gm/kg (based on current weight of 71.8kg) Protein Calculated ~70 gm/day Fluid: ml ~2752-3934 ml/day (25-30 ml/kg ) Nutritional Problem 1. Problem Problem Altered nutrition related lab values related to Etiology hyperglycemia aeb Signs/Symptoms: blood glucose 188 on admission and POC glucose 203 Intervention/Recommendation Comments 1. Continue current diet as tolerated by patient. ( mechanical soft ground, CCHO 60gm, Low sodium). 2. MD to modify insulin regimen as needed for optimal glycemic control. Expected Outcomes/Goals Expected Outcomes/Goals Blood glucose normalizes (80- 180), oral intake to meet >75% Of estiamted nutrient needs, weight remains stable or trends toward ideal body weight.
[2017-07-26] MEDS: Levothyroxine 0.075 Mg Tab PO SCH (06:49)
[2017-07-26] MEDS: Insulin Detemir 100 units/mL 10mL Vial SUBQ SCH ×4 (09:07→21:00)
[2017-07-26] MEDS: Multivitamin Tab PO SCH ×3 (09:10→16:04)
[2017-07-26] MEDS: Pantoprazole 40 mg EC Tab PO SCH ×3 (09:11→16:04)
[2017-07-26] MEDS: Ferrous Sulfate 325 MG TAB PO SCH ×2 (09:22→15:59)
--- NOTE | 2017-07-26 09:24 | Progress Notes ---
DATE: 07/25/2017 SUBJECTIVE: Case was discussed with staff of the patient, reviewed records. The patient's staff reports that some days, she is compliant with her medications and some days she is not, so she is concerned and try to go for long-acting medication, the only medication available in this hospital is Haldol. She is currently on Seroquel. I will be initiating Haldol on her ____ give her Haldol Decanoate because she is refusing to take her medication. She continues to have poor insight, unable to make safe plan for self-care, unpredictable, impulsive. Discussed side effects and we will continue to work with the patient in group therapy, milieu therapy, adjust the medication as needed. JOB# [id number]
[2017-07-26] MEDS: INSULIN ASPART SLIDING SCALE 100 UNITS/ML UNIT SUBQ SCH ×4 (09:33→21:00)
--- NOTE | 2017-07-26 19:20 | Internal Medicine Prog Note ---
Internal Medicine Subjective - Subjective Service Date: 07/26/17 Patient seen and examined:: without staff Patient is:: awake, verbal, talking Per staff patient has:: no adverse event (THE PATIENT FEELS WELL,TAKING MEDICATION .) Internal Medicine Objective - Results Result Diagrams: 07/11/17 07:35 07/10/17 05:56 Recent Labs: Laboratory Last Values WBC 4.1 Th/cmm (4.8-10.8) L 07/11/17 07:35 RBC 2.76 Mil/cmm (3.80-5.10) L 07/11/17 07:35 Hgb 8.3 gm/dL (12-16) L 07/11/17 07:35 Hct 24.7 % (41.0-60) L 07/11/17 07:35 MCV 89.4 fl (81-100) 07/11/17 07:35 MCH 30.1 pg (27.0-31.0) 07/11/17 07:35 MCHC Differential 33.7 pg (28.0-36.0) 07/11/17 07:35 RDW 13.6 % (11.5-20.0) 07/11/17 07:35 Plt Count 274 Th/cmm (150-400) 07/11/17 07:35 MPV 6.9 fl 07/11/17 07:35 Neutrophils % 67.3 % (40.0-80.0) 07/11/17 07:35 Lymphocytes % 21.2 % (20.0-50.0) 07/11/17 07:35 Monocytes % 9.1 % (2.0-10.0) 07/11/17 07:35 Eosinophils % 1.6 % (0.0-5.0) 07/11/17 07:35 Basophils % 0.8 % (0.0-2.0) 07/11/17 07:35 Neutrophils (Manual) 69 % (40-80) 07/10/17 05:56 Lymphocytes 24 % (20-50) 07/10/17 05:56 Monocytes 7 % (2-10) 07/10/17 05:56 Platelet Estimate ADEQUATE (NORMAL) 07/10/17 05:56 Platelet Morphology NORMAL (NORMAL) 07/10/17 05:56 RBC Morph Micro Appear NORMAL (NORMAL) 07/10/17 05:56 Sodium 140 mEq/L (136-145) 07/10/17 05:56 Potassium 4.2 mEq/L (3.5-5.1) 07/10/17 05:56 Chloride 111 mEq/L (98-107) H 07/10/17 05:56 Carbon Dioxide 21.6 mEq/L (21.0-31.0) 07/10/17 05:56 Anion Gap 11.6 (7.0-16.0) 07/10/17 05:56 BUN 19 mg/dL (7-25) 07/10/17 05:56 Creatinine 2.8 mg/dL (0.6-1.2) H 07/10/17 05:56 Est GFR ( Amer) 22.0 ml/min (>90) 07/10/17 05:56 Est GFR (Non-Af Amer) 18.2 ml/min 07/10/17 05:56 BUN/Creatinine Ratio 6.8 07/10/17 05:56 Glucose 89 mg/dL (70-105) 07/10/17 05:56 POC Glucose 82 MG/DL (70 - 105) 07/26/17 17:03 Calcium 9.6 mg/dL (8.6-10.3) 07/10/17 05:56 - Physical Exam Vitals and I&O: Vital Signs Temp 98.1 F 07/26/17 17:02 Pulse 99 07/26/17 17:02 Resp 20 07/26/17 17:02 BP 124/60 07/26/17 17:02 Pulse Ox 99 07/26/17 17:02 Intake & Output 07/26/17 07/26/17 07/27/17 06:59 18:59 06:59 Intake Total 240 1200 Output Total 1200 Balance 240 0 Intake: Oral 240 1200 Output: Urine 1200 Stool 0 Other: # Voids 3 # Bowel Movements 0 Active Medications: Current Medications Acetaminophen (Tylenol) 650 mg PO Q4HR PRN PRN Reason: Mild Pain / Temp above 100 Stop: 09/06/17 16:08 Last Admin: 07/19/17 00:17 Dose: 650 mg Acetaminophen (Tylenol) 650 mg PO Q4H PRN PRN Reason: Pain (Moderate) Stop: 09/06/17 20:55 Al Hydrox/Mg Hydrox/Simethicone (Maalox) 30 ml PO Q4HR PRN PRN Reason: GI DISTRESS Stop: 09/06/17 16:08 Last Admin: 07/11/17 10:02 Dose: 30 ml Docusate Sodium (Colace) 100 mg PO BID PABLO Stop: 09/07/17 08:59 Last Admin: 07/26/17 17:09 Dose: 100 mg Ferrous Sulfate (Iron) 325 mg PO DAILY PABLO Stop: 09/07/17 08:59 Last Admin: 07/26/17 15:59 Dose: 325 mg Folic Acid (Folate) 1 mg PO DAILY PABLO Stop: 09/07/17 08:59 Last Admin: 07/26/17 15:59 Dose: 1 mg Haloperidol (Haldol) 5 mg PO DAILY PABLO PRN Reason: Protocol Stop: 09/24/17 08:59 Last Admin: 07/26/17 16:04 Dose: 5 mg Haloperidol Decanoate (Haldol Dec) 25 mg IM QMONTH PABLO PRN Reason: Protocol Stop: 09/24/17 10:59 Last Admin: 07/26/17 16:02 Dose: Not Given Insulin Aspart (Novolog Insulin Sliding Scale) 0 units SUBQ ACHS PABLO PRN Reason: Protocol Stop: 09/06/17 20:59 Last Admin: 07/26/17 17:06 Dose: Not Given Insulin Detemir (Levemir Insulin) 10 units SUBQ Q12H PABLO PRN Reason: Protocol Stop: 09/06/17 20:59 Last Admin: 07/26/17 09:32 Dose: 10 units Levothyroxine Sodium (Synthroid) 0.075 mg PO QDAC PABLO Stop: 09/10/17 07:29 Last Admin: 07/26/17 06:49 Dose: 0.075 mg Lorazepam (Ativan) 0.5 mg PO Q4HR PRN; Protocol PRN Reason: Agitation Stop: 08/24/17 00:29 Last Admin: 07/25/17 09:55 Dose: 0.5 mg Multivitamins/Vitamin C (Theragran) 1 tab PO DAILY PABLO Stop: 09/07/17 08:59 Last Admin: 07/26/17 16:04 Dose: 1 tab Pantoprazole Sodium (Protonix) 40 mg PO DAILY PABLO Stop: 09/07/17 08:59 Last Admin: 07/26/17 16:04 Dose: 40 mg Quetiapine Fumarate (Seroquel) 200 mg PO BID [facility] Stop: 09/24/17 16:59 Last Admin: 07/26/17 17:09 Dose: 200 mg Sevelamer HCl (Renagel) 800 mg PO TIDWM [facility] Stop: 09/07/17 07:59 Last Admin: 07/26/17 17:00 Dose: 800 mg General: demented HEENT: NC/AT, PERRLA, EOMI, anicteric sclerae, throat clear Neck: Supple, No JVD, No thyromegaly, +2 carotid pulse wo bruit, No LAD Lungs: CTAB Cardiovascular: Normal S1, Normal S2, without murmur Abdomen: non-tender, non-distended Neurological: no change - Procedures Procedures: Procedures Procedure Code Date TRANSFUSE NONAUT RED BLOOD CELLS IN PERIPH VEIN, [facility] 80779C0 07/04/17 Internal Medicine Assmt/Plan - Assessment Assessment: 1.DM. 2.HYPOTHYROIDISIM. 3.ANEMIA. 4.SCHIZOPHRENEA. - Plan Plan: CONTINUE ON CURRENT MEDICATION . Nutritional Asmnt/Malnutr-PDOC - Dietary Evaluation Malnutrition Findings (Please click <Entered> for more info): Nutritional Asmnt/Malnutrition Start: 07/09/17 09: 39 Text: Status: Complete Freq: Document 07/09/17 09:39 VANESSA (Rec: 07/09/17 09:49 MMKAPIL LARIOS- FNS1) Nutritional Asmnt/Malnutrition Patient General Information Nutritional Screening High Risk Screening Diagnosis Psychosis Pertinent Medical Hx/Surgical Hx Paranoid Schizophrenia, Anxiety disorder, Dementia, Anemia, GERD, DM II, Hypothyroidism, CKD, Dysphagia , and difficulty in walking. Per nursing notes, she became combative whenever approached. Subjective Information Patient admitted from SNF on 5150 hold. Patient confused and not able to answer questions about dietary history. Current Diet Order/ Nutrition Support Mechanical soft ground CCHO 60gm Low sodium Patient / S.O Not Indicated Pertinent Medications maalox, colace, iron, folate, novolog, levemir, synthroid, MOM, MVI w/C, Protonix Pertinent Labs POC glucose 203 on admission Nutritional Hx/Data Height 1.52 m Height (Calculated Centimeters) 152.4 Current Weight (lbs) 71.668 kg Weight (Calculated Kilograms) 71.7 Weight (Calculated Grams) 64160.6 [place] Body Weight 100 % [place] Body Weight 158 Recent Weight Change No Weight Status Obese GI Symptoms GI Symptoms None Food Allergies No Cultural/Ethnic/Gnosticism Belief None indicated Usual diet at home Unknown Skin Integrity/Comment: Bruises on bilateral wrist and forearm, Tristan 18 Estimated Nutritional Goals BEE in Kcals: Using Current wt Calories/Kcals/Kg 20-25 kcal/kg (based on current weight of 71.8kg) - obese Kcals Calculated ~3710-5833 kcal/day Protein: Using Current wt Protein g/k gm/kg (based on current weight of 71.8kg) Protein Calculated ~70 gm/day Fluid: ml ~9208-7442 ml/day (25-30 ml/kg ) Nutritional Problem 1. Problem Problem Altered nutrition related lab values related to Etiology hyperglycemia aeb Signs/Symptoms: blood glucose 188 on admission and POC glucose 203 Intervention/Recommendation Comments 1. Continue current diet as tolerated by patient. ( mechanical soft ground, CCHO 60gm, Low sodium). 2. MD to modify insulin regimen as needed for optimal glycemic control. Expected Outcomes/Goals Expected Outcomes/Goals Blood glucose normalizes (80- 180), oral intake to meet >75% Of estiamted nutrient needs, weight remains stable or trends toward ideal body weight.
--- NOTE | 2017-07-27 02:56 | Progress Notes ---
DATE: 07/26/2017 Case was discussed with staff of the patient. The patient has been on and off taking medication. I checked with Fay, the nurse in charge of the patient and she told me that yesterday she did end up taking her medications and that she took the Haldol. She continues to be rambling, continues to be internally preoccupied. Continues to be unable to make safe plan for self-care. I will be initiating Haldol Decanoate on her to work on discharge plans and so far no side effects with the medication, no sedation, no nausea, no extrapyramidal symptoms and we will continue to work with the patient, discussed side effects, will continue the patient in group therapy, milieu therapy, adjust medication as needed. JOB# [id number]
[2017-07-27] MEDS: INSULIN ASPART SLIDING SCALE 100 UNITS/ML UNIT SUBQ SCH ×4 (06:55→20:45)
[2017-07-27] MEDS: Levothyroxine 0.075 Mg Tab PO SCH (06:58)
[2017-07-27] MEDS: Insulin Detemir 100 units/mL 10mL Vial SUBQ SCH ×2 (09:07→20:44)
[2017-07-27] MEDS: Ferrous Sulfate 325 MG TAB PO SCH (09:07)
[2017-07-27] MEDS: Multivitamin Tab PO SCH (09:09)
[2017-07-27] MEDS: Pantoprazole 40 mg EC Tab PO SCH (09:09)
--- NOTE | 2017-07-27 20:19 | Internal Medicine Prog Note ---
Internal Medicine Subjective - Subjective Service Date: 07/27/17 Patient seen and examined:: without staff Patient is:: awake, verbal, talking Per staff patient has:: no adverse event (THE PATIENT FEELS WELL,TAKING MEDICATION .) Internal Medicine Objective - Results Result Diagrams: 07/11/17 07:35 07/10/17 05:56 Recent Labs: Laboratory Last Values WBC 4.1 Th/cmm (4.8-10.8) L 07/11/17 07:35 RBC 2.76 Mil/cmm (3.80-5.10) L 07/11/17 07:35 Hgb 8.3 gm/dL (12-16) L 07/11/17 07:35 Hct 24.7 % (41.0-60) L 07/11/17 07:35 MCV 89.4 fl (81-100) 07/11/17 07:35 MCH 30.1 pg (27.0-31.0) 07/11/17 07:35 MCHC Differential 33.7 pg (28.0-36.0) 07/11/17 07:35 RDW 13.6 % (11.5-20.0) 07/11/17 07:35 Plt Count 274 Th/cmm (150-400) 07/11/17 07:35 MPV 6.9 fl 07/11/17 07:35 Neutrophils % 67.3 % (40.0-80.0) 07/11/17 07:35 Lymphocytes % 21.2 % (20.0-50.0) 07/11/17 07:35 Monocytes % 9.1 % (2.0-10.0) 07/11/17 07:35 Eosinophils % 1.6 % (0.0-5.0) 07/11/17 07:35 Basophils % 0.8 % (0.0-2.0) 07/11/17 07:35 Neutrophils (Manual) 69 % (40-80) 07/10/17 05:56 Lymphocytes 24 % (20-50) 07/10/17 05:56 Monocytes 7 % (2-10) 07/10/17 05:56 Platelet Estimate ADEQUATE (NORMAL) 07/10/17 05:56 Platelet Morphology NORMAL (NORMAL) 07/10/17 05:56 RBC Morph Micro Appear NORMAL (NORMAL) 07/10/17 05:56 Sodium 140 mEq/L (136-145) 07/10/17 05:56 Potassium 4.2 mEq/L (3.5-5.1) 07/10/17 05:56 Chloride 111 mEq/L (98-107) H 07/10/17 05:56 Carbon Dioxide 21.6 mEq/L (21.0-31.0) 07/10/17 05:56 Anion Gap 11.6 (7.0-16.0) 07/10/17 05:56 BUN 19 mg/dL (7-25) 07/10/17 05:56 Creatinine 2.8 mg/dL (0.6-1.2) H 07/10/17 05:56 Est GFR ( Amer) 22.0 ml/min (>90) 07/10/17 05:56 Est GFR (Non-Af Amer) 18.2 ml/min 07/10/17 05:56 BUN/Creatinine Ratio 6.8 07/10/17 05:56 Glucose 89 mg/dL (70-105) 07/10/17 05:56 POC Glucose 87 MG/DL (70 - 105) 07/27/17 16:05 Calcium 9.6 mg/dL (8.6-10.3) 07/10/17 05:56 - Physical Exam Vitals and I&O: Vital Signs Temp 97.6 F 07/27/17 20:00 Pulse 100 07/27/17 20:00 Resp 20 07/27/17 20:00 BP 109/84 07/27/17 20:00 Pulse Ox 100 07/27/17 20:00 Intake & Output 07/27/17 07/27/17 07/28/17 06:59 18:59 06:59 Intake Total 420 1200 Output Total 1200 Balance 420 0 Intake: Oral 420 1200 Output: Urine 1200 Other: # Voids 2 # Bowel Movements 0 0 Active Medications: Current Medications Acetaminophen (Tylenol) 650 mg PO Q4HR PRN PRN Reason: Mild Pain / Temp above 100 Stop: 09/06/17 16:08 Last Admin: 07/19/17 00:17 Dose: 650 mg Acetaminophen (Tylenol) 650 mg PO Q4H PRN PRN Reason: Pain (Moderate) Stop: 09/06/17 20:55 Al Hydrox/Mg Hydrox/Simethicone (Maalox) 30 ml PO Q4HR PRN PRN Reason: GI DISTRESS Stop: 09/06/17 16:08 Last Admin: 07/11/17 10:02 Dose: 30 ml Docusate Sodium (Colace) 100 mg PO BID PABLO Stop: 09/07/17 08:59 Last Admin: 07/27/17 16:24 Dose: 100 mg Ferrous Sulfate (Iron) 325 mg PO DAILY PABLO Stop: 09/07/17 08:59 Last Admin: 07/27/17 09:07 Dose: 325 mg Folic Acid (Folate) 1 mg PO DAILY PABLO Stop: 09/07/17 08:59 Last Admin: 07/27/17 09:07 Dose: 1 mg Haloperidol (Haldol) 5 mg PO DAILY PABLO PRN Reason: Protocol Stop: 09/24/17 08:59 Last Admin: 07/27/17 09:08 Dose: 5 mg Haloperidol Decanoate (Haldol Dec) 25 mg IM QMONTH PABLO PRN Reason: Protocol Stop: 09/24/17 10:59 Last Admin: 07/27/17 09:10 Dose: 25 mg Insulin Aspart (Novolog Insulin Sliding Scale) 0 units SUBQ ACHS PABLO PRN Reason: Protocol Stop: 09/06/17 20:59 Last Admin: 07/27/17 16:25 Dose: Not Given Insulin Detemir (Levemir Insulin) 10 units SUBQ Q12H PABLO PRN Reason: Protocol Stop: 09/06/17 20:59 Last Admin: 07/27/17 09:07 Dose: 10 units Levothyroxine Sodium (Synthroid) 0.075 mg PO QDAC [facility] Stop: 09/10/17 07:29 Last Admin: 07/27/17 06:58 Dose: Not Given Lorazepam (Ativan) 0.5 mg PO Q4HR PRN; Protocol PRN Reason: Agitation Stop: 08/24/17 00:29 Last Admin: 07/27/17 00:04 Dose: 0.5 mg Multivitamins/Vitamin C (Theragran) 1 tab PO DAILY PABLO Stop: 09/07/17 08:59 Last Admin: 07/27/17 09:09 Dose: 1 tab Pantoprazole Sodium (Protonix) 40 mg PO DAILY PABLO Stop: 09/07/17 08:59 Last Admin: 07/27/17 09:09 Dose: 40 mg Quetiapine Fumarate (Seroquel) 200 mg PO BID [facility] Stop: 09/24/17 16:59 Last Admin: 07/27/17 16:24 Dose: 200 mg Sevelamer HCl (Renagel) 800 mg PO TIDWM [facility] Stop: 09/07/17 07:59 Last Admin: 07/27/17 16:26 Dose: 800 mg General: demented HEENT: NC/AT, PERRLA, EOMI, anicteric sclerae, throat clear Neck: Supple, No JVD, No thyromegaly, +2 carotid pulse wo bruit, No LAD Lungs: CTAB Cardiovascular: Normal S1, Normal S2, without murmur Abdomen: non-tender, non-distended Neurological: no change - Procedures Procedures: Procedures Procedure Code Date TRANSFUSE NONAUT RED BLOOD CELLS IN PERIPH VEIN, [facility] 40776E6 07/04/17 Internal Medicine Assmt/Plan - Assessment Assessment: 1.DM. 2.HYPOTHYROIDISIM. 3.ANEMIA. 4.SCHIZOPHRENEA. - Plan Plan: CONTINUE ON CURRENT MEDICATION . Nutritional Asmnt/Malnutr-PDOC - Dietary Evaluation Malnutrition Findings (Please click <Entered> for more info): Nutritional Asmnt/Malnutrition Start: 07/09/17 09: 39 Text: Status: Complete Freq: Document 07/09/17 09:39 VANESSA (Rec: 07/09/17 09:49 VANESSA LARIOS- FNS1) Nutritional Asmnt/Malnutrition Patient General Information Nutritional Screening High Risk Screening Diagnosis Psychosis Pertinent Medical Hx/Surgical Hx Paranoid Schizophrenia, Anxiety disorder, Dementia, Anemia, GERD, DM II, Hypothyroidism, CKD, Dysphagia , and difficulty in walking. Per nursing notes, she became combative whenever approached. Subjective Information Patient admitted from SNF on 5150 hold. Patient confused and not able to answer questions about dietary history. Current Diet Order/ Nutrition Support Mechanical soft ground CCHO 60gm Low sodium Patient / S.O Not Indicated Pertinent Medications maalox, colace, iron, folate, novolog, levemir, synthroid, MOM, MVI w/C, Protonix Pertinent Labs POC glucose 203 on admission Nutritional Hx/Data Height 1.52 m Height (Calculated Centimeters) 152.4 Current Weight (lbs) 71.668 kg Weight (Calculated Kilograms) 71.7 Weight (Calculated Grams) 13206.6 [place] Body Weight 100 % [place] Body Weight 158 Recent Weight Change No Weight Status Obese GI Symptoms GI Symptoms None Food Allergies No Cultural/Ethnic/Nondenominational Belief None indicated Usual diet at home Unknown Skin Integrity/Comment: Bruises on bilateral wrist and forearm, Tristan 18 Estimated Nutritional Goals BEE in Kcals: Using Current wt Calories/Kcals/Kg 20-25 kcal/kg (based on current weight of 71.8kg) - obese Kcals Calculated ~7868-0731 kcal/day Protein: Using Current wt Protein g/k gm/kg (based on current weight of 71.8kg) Protein Calculated ~70 gm/day Fluid: ml ~0561-5124 ml/day (25-30 ml/kg ) Nutritional Problem 1. Problem Problem Altered nutrition related lab values related to Etiology hyperglycemia aeb Signs/Symptoms: blood glucose 188 on admission and POC glucose 203 Intervention/Recommendation Comments 1. Continue current diet as tolerated by patient. ( mechanical soft ground, CCHO 60gm, Low sodium). 2. MD to modify insulin regimen as needed for optimal glycemic control. Expected Outcomes/Goals Expected Outcomes/Goals Blood glucose normalizes (80- 180), oral intake to meet >75% Of estiamted nutrient needs, weight remains stable or trends toward ideal body weight.
[2017-07-28] MEDS: INSULIN ASPART SLIDING SCALE 100 UNITS/ML UNIT SUBQ SCH ×4 (06:49→21:29)
[2017-07-28] MEDS: Levothyroxine 0.075 Mg Tab PO SCH (06:59)
[2017-07-28] MEDS: Pantoprazole 40 mg EC Tab PO SCH (09:09)
[2017-07-28] MEDS: Ferrous Sulfate 325 MG TAB PO SCH (09:09)
[2017-07-28] MEDS: Multivitamin Tab PO SCH (09:09)
[2017-07-28] MEDS: Insulin Detemir 100 units/mL 10mL Vial SUBQ SCH ×2 (09:29→21:29)
--- NOTE | 2017-07-28 10:09 | Progress Notes ---
DATE: 07/27/2017 Case was discussed with staff of the patient, reviewed records. The patient would be getting Haldol Decanoate injection today as she has been on Haldol for the last 2 days with no allergies as she tends to not take her medications at times, though she gets the injection and I do plan to discharge her tomorrow as long as she has no side effects. She will be going to the nursing facility. She is sleeping better, eating better. She is easier to redirect. No side effects with the medication, no sedation, no nausea, no extrapyramidal symptoms. We will continue to work with the patient in group therapy, milieu therapy, adjust medications and treatment. JOB# [id number]
--- NOTE | 2017-07-28 16:45 | Internal Medicine Prog Note ---
Internal Medicine Subjective - Subjective Service Date: 07/28/17 Patient seen and examined:: with staff Patient is:: awake, verbal, talking Per staff patient has:: no adverse event (THE PATIENT FEELS WELL,TAKING MEDICATION .) Internal Medicine Objective - Results Result Diagrams: 07/11/17 07:35 07/10/17 05:56 Recent Labs: Laboratory Last Values WBC 4.1 Th/cmm (4.8-10.8) L 07/11/17 07:35 RBC 2.76 Mil/cmm (3.80-5.10) L 07/11/17 07:35 Hgb 8.3 gm/dL (12-16) L 07/11/17 07:35 Hct 24.7 % (41.0-60) L 07/11/17 07:35 MCV 89.4 fl (81-100) 07/11/17 07:35 MCH 30.1 pg (27.0-31.0) 07/11/17 07:35 MCHC Differential 33.7 pg (28.0-36.0) 07/11/17 07:35 RDW 13.6 % (11.5-20.0) 07/11/17 07:35 Plt Count 274 Th/cmm (150-400) 07/11/17 07:35 MPV 6.9 fl 07/11/17 07:35 Neutrophils % 67.3 % (40.0-80.0) 07/11/17 07:35 Lymphocytes % 21.2 % (20.0-50.0) 07/11/17 07:35 Monocytes % 9.1 % (2.0-10.0) 07/11/17 07:35 Eosinophils % 1.6 % (0.0-5.0) 07/11/17 07:35 Basophils % 0.8 % (0.0-2.0) 07/11/17 07:35 Neutrophils (Manual) 69 % (40-80) 07/10/17 05:56 Lymphocytes 24 % (20-50) 07/10/17 05:56 Monocytes 7 % (2-10) 07/10/17 05:56 Platelet Estimate ADEQUATE (NORMAL) 07/10/17 05:56 Platelet Morphology NORMAL (NORMAL) 07/10/17 05:56 RBC Morph Micro Appear NORMAL (NORMAL) 07/10/17 05:56 Sodium 140 mEq/L (136-145) 07/10/17 05:56 Potassium 4.2 mEq/L (3.5-5.1) 07/10/17 05:56 Chloride 111 mEq/L (98-107) H 07/10/17 05:56 Carbon Dioxide 21.6 mEq/L (21.0-31.0) 07/10/17 05:56 Anion Gap 11.6 (7.0-16.0) 07/10/17 05:56 BUN 19 mg/dL (7-25) 07/10/17 05:56 Creatinine 2.8 mg/dL (0.6-1.2) H 07/10/17 05:56 Est GFR ( Amer) 22.0 ml/min (>90) 07/10/17 05:56 Est GFR (Non-Af Amer) 18.2 ml/min 07/10/17 05:56 BUN/Creatinine Ratio 6.8 07/10/17 05:56 Glucose 89 mg/dL (70-105) 07/10/17 05:56 POC Glucose 135 MG/DL (70 - 105) H 07/28/17 11:40 Calcium 9.6 mg/dL (8.6-10.3) 07/10/17 05:56 - Physical Exam Vitals and I&O: Vital Signs Temp 98.2 F 07/28/17 14:00 Pulse 98 07/28/17 14:00 Resp 18 07/28/17 14:00 BP 99/50 07/28/17 14:00 Pulse Ox 95 07/28/17 14:00 Intake & Output 07/27/17 07/28/17 07/28/17 18:59 06:59 18:59 Intake Total 1200 120 Output Total 1200 Balance 0 120 Intake: Oral 1200 120 Output: Urine 1200 Other: # Voids 3 # Bowel Movements 0 Active Medications: Current Medications Acetaminophen (Tylenol) 650 mg PO Q4HR PRN PRN Reason: Mild Pain / Temp above 100 Stop: 09/06/17 16:08 Last Admin: 07/19/17 00:17 Dose: 650 mg Acetaminophen (Tylenol) 650 mg PO Q4H PRN PRN Reason: Pain (Moderate) Stop: 09/06/17 20:55 Al Hydrox/Mg Hydrox/Simethicone (Maalox) 30 ml PO Q4HR PRN PRN Reason: GI DISTRESS Stop: 09/06/17 16:08 Last Admin: 07/11/17 10:02 Dose: 30 ml Docusate Sodium (Colace) 100 mg PO BID PABLO Stop: 09/07/17 08:59 Last Admin: 07/28/17 09:09 Dose: 100 mg Ferrous Sulfate (Iron) 325 mg PO DAILY PABLO Stop: 09/07/17 08:59 Last Admin: 07/28/17 09:09 Dose: 325 mg Folic Acid (Folate) 1 mg PO DAILY PABLO Stop: 09/07/17 08:59 Last Admin: 07/28/17 09:09 Dose: 1 mg Haloperidol (Haldol) 5 mg PO DAILY PABLO PRN Reason: Protocol Stop: 09/24/17 08:59 Last Admin: 07/28/17 09:09 Dose: 5 mg Haloperidol Decanoate (Haldol Dec) 25 mg IM QMONTH PABLO PRN Reason: Protocol Stop: 09/24/17 10:59 Last Admin: 07/27/17 09:10 Dose: 25 mg Insulin Aspart (Novolog Insulin Sliding Scale) 0 units SUBQ ACHS PABLO PRN Reason: Protocol Stop: 09/06/17 20:59 Last Admin: 07/28/17 11:49 Dose: Not Given Insulin Detemir (Levemir Insulin) 10 units SUBQ Q12H PABLO PRN Reason: Protocol Stop: 09/06/17 20:59 Last Admin: 07/28/17 09:29 Dose: 10 units Levothyroxine Sodium (Synthroid) 0.075 mg PO QDAC PABLO Stop: 09/10/17 07:29 Last Admin: 07/28/17 06:59 Dose: 0.075 mg Lorazepam (Ativan) 0.5 mg PO Q4HR PRN; Protocol PRN Reason: Agitation Stop: 08/24/17 00:29 Last Admin: 07/27/17 00:04 Dose: 0.5 mg Multivitamins/Vitamin C (Theragran) 1 tab PO DAILY PABLO Stop: 09/07/17 08:59 Last Admin: 07/28/17 09:09 Dose: 1 tab Pantoprazole Sodium (Protonix) 40 mg PO DAILY PABLO Stop: 09/07/17 08:59 Last Admin: 07/28/17 09:09 Dose: 40 mg Quetiapine Fumarate (Seroquel) 200 mg PO BID [facility] Stop: 09/24/17 16:59 Last Admin: 07/28/17 09:09 Dose: 200 mg Sevelamer HCl (Renagel) 800 mg PO TIDWM [facility] Stop: 09/07/17 07:59 Last Admin: 07/28/17 11:55 Dose: 800 mg General: demented HEENT: NC/AT, PERRLA, EOMI, anicteric sclerae, throat clear Neck: Supple, No JVD, No thyromegaly, +2 carotid pulse wo bruit, No LAD Lungs: CTAB Cardiovascular: Normal S1, Normal S2, without murmur Abdomen: non-tender, non-distended Neurological: no change - Procedures Procedures: Procedures Procedure Code Date TRANSFUSE NONAUT RED BLOOD CELLS IN PERIPH VEIN, [facility] [id number] 07/04/17 Internal Medicine Assmt/Plan - Assessment Assessment: 1.DM. 2.HYPOTHYROIDISIM. 3.ANEMIA. 4.SCHIZOPHRENEA. - Plan Plan: CONTINUE ON CURRENT MEDICATION . Nutritional Asmnt/Malnutr-PDOC - Dietary Evaluation Malnutrition Findings (Please click <Entered> for more info): Nutritional Asmnt/Malnutrition Start: 07/09/17 09: 39 Text: Status: Complete Freq: Document 07/09/17 09:39 VANESSA (Rec: 07/09/17 09:49 VANESSA LARIOS- [email or web address]) Nutritional Asmnt/Malnutrition Patient General Information Nutritional Screening High Risk Screening Diagnosis Psychosis Pertinent Medical Hx/Surgical Hx Paranoid Schizophrenia, Anxiety disorder, Dementia, Anemia, GERD, DM II, Hypothyroidism, CKD, Dysphagia , and difficulty in walking. Per nursing notes, she became combative whenever approached. Subjective Information Patient admitted from SNF on 5150 hold. Patient confused and not able to answer questions about dietary history. Current Diet Order/ Nutrition Support Mechanical soft ground CCHO 60gm Low sodium Patient / S.O Not Indicated Pertinent Medications maalox, colace, iron, folate, novolog, levemir, synthroid, MOM, MVI w/C, Protonix Pertinent Labs POC glucose 203 on admission Nutritional Hx/Data Height 1.52 m Height (Calculated Centimeters) 152.4 Current Weight (lbs) 71.668 kg Weight (Calculated Kilograms) 71.7 Weight (Calculated Grams) 47983.6 [place] Body Weight 100 % [place] Body Weight 158 Recent Weight Change No Weight Status Obese GI Symptoms GI Symptoms None Food Allergies No Cultural/Ethnic/Nondenominational Belief None indicated Usual diet at home Unknown Skin Integrity/Comment: Bruises on bilateral wrist and forearm, Tristan 18 Estimated Nutritional Goals BEE in Kcals: Using Current wt Calories/Kcals/Kg 20-25 kcal/kg (based on current weight of 71.8kg) - obese Kcals Calculated ~7928-4695 kcal/day Protein: Using Current wt Protein g/k gm/kg (based on current weight of 71.8kg) Protein Calculated ~70 gm/day Fluid: ml ~8336-4265 ml/day (25-30 ml/kg ) Nutritional Problem 1. Problem Problem Altered nutrition related lab values related to Etiology hyperglycemia aeb Signs/Symptoms: blood glucose 188 on admission and POC glucose 203 Intervention/Recommendation Comments 1. Continue current diet as tolerated by patient. ( mechanical soft ground, CCHO 60gm, Low sodium). 2. MD to modify insulin regimen as needed for optimal glycemic control. Expected Outcomes/Goals Expected Outcomes/Goals Blood glucose normalizes (80- 180), oral intake to meet >75% Of estiamted nutrient needs, weight remains stable or trends toward ideal body weight.
--- NOTE | 2017-07-28 18:08 | Discharge Summary ---
DATE OF DISCHARGE: 07/28/2017 IDENTIFYING INFORMATION: The patient is a 61-year-old female. HISTORY OF PRESENT ILLNESS: The patient referred from [facility] because of agitation and psychosis. The patient is noncompliant with medications. The patient is a poor historian. The patient with a history of psychosis with multiple prior admissions to this facility and other facilities. Because of psychosis, she is conserved and has a conservator. COURSE IN THE HOSPITAL: The patient was started back on her medication and she was on Seroquel, the dose was increased over the course of her stay to 200 mg twice a day and she also has episodes where she refused her medications, so we decided to start giving Haldol and gave her Haldol Decanoate yesterday 25 mg and Haldol 5 mg daily. The patient was also continued with insulin, levothyroxine. The patient progressively got better, though she continues to have poor insight, but she is not acting anyway dangerous. She is sleeping well, eating well. So, we thought she could be discharged to a lesser level of care. FINAL DIAGNOSES: AXIS I: Chronic undifferentiated schizophrenia. MEDICAL DIAGNOSES: Diabetes mellitus. The patient will go back to [facility]. I will follow up with the patient there and the medical doctor, Dr. Salguero will see her there. EXPECTED OUTCOME: Stable if the patient complies with the above. JOB# [id number]
[2017-07-29] MEDS: INSULIN ASPART SLIDING SCALE 100 UNITS/ML UNIT SUBQ SCH ×4 (06:45→21:39)
[2017-07-29] MEDS: Levothyroxine 0.075 Mg Tab PO SCH (06:50)
[2017-07-29] MEDS: Ferrous Sulfate 325 MG TAB PO SCH (09:54)
[2017-07-29] MEDS: Multivitamin Tab PO SCH (09:58)
[2017-07-29] MEDS: Pantoprazole 40 mg EC Tab PO SCH (09:58)
[2017-07-29] MEDS: Insulin Detemir 100 units/mL 10mL Vial SUBQ SCH ×2 (09:59→21:40)
--- NOTE | 2017-07-29 19:04 | Progress Notes ---
DATE: SUBJECTIVE: Case was discussed with staff of the patient, reviewed records. The patient was supposed to be discharged yesterday; however, yesterday, ____ the patient was discharged, they decided that they did not want the patient to go back to where she was. She wanted to go to another [facility], [facility], and at this point, the patient continues to be internally preoccupied, but we expect this is her basic level of functioning. She is sleeping better, eating better. No side effects with the medication, no sedation. No nausea. No extrapyramidal symptoms. The patient in group therapy, milieu therapy, adjust medication as needed. JOB# [id number]
--- NOTE | 2017-07-29 21:25 | Internal Medicine Prog Note ---
Internal Medicine Subjective - Subjective Service Date: 07/29/17 Patient seen and examined:: without staff Patient is:: awake, verbal, talking Per staff patient has:: no adverse event (THE PATIENT FEELS WELL,TAKING MEDICATION .) Internal Medicine Objective - Results Result Diagrams: 07/11/17 07:35 07/10/17 05:56 Recent Labs: Laboratory Last Values WBC 4.1 Th/cmm (4.8-10.8) L 07/11/17 07:35 RBC 2.76 Mil/cmm (3.80-5.10) L 07/11/17 07:35 Hgb 8.3 gm/dL (12-16) L 07/11/17 07:35 Hct 24.7 % (41.0-60) L 07/11/17 07:35 MCV 89.4 fl (81-100) 07/11/17 07:35 MCH 30.1 pg (27.0-31.0) 07/11/17 07:35 MCHC Differential 33.7 pg (28.0-36.0) 07/11/17 07:35 RDW 13.6 % (11.5-20.0) 07/11/17 07:35 Plt Count 274 Th/cmm (150-400) 07/11/17 07:35 MPV 6.9 fl 07/11/17 07:35 Neutrophils % 67.3 % (40.0-80.0) 07/11/17 07:35 Lymphocytes % 21.2 % (20.0-50.0) 07/11/17 07:35 Monocytes % 9.1 % (2.0-10.0) 07/11/17 07:35 Eosinophils % 1.6 % (0.0-5.0) 07/11/17 07:35 Basophils % 0.8 % (0.0-2.0) 07/11/17 07:35 Neutrophils (Manual) 69 % (40-80) 07/10/17 05:56 Lymphocytes 24 % (20-50) 07/10/17 05:56 Monocytes 7 % (2-10) 07/10/17 05:56 Platelet Estimate ADEQUATE (NORMAL) 07/10/17 05:56 Platelet Morphology NORMAL (NORMAL) 07/10/17 05:56 RBC Morph Micro Appear NORMAL (NORMAL) 07/10/17 05:56 Sodium 140 mEq/L (136-145) 07/10/17 05:56 Potassium 4.2 mEq/L (3.5-5.1) 07/10/17 05:56 Chloride 111 mEq/L (98-107) H 07/10/17 05:56 Carbon Dioxide 21.6 mEq/L (21.0-31.0) 07/10/17 05:56 Anion Gap 11.6 (7.0-16.0) 07/10/17 05:56 BUN 19 mg/dL (7-25) 07/10/17 05:56 Creatinine 2.8 mg/dL (0.6-1.2) H 07/10/17 05:56 Est GFR ( Amer) 22.0 ml/min (>90) 07/10/17 05:56 Est GFR (Non-Af Amer) 18.2 ml/min 07/10/17 05:56 BUN/Creatinine Ratio 6.8 07/10/17 05:56 Glucose 89 mg/dL (70-105) 07/10/17 05:56 POC Glucose 287 MG/DL (70 - 105) H 07/29/17 20:59 Calcium 9.6 mg/dL (8.6-10.3) 07/10/17 05:56 - Physical Exam Vitals and I&O: Vital Signs Temp 97.9 F 07/29/17 19:49 Pulse 88 07/29/17 19:49 Resp 18 07/29/17 19:49 BP 90/49 07/29/17 19:49 Pulse Ox 96 07/29/17 19:49 Intake & Output 07/29/17 07/29/17 07/30/17 06:59 18:59 06:59 Intake Total 120 1200 240 Balance 120 1200 240 Intake: Oral 120 1200 240 Other: # Voids 3 2 # Bowel Movements 1 Active Medications: Current Medications Acetaminophen (Tylenol) 650 mg PO Q4HR PRN PRN Reason: Mild Pain / Temp above 100 Stop: 09/06/17 16:08 Last Admin: 07/19/17 00:17 Dose: 650 mg Acetaminophen (Tylenol) 650 mg PO Q4H PRN PRN Reason: Pain (Moderate) Stop: 09/06/17 20:55 Al Hydrox/Mg Hydrox/Simethicone (Maalox) 30 ml PO Q4HR PRN PRN Reason: GI DISTRESS Stop: 09/06/17 16:08 Last Admin: 07/11/17 10:02 Dose: 30 ml Docusate Sodium (Colace) 100 mg PO BID PABLO Stop: 09/07/17 08:59 Last Admin: 07/29/17 17:27 Dose: Not Given Ferrous Sulfate (Iron) 325 mg PO DAILY PABLO Stop: 09/07/17 08:59 Last Admin: 07/29/17 09:54 Dose: 325 mg Folic Acid (Folate) 1 mg PO DAILY PABLO Stop: 09/07/17 08:59 Last Admin: 07/29/17 09:58 Dose: Not Given Haloperidol (Haldol) 5 mg PO DAILY PABLO PRN Reason: Protocol Stop: 09/24/17 08:59 Last Admin: 07/29/17 09:55 Dose: 5 mg Haloperidol Decanoate (Haldol Dec) 25 mg IM QMONTH PABLO PRN Reason: Protocol Stop: 09/24/17 10:59 Last Admin: 07/27/17 09:10 Dose: 25 mg Insulin Aspart (Novolog Insulin Sliding Scale) 0 units SUBQ ACHS PABLO PRN Reason: Protocol Stop: 09/06/17 20:59 Last Admin: 07/29/17 17:27 Dose: Not Given Insulin Detemir (Levemir Insulin) 10 units SUBQ Q12H PABLO PRN Reason: Protocol Stop: 09/06/17 20:59 Last Admin: 07/29/17 09:59 Dose: Not Given Levothyroxine Sodium (Synthroid) 0.075 mg PO QDAC [facility] Stop: 09/10/17 07:29 Last Admin: 07/28/17 06:59 Dose: 0.075 mg Lorazepam (Ativan) 0.5 mg PO Q4HR PRN; Protocol PRN Reason: Agitation Stop: 08/24/17 00:29 Last Admin: 07/27/17 00:04 Dose: 0.5 mg Multivitamins/Vitamin C (Theragran) 1 tab PO DAILY PABLO Stop: 09/07/17 08:59 Last Admin: 07/29/17 09:58 Dose: Not Given Pantoprazole Sodium (Protonix) 40 mg PO DAILY PABLO Stop: 09/07/17 08:59 Last Admin: 07/29/17 09:58 Dose: Not Given Quetiapine Fumarate (Seroquel) 200 mg PO BID [facility] Stop: 09/24/17 16:59 Last Admin: 07/29/17 17:27 Dose: Not Given Sevelamer HCl (Renagel) 800 mg PO TIDWM [facility] Stop: 09/07/17 07:59 Last Admin: 07/29/17 17:27 Dose: Not Given General: demented HEENT: NC/AT, PERRLA, EOMI, anicteric sclerae, throat clear Neck: Supple, No JVD, No thyromegaly, +2 carotid pulse wo bruit, No LAD Lungs: CTAB Cardiovascular: Normal S1, Normal S2, without murmur Abdomen: non-tender, non-distended Neurological: no change - Procedures Procedures: Procedures Procedure Code Date TRANSFUSE NONAUT RED BLOOD CELLS IN PERIPH VEIN, [facility] [id number] 07/04/17 Internal Medicine Assmt/Plan - Assessment Assessment: 1.DM. 2.HYPOTHYROIDISIM. 3.ANEMIA. 4.SCHIZOPHRENEA. - Plan Plan: CONTINUE ON CURRENT MEDICATION . Nutritional Asmnt/Malnutr-PDOC - Dietary Evaluation Malnutrition Findings (Please click <Entered> for more info): Nutritional Asmnt/Malnutrition Start: 07/09/17 09: 39 Text: Status: Complete Freq: Document 07/09/17 09:39 VANESAS (Rec: 07/09/17 09:49 VANESSA LARIOS- FNS1) Nutritional Asmnt/Malnutrition Patient General Information Nutritional Screening High Risk Screening Diagnosis Psychosis Pertinent Medical Hx/Surgical Hx Paranoid Schizophrenia, Anxiety disorder, Dementia, Anemia, GERD, DM II, Hypothyroidism, CKD, Dysphagia , and difficulty in walking. Per nursing notes, she became combative whenever approached. Subjective Information Patient admitted from SNF on 5150 hold. Patient confused and not able to answer questions about dietary history. Current Diet Order/ Nutrition Support Mechanical soft ground CCHO 60gm Low sodium Patient / S.O Not Indicated Pertinent Medications maalox, colace, iron, folate, novolog, levemir, synthroid, MOM, MVI w/C, Protonix Pertinent Labs POC glucose 203 on admission Nutritional Hx/Data Height 1.52 m Height (Calculated Centimeters) 152.4 Current Weight (lbs) 71.668 kg Weight (Calculated Kilograms) 71.7 Weight (Calculated Grams) 32757.6 [place] Body Weight 100 % [place] Body Weight 158 Recent Weight Change No Weight Status Obese GI Symptoms GI Symptoms None Food Allergies No Cultural/Ethnic/Episcopal Belief None indicated Usual diet at home Unknown Skin Integrity/Comment: Bruises on bilateral wrist and forearm, Tristan 18 Estimated Nutritional Goals BEE in Kcals: Using Current wt Calories/Kcals/Kg 20-25 kcal/kg (based on current weight of 71.8kg) - obese Kcals Calculated ~7860-1858 kcal/day Protein: Using Current wt Protein g/k gm/kg (based on current weight of 71.8kg) Protein Calculated ~70 gm/day Fluid: ml ~2149-7287 ml/day (25-30 ml/kg ) Nutritional Problem 1. Problem Problem Altered nutrition related lab values related to Etiology hyperglycemia aeb Signs/Symptoms: blood glucose 188 on admission and POC glucose 203 Intervention/Recommendation Comments 1. Continue current diet as tolerated by patient. ( mechanical soft ground, CCHO 60gm, Low sodium). 2. MD to modify insulin regimen as needed for optimal glycemic control. Expected Outcomes/Goals Expected Outcomes/Goals Blood glucose normalizes (80- 180), oral intake to meet >75% Of estiamted nutrient needs, weight remains stable or trends toward ideal body weight.
[2017-07-30] MEDS: Levothyroxine 0.075 Mg Tab PO SCH ×2 (06:53→06:57)
[2017-07-30] MEDS: INSULIN ASPART SLIDING SCALE 100 UNITS/ML UNIT SUBQ SCH ×4 (06:56→21:05)
[2017-07-30] MEDS: Multivitamin Tab PO SCH (09:25)
[2017-07-30] MEDS: Ferrous Sulfate 325 MG TAB PO SCH (09:25)
[2017-07-30] MEDS: Pantoprazole 40 mg EC Tab PO SCH (09:25)
[2017-07-30] MEDS: Insulin Detemir 100 units/mL 10mL Vial SUBQ SCH ×2 (09:38→21:05)
--- NOTE | 2017-07-30 14:38 | Internal Medicine Prog Note ---
Internal Medicine Subjective - Subjective Service Date: 07/30/17 Patient seen and examined:: with staff Patient is:: awake, verbal, talking Per staff patient has:: no adverse event (THE PATIENT FEELS WELL,TAKING MEDICATION .) Internal Medicine Objective - Results Result Diagrams: 07/11/17 07:35 07/10/17 05:56 Recent Labs: Laboratory Last Values WBC 4.1 Th/cmm (4.8-10.8) L 07/11/17 07:35 RBC 2.76 Mil/cmm (3.80-5.10) L 07/11/17 07:35 Hgb 8.3 gm/dL (12-16) L 07/11/17 07:35 Hct 24.7 % (41.0-60) L 07/11/17 07:35 MCV 89.4 fl (81-100) 07/11/17 07:35 MCH 30.1 pg (27.0-31.0) 07/11/17 07:35 MCHC Differential 33.7 pg (28.0-36.0) 07/11/17 07:35 RDW 13.6 % (11.5-20.0) 07/11/17 07:35 Plt Count 274 Th/cmm (150-400) 07/11/17 07:35 MPV 6.9 fl 07/11/17 07:35 Neutrophils % 67.3 % (40.0-80.0) 07/11/17 07:35 Lymphocytes % 21.2 % (20.0-50.0) 07/11/17 07:35 Monocytes % 9.1 % (2.0-10.0) 07/11/17 07:35 Eosinophils % 1.6 % (0.0-5.0) 07/11/17 07:35 Basophils % 0.8 % (0.0-2.0) 07/11/17 07:35 Neutrophils (Manual) 69 % (40-80) 07/10/17 05:56 Lymphocytes 24 % (20-50) 07/10/17 05:56 Monocytes 7 % (2-10) 07/10/17 05:56 Platelet Estimate ADEQUATE (NORMAL) 07/10/17 05:56 Platelet Morphology NORMAL (NORMAL) 07/10/17 05:56 RBC Morph Micro Appear NORMAL (NORMAL) 07/10/17 05:56 Sodium 140 mEq/L (136-145) 07/10/17 05:56 Potassium 4.2 mEq/L (3.5-5.1) 07/10/17 05:56 Chloride 111 mEq/L (98-107) H 07/10/17 05:56 Carbon Dioxide 21.6 mEq/L (21.0-31.0) 07/10/17 05:56 Anion Gap 11.6 (7.0-16.0) 07/10/17 05:56 BUN 19 mg/dL (7-25) 07/10/17 05:56 Creatinine 2.8 mg/dL (0.6-1.2) H 07/10/17 05:56 Est GFR ( Amer) 22.0 ml/min (>90) 07/10/17 05:56 Est GFR (Non-Af Amer) 18.2 ml/min 07/10/17 05:56 BUN/Creatinine Ratio 6.8 07/10/17 05:56 Glucose 89 mg/dL (70-105) 07/10/17 05:56 POC Glucose 278 MG/DL (70 - 105) H 07/30/17 08:07 Calcium 9.6 mg/dL (8.6-10.3) 07/10/17 05:56 - Physical Exam Vitals and I&O: Vital Signs Temp 98.0 F 07/30/17 07:17 Pulse 91 07/30/17 07:17 Resp 19 07/30/17 07:17 BP 100/50 07/30/17 07:17 Pulse Ox 97 07/30/17 07:17 Intake & Output 07/29/17 07/30/17 07/30/17 18:59 06:59 18:59 Intake Total 1200 240 240 Balance 1200 240 240 Intake: Oral 1200 240 240 Other: # Voids 2 2 # Bowel Movements 1 Active Medications: Current Medications Acetaminophen (Tylenol) 650 mg PO Q4HR PRN PRN Reason: Mild Pain / Temp above 100 Stop: 09/06/17 16:08 Last Admin: 07/19/17 00:17 Dose: 650 mg Acetaminophen (Tylenol) 650 mg PO Q4H PRN PRN Reason: Pain (Moderate) Stop: 09/06/17 20:55 Al Hydrox/Mg Hydrox/Simethicone (Maalox) 30 ml PO Q4HR PRN PRN Reason: GI DISTRESS Stop: 09/06/17 16:08 Last Admin: 07/11/17 10:02 Dose: 30 ml Docusate Sodium (Colace) 100 mg PO BID PABLO Stop: 09/07/17 08:59 Last Admin: 07/30/17 09:25 Dose: 100 mg Ferrous Sulfate (Iron) 325 mg PO DAILY PABLO Stop: 09/07/17 08:59 Last Admin: 07/30/17 09:25 Dose: 325 mg Folic Acid (Folate) 1 mg PO DAILY PABLO Stop: 09/07/17 08:59 Last Admin: 07/30/17 09:26 Dose: 1 mg Haloperidol (Haldol) 5 mg PO DAILY PABLO PRN Reason: Protocol Stop: 09/24/17 08:59 Last Admin: 07/30/17 09:25 Dose: 5 mg Haloperidol Decanoate (Haldol Dec) 25 mg IM QMONTH PABLO PRN Reason: Protocol Stop: 09/24/17 10:59 Last Admin: 07/27/17 09:10 Dose: 25 mg Insulin Aspart (Novolog Insulin Sliding Scale) 0 units SUBQ ACHS PABLO PRN Reason: Protocol Stop: 09/06/17 20:59 Last Admin: 07/30/17 12:28 Dose: Not Given Insulin Detemir (Levemir Insulin) 10 units SUBQ Q12H PABLO PRN Reason: Protocol Stop: 09/06/17 20:59 Last Admin: 07/30/17 09:38 Dose: 10 units Levothyroxine Sodium (Synthroid) 0.075 mg PO QDAC PABLO Stop: 09/10/17 07:29 Last Admin: 07/30/17 06:57 Dose: 0.075 mg Lorazepam (Ativan) 0.5 mg PO Q4HR PRN; Protocol PRN Reason: Agitation Stop: 08/24/17 00:29 Last Admin: 07/27/17 00:04 Dose: 0.5 mg Multivitamins/Vitamin C (Theragran) 1 tab PO DAILY PABLO Stop: 09/07/17 08:59 Last Admin: 07/30/17 09:25 Dose: 1 tab Pantoprazole Sodium (Protonix) 40 mg PO DAILY PABLO Stop: 09/07/17 08:59 Last Admin: 07/30/17 09:25 Dose: 40 mg Quetiapine Fumarate (Seroquel) 200 mg PO BID [facility] Stop: 09/24/17 16:59 Last Admin: 07/30/17 09:26 Dose: 200 mg Sevelamer HCl (Renagel) 800 mg PO TIDWM [facility] Stop: 09/07/17 07:59 Last Admin: 07/30/17 12:28 Dose: Not Given General: demented HEENT: NC/AT, PERRLA, EOMI, anicteric sclerae, throat clear Neck: Supple, No JVD, No thyromegaly, +2 carotid pulse wo bruit, No LAD Lungs: CTAB Cardiovascular: Normal S1, Normal S2, without murmur Abdomen: non-tender, non-distended Neurological: no change - Procedures Procedures: Procedures Procedure Code Date TRANSFUSE NONAUT RED BLOOD CELLS IN PERIPH VEIN, [facility] 09689R0 07/04/17 Internal Medicine Assmt/Plan - Assessment Assessment: 1.DM. 2.HYPOTHYROIDISIM. 3.ANEMIA. 4.SCHIZOPHRENEA. - Plan Plan: CONTINUE ON CURRENT MEDICATION . Nutritional Asmnt/Malnutr-PDOC - Dietary Evaluation Malnutrition Findings (Please click <Entered> for more info): Nutritional Asmnt/Malnutrition Start: 07/09/17 09: 39 Text: Status: Complete Freq: Document 07/09/17 09:39 VANESSA (Rec: 07/09/17 09:49 VANESSA LARIOS- FNS1) Nutritional Asmnt/Malnutrition Patient General Information Nutritional Screening High Risk Screening Diagnosis Psychosis Pertinent Medical Hx/Surgical Hx Paranoid Schizophrenia, Anxiety disorder, Dementia, Anemia, GERD, DM II, Hypothyroidism, CKD, Dysphagia , and difficulty in walking. Per nursing notes, she became combative whenever approached. Subjective Information Patient admitted from SNF on 5150 hold. Patient confused and not able to answer questions about dietary history. Current Diet Order/ Nutrition Support Mechanical soft ground CCHO 60gm Low sodium Patient / S.O Not Indicated Pertinent Medications maalox, colace, iron, folate, novolog, levemir, synthroid, MOM, MVI w/C, Protonix Pertinent Labs POC glucose 203 on admission Nutritional Hx/Data Height 1.52 m Height (Calculated Centimeters) 152.4 Current Weight (lbs) 71.668 kg Weight (Calculated Kilograms) 71.7 Weight (Calculated Grams) 81584.6 [place] Body Weight 100 % [place] Body Weight 158 Recent Weight Change No Weight Status Obese GI Symptoms GI Symptoms None Food Allergies No Cultural/Ethnic/Mormonism Belief None indicated Usual diet at home Unknown Skin Integrity/Comment: Bruises on bilateral wrist and forearm, Tristan 18 Estimated Nutritional Goals BEE in Kcals: Using Current wt Calories/Kcals/Kg 20-25 kcal/kg (based on current weight of 71.8kg) - obese Kcals Calculated ~9013-1344 kcal/day Protein: Using Current wt Protein g/k gm/kg (based on current weight of 71.8kg) Protein Calculated ~70 gm/day Fluid: ml ~7745-1067 ml/day (25-30 ml/kg ) Nutritional Problem 1. Problem Problem Altered nutrition related lab values related to Etiology hyperglycemia aeb Signs/Symptoms: blood glucose 188 on admission and POC glucose 203 Intervention/Recommendation Comments 1. Continue current diet as tolerated by patient. ( mechanical soft ground, CCHO 60gm, Low sodium). 2. MD to modify insulin regimen as needed for optimal glycemic control. Expected Outcomes/Goals Expected Outcomes/Goals Blood glucose normalizes (80- 180), oral intake to meet >75% Of estiamted nutrient needs, weight remains stable or trends toward ideal body weight.
--- NOTE | 2017-07-31 05:34 | Progress Notes ---
DATE: 07/30/2017 Case was discussed with staff of the patient, reviewed records. The patient has been stuffing toilets, has been irritable, non-redirectable sleeping well and eating well. She is compliant with the medication with no side effects, no sedation, no nausea, no extrapyramidal symptoms. We are also working on placement for this patient if the conservator wants the patient to go to a different facility and we will continue to work with the patient in group therapy, milieu therapy, adjust medication as needed. JOB# [id number]
[2017-07-31] MEDS: INSULIN ASPART SLIDING SCALE 100 UNITS/ML UNIT SUBQ SCH ×5 (06:46→21:49)
[2017-07-31] MEDS: Levothyroxine 0.075 Mg Tab PO SCH (06:54)
[2017-07-31] MEDS: Multivitamin Tab PO SCH (08:41)
[2017-07-31] MEDS: Pantoprazole 40 mg EC Tab PO SCH (08:41)
[2017-07-31] MEDS: Ferrous Sulfate 325 MG TAB PO SCH (08:42)
[2017-07-31] MEDS: Insulin Detemir 100 units/mL 10mL Vial SUBQ SCH ×2 (10:41→21:50)
[2017-07-31] MEDS: Haloperidol Lactate 5 mg/mL 1mL Vial IM PRN (13:10)
--- NOTE | 2017-07-31 20:39 | Internal Medicine Prog Note ---
Internal Medicine Subjective - Subjective Service Date: 07/31/17 Patient seen and examined:: without staff Patient is:: awake, verbal, talking Per staff patient has:: no adverse event (THE PATIENT FEELS WELL,TAKING MEDICATION .) Internal Medicine Objective - Results Result Diagrams: 07/11/17 07:35 07/10/17 05:56 Recent Labs: Laboratory Last Values WBC 4.1 Th/cmm (4.8-10.8) L 07/11/17 07:35 RBC 2.76 Mil/cmm (3.80-5.10) L 07/11/17 07:35 Hgb 8.3 gm/dL (12-16) L 07/11/17 07:35 Hct 24.7 % (41.0-60) L 07/11/17 07:35 MCV 89.4 fl (81-100) 07/11/17 07:35 MCH 30.1 pg (27.0-31.0) 07/11/17 07:35 MCHC Differential 33.7 pg (28.0-36.0) 07/11/17 07:35 RDW 13.6 % (11.5-20.0) 07/11/17 07:35 Plt Count 274 Th/cmm (150-400) 07/11/17 07:35 MPV 6.9 fl 07/11/17 07:35 Neutrophils % 67.3 % (40.0-80.0) 07/11/17 07:35 Lymphocytes % 21.2 % (20.0-50.0) 07/11/17 07:35 Monocytes % 9.1 % (2.0-10.0) 07/11/17 07:35 Eosinophils % 1.6 % (0.0-5.0) 07/11/17 07:35 Basophils % 0.8 % (0.0-2.0) 07/11/17 07:35 Neutrophils (Manual) 69 % (40-80) 07/10/17 05:56 Lymphocytes 24 % (20-50) 07/10/17 05:56 Monocytes 7 % (2-10) 07/10/17 05:56 Platelet Estimate ADEQUATE (NORMAL) 07/10/17 05:56 Platelet Morphology NORMAL (NORMAL) 07/10/17 05:56 RBC Morph Micro Appear NORMAL (NORMAL) 07/10/17 05:56 Sodium 140 mEq/L (136-145) 07/10/17 05:56 Potassium 4.2 mEq/L (3.5-5.1) 07/10/17 05:56 Chloride 111 mEq/L (98-107) H 07/10/17 05:56 Carbon Dioxide 21.6 mEq/L (21.0-31.0) 07/10/17 05:56 Anion Gap 11.6 (7.0-16.0) 07/10/17 05:56 BUN 19 mg/dL (7-25) 07/10/17 05:56 Creatinine 2.8 mg/dL (0.6-1.2) H 07/10/17 05:56 Est GFR ( Amer) 22.0 ml/min (>90) 07/10/17 05:56 Est GFR (Non-Af Amer) 18.2 ml/min 07/10/17 05:56 BUN/Creatinine Ratio 6.8 07/10/17 05:56 Glucose 89 mg/dL (70-105) 07/10/17 05:56 POC Glucose 230 MG/DL (70 - 105) H 07/31/17 16:41 Calcium 9.6 mg/dL (8.6-10.3) 07/10/17 05:56 - Physical Exam Vitals and I&O: Vital Signs Temp 97.8 F 07/31/17 19:52 Pulse 109 07/31/17 19:52 Resp 19 07/31/17 19:52 BP 131/60 07/31/17 19:52 Pulse Ox 98 07/31/17 19:52 Intake & Output 07/31/17 07/31/17 08/01/17 06:59 18:59 06:59 Intake Total 120 900 120 Balance 120 900 120 Intake: Oral 120 900 120 Other: # Voids 3 4 3 # Bowel Movements 1 0 Active Medications: Current Medications Acetaminophen (Tylenol) 650 mg PO Q4H PRN PRN Reason: Pain (Moderate) Stop: 09/06/17 20:55 Al Hydrox/Mg Hydrox/Simethicone (Maalox) 30 ml PO Q4HR PRN PRN Reason: GI DISTRESS Stop: 09/06/17 16:08 Last Admin: 07/11/17 10:02 Dose: 30 ml Docusate Sodium (Colace) 100 mg PO BID PABLO Stop: 09/07/17 08:59 Last Admin: 07/31/17 17:35 Dose: 100 mg Ferrous Sulfate (Iron) 325 mg PO DAILY PABLO Stop: 09/07/17 08:59 Last Admin: 07/31/17 08:42 Dose: Not Given Folic Acid (Folate) 1 mg PO DAILY PABLO Stop: 09/07/17 08:59 Last Admin: 07/31/17 08:41 Dose: Not Given Haloperidol (Haldol) 5 mg PO DAILY PABLO PRN Reason: Protocol Stop: 09/24/17 08:59 Last Admin: 07/31/17 11:52 Dose: Not Given Haloperidol Decanoate (Haldol Dec) 25 mg IM QMONTH PABLO PRN Reason: Protocol Stop: 09/24/17 10:59 Last Admin: 07/27/17 09:10 Dose: 25 mg Haloperidol Lactate (Haldol) 5 mg IM DAILY PRN PRN Reason: Agitation Stop: 09/29/17 11:50 Last Admin: 07/31/17 13:10 Dose: 5 mg Insulin Aspart (Novolog Insulin Sliding Scale) 0 units SUBQ ACHS PABLO PRN Reason: Protocol Stop: 09/06/17 20:59 Last Admin: 07/31/17 17:31 Dose: 4 units Insulin Detemir (Levemir Insulin) 10 units SUBQ Q12H PABLO PRN Reason: Protocol Stop: 09/06/17 20:59 Last Admin: 07/31/17 10:41 Dose: 10 units Levothyroxine Sodium (Synthroid) 0.075 mg PO QDAC [facility] Stop: 09/10/17 07:29 Last Admin: 07/31/17 06:54 Dose: 0.075 mg Lorazepam (Ativan) 0.5 mg PO Q4HR PRN; Protocol PRN Reason: Agitation Stop: 08/24/17 00:29 Last Admin: 07/30/17 23:29 Dose: 0.5 mg Multivitamins/Vitamin C (Theragran) 1 tab PO DAILY PABLO Stop: 09/07/17 08:59 Last Admin: 07/31/17 08:41 Dose: 1 tab Pantoprazole Sodium (Protonix) 40 mg PO DAILY PABLO Stop: 09/07/17 08:59 Last Admin: 07/31/17 08:41 Dose: 40 mg Quetiapine Fumarate (Seroquel) 200 mg PO BID PABLO Stop: 09/24/17 16:59 Last Admin: 07/31/17 17:35 Dose: 200 mg Sevelamer HCl (Renagel) 800 mg PO TIDWM PABLO Stop: 09/07/17 07:59 Last Admin: 07/31/17 17:35 Dose: 800 mg General: demented HEENT: NC/AT, PERRLA, EOMI, anicteric sclerae, throat clear Neck: Supple, No JVD, No thyromegaly, +2 carotid pulse wo bruit, No LAD Lungs: CTAB Cardiovascular: Normal S1, Normal S2, without murmur Abdomen: non-tender, non-distended Neurological: no change - Procedures Procedures: Procedures Procedure Code Date TRANSFUSE NONAUT RED BLOOD CELLS IN PERIPH VEIN, [facility] 48838U6 07/04/17 Internal Medicine Assmt/Plan - Assessment Assessment: 1.DM. 2.HYPOTHYROIDISIM. 3.ANEMIA. 4.SCHIZOPHRENEA. - Plan Plan: CONTINUE ON CURRENT MEDICATION . Nutritional Asmnt/Malnutr-PDOC - Dietary Evaluation Malnutrition Findings (Please click <Entered> for more info): Nutritional Asmnt/Malnutrition Start: 07/09/17 09: 39 Text: Status: Complete Freq: Document 07/09/17 09:39 VANESSA (Rec: 07/09/17 09:49 VANESSA LARIOS- FNS1) Nutritional Asmnt/Malnutrition Patient General Information Nutritional Screening High Risk Screening Diagnosis Psychosis Pertinent Medical Hx/Surgical Hx Paranoid Schizophrenia, Anxiety disorder, Dementia, Anemia, GERD, DM II, Hypothyroidism, CKD, Dysphagia , and difficulty in walking. Per nursing notes, she became combative whenever approached. Subjective Information Patient admitted from SNF on 5150 hold. Patient confused and not able to answer questions about dietary history. Current Diet Order/ Nutrition Support Mechanical soft ground CCHO 60gm Low sodium Patient / S.O Not Indicated Pertinent Medications maalox, colace, iron, folate, novolog, levemir, synthroid, MOM, MVI w/C, Protonix Pertinent Labs POC glucose 203 on admission Nutritional Hx/Data Height 1.52 m Height (Calculated Centimeters) 152.4 Current Weight (lbs) 71.668 kg Weight (Calculated Kilograms) 71.7 Weight (Calculated Grams) 17556.6 [place] Body Weight 100 % [place] Body Weight 158 Recent Weight Change No Weight Status Obese GI Symptoms GI Symptoms None Food Allergies No Cultural/Ethnic/Mormonism Belief None indicated Usual diet at home Unknown Skin Integrity/Comment: Bruises on bilateral wrist and forearm, Tristan 18 Estimated Nutritional Goals BEE in Kcals: Using Current wt Calories/Kcals/Kg 20-25 kcal/kg (based on current weight of 71.8kg) - obese Kcals Calculated ~6853-7855 kcal/day Protein: Using Current wt Protein g/k gm/kg (based on current weight of 71.8kg) Protein Calculated ~70 gm/day Fluid: ml ~1131-4813 ml/day (25-30 ml/kg ) Nutritional Problem 1. Problem Problem Altered nutrition related lab values related to Etiology hyperglycemia aeb Signs/Symptoms: blood glucose 188 on admission and POC glucose 203 Intervention/Recommendation Comments 1. Continue current diet as tolerated by patient. ( mechanical soft ground, CCHO 60gm, Low sodium). 2. MD to modify insulin regimen as needed for optimal glycemic control. Expected Outcomes/Goals Expected Outcomes/Goals Blood glucose normalizes (80- 180), oral intake to meet >75% Of estiamted nutrient needs, weight remains stable or trends toward ideal body weight.
--- NOTE | 2017-08-01 02:20 | Progress Notes ---
DATE: 07/31/2017 Case was discussed with staff of the patient. The patient has been refusing her medications. She is conserved ____ get an order from her conservator to give her medications intramuscular. She is ____ stuffing toilet yesterday. Continues to be unpredictable, impulsive, needing redirection. Does have poor insight and working on placement as her conservator decided that she wanted to go to [facility] to be closer to her. No side effects with the medication, no sedation, no nausea, no extrapyramidal symptoms. We will continue with the patient in group therapy, milieu therapy, adjust medication as needed. JOB# [id number]
[2017-08-01] MEDS: Levothyroxine 0.075 Mg Tab PO SCH (06:47)
[2017-08-01] MEDS: INSULIN ASPART SLIDING SCALE 100 UNITS/ML UNIT SUBQ SCH ×4 (06:57→21:21)
[2017-08-01] MEDS: Ferrous Sulfate 325 MG TAB PO SCH ×2 (10:19→10:42)
[2017-08-01] MEDS: Pantoprazole 40 mg EC Tab PO SCH (10:19)
[2017-08-01] MEDS: Multivitamin Tab PO SCH (10:20)
[2017-08-01] MEDS: Insulin Detemir 100 units/mL 10mL Vial SUBQ SCH ×3 (10:25→21:22)
--- NOTE | 2017-08-01 19:04 | Internal Medicine Prog Note ---
Internal Medicine Subjective - Subjective Service Date: 08/01/17 Patient seen and examined:: with staff (SHE IS FEELING BETTER.) Patient is:: awake, verbal, talking Per staff patient has:: no adverse event (THE PATIENT FEELS WELL,TAKING MEDICATION .) Internal Medicine Objective - Results Result Diagrams: 07/11/17 07:35 07/10/17 05:56 Recent Labs: Laboratory Last Values WBC 4.1 Th/cmm (4.8-10.8) L 07/11/17 07:35 RBC 2.76 Mil/cmm (3.80-5.10) L 07/11/17 07:35 Hgb 8.3 gm/dL (12-16) L 07/11/17 07:35 Hct 24.7 % (41.0-60) L 07/11/17 07:35 MCV 89.4 fl (81-100) 07/11/17 07:35 MCH 30.1 pg (27.0-31.0) 07/11/17 07:35 MCHC Differential 33.7 pg (28.0-36.0) 07/11/17 07:35 RDW 13.6 % (11.5-20.0) 07/11/17 07:35 Plt Count 274 Th/cmm (150-400) 07/11/17 07:35 MPV 6.9 fl 07/11/17 07:35 Neutrophils % 67.3 % (40.0-80.0) 07/11/17 07:35 Lymphocytes % 21.2 % (20.0-50.0) 07/11/17 07:35 Monocytes % 9.1 % (2.0-10.0) 07/11/17 07:35 Eosinophils % 1.6 % (0.0-5.0) 07/11/17 07:35 Basophils % 0.8 % (0.0-2.0) 07/11/17 07:35 Neutrophils (Manual) 69 % (40-80) 07/10/17 05:56 Lymphocytes 24 % (20-50) 07/10/17 05:56 Monocytes 7 % (2-10) 07/10/17 05:56 Platelet Estimate ADEQUATE (NORMAL) 07/10/17 05:56 Platelet Morphology NORMAL (NORMAL) 07/10/17 05:56 RBC Morph Micro Appear NORMAL (NORMAL) 07/10/17 05:56 Sodium 140 mEq/L (136-145) 07/10/17 05:56 Potassium 4.2 mEq/L (3.5-5.1) 07/10/17 05:56 Chloride 111 mEq/L (98-107) H 07/10/17 05:56 Carbon Dioxide 21.6 mEq/L (21.0-31.0) 07/10/17 05:56 Anion Gap 11.6 (7.0-16.0) 07/10/17 05:56 BUN 19 mg/dL (7-25) 07/10/17 05:56 Creatinine 2.8 mg/dL (0.6-1.2) H 07/10/17 05:56 Est GFR ( Amer) 22.0 ml/min (>90) 07/10/17 05:56 Est GFR (Non-Af Amer) 18.2 ml/min 07/10/17 05:56 BUN/Creatinine Ratio 6.8 07/10/17 05:56 Glucose 89 mg/dL (70-105) 07/10/17 05:56 POC Glucose 112 MG/DL (70 - 105) H 08/01/17 06:09 Calcium 9.6 mg/dL (8.6-10.3) 07/10/17 05:56 - Physical Exam Vitals and I&O: Vital Signs Temp 97.9 F 08/01/17 15:53 Pulse 97 08/01/17 15:53 Resp 20 08/01/17 15:53 BP 141/60 08/01/17 15:53 Pulse Ox 95 08/01/17 15:53 Intake & Output 07/31/17 08/01/17 08/01/17 18:59 06:59 18:59 Intake Total 251 856 9265 Balance 748 493 3179 Intake: Oral 693 574 1147 Other: # Voids 4 2 4 # Bowel Movements 1 0 1 Active Medications: Current Medications Acetaminophen (Tylenol) 650 mg PO Q4H PRN PRN Reason: Pain (Moderate) Stop: 09/06/17 20:55 Al Hydrox/Mg Hydrox/Simethicone (Maalox) 30 ml PO Q4HR PRN PRN Reason: GI DISTRESS Stop: 09/06/17 16:08 Last Admin: 07/11/17 10:02 Dose: 30 ml Docusate Sodium (Colace) 100 mg PO BID PABLO Stop: 09/07/17 08:59 Last Admin: 08/01/17 16:44 Dose: Not Given Ferrous Sulfate (Iron) 325 mg PO DAILY PABLO Stop: 09/07/17 08:59 Last Admin: 08/01/17 10:42 Dose: Not Given Folic Acid (Folate) 1 mg PO DAILY PABLO Stop: 09/07/17 08:59 Last Admin: 08/01/17 10:20 Dose: 1 mg Haloperidol (Haldol) 5 mg PO DAILY PABLO PRN Reason: Protocol Stop: 09/24/17 08:59 Last Admin: 08/01/17 10:19 Dose: 5 mg Haloperidol Decanoate (Haldol Dec) 25 mg IM QMONTH PABLO PRN Reason: Protocol Stop: 09/24/17 10:59 Last Admin: 07/27/17 09:10 Dose: 25 mg Haloperidol Lactate (Haldol) 5 mg IM DAILY PRN PRN Reason: Agitation Stop: 09/29/17 11:50 Last Admin: 07/31/17 13:10 Dose: 5 mg Insulin Aspart (Novolog Insulin Sliding Scale) 0 units SUBQ ACHS PABLO PRN Reason: Protocol Stop: 09/06/17 20:59 Last Admin: 08/01/17 16:39 Dose: Not Given Insulin Detemir (Levemir Insulin) 10 units SUBQ Q12H PABLO PRN Reason: Protocol Stop: 09/06/17 20:59 Last Admin: 08/01/17 10:42 Dose: Not Given Levothyroxine Sodium (Synthroid) 0.075 mg PO QDAC [facility] Stop: 09/10/17 07:29 Last Admin: 08/01/17 06:47 Dose: Not Given Lorazepam (Ativan) 0.5 mg PO Q4HR PRN; Protocol PRN Reason: Agitation Stop: 08/24/17 00:29 Last Admin: 07/30/17 23:29 Dose: 0.5 mg Multivitamins/Vitamin C (Theragran) 1 tab PO DAILY PABLO Stop: 09/07/17 08:59 Last Admin: 08/01/17 10:20 Dose: 1 tab Pantoprazole Sodium (Protonix) 40 mg PO DAILY [facility] Stop: 09/07/17 08:59 Last Admin: 10/09/17 10:19 Dose: 40 mg Quetiapine Fumarate (Seroquel) 200 mg PO BID [facility] Stop: 09/30/17 16:59 Last Admin: 08/01/17 16:44 Dose: Not Given Sevelamer HCl (Renagel) 800 mg PO TIDWM [facility] Stop: 09/07/17 07:59 Last Admin: 08/01/17 16:44 Dose: Not Given General: demented HEENT: NC/AT, PERRLA, EOMI, anicteric sclerae, throat clear Neck: Supple, No JVD, No thyromegaly, +2 carotid pulse wo bruit, No LAD Lungs: CTAB Cardiovascular: Normal S1, Normal S2, without murmur Abdomen: non-tender, non-distended Neurological: no change - Procedures Procedures: Procedures Procedure Code Date TRANSFUSE NONAUT RED BLOOD CELLS IN PERIPH VEIN, [facility] [id number] 07/04/17 Internal Medicine Assmt/Plan - Assessment Assessment: 1.DM. 2.HYPOTHYROIDISIM. 3.ANEMIA. 4.SCHIZOPHRENEA. - Plan Plan: CONTINUE ON CURRENT MEDICATION . Nutritional Asmnt/Malnutr-PDOC - Dietary Evaluation Malnutrition Findings (Please click <Entered> for more info): Nutritional Asmnt/Malnutrition Start: 07/09/17 09: 39 Text: Status: Complete Freq: Document 07/09/17 09:39 VANESSA (Rec: 07/09/17 09:49 VANESSA LARIOS- FNS1) Nutritional Asmnt/Malnutrition Patient General Information Nutritional Screening High Risk Screening Diagnosis Psychosis Pertinent Medical Hx/Surgical Hx Paranoid Schizophrenia, Anxiety disorder, Dementia, Anemia, GERD, DM II, Hypothyroidism, CKD, Dysphagia , and difficulty in walking. Per nursing notes, she became combative whenever approached. Subjective Information Patient admitted from SNF on 5150 hold. Patient confused and not able to answer questions about dietary history. Current Diet Order/ Nutrition Support Mechanical soft ground CCHO 60gm Low sodium Patient / S.O Not Indicated Pertinent Medications maalox, colace, iron, folate, novolog, levemir, synthroid, MOM, MVI w/C, Protonix Pertinent Labs POC glucose 203 on admission Nutritional Hx/Data Height 1.52 m Height (Calculated Centimeters) 152.4 Current Weight (lbs) 71.668 kg Weight (Calculated Kilograms) 71.7 Weight (Calculated Grams) 27646.6 [place] Body Weight 100 % [place] Body Weight 158 Recent Weight Change No Weight Status Obese GI Symptoms GI Symptoms None Food Allergies No Cultural/Ethnic/Yazdanism Belief None indicated Usual diet at home Unknown Skin Integrity/Comment: Bruises on bilateral wrist and forearm, Tristan 18 Estimated Nutritional Goals BEE in Kcals: Using Current wt Calories/Kcals/Kg 20-25 kcal/kg (based on current weight of 71.8kg) - obese Kcals Calculated ~5497-6688 kcal/day Protein: Using Current wt Protein g/k gm/kg (based on current weight of 71.8kg) Protein Calculated ~70 gm/day Fluid: ml ~6950-6200 ml/day (25-30 ml/kg ) Nutritional Problem 1. Problem Problem Altered nutrition related lab values related to Etiology hyperglycemia aeb Signs/Symptoms: blood glucose 188 on admission and POC glucose 203 Intervention/Recommendation Comments 1. Continue current diet as tolerated by patient. ( mechanical soft ground, CCHO 60gm, Low sodium). 2. MD to modify insulin regimen as needed for optimal glycemic control. Expected Outcomes/Goals Expected Outcomes/Goals Blood glucose normalizes (80- 180), oral intake to meet >75% Of estiamted nutrient needs, weight remains stable or trends toward ideal body weight.
--- NOTE | 2017-08-01 22:24 | Progress Notes ---
DATE: 08/01/2017 Case was discussed with staff of the patient. The patient is taking her medications, sleeping better, eating better. She is compliant with the medications with no side effects. Working on placement. Her sister wanted to go to [facility] after she is ready for discharge. No side effects with the medication, no sedation, no nausea, no extrapyramidal symptoms. we will continue to work with the patient in group therapy, milieu therapy, and adjust medications as needed. JOB# [id number]
[2017-08-02] MEDS: Levothyroxine 0.075 Mg Tab PO SCH (06:45)
[2017-08-02] MEDS: INSULIN ASPART SLIDING SCALE 100 UNITS/ML UNIT SUBQ SCH ×2 (06:50→12:12)
[2017-08-02] MEDS: Multivitamin Tab PO SCH ×2 (08:34→08:45)
[2017-08-02] MEDS: Ferrous Sulfate 325 MG TAB PO SCH ×2 (08:34→08:45)
[2017-08-02] MEDS: Pantoprazole 40 mg EC Tab PO SCH ×2 (08:34→08:46)
[2017-08-02] MEDS: Insulin Detemir 100 units/mL 10mL Vial SUBQ SCH (08:36)
[2017-08-02] MEDS: Haloperidol Lactate 5 mg/mL 1mL Vial IM PRN (10:48)
--- NOTE | 2017-08-02 11:57 | Internal Medicine Prog Note ---
Internal Medicine Subjective - Subjective Service Date: 08/02/17 Patient seen and examined:: without staff Patient is:: awake, verbal, talking Per staff patient has:: no adverse event (THE PATIENT FEELS WELL,TAKING MEDICATION .) Internal Medicine Objective - Results Result Diagrams: 07/11/17 07:35 07/10/17 05:56 Recent Labs: Laboratory Last Values WBC 4.1 Th/cmm (4.8-10.8) L 07/11/17 07:35 RBC 2.76 Mil/cmm (3.80-5.10) L 07/11/17 07:35 Hgb 8.3 gm/dL (12-16) L 07/11/17 07:35 Hct 24.7 % (41.0-60) L 07/11/17 07:35 MCV 89.4 fl (81-100) 07/11/17 07:35 MCH 30.1 pg (27.0-31.0) 07/11/17 07:35 MCHC Differential 33.7 pg (28.0-36.0) 07/11/17 07:35 RDW 13.6 % (11.5-20.0) 07/11/17 07:35 Plt Count 274 Th/cmm (150-400) 07/11/17 07:35 MPV 6.9 fl 07/11/17 07:35 Neutrophils % 67.3 % (40.0-80.0) 07/11/17 07:35 Lymphocytes % 21.2 % (20.0-50.0) 07/11/17 07:35 Monocytes % 9.1 % (2.0-10.0) 07/11/17 07:35 Eosinophils % 1.6 % (0.0-5.0) 07/11/17 07:35 Basophils % 0.8 % (0.0-2.0) 07/11/17 07:35 Neutrophils (Manual) 69 % (40-80) 07/10/17 05:56 Lymphocytes 24 % (20-50) 07/10/17 05:56 Monocytes 7 % (2-10) 07/10/17 05:56 Platelet Estimate ADEQUATE (NORMAL) 07/10/17 05:56 Platelet Morphology NORMAL (NORMAL) 07/10/17 05:56 RBC Morph Micro Appear NORMAL (NORMAL) 07/10/17 05:56 Sodium 140 mEq/L (136-145) 07/10/17 05:56 Potassium 4.2 mEq/L (3.5-5.1) 07/10/17 05:56 Chloride 111 mEq/L (98-107) H 07/10/17 05:56 Carbon Dioxide 21.6 mEq/L (21.0-31.0) 07/10/17 05:56 Anion Gap 11.6 (7.0-16.0) 07/10/17 05:56 BUN 19 mg/dL (7-25) 07/10/17 05:56 Creatinine 2.8 mg/dL (0.6-1.2) H 07/10/17 05:56 Est GFR ( Amer) 22.0 ml/min (>90) 07/10/17 05:56 Est GFR (Non-Af Amer) 18.2 ml/min 07/10/17 05:56 BUN/Creatinine Ratio 6.8 07/10/17 05:56 Glucose 89 mg/dL (70-105) 07/10/17 05:56 POC Glucose 114 MG/DL (70 - 105) H 08/02/17 06:02 Calcium 9.6 mg/dL (8.6-10.3) 07/10/17 05:56 - Physical Exam Vitals and I&O: Vital Signs Temp 98.4 F 08/02/17 06:12 Pulse 103 08/02/17 06:12 Resp 20 08/02/17 06:12 BP 113/53 08/02/17 06:12 Pulse Ox 95 08/02/17 06:12 Intake & Output 08/01/17 08/02/17 08/02/17 18:59 06:59 18:59 Intake Total 1000 420 Balance 1000 420 Intake: Oral 1000 420 Other: # Voids 4 1 # Bowel Movements 1 0 Stool Characteristics Soft Active Medications: Current Medications Acetaminophen (Tylenol) 650 mg PO Q4H PRN PRN Reason: Pain (Moderate) Stop: 09/06/17 20:55 Al Hydrox/Mg Hydrox/Simethicone (Maalox) 30 ml PO Q4HR PRN PRN Reason: GI DISTRESS Stop: 09/06/17 16:08 Last Admin: 07/11/17 10:02 Dose: 30 ml Docusate Sodium (Colace) 100 mg PO BID PABLO Stop: 09/07/17 08:59 Last Admin: 08/02/17 08:45 Dose: Not Given Ferrous Sulfate (Iron) 325 mg PO DAILY PABLO Stop: 09/07/17 08:59 Last Admin: 08/02/17 08:45 Dose: Not Given Folic Acid (Folate) 1 mg PO DAILY [facility]ABLO Stop: 09/07/17 08:59 Last Admin: 08/02/17 08:45 Dose: Not Given Haloperidol (Haldol) 5 mg PO DAILY PABLO PRN Reason: Protocol Stop: 09/24/17 08:59 Last Admin: 08/02/17 08:45 Dose: Not Given Haloperidol Decanoate (Haldol Dec) 25 mg IM QMONTH PABLO PRN Reason: Protocol Stop: 09/24/17 10:59 Last Admin: 07/27/17 09:10 Dose: 25 mg Haloperidol Lactate (Haldol) 5 mg IM DAILY PRN PRN Reason: Agitation Stop: 09/29/17 11:50 Last Admin: 08/02/17 10:48 Dose: 5 mg Insulin Aspart (Novolog Insulin Sliding Scale) 0 units SUBQ ACHS PABLO PRN Reason: Protocol Stop: 09/06/17 20:59 Last Admin: 08/02/17 06:50 Dose: Not Given Insulin Detemir (Levemir Insulin) 10 units SUBQ Q12H PABLO PRN Reason: Protocol Stop: 09/06/17 20:59 Last Admin: 08/02/17 08:36 Dose: 10 units Levothyroxine Sodium (Synthroid) 0.075 mg PO QDAC [facility] Stop: 09/10/17 07:29 Last Admin: 08/02/17 06:45 Dose: Not Given Lorazepam (Ativan) 0.5 mg PO Q4HR PRN; Protocol PRN Reason: Agitation Stop: 08/24/17 00:29 Last Admin: 07/30/17 23:29 Dose: 0.5 mg Multivitamins/Vitamin C (Theragran) 1 tab PO DAILY PABLO Stop: 09/07/17 08:59 Last Admin: 08/02/17 08:45 Dose: Not Given Pantoprazole Sodium (Protonix) 40 mg PO DAILY [facility] Stop: 09/07/17 08:59 Last Admin: 08/02/17 08:46 Dose: Not Given Quetiapine Fumarate (Seroquel) 200 mg PO BID [facility] Stop: 09/30/17 16:59 Last Admin: 08/02/17 08:46 Dose: Not Given Sevelamer HCl (Renagel) 800 mg PO TIDWM [facility] Stop: 09/07/17 07:59 Last Admin: 08/02/17 08:45 Dose: Not Given General: demented HEENT: NC/AT, PERRLA, EOMI, anicteric sclerae, throat clear Neck: Supple, No JVD, No thyromegaly, +2 carotid pulse wo bruit, No LAD Lungs: CTAB Cardiovascular: Normal S1, Normal S2, without murmur Abdomen: non-tender, non-distended Neurological: no change - Procedures Procedures: Procedures Procedure Code Date TRANSFUSE NONAUT RED BLOOD CELLS IN PERIPH VEIN, [facility] 76164L6 07/04/17 Internal Medicine Assmt/Plan - Assessment Assessment: 1.DM. 2.HYPOTHYROIDISIM. 3.ANEMIA. 4.SCHIZOPHRENEA. - Plan Plan: CONTINUE ON CURRENT MEDICATION . Nutritional Asmnt/Malnutr-PDOC - Dietary Evaluation Malnutrition Findings (Please click <Entered> for more info): Nutritional Asmnt/Malnutrition Start: 07/09/17 09: 39 Text: Status: Complete Freq: Document 07/09/17 09:39 VANESSA (Rec: 07/09/17 09:49 MMKAPIL LARIOS- FNS1) Nutritional Asmnt/Malnutrition Patient General Information Nutritional Screening High Risk Screening Diagnosis Psychosis Pertinent Medical Hx/Surgical Hx Paranoid Schizophrenia, Anxiety disorder, Dementia, Anemia, GERD, DM II, Hypothyroidism, CKD, Dysphagia , and difficulty in walking. Per nursing notes, she became combative whenever approached. Subjective Information Patient admitted from SNF on 5150 hold. Patient confused and not able to answer questions about dietary history. Current Diet Order/ Nutrition Support Mechanical soft ground CCHO 60gm Low sodium Patient / S.O Not Indicated Pertinent Medications maalox, colace, iron, folate, novolog, levemir, synthroid, MOM, MVI w/C, Protonix Pertinent Labs POC glucose 203 on admission Nutritional Hx/Data Height 1.52 m Height (Calculated Centimeters) 152.4 Current Weight (lbs) 71.668 kg Weight (Calculated Kilograms) 71.7 Weight (Calculated Grams) 87418.6 [place] Body Weight 100 % [place] Body Weight 158 Recent Weight Change No Weight Status Obese GI Symptoms GI Symptoms None Food Allergies No Cultural/Ethnic/Taoism Belief None indicated Usual diet at home Unknown Skin Integrity/Comment: Bruises on bilateral wrist and forearm, Tristan 18 Estimated Nutritional Goals BEE in Kcals: Using Current wt Calories/Kcals/Kg 20-25 kcal/kg (based on current weight of 71.8kg) - obese Kcals Calculated ~5211-8066 kcal/day Protein: Using Current wt Protein g/k gm/kg (based on current weight of 71.8kg) Protein Calculated ~70 gm/day Fluid: ml ~0238-9875 ml/day (25-30 ml/kg ) Nutritional Problem 1. Problem Problem Altered nutrition related lab values related to Etiology hyperglycemia aeb Signs/Symptoms: blood glucose 188 on admission and POC glucose 203 Intervention/Recommendation Comments 1. Continue current diet as tolerated by patient. ( mechanical soft ground, CCHO 60gm, Low sodium). 2. MD to modify insulin regimen as needed for optimal glycemic control. Expected Outcomes/Goals Expected Outcomes/Goals Blood glucose normalizes (80- 180), oral intake to meet >75% Of estiamted nutrient needs, weight remains stable or trends toward ideal body weight.
--- NOTE | 2017-08-02 14:06 | Discharge Summary ---
DATE OF DISCHARGE: 08/02/2017 ADDENUM: The patient's discharge was canceled when it was done two days ago, because her conservator was wanting her to go to [facility]; however, they would not accept her, so now we are going to send her back to [place]. The patient is at her basic level of function. She is sleeping well, eating well. No suicidal ideation, no homicidal ideation, no paranoia. [facility]# [id number]
== END 2017-08-02 14:20 | DRG 885 ==
LOC: GERO 15:50
PROVIDERS: ADMIT Psychiatry & Neurology Psychiatry; ATTEND Psychiatry & Neurology Psychiatry
DX: F20.0 Paranoid schizophrenia (principal); A41.9 Sepsis, unspecified organism; F29 Unspecified psychosis not due to a substance or known physiological condition; E11.22 Type 2 diabetes mellitus with diabetic chronic kidney disease; N39.0 Urinary tract infection, site not specified; E03.9 Hypothyroidism, unspecified; D64.9 Anemia, unspecified; N18.9 Chronic kidney disease, unspecified; K21.9 Gastro-esophageal reflux disease without esophagitis; D63.1 Anemia in chronic kidney disease
CPT/HCPCS: 36415-UA; 80048-TC; 82948-90; 85007-TC; 85025-TC; 85027-TC; 90899; 93005; G0410; J1630; J1631; J1815; Z7610

== ENCOUNTER 2018-01-06 18:26 | Inpatient (IN) | payer MEDICARE, MEDICAID ==
--- NOTE | 2018-01-06 18:33 | ED Physician Chart ---
ED Chief Complaint/HPI - Patient Information Date Seen:: 01/06/18 Time Seen:: 18:33 Chief Complaint:: Abnormal labs History of Present Illness:: 62 yo female with ESRD was brought from [facility] to ER due to elevated BUN 94, Cr 4.45, low Hb 5.5 and Hct 17.5. At ER, patient was awake and alert. Patient also had cough and significant wheeze. Allergies:: Allergies Allergy/AdvReac Type Severity Reaction Status Date / Time No Known Allergies Allergy Verified 11/10/16 22:03 ED Review of Systems - Review of Systems General/Constitutional: No fever Skin: Other (jaundice) Head: No headache Eyes: No pain ENT: No nasal drainage Neck: No neck pain Cardio Vascular: No chest pain Pulmonary: Cough, Wheezing GI: No nausea, No vomiting Psychiatric: Prior psych history ED Past Medical History - Past Medical History Past Medical History: DM, CAD, PUD/GERD, ESRD, Thyroid disorder, Dementia, Other (Anemia) Social History: Non Smoker, No Alcohol, No Drug Use Psychiatricy History: Schizophrenia (paranoid), Other (Anxiety) Family Medical History - Family Member Mother History Unknown: Yes Ethnicity: Unknown Living Status: Unknown Hx Family Cancer: No Hx Family Coronary Artery Disease: No Hx Family Congestive Heart Failure: No Hx Family Hypertension: No Hx Family Stroke: No Hx Family Diabetes: No Hx Family Seizures: No Hx Family Dementia: No Hx Family AIDS: No Hx Family HIV: No Hx Family COPD: No Hx Family Hepatitis: No Hx Family Psychiatric Problems: No Hx Family Tuberculosis: No ED Physical Exam - Physical Examination General/Constitutional: Awake, Alert Head: Atraumatic Eyes: PERRL Other Eyes comments:: icteric conjunctiva Other Skin comments:: jaundice ENMT: Nasal exam nl Neck: No nuchal rigidity Other Respiratory comments:: b/l lung wheezing Cardio Vascular: RRR, No murmur, gallop, rubs, NL S1 S2 GI: No tenderness/rebounding/guarding Extremities: No edema Other Neuro/Psych comments:: oriented to self ED Assessment - Assessment General Assessment: End stage kidney disease Severe anemia Chronic liver disease Assessment/Comments:: CBC, CMP, PT/PTT, UA EKG, CXR DuoNeb NS 1L IV bolus Admit to med surg ED Septic Shock - . Is Septic Shock (SBP<90, OR Lactate>4 mmol\L) present?: No ED Reassessment (Disposition) - Reassessment Reassessment Condition:: Improved - Patient Disposition Discharge/Transfer:: Acute Care w/in this hosp Admitting Medical Physician:: Gayle Salguero ED Discharge Plan - Patient Disposition Admit/Discharge/Transfer: Acute Care w/in this hosp
[2018-01-06 19:03] LABS: BASOPHILE ABSOLUTE 0.1 Th/cumm (0-0.2); LYMPHOCYTE ABSOLUTE 0.4 Th/cmm (1.5-3.0); MANUAL DIFF REQUIRED? YES; MEAN CELL VOLUME 86.1 fl (81-100); MEAN CORPUSCULAR HEMOGLOBIN 28.6 pg (27.0-31.0); MEAN CORPUSCULAR HGB CONC 33.3 pg (28.0-36.0); MEAN PLATELET VOLUME 6.6 fl; MONOCYTE ABSOLUTE 0.1 Th/cmm (0.3-1.0); NEUTROPHILE ABSOLUTE 5.2 Th/cmm (1.8-8.0); PLATELET COUNT 290 Th/cmm (150-400); RED BLOOD COUNT 2.09 Mil/cmm (3.80-5.10); RED CELL DISTRIBUTION WIDTH 13.3 % (11.5-20.0); WHITE BLOOD COUNT 5.8 Th/cmm (4.8-10.8)
[2018-01-06 19:17] LABS: INR 0.97 (0.5-1.4); PROTHROMBIN TIME (TEST) 10.1 SECONDS (9.5-11.5)
[2018-01-06 19:19] LABS: ALB/GLOB RATIO 0.7 (1.0-1.8); ANION GAP 16.1 (7.0-16.0); BILIRUBIN,TOTAL 0.2 mg/dL (0.3-1.0); CALCIUM SERUM 11.4 mg/dL (8.6-10.3); CARBON DIOXIDE 11.6 mEq/L (21.0-31.0); GFR AFRICAN-AMERICAN 12.7 ml/min (>90); GFR NON AFRICAN-AMERICAN 10.5 ml/min; POTASSIUM SERUM 3.7 mEq/L (3.5-5.1); TOTAL PROTEIN,SERUM 7.2 gm/dL (6.0-8.3)
[2018-01-06 19:40] LABS: CREATININE - SERUM 4.5 mg/dL (0.6-1.2)
[2018-01-06 19:43] LABS: BAND NEUTROPHILE 2 % (0-10); EOSINOPHIL 1 % (0-5); LYMPHOCYTE 4 % (20-50); MONOCYTE 3 % (2-10); NEUTROPHILS 90 % (40-80); TOTAL CELLS COUNTED 100
[2018-01-06] MEDS ORDERED: Sodium Chloride 0.9% 500 ML IV ONE (19:51)
[2018-01-06] MEDS ORDERED: Albuterol/Ipratropium Neb 3 ML AERS HHN ONE ×3 (20:51→21:03)
[2018-01-06] MEDS: Albuterol/Ipratropium Neb 3 ML AERS HHN PRN (20:55)
[2018-01-06 21:54] VITALS: BP 105/53
[2018-01-06] MEDS ORDERED: Magnesium Hydroxide (MOM) 30 mL UDC PO PRN (22:45)
[2018-01-06] MEDS ORDERED: INSULIN HUMAN REGULAR 100 UNITS/ML UNIT SUBQ ONE (23:05)
--- NOTE | 2018-01-06 23:56 | History & Physical ---
ADMIT DATE: 01/06/2018 CHIEF COMPLAINT: Altered level of consciousness. HISTORY OF PRESENT ILLNESS: The patient is a 62-year-old female with long history of diabetes mellitus, hypothyroidism, chronic liver disease, and psychosis; presented to the Emergency Room with severe confusion, altered level of consciousness, and generalized weakness. Initial workup significant for anemia, possible hepatoencephalopathy, [id number] renal failure. The patient was admitted to the hospital, started on IV fluid, 1800 kilocalories diet, sliding scale with regular insulin coverage. Nephrology consultation, hematology consultation, psychiatric consultation obtained. Anemia panel ordered. The patient denies any chest pain, any shortness of breath, fever, chills, nausea, vomiting, or diarrhea. Ammonia level was not checked at the Emergency Room, so I ordered one for tomorrow. PAST MEDICAL HISTORY: Significant for diabetes mellitus, hypothyroidism, chronic liver disease, chronic kidney disease, psychosis, and chronic anemia. PAST SURGICAL HISTORY: No recent surgery. ALLERGIES: None. MEDICATIONS: Follow admission reconciliation. SOCIAL HISTORY: Ex-smoker, no alcohol or drugs. FAMILY HISTORY: Noncontributory. REVIEW OF SYSTEMS: IMMUNOSYSTEM: No history of chronic renal disorder. CARDIOVASCULAR SYSTEM: No coronary artery disease. ENDOCRINE SYSTEM: She has history of diabetes mellitus and hypothyroidism. GASTROINTESTINAL SYSTEM: She has history of liver cirrhosis. GENITOURINARY: She has history of chronic kidney disease. PHYSICAL EXAMINATION: GENERAL: She is awake, alert, mildly confused. VITAL SIGNS: Her temperature 96.9, heart rate 94, and blood pressure 105/53. HEENT: Normocephalic. Pupils are reacting to light and accommodation. Sclerae clear. NECK: Supple. Negative for lymphadenopathy, JVD, or bruit. CHEST: Air bilateral normal. No rhonchi or wheezing. HEART: S1, S2 normal. No gallop rhythm. ABDOMEN: Soft, bowel sounds positive. EXTREMITIES: No edema. NEUROLOGIC: She is awake. No focal motor or sensory deficit. Mildly confused. LABORATORY DATA: White blood cell 5.8, hemoglobin 6, hematocrit 18, and platelets 219. PT 10 and INR 0.97. Sodium 127, potassium 3.7, BUN 97, and creatinine 4.5. ASSESSMENT: 1. Acute metabolic encephalopathy. 2. History of psychosis. 3. Severe anemia. 4. Diabetes mellitus. 5. Hypothyroidism. 6. Chronic renal failure. PLAN: The patient admitted to the hospital under Dr. Salguero's service, started on normal saline with 20 mEq IV at 75 mL per hour, 1800 kilocalorie diet, sliding scale with regular insulin coverage. The patient will resume her medication. Anemia panel for tomorrow ordered. Dr. Escobedo consulted on the case Nephrology; Dr. Bui, direct support staff; and Dr. Shields, psychiatrist. The patient is a full code. SCD ordered. JOB# [id number]
[2018-01-07] MEDS: Albuterol/Ipratropium Neb 3 ML AERS HHN PRN ×3 (01:25→07:06)
[2018-01-07] MEDS: 0.9% NS w/20 mEq KCL 1,000 ML IV SCH ×3 (01:27→23:00)
[2018-01-07] MEDS ORDERED: Pneumococcal Vaccine 0.5 mL Vial IM ONE (03:08)
[2018-01-07] MEDS: Levothyroxine 0.075 Mg Tab PO SCH (06:32)
[2018-01-07] MEDS ORDERED: INSULIN ASPART SLIDING SCALE 100 UNITS/ML UNIT SUBQ SCH (07:30)
--- NOTE | 2018-01-07 08:34 | Diagnostic Imaging Report ---
Portable chest x-ray HISTORY: Shortness of breath Heart size difficult to assess with portable technique in a poor inspiration. Atherosclerotic calcification seen in the aorta. No acute focal pulmonary processes. Catheter noted in the region of the superior vena cava. Multiple bilateral old rib fractures noted. Deformity noted about the distal portions of both clavicles. Arthritic changes noted about the shoulder regions. Calcifications noted in the soft tissues adjacent the lateral aspect of the right humeral head consistent with calcific tendinitis. IMPRESSION: 1. No acute abnormalities 2. Multiple bilateral old rib fractures 3. Deformity involving the distal clavicles bilaterally.
[2018-01-07] MEDS ORDERED: Aspirin 81mg Chewable Tab PO SCH (09:00)
[2018-01-07] MEDS ORDERED: Non-Formulary Item 1 EA (Cranberry [Cranberry] 450 MG) PO SCH (09:00)
[2018-01-07] MEDS ORDERED: SEVELAMER HCL 800 MG PO SCH (09:00)
[2018-01-07 09:42] LABS: MEAN CELL VOLUME 85.9 fl (81-100); MEAN CORPUSCULAR HEMOGLOBIN 28.5 pg (27.0-31.0); MEAN CORPUSCULAR HGB CONC 33.2 pg (28.0-36.0); MEAN PLATELET VOLUME 6.3 fl; PLATELET COUNT 282 Th/cmm (150-400); RED BLOOD COUNT 1.71 Mil/cmm (3.80-5.10); RED CELL DISTRIBUTION WIDTH 13.1 % (11.5-20.0); WHITE BLOOD COUNT 5.7 Th/cmm (4.8-10.8)
[2018-01-07 09:46] LABS: HEMATOCRIT 14.7 % (41.0-60); HEMOGLOBIN 4.9 gm/dL (12-16); MANUAL DIFF REQUIRED? YES
[2018-01-07] MEDS: Ferrous Sulfate 325 MG TAB PO SCH (09:48)
[2018-01-07] MEDS: Multivitamin w/ Minerals Tab PO SCH (09:48)
[2018-01-07 09:54] LABS: ALB/GLOB RATIO 0.7 (1.0-1.8); ALBUMIN 2.7 gm/dL (3.7-5.3); ANION GAP 14.7 (7.0-16.0); BILIRUBIN,TOTAL 0.2 mg/dL (0.3-1.0); CALCIUM SERUM 10.4 mg/dL (8.6-10.3); CARBON DIOXIDE 10.4 mEq/L (21.0-31.0); GFR AFRICAN-AMERICAN 14.1 ml/min (>90); GFR NON AFRICAN-AMERICAN 11.7 ml/min; POTASSIUM SERUM 4.1 mEq/L (3.5-5.1); TOTAL PROTEIN,SERUM 6.5 gm/dL (6.0-8.3)
[2018-01-07 10:03] LABS: CREATININE - SERUM 4.1 mg/dL (0.6-1.2)
[2018-01-07] MEDS: Insulin Detemir 100 units/mL 10mL Vial SUBQ SCH ×3 (10:03→21:27)
[2018-01-07] MEDS ORDERED: VTE Chemical Prophylaxis Screen/Admission MC PRN (10:30)
[2018-01-07 12:08] LABS: BAND NEUTROPHILE 1 % (0-10); LYMPHOCYTE 7 % (20-50); MONOCYTE 3 % (2-10); NEUTROPHILS 89 % (40-80); PLATELET ESTIMATE ADEQUATE (NORMAL); TOTAL CELLS COUNTED 100
[2018-01-07] MEDS ORDERED: Sodium Bicarbonate 8.4% 50mEq PFS IVP ONE ×2 (14:05→23:35)
--- NOTE | 2018-01-07 14:19 | General Progress Note ---
Subjective - Review of Systems Service Date: 01/07/18 Subjective: awake and responsive able to make needs known no distress Objective - Results Result Diagrams: 01/07/18 09:30 01/07/18 09:30 Recent Labs: Laboratory Last Values WBC 5.7 Th/cmm (4.8-10.8) 01/07/18 09:30 RBC 1.71 Mil/cmm (3.80-5.10) L 01/07/18 09:30 Hgb 4.9 gm/dL (12-16) L* 01/07/18 09:30 Hct 14.7 % (41.0-60) L* 01/07/18 09:30 MCV 85.9 fl (81-100) 01/07/18 09:30 MCH 28.5 pg (27.0-31.0) 01/07/18 09:30 MCHC Differential 33.2 pg (28.0-36.0) 01/07/18 09:30 RDW 13.1 % (11.5-20.0) 01/07/18 09:30 Plt Count 282 Th/cmm (150-400) 01/07/18 09:30 MPV 6.3 fl 01/07/18 09:30 Band Neutrophils % 1 % (0-10) 01/07/18 09:30 Neutrophils (Manual) 89 % (40-80) H 01/07/18 09:30 Lymphocytes 7 % (20-50) L 01/07/18 09:30 Monocytes 3 % (2-10) 01/07/18 09:30 Eosinophils 1 % (0-5) 01/06/18 18:55 Platelet Estimate ADEQUATE (NORMAL) 01/07/18 09:30 PT 10.1 SECONDS (9.5-11.5) 01/06/18 18:55 INR 0.97 (0.5-1.4) 01/06/18 18:55 PTT (Actin FS) 22.7 SECONDS (26.0-38.0) L 01/06/18 18:55 Sodium 130 mEq/L (136-145) L 01/07/18 09:30 Potassium 4.1 mEq/L (3.5-5.1) 01/07/18 09:30 Chloride 109 mEq/L (98-107) H 01/07/18 09:30 Carbon Dioxide 10.4 mEq/L (21.0-31.0) L 01/07/18 09:30 Anion Gap 14.7 (7.0-16.0) 01/07/18 09:30 BUN 91 mg/dL (7-25) H* 01/07/18 09:30 Creatinine 4.1 mg/dL (0.6-1.2) H* 01/07/18 09:30 Est GFR ( Amer) 14.1 ml/min (>90) 01/07/18 09:30 Est GFR (Non-Af Amer) 11.7 ml/min 01/07/18 09:30 BUN/Creatinine Ratio 22.2 01/07/18 09:30 Glucose 182 mg/dL (70-105) H 01/07/18 09:30 POC Glucose 154 MG/DL (70 - 105) H 01/07/18 12:22 Calcium 10.4 mg/dL (8.6-10.3) H 01/07/18 09:30 Total Bilirubin 0.2 mg/dL (0.3-1.0) L 01/07/18 09:30 AST 11 U/L (13-39) L 01/07/18 09:30 ALT 6 U/L (7-52) L 01/07/18 09:30 Alkaline Phosphatase 138 U/L (34-104) H 01/07/18 09:30 Ammonia 64 umol/L (16-53) H 01/07/18 09:30 Total Protein 6.5 gm/dL (6.0-8.3) 01/07/18 09:30 Albumin 2.7 gm/dL (3.7-5.3) L 01/07/18 09:30 Globulin 3.8 gm/dL 01/07/18 09:30 Albumin/Globulin Ratio 0.7 (1.0-1.8) L 01/07/18 09:30 Lipase 27 U/L (11-82) 01/06/18 18:55 Blood Type A POSITIVE 01/07/18 10:40 Antibody Screen NEGATIVE 01/07/18 10:40 Crossmatch See Detail 01/07/18 10:40 - Physical Exam Vitals and I&O: Vital Signs Temp 97.5 F 01/07/18 11:57 Pulse 91 01/07/18 11:57 Resp 18 01/07/18 11:57 BP 116/52 01/07/18 11:57 Pulse Ox 98 01/07/18 11:57 Intake & Output 01/06/18 01/07/18 01/07/18 18:59 06:59 18:59 Weight (lbs) 70.76 kg Other: # Voids 3 # Bowel Movements 0 Active Medications: Current Medications Acetaminophen (Tylenol) 650 mg PO Q4HR PRN PRN Reason: MILD Pain or Fever >101 Stop: 03/07/18 22:42 Albuterol/Ipratropium (Duoneb Neb) 3 ml HHN Q4H PRN PRN Reason: Wheezing Stop: 03/07/18 20:43 Last Admin: 01/07/18 07:06 Dose: 3 ml Ascorbic Acid (Vitamin C) 500 mg PO DAILY [facility] Stop: 03/08/18 08:59 Last Admin: 01/07/18 09:48 Dose: 500 mg Atorvastatin Calcium (Lipitor) 20 mg PO HS [facility] Stop: 03/08/18 20:59 Docusate Sodium (Colace) 100 mg PO BID [facility] Stop: 03/08/18 08:59 Last Admin: 01/07/18 09:48 Dose: 100 mg Famotidine (Pepcid) 20 mg PO DAILY [facility] Stop: 03/08/18 08:59 Last Admin: 01/07/18 09:48 Dose: 20 mg Ferrous Sulfate (Iron) 325 mg PO DAILY [facility] Stop: 03/08/18 08:59 Last Admin: 01/07/18 09:48 Dose: 325 mg Folic Acid (Folate) 1 mg PO DAILY [facility] Stop: 03/08/18 08:59 Last Admin: 01/07/18 09:48 Dose: 1 mg Haloperidol (Haldol) 5 mg PO DAILY [facility] PRN Reason: Protocol Stop: 03/08/18 13:59 Potassium Chloride/Sodium Chloride (0.9% Ns W/20 Meq Kcl) 1,000 mls @ 75 mls/ hr IV .[id number] [facility] Stop: 03/07/18 23:14 Last Admin: 01/07/18 01:27 Dose: 75 mls/hr Insulin Aspart (Novolog Insulin Sliding Scale) 0 units SUBQ ACHS [facility] PRN Reason: Protocol Stop: 03/08/18 12:46 Insulin Detemir (Levemir Insulin) 10 units SUBQ Q12HR [facility] PRN Reason: Protocol Stop: 03/08/18 08:59 Last Admin: 01/07/18 10:07 Dose: 10 unit Lactobacillus Rhamnosus (Culturelle 15b) 1 each PO DAILY [facility] Stop: 03/09/18 08:59 Lactulose (Cephulac) 30 gm PO BID [facility] Stop: 03/08/18 16:59 Levothyroxine Sodium (Synthroid) 0.075 mg PO QDAC [facility] Stop: 03/08/18 07:29 Last Admin: 01/07/18 06:32 Dose: Not Given Magnesium Hydroxide (Milk Of Magnesia) 30 ml PO DAILY PRN PRN Reason: Constipation Stop: 03/07/18 22:44 Miscellaneous (Cranberry [Cranberry]) 450 mg PO BID [facility] Stop: 03/08/18 08:59 Miscellaneous (Melatonin [Melatonin]) 3 mg PO HS [facility] Stop: 03/08/18 20:59 Miscellaneous (Vte Chemical Prophylaxis Screen/ Admission) 1 ea [facility] PRN PRN PRN Reason: PROTOCOL Stop: 03/08/18 10:29 Quetiapine Fumarate (Seroquel) 200 mg PO BID [facility] PRN Reason: Protocol Stop: 03/08/18 16:59 Sevelamer Carbonate (Renvela) 800 mg PO TIDWM [facility] Stop: 03/08/18 11:59 Last Admin: 01/07/18 12:50 Dose: 800 mg General: Alert, Cooperative, No acute distress HEENT: Atraumatic, PERRLA Neck: Supple, JVD Cardiovascular: Regular rate, Normal S1, Normal S2 Lungs: Clear to auscultation Abdomen: Bowel sounds, Soft, Distended Neurological: Normal speech Psych/Mental Status: Mood NL - Procedures Procedures: Procedures Procedure Code Date TRANSFUSE NONAUT RED BLOOD CELLS IN PERIPH VEIN, [facility] 82326Y9 07/04/17 Assessment/Plan - Assessment Assessment: Severe anemia acute renal failure chr liver disease psych disorder DM - Plan Plan: transfuse PRBC Monitor renal function/urine output d/w Dr ny
[2018-01-07] MEDS: Epoetin Alfa 20000 Units/mL Vial SUBQ SCH (16:13)
[2018-01-07] MEDS: Lactulose 10 Gm/15 mL 30mL UDC PO SCH (16:47)
[2018-01-07] MEDS: INSULIN ASPART SLIDING SCALE 100 UNITS/ML UNIT SUBQ SCH ×2 (16:51→21:27)
--- NOTE | 2018-01-07 17:37 | Consultation ---
DATE OF CONSULTATION: 01/07/2018 HEMATOLOGY ONCOLOGY CONSULTATION REFERRED BY: Dr. Salguero. REASON FOR CONSULTATION: Severe anemia. HISTORY OF PRESENT ILLNESS: The patient is a 62-year-old female with history of schizophrenia. She was found to have hemoglobin of 4.9. Therefore, I was asked to evaluate. The patient had a prior hospitalization in 06/2017 with cytopenia and the workup was consistent with anemia of chronic kidney disease and the stool occult blood was not obtained at that time. The patient was transfused and undergoing transfusion now and workup ordered for iron studies and stool occult blood. PAST MEDICAL HISTORY: Hypothyroidism, chronic kidney disease, schizophrenia, diabetes, chronic recurrent anemia. PAST SURGICAL HISTORY: No recent surgeries. MEDICATIONS: Reviewed. PHYSICAL EXAMINATION: GENERAL: The patient is awake, not in respiratory distress, afebrile. VITAL SIGNS: Blood pressure is stable. HEENT: Pale complexion. NECK: Supple. CHEST: Good air entry. ABDOMEN: Soft. No clinical bleeding from any site. EXTREMITIES: No edema. LABORATORY DATA: Creatinine 4.1, calcium 10.4, albumin 2.38, white count 5.7, platelets normal at 282, hemoglobin 4.9. ASSESSMENT: 1. Normocytic anemia most likely of chronic kidney disease. The previous workup was revealing of normal ferritin, B12 and folate level. Repeat anemia workup is underway. We will start the patient on Epogen and continue folate supplementation. Awaiting the iron studies, stool occult blood and B12 level. 2. Hypercalcemia. I will obtain PTH level to determine if this is PTH dependent or independent hypercalcemia and address management accordingly. Thank you, Dr. Salguero, for the opportunity to participate in the care of this interesting case with you. JOB# [id number]
--- NOTE | 2018-01-07 19:00 | Consultation ---
DATE OF CONSULTATION: 01/07/2018 RENAL CONSULTATION I am seeing this consult through the kind request of Dr. Salguero. REASON FOR CONSULTATION: Acute renal failure on chronic kidney disease. HISTORY OF PRESENT ILLNESS: Information is obtained from chart. The patient has psychosis. The patient has a conservator. The patient is a poor historian. She is a 62-year-old woman brought in from her residence because of altered level of consciousness. Workup shows she is severely anemic and the patient is supposed to get blood transfusion today. She also has renal failure with BUN greater than 90 and a creatinine of 4.5. Therefore, I was asked for consultation. PAST MEDICAL HISTORY: Significant for diabetes, hypothyroidism, chronic liver disease, psychosis, chronic kidney disease, chronic anemia. PAST SURGICAL HISTORY: No recent surgery. ALLERGIES: None. MEDICATIONS: We will ask for records from the residential. SOCIAL HISTORY: Ex-smoker. No alcohol or drug use. REVIEW OF SYSTEMS: I cannot even get from the patient whether she can ambulate or not. Only per past medical history that she has above medical problems. I cannot even get her to answer questions about her baseline functional status. PHYSICAL EXAMINATION: VITAL SIGNS: Temperature is 97.5, heart rate is 91, respiratory rate is 18, blood pressure is 116/52. GENERAL: She is awake. She makes eye contact, but she does not answer questions properly. She is not in any distress. HEENT: Normocephalic, atraumatic. Pupils are reactive and sclerae are nonicterus. Oral mucosa is dry. She is edentulous. NECK: Supple. No thyromegaly, JVD or carotid bruits. HEART: Regular rate and rhythm. ABDOMEN: Soft, nondistended, nontender. EXTREMITIES: Have no edema. DIAGNOSTIC DATA: WBC is 5.7, hemoglobin is 4.9, hematocrit is 14.7 and platelets of 282. Sodium of 130, potassium of 4.1, chloride of 109, bicarbonate of 10.4, BUN of 91, creatinine of 4.1, glucose of 182, calcium of 10.4, AST of 11, ALT of 6. Ammonia level of 64. Her INR is 0.97. IMPRESSION AND RECOMMENDATIONS: 1. Severe anemia. The patient is going to get blood transfusion. 2. Acute kidney injury and chronic kidney disease. Unfortunately, at this time, we do not know what her baseline is. We will try and contact the residency where she came from. Out of yesterday and today's comparison, today's BUN and creatinine is slightly better. We will continue monitoring after the blood transfusion. If BUN and creatinine remains high, then we may need to dialyze the patient, but at this point, there is no absolute indication. 3. Diabetes. Continue glucose monitoring. 4. Hypothyroidism. Continue medication. 5. Chronic kidney disease as mentioned above. We will try to get information regarding her baseline. 6. Chronic liver disease. 7. Encephalopathy. She will need lactulose. 8. Metabolic acidosis. We will give sodium bicarbonate. Thank you again, Dr. Salguero, for your kind referral. We will follow the patient with you. JOB# [id number]
[2018-01-07] MEDS ORDERED: Non-Formulary Item 1 EA (Melatonin [Melatonin] 3 MG) PO SCH (21:00)
[2018-01-07] MEDS: Atorvastatin Calcium 10 MG TAB PO SCH (21:29)
--- NOTE | 2018-01-07 22:51 | Consultation ---
DATE OF CONSULTATION: 01/07/2018 IDENTIFYING INFORMATION: The patient is a 62-year-old female. HISTORY OF PRESENT ILLNESS: This patient was admitted to the medical floor because of altered level of consciousness, found to be anemic with long history of diabetes mellitus, hypothyroidism, chronic liver disease, psychosis. The patient was very confused upon admission, generalized weakness and initial workup significant anemia, possible hepato encephalopathy, acute on chronic renal failure. The patient was started on IV fluids, sliding scale. I did try to talk to the patient but she was not answering any of my question. I am not sure she is in delirious state or her level of consciousness was altered. She is well known to me. I have been seeing her for a long period of time. I saw her last week and she was in good shape, so something happened in between. The patient is with history of schizoaffective disorder. She has a conservator with multiple prior psychotic. PAST PSYCHIATRIC HISTORY: Many prior hospitalizations because of psychiatric reasons. MEDICAL HISTORY: As per Dr. Salguero. ALLERGIES: She has no known drug allergy. MEDICATIONS: She is on Seroquel 200 mg twice a day. FAMILY AND SOCIAL HISTORY: Unobtainable. The patient is not responding. However, she does have a conservator. She lives at [facility]. MENTAL STATUS EXAMINATION: The patient was not able to participate in meaningful conversation. She was with altered level of consciousness, unable to answer questions regarding how she feels about her appetite and sleep. However, she may be suffering from hepato encephalopathy. IMPRESSION: AXIS I: Schizoaffective disorder. MEDICAL DIAGNOSES: Acute metabolic encephalopathy, anemia, diabetes mellitus, hypothyroidism, chronic renal failure. I would recommend to continue her treatment. The patient's condition is more related to her medical conditions. She is already on Seroquel, which helped if she is delirious Thank you very much for allowing me to participate in the care of this most interesting lady. JOB# [id number]
[2018-01-08] MEDS: INSULIN ASPART SLIDING SCALE 100 UNITS/ML UNIT SUBQ SCH ×4 (07:40→22:00)
[2018-01-08] MEDS: Levothyroxine 0.075 Mg Tab PO SCH (07:43)
[2018-01-08 07:45] LABS: MEAN CELL VOLUME 87.6 fl (81-100); MEAN CORPUSCULAR HEMOGLOBIN 29.5 pg (27.0-31.0); MEAN CORPUSCULAR HGB CONC 33.7 pg (28.0-36.0); MEAN PLATELET VOLUME 6.4 fl; PLATELET COUNT 294 Th/cmm (150-400); RED BLOOD COUNT 2.87 Mil/cmm (3.80-5.10); RED CELL DISTRIBUTION WIDTH 13.9 % (11.5-20.0); WHITE BLOOD COUNT 6.5 Th/cmm (4.8-10.8)
[2018-01-08 07:50] LABS: HEMATOCRIT 25.2 % (41.0-60); HEMOGLOBIN 8.5 gm/dL (12-16); MANUAL DIFF REQUIRED? YES
[2018-01-08 08:03] LABS: ALB/GLOB RATIO 0.8 (1.0-1.8); ALBUMIN 2.8 gm/dL (3.7-5.3); ANION GAP 15.2 (7.0-16.0); BILIRUBIN,TOTAL 0.3 mg/dL (0.3-1.0); CALCIUM SERUM 10.2 mg/dL (8.6-10.3); CREATININE - SERUM 3.6 mg/dL (0.6-1.2); GFR AFRICAN-AMERICAN 16.4 ml/min (>90); GFR NON AFRICAN-AMERICAN 13.6 ml/min; POTASSIUM SERUM 4.2 mEq/L (3.5-5.1); TOTAL PROTEIN,SERUM 6.4 gm/dL (6.0-8.3)
[2018-01-08 08:10] LABS: IRON LC 59 ug/dL (27-139); TIBC (LC) 166 ug/dL (250-450); UIBC 107 ug/dL (118-369)
[2018-01-08] MEDS: Ferrous Sulfate 325 MG TAB PO SCH (08:52)
[2018-01-08] MEDS: Multivitamin w/ Minerals Tab PO SCH (08:52)
[2018-01-08] MEDS: Lactulose 10 Gm/15 mL 30mL UDC PO SCH ×2 (08:53→16:41)
[2018-01-08] MEDS: Lactobacillus Rhamnosus GG 15 Billion CFU CAP.SPRINK PO SCH (08:53)
[2018-01-08] MEDS: Insulin Detemir 100 units/mL 10mL Vial SUBQ SCH ×2 (09:06→22:00)
[2018-01-08 10:31] LABS: BAND NEUTROPHILE 1 % (0-10); LYMPHOCYTE 13 % (20-50); MONOCYTE 7 % (2-10); NEUTROPHILS 79 % (40-80); PLATELET ESTIMATE ADEQUATE (NORMAL); TOTAL CELLS COUNTED 100
--- NOTE | 2018-01-08 10:57 | General Progress Note ---
Subjective - Review of Systems Service Date: 01/08/18 Subjective: awake and responsive able to make needs known no distress Objective - Results Result Diagrams: 01/08/18 07:25 01/08/18 07:25 Recent Labs: Laboratory Last Values WBC 6.5 Th/cmm (4.8-10.8) 01/08/18 07:25 RBC 2.87 Mil/cmm (3.80-5.10) L 01/08/18 07:25 Hgb 8.5 gm/dL (12-16) L D 01/08/18 07:25 Hct 25.2 % (41.0-60) L D 01/08/18 07:25 MCV 87.6 fl (81-100) 01/08/18 07:25 MCH 29.5 pg (27.0-31.0) 01/08/18 07:25 MCHC Differential 33.7 pg (28.0-36.0) 01/08/18 07:25 RDW 13.9 % (11.5-20.0) 01/08/18 07:25 Plt Count 294 Th/cmm (150-400) 01/08/18 07:25 MPV 6.4 fl 01/08/18 07:25 Band Neutrophils % 1 % (0-10) 01/08/18 07:25 Neutrophils (Manual) 79 % (40-80) 01/08/18 07:25 Lymphocytes 13 % (20-50) L 01/08/18 07:25 Monocytes 7 % (2-10) 01/08/18 07:25 Eosinophils 1 % (0-5) 01/06/18 18:55 Platelet Estimate ADEQUATE (NORMAL) 01/08/18 07:25 PT 10.1 SECONDS (9.5-11.5) 01/06/18 18:55 INR 0.97 (0.5-1.4) 01/06/18 18:55 PTT (Actin FS) 22.7 SECONDS (26.0-38.0) L 01/06/18 18:55 Sodium 138 mEq/L (136-145) 01/08/18 07:25 Potassium 4.2 mEq/L (3.5-5.1) 01/08/18 07:25 Chloride 113 mEq/L (98-107) H 01/08/18 07:25 Carbon Dioxide 14.0 mEq/L (21.0-31.0) L 01/08/18 07:25 Anion Gap 15.2 (7.0-16.0) 01/08/18 07:25 BUN 82 mg/dL (7-25) H* 01/08/18 07:25 Creatinine 3.6 mg/dL (0.6-1.2) H 01/08/18 07:25 Est GFR ( Amer) 16.4 ml/min (>90) 01/08/18 07:25 Est GFR (Non-Af Amer) 13.6 ml/min 01/08/18 07:25 BUN/Creatinine Ratio 22.8 01/08/18 07:25 Glucose 82 mg/dL (70-105) D 01/08/18 07:25 POC Glucose 162 MG/DL (70 - 105) H 01/08/18 09:06 Calcium 10.2 mg/dL (8.6-10.3) 01/08/18 07:25 Iron 59 ug/dL (27-139) 01/07/18 09:30 TIBC 166 ug/dL (250-450) L 01/07/18 09:30 Iron Saturation 36 % (15-55) 01/07/18 09:30 Unsaturated IBC 107 ug/dL (118-369) L 01/07/18 09:30 Total Bilirubin 0.3 mg/dL (0.3-1.0) 01/08/18 07:25 AST 13 U/L (13-39) 01/08/18 07:25 ALT 6 U/L (7-52) L 01/08/18 07:25 Alkaline Phosphatase 140 U/L (34-104) H 01/08/18 07:25 Ammonia 71 umol/L (16-53) H 01/08/18 07:25 Total Protein 6.4 gm/dL (6.0-8.3) 01/08/18 07:25 Albumin 2.8 gm/dL (3.7-5.3) L 01/08/18 07:25 Globulin 3.6 gm/dL 01/08/18 07:25 Albumin/Globulin Ratio 0.8 (1.0-1.8) L 01/08/18 07:25 Lipase 27 U/L (11-82) 01/06/18 18:55 TSH 2.40 uIU/ml (0.34-5.60) 01/08/18 07:25 Stool Occult Blood NEGATIVE (NEGATIVE) 01/07/18 22:30 Blood Type A POSITIVE 01/07/18 10:40 Antibody Screen NEGATIVE 01/07/18 10:40 Crossmatch See Detail 01/07/18 10:40 - Physical Exam Vitals and I&O: Vital Signs Temp 97.5 F 01/08/18 08:00 Pulse 100 01/08/18 08:00 Resp 18 01/08/18 08:00 BP 105/64 01/08/18 08:00 Pulse Ox 97 01/08/18 08:00 Intake & Output 01/07/18 01/08/18 01/08/18 18:59 06:59 18:59 Intake Total 1000 2211.25 Output Total 1500 Balance 1000 711.25 Weight (lbs) 70.76 kg Intake: Intake, IV Amount 1000 481.25 0.9% NS w/20 mEq KCL 1, 1000 481.25 000 ml @ 75 mls/hr IV . [id number] [facility] Rx#:[id number] Oral 980 Blood Product 750 Output: Urine 1500 Other: # Voids 3 # Bowel Movements 2 Stool Characteristics Liquid Liquid Active Medications: Current Medications Acetaminophen (Tylenol) 650 mg PO Q4HR PRN PRN Reason: MILD Pain or Fever >101 Stop: 03/07/18 22:42 Albuterol/Ipratropium (Duoneb Neb) 3 ml HHN Q4H PRN PRN Reason: Wheezing Stop: 03/07/18 20:43 Last Admin: 01/07/18 07:06 Dose: 3 ml Ascorbic Acid (Vitamin C) 500 mg PO DAILY [facility] Stop: 03/08/18 08:59 Last Admin: 01/08/18 08:52 Dose: 500 mg Atorvastatin Calcium (Lipitor) 20 mg PO HS [facility] Stop: 03/08/18 20:59 Last Admin: 01/07/18 21:29 Dose: 20 mg Docusate Sodium (Colace) 100 mg PO BID [facility] Stop: 03/08/18 08:59 Last Admin: 01/08/18 08:52 Dose: 100 mg Epoetin Brad (Epogen) 5,000 units SUBQ TuTa [facility] Stop: 03/08/18 15:59 Last Admin: 03/17/18 16:13 Dose: 5,000 units Famotidine (Pepcid) 20 mg PO DAILY [facility] Stop: 03/08/18 08:59 Last Admin: 01/08/18 08:52 Dose: 20 mg Ferrous Sulfate (Iron) 325 mg PO DAILY [facility] Stop: 03/08/18 08:59 Last Admin: 01/08/18 08:52 Dose: 325 mg Folic Acid (Folate) 1 mg PO DAILY [facility] Stop: 03/08/18 08:59 Last Admin: 01/08/18 08:52 Dose: 1 mg Haloperidol (Haldol) 5 mg PO DAILY [facility] PRN Reason: Protocol Stop: 03/08/18 13:59 Last Admin: 01/08/18 08:52 Dose: 5 mg Potassium Chloride/Sodium Chloride (0.9% Ns W/20 Meq Kcl) 1,000 mls @ 75 mls/ hr IV .[id number] [facility] Stop: 03/07/18 23:14 Last Admin: 01/07/18 23:00 Dose: 75 mls/hr Insulin Aspart (Novolog Insulin Sliding Scale) 0 units SUBQ ACHS [facility] PRN Reason: Protocol Stop: 03/08/18 12:46 Last Admin: 01/08/18 07:40 Dose: Not Given Insulin Detemir (Levemir Insulin) 10 units SUBQ Q12HR [facility] PRN Reason: Protocol Stop: 03/08/18 08:59 Last Admin: 01/08/18 09:06 Dose: 10 unit Lactobacillus Rhamnosus (Culturelle 15b) 1 each PO DAILY [facility] Stop: 03/09/18 08:59 Last Admin: 01/08/18 08:53 Dose: 1 each Lactulose (Cephulac) 30 gm PO BID [facility] Stop: 03/08/18 16:59 Last Admin: 01/08/18 08:53 Dose: 30 gm Levothyroxine Sodium (Synthroid) 0.075 mg PO QDAC [facility] Stop: 03/08/18 07:29 Last Admin: 01/08/18 07:43 Dose: 0.075 mg Magnesium Hydroxide (Milk Of Magnesia) 30 ml PO DAILY PRN PRN Reason: Constipation Stop: 03/07/18 22:44 Miscellaneous (Vte Chemical Prophylaxis Screen/ Admission) 1 ea [facility] PRN PRN PRN Reason: PROTOCOL Stop: 03/08/18 10:29 Quetiapine Fumarate (Seroquel) 200 mg PO BID [facility] PRN Reason: Protocol Stop: 03/08/18 16:59 Last Admin: 01/08/18 08:52 Dose: 200 mg Sevelamer Carbonate (Renvela) 800 mg PO TIDWM [facility] Stop: 03/08/18 11:59 Last Admin: 01/08/18 08:52 Dose: 800 mg General: Alert, Cooperative, No acute distress HEENT: Atraumatic, PERRLA Neck: Supple, JVD Cardiovascular: Regular rate, Normal S1, Normal S2 Lungs: Clear to auscultation Abdomen: Bowel sounds, Soft, Distended Neurological: Normal speech Psych/Mental Status: Mood NL - Procedures Procedures: Procedures Procedure Code Date TRANSFUSE NONAUT RED BLOOD CELLS IN PERIPH VEIN, [facility] 11933A7 07/04/17 Assessment/Plan - Assessment Assessment: Severe anemia acute renal failure chr liver disease psych disorder DM elevated ammonia - Plan Plan: cont current treatment
--- NOTE | 2018-01-08 15:29 | General Progress Note ---
Subjective - Review of Systems Service Date: 01/08/18 Events since last encounter: No new events Subjective: No complaints Nursing staff report they attempted to establish IV access 4 times and still not successful. Will need to try on lower extremity. Objective - Results Result Diagrams: 01/08/18 07:25 01/08/18 07:25 Recent Labs: Laboratory Last Values WBC 6.5 Th/cmm (4.8-10.8) 01/08/18 07:25 RBC 2.87 Mil/cmm (3.80-5.10) L 01/08/18 07:25 Hgb 8.5 gm/dL (12-16) L D 01/08/18 07:25 Hct 25.2 % (41.0-60) L D 01/08/18 07:25 MCV 87.6 fl (81-100) 01/08/18 07:25 MCH 29.5 pg (27.0-31.0) 01/08/18 07:25 MCHC Differential 33.7 pg (28.0-36.0) 01/08/18 07:25 RDW 13.9 % (11.5-20.0) 01/08/18 07:25 Plt Count 294 Th/cmm (150-400) 01/08/18 07:25 MPV 6.4 fl 01/08/18 07:25 Band Neutrophils % 1 % (0-10) 01/08/18 07:25 Neutrophils (Manual) 79 % (40-80) 01/08/18 07:25 Lymphocytes 13 % (20-50) L 01/08/18 07:25 Monocytes 7 % (2-10) 01/08/18 07:25 Eosinophils 1 % (0-5) 01/06/18 18:55 Platelet Estimate ADEQUATE (NORMAL) 01/08/18 07:25 PT 10.1 SECONDS (9.5-11.5) 01/06/18 18:55 INR 0.97 (0.5-1.4) 01/06/18 18:55 PTT (Actin FS) 22.7 SECONDS (26.0-38.0) L 01/06/18 18:55 Sodium 138 mEq/L (136-145) 01/08/18 07:25 Potassium 4.2 mEq/L (3.5-5.1) 01/08/18 07:25 Chloride 113 mEq/L (98-107) H 01/08/18 07:25 Carbon Dioxide 14.0 mEq/L (21.0-31.0) L 01/08/18 07:25 Anion Gap 15.2 (7.0-16.0) 01/08/18 07:25 BUN 82 mg/dL (7-25) H* 01/08/18 07:25 Creatinine 3.6 mg/dL (0.6-1.2) H 01/08/18 07:25 Est GFR ( Amer) 16.4 ml/min (>90) 01/08/18 07:25 Est GFR (Non-Af Amer) 13.6 ml/min 01/08/18 07:25 BUN/Creatinine Ratio 22.8 01/08/18 07:25 Glucose 82 mg/dL (70-105) D 01/08/18 07:25 POC Glucose 198 MG/DL (70 - 105) H 01/08/18 12:07 Calcium 10.2 mg/dL (8.6-10.3) 01/08/18 07:25 Iron 59 ug/dL (27-139) 01/07/18 09:30 TIBC 166 ug/dL (250-450) L 01/07/18 09:30 Iron Saturation 36 % (15-55) 01/07/18 09:30 Unsaturated IBC 107 ug/dL (118-369) L 01/07/18 09:30 Total Bilirubin 0.3 mg/dL (0.3-1.0) 01/08/18 07:25 AST 13 U/L (13-39) 01/08/18 07:25 ALT 6 U/L (7-52) L 01/08/18 07:25 Alkaline Phosphatase 140 U/L (34-104) H 01/08/18 07:25 Ammonia 71 umol/L (16-53) H 01/08/18 07:25 Total Protein 6.4 gm/dL (6.0-8.3) 01/08/18 07:25 Albumin 2.8 gm/dL (3.7-5.3) L 01/08/18 07:25 Globulin 3.6 gm/dL 01/08/18 07:25 Albumin/Globulin Ratio 0.8 (1.0-1.8) L 01/08/18 07:25 Lipase 27 U/L (11-82) 01/06/18 18:55 TSH 2.40 uIU/ml (0.34-5.60) 01/08/18 07:25 Stool Occult Blood NEGATIVE (NEGATIVE) 01/07/18 22:30 Blood Type A POSITIVE 01/07/18 10:40 Antibody Screen NEGATIVE 01/07/18 10:40 Crossmatch See Detail 01/07/18 10:40 - Physical Exam Vitals and I&O: Vital Signs Temp 97.5 F 01/08/18 08:00 Pulse 100 01/08/18 08:00 Resp 18 01/08/18 08:00 BP 105/64 01/08/18 08:00 Pulse Ox 97 01/08/18 08:00 Intake & Output 01/07/18 01/08/18 01/08/18 18:59 06:59 18:59 Intake Total 1000 2211.25 Output Total 1500 Balance 1000 711.25 Weight (lbs) 70.76 kg Intake: Intake, IV Amount 1000 481.25 0.9% NS w/20 mEq KCL 1, 1000 481.25 000 ml @ 75 mls/hr IV . [id number] [facility] Rx#:[id number] Oral 980 Blood Product 750 Output: Urine 1500 Other: # Voids 3 # Bowel Movements 2 Stool Characteristics Liquid Liquid Active Medications: Current Medications Acetaminophen (Tylenol) 650 mg PO Q4HR PRN PRN Reason: MILD Pain or Fever >101 Stop: 03/07/18 22:42 Albuterol/Ipratropium (Duoneb Neb) 3 ml HHN Q4H PRN PRN Reason: Wheezing Stop: 03/07/18 20:43 Last Admin: 01/07/18 07:06 Dose: 3 ml Ascorbic Acid (Vitamin C) 500 mg PO DAILY [facility] Stop: 03/08/18 08:59 Last Admin: 01/08/18 08:52 Dose: 500 mg Atorvastatin Calcium (Lipitor) 20 mg PO HS [facility] Stop: 03/08/18 20:59 Last Admin: 01/07/18 21:29 Dose: 20 mg Docusate Sodium (Colace) 100 mg PO BID [facility] Stop: 03/08/18 08:59 Last Admin: 01/08/18 08:52 Dose: 100 mg Epoetin Brad (Epogen) 5,000 units SUBQ TuThSa [facility] Stop: 03/08/18 15:59 Last Admin: 01/07/18 16:13 Dose: 5,000 units Famotidine (Pepcid) 20 mg PO DAILY [facility] Stop: 03/08/18 08:59 Last Admin: 01/08/18 08:52 Dose: 20 mg Ferrous Sulfate (Iron) 325 mg PO DAILY [facility] Stop: 03/08/18 08:59 Last Admin: 01/08/18 08:52 Dose: 325 mg Folic Acid (Folate) 1 mg PO DAILY [facility] Stop: 03/08/18 08:59 Last Admin: 01/08/18 08:52 Dose: 1 mg Haloperidol (Haldol) 5 mg PO DAILY [facility] PRN Reason: Protocol Stop: 03/08/18 13:59 Last Admin: 01/08/18 08:52 Dose: 5 mg Potassium Chloride/Sodium Chloride (0.9% Ns W/20 Meq Kcl) 1,000 mls @ 75 mls/ hr IV .[id number] [facility] Stop: 03/07/18 23:14 Last Admin: 01/07/18 23:00 Dose: 75 mls/hr Insulin Aspart (Novolog Insulin Sliding Scale) 0 units SUBQ ACHS [facility] PRN Reason: Protocol Stop: 03/08/18 12:46 Last Admin: 01/08/18 12:39 Dose: 2 units Insulin Detemir (Levemir Insulin) 10 units SUBQ Q12HR [facility] PRN Reason: Protocol Stop: 03/08/18 08:59 Last Admin: 01/08/18 09:06 Dose: 10 unit Lactobacillus Rhamnosus (Culturelle 15b) 1 each PO DAILY [facility] Stop: 03/09/18 08:59 Last Admin: 01/08/18 08:53 Dose: 1 each Lactulose (Cephulac) 30 gm PO BID [facility] Stop: 03/08/18 16:59 Last Admin: 01/08/18 08:53 Dose: 30 gm Levothyroxine Sodium (Synthroid) 0.075 mg PO QDAC [facility] Stop: 03/08/18 07:29 Last Admin: 01/08/18 07:43 Dose: 0.075 mg Magnesium Hydroxide (Milk Of Magnesia) 30 ml PO DAILY PRN PRN Reason: Constipation Stop: 03/07/18 22:44 Miscellaneous (Vte Chemical Prophylaxis Screen/ Admission) 1 ea PRN PRN PRN Reason: PROTOCOL Stop: 03/08/18 10:29 Quetiapine Fumarate (Seroquel) 200 mg PO BID [facility] PRN Reason: Protocol Stop: 03/08/18 16:59 Last Admin: 01/08/18 08:52 Dose: 200 mg Sevelamer Carbonate (Renvela) 800 mg PO TIDWM [facility] Stop: 03/08/18 11:59 Last Admin: 01/08/18 12:39 Dose: 800 mg General: Alert (frail), Cooperative, No acute distress HEENT: Atraumatic, PERRLA Neck: Supple, JVD Cardiovascular: Regular rate, Normal S1, Normal S2 Lungs: Clear to auscultation Abdomen: Bowel sounds, Soft, Distended Neurological: Normal speech Psych/Mental Status: Mood NL - Procedures Procedures: Procedures Procedure Code Date TRANSFUSE NONAUT RED BLOOD CELLS IN PERIPH VEIN, [facility] [id number] 07/04/17 Assessment/Plan - Assessment Assessment: 1. CIERRA 2. CKD 3. Severe anemia. Transfused. Dr. Bui on consult. 4. DM 5. Acidosis. Improving slowly 6. Chronic liver disease 7. Encephalopathy. - Plan Plan: BUN and Cr improving. Continue IVF Difficult IV access. Nursing staff will have to try to establish on lower extr Transfused PRBC Baseline CKD but stage is not know. Acidosis improved with NaHCO3 IV yesterday. Will continue giving NaHCO3 but orally.
[2018-01-08 20:23] LABS: A1C % 6.2 % (4.0-6.0)
[2018-01-08] MEDS: Atorvastatin Calcium 10 MG TAB PO SCH (21:59)
[2018-01-08] MEDS: 0.9% NS w/20 mEq KCL 1,000 ML IV SCH (22:11)
--- NOTE | 2018-01-09 02:30 | Progress Notes ---
DATE: 01/08/2018 Case was discussed with the staff of the patient and reviewed records. The patient is more alert. She is having a renal ultrasound. She continues to be isolative and internally preoccupied with episodes of confusion, unable to make safe plan for self-care or participate in meaningful conversation. She was able to feed herself yesterday, sleeping better, eating better, and no side effects of the medications. No sedation, no nausea. Thank you very much for allowing me to participate in the care of this most interesting lady. JOB# [id number]
[2018-01-09 06:09] LABS: % BASOPHILS 0.1 % (0.0-2.0); % LYMPHOCYTES 8.1 % (20.0-50.0); % MONOCYTES 5.3 % (2.0-10.0); % NEUTROPHILS 85.5 % (40.0-80.0); EOSINOPHILE ABSOLUTE 0.1 Th/cmm (0.1-0.4); HEMOGLOBIN 8.7 gm/dL (12-16); LYMPHOCYTE ABSOLUTE 0.6 Th/cmm (1.5-3.0); MEAN CORPUSCULAR HEMOGLOBIN 29.5 pg (27.0-31.0); MEAN CORPUSCULAR HGB CONC 33.6 pg (28.0-36.0); MEAN PLATELET VOLUME 6.6 fl; MONOCYTE ABSOLUTE 0.4 Th/cmm (0.3-1.0); NEUTROPHILE ABSOLUTE 5.9 Th/cmm (1.8-8.0); PLATELET COUNT 272 Th/cmm (150-400); RED BLOOD COUNT 2.96 Mil/cmm (3.80-5.10)
[2018-01-09 06:10] LABS: ANION GAP 14.6 (7.0-16.0); CALCIUM SERUM 9.9 mg/dL (8.6-10.3); CARBON DIOXIDE 16.3 mEq/L (21.0-31.0); CREATININE - SERUM 3.3 mg/dL (0.6-1.2); GFR AFRICAN-AMERICAN 18.2 ml/min (>90); POTASSIUM SERUM 4.9 mEq/L (3.5-5.1)
[2018-01-09] MEDS: Levothyroxine 0.075 Mg Tab PO SCH (07:54)
--- NOTE | 2018-01-09 08:06 | Diagnostic Imaging Report ---
Renal ultrasound HISTORY: Abnormal renal function test The right kidney measures 12.1 x 6.4 cm. There appears to be moderate to severe hydronephrosis involving the right renal collecting system. There is an approximate 2.9 cm) echogenic density within the medullary region. Etiology uncertain. This is associated with a somewhat more focal 1.0 cm echogenic density consistent with a calcification. A CT scan or provide additional assessment and evaluation. There is suboptimal delineation of the entire margins of the left kidney that measures approximately 10.0 x 5.4 x 5.5 cm. No focal lesions. No hydronephrosis. Urinary bladder cannot be well evaluated due to lack of distention. IMPRESSION: 1. Hydronephrosis involving the right renal collecting system. Findings associated with an approximate 2.9 cm round hyperechoic density. Etiology uncertain. A CT scan recommended for further assessment and evaluation.
[2018-01-09] MEDS: INSULIN ASPART SLIDING SCALE 100 UNITS/ML UNIT SUBQ SCH ×4 (10:06→22:07)
[2018-01-09] MEDS: Lactulose 10 Gm/15 mL 30mL UDC PO SCH ×2 (10:13→17:52)
[2018-01-09] MEDS: Ferrous Sulfate 325 MG TAB PO SCH (10:13)
[2018-01-09] MEDS: Lactobacillus Rhamnosus GG 15 Billion CFU CAP.SPRINK PO SCH (10:13)
[2018-01-09] MEDS: Multivitamin w/ Minerals Tab PO SCH (10:14)
[2018-01-09] MEDS: Insulin Detemir 100 units/mL 10mL Vial SUBQ SCH ×2 (10:53→22:07)
--- NOTE | 2018-01-09 15:36 | General Progress Note ---
Subjective - Review of Systems Service Date: 01/09/18 Subjective: pt seen and examined Objective - Results Result Diagrams: 01/09/18 05:25 01/09/18 05:25 Recent Labs: Laboratory Last Values WBC 7.0 Th/cmm (4.8-10.8) 01/09/18 05:25 RBC 2.96 Mil/cmm (3.80-5.10) L 01/09/18 05:25 Hgb 8.7 gm/dL (12-16) L 01/09/18 05:25 Hct 26.0 % (41.0-60) L 01/09/18 05:25 MCV 88.0 fl (81-100) 01/09/18 05:25 MCH 29.5 pg (27.0-31.0) 01/09/18 05:25 MCHC Differential 33.6 pg (28.0-36.0) 01/09/18 05:25 RDW 14.0 % (11.5-20.0) 01/09/18 05:25 Plt Count 272 Th/cmm (150-400) 01/09/18 05:25 MPV 6.6 fl 01/09/18 05:25 Neutrophils % 85.5 % (40.0-80.0) H 01/09/18 05:25 Band Neutrophils % 1 % (0-10) 01/08/18 07:25 Lymphocytes % 8.1 % (20.0-50.0) L 01/09/18 05:25 Monocytes % 5.3 % (2.0-10.0) 01/09/18 05:25 Eosinophils % 1.0 % (0.0-5.0) 01/09/18 05:25 Basophils % 0.1 % (0.0-2.0) 01/09/18 05:25 Neutrophils (Manual) 79 % (40-80) 01/08/18 07:25 Lymphocytes 13 % (20-50) L 01/08/18 07:25 Monocytes 7 % (2-10) 01/08/18 07:25 Eosinophils 1 % (0-5) 01/06/18 18:55 Platelet Estimate ADEQUATE (NORMAL) 01/08/18 07:25 PT 10.1 SECONDS (9.5-11.5) 01/06/18 18:55 INR 0.97 (0.5-1.4) 01/06/18 18:55 PTT (Actin FS) 22.7 SECONDS (26.0-38.0) L 01/06/18 18:55 Sodium 136 mEq/L (136-145) 01/09/18 05:25 Potassium 4.9 mEq/L (3.5-5.1) 01/09/18 05:25 Chloride 110 mEq/L (98-107) H 01/09/18 05:25 Carbon Dioxide 16.3 mEq/L (21.0-31.0) L 01/09/18 05:25 Anion Gap 14.6 (7.0-16.0) 01/09/18 05:25 BUN 74 mg/dL (7-25) H 01/09/18 05:25 Creatinine 3.3 mg/dL (0.6-1.2) H 01/09/18 05:25 Est GFR ( Amer) 18.2 ml/min (>90) 01/09/18 05:25 Est GFR (Non-Af Amer) 15.0 ml/min 01/09/18 05:25 BUN/Creatinine Ratio 22.4 01/09/18 05:25 Glucose 90 mg/dL (70-105) 01/09/18 05:25 POC Glucose 105 MG/DL (70 - 105) 01/09/18 12:36 Hemoglobin A1c % 6.2 % (4.0-6.0) H 01/06/18 18:55 Calcium 9.9 mg/dL (8.6-10.3) 01/09/18 05:25 Iron 59 ug/dL (27-139) 01/07/18 09:30 TIBC 166 ug/dL (250-450) L 01/07/18 09:30 Iron Saturation 36 % (15-55) 01/07/18 09:30 Unsaturated IBC 107 ug/dL (118-369) L 01/07/18 09:30 Total Bilirubin 0.3 mg/dL (0.3-1.0) 01/08/18 07:25 AST 13 U/L (13-39) 01/08/18 07:25 ALT 6 U/L (7-52) L 01/08/18 07:25 Alkaline Phosphatase 140 U/L (34-104) H 01/08/18 07:25 Ammonia 71 umol/L (16-53) H 01/08/18 07:25 Total Protein 6.4 gm/dL (6.0-8.3) 01/08/18 07:25 Albumin 2.8 gm/dL (3.7-5.3) L 01/08/18 07:25 Globulin 3.6 gm/dL 01/08/18 07:25 Albumin/Globulin Ratio 0.8 (1.0-1.8) L 01/08/18 07:25 Lipase 27 U/L (11-82) 01/06/18 18:55 TSH 2.40 uIU/ml (0.34-5.60) 01/08/18 07:25 Stool Occult Blood NEGATIVE (NEGATIVE) 01/08/18 16:00 Blood Type A POSITIVE 01/07/18 10:40 Antibody Screen NEGATIVE 01/07/18 10:40 Crossmatch See Detail 01/07/18 10:40 - Physical Exam Vitals and I&O: Vital Signs Temp 97.1 F 01/09/18 11:42 Pulse 104 01/09/18 11:42 Resp 18 01/09/18 11:42 BP 136/70 01/09/18 11:42 Pulse Ox 98 01/09/18 11:42 Intake & Output 01/08/18 01/09/18 01/09/18 18:59 06:59 18:59 Intake Total 1850 800 Output Total 1200 1100 Balance 650 -300 Weight (lbs) 70.76 kg 70.67 kg Intake: Intake, IV Amount 1000 0.9% NS w/20 mEq KCL 1, 1000 000 ml @ 75 mls/hr IV . [id number] [facility] Rx#:[id number] Oral 850 800 Output: Urine 1200 1100 Other: # Bowel Movements 4 3 Stool Characteristics Liquid Liquid Active Medications: Current Medications Acetaminophen (Tylenol) 650 mg PO Q4HR PRN PRN Reason: MILD Pain or Fever >101 Stop: 03/07/18 22:42 Albuterol/Ipratropium (Duoneb Neb) 3 ml HHN Q4H PRN PRN Reason: Wheezing Stop: 03/07/18 20:43 Last Admin: 01/07/18 07:06 Dose: 3 ml Ascorbic Acid (Vitamin C) 500 mg PO DAILY [facility] Stop: 03/08/18 08:59 Last Admin: 01/09/18 10:12 Dose: 500 mg Atorvastatin Calcium (Lipitor) 20 mg PO HS [facility] Stop: 03/08/18 20:59 Last Admin: 01/08/18 21:59 Dose: 20 mg Docusate Sodium (Colace) 100 mg PO BID [facility] Stop: 03/08/18 08:59 Last Admin: 01/09/18 10:12 Dose: 100 mg Epoetin Brad (Epogen) 5,000 units SUBQ TuThSa [facility] Stop: 03/08/18 15:59 Last Admin: 01/07/18 16:13 Dose: 5,000 units Famotidine (Pepcid) 20 mg PO DAILY [facility] Stop: 03/08/18 08:59 Last Admin: 01/09/18 10:12 Dose: 20 mg Ferrous Sulfate (Iron) 325 mg PO DAILY [facility] Stop: 03/08/18 08:59 Last Admin: 01/09/18 10:13 Dose: 325 mg Folic Acid (Folate) 1 mg PO DAILY [facility] Stop: 03/08/18 08:59 Last Admin: 01/09/18 10:13 Dose: 1 mg Haloperidol (Haldol) 5 mg PO DAILY [facility] PRN Reason: Protocol Stop: 03/08/18 13:59 Last Admin: 01/09/18 10:13 Dose: 5 mg Potassium Chloride/Sodium Chloride (0.9% Ns W/20 Meq Kcl) 1,000 mls @ 75 mls/ hr IV .[id number] [facility] Stop: 03/07/18 23:14 Last Admin: 01/08/18 22:11 Dose: 75 mls/hr Insulin Aspart (Novolog Insulin Sliding Scale) 0 units SUBQ ACHS [facility] PRN Reason: Protocol Stop: 03/08/18 12:46 Last Admin: 01/09/18 12:51 Dose: Not Given Insulin Detemir (Levemir Insulin) 10 units SUBQ Q12HR [facility] PRN Reason: Protocol Stop: 03/08/18 08:59 Last Admin: 01/09/18 10:53 Dose: 10 unit Lactobacillus Rhamnosus (Culturelle 15b) 1 each PO DAILY [facility] Stop: 03/09/18 08:59 Last Admin: 01/09/18 10:13 Dose: 1 each Lactulose (Cephulac) 30 gm PO BID [facility] Stop: 03/08/18 16:59 Last Admin: 01/09/18 10:13 Dose: 30 gm Levothyroxine Sodium (Synthroid) 0.075 mg PO QDAC [facility] Stop: 03/08/18 07:29 Last Admin: 01/09/18 07:54 Dose: 0.075 mg Magnesium Hydroxide (Milk Of Magnesia) 30 ml PO DAILY PRN PRN Reason: Constipation Stop: 03/07/18 22:44 Miscellaneous (Vte Chemical Prophylaxis Screen/ Admission) 1 ea [facility] PRN PRN PRN Reason: PROTOCOL Stop: 03/08/18 10:29 Quetiapine Fumarate (Seroquel) 200 mg PO BID [facility] PRN Reason: Protocol Stop: 03/08/18 16:59 Last Admin: 01/09/18 10:14 Dose: 200 mg Sevelamer Carbonate (Renvela) 800 mg PO TIDWM [facility] Stop: 03/08/18 11:59 Last Admin: 01/09/18 12:43 Dose: 800 mg Sodium Bicarbonate (Sodium Bicarbonate) 650 mg PO QID [facility] PRN Reason: Protocol Stop: 03/09/18 16:59 Last Admin: 01/09/18 13:47 Dose: Not Given General: Alert (frail), Cooperative, No acute distress HEENT: Atraumatic, PERRLA Neck: Supple, JVD Cardiovascular: Regular rate, Normal S1, Normal S2 Lungs: Clear to auscultation Abdomen: Bowel sounds, Soft, Distended Neurological: Normal speech Psych/Mental Status: Mood NL - Procedures Procedures: Procedures Procedure Code Date BLOOD TRANSFUSION SERVICE 51433 01/06/18 TRANSFUSE NONAUT RED BLOOD CELLS IN PERIPH VEIN, [facility] 39995G9 01/06/18 Assessment/Plan - Assessment Assessment: CIERRA CKD SEVERE ANEMIA - Plan Plan: RENAL FUNCTION IMPROVING CONTINUE IVF CHECK LABS IN AM Nutritional Asmnt/Malnutr-PDOC - Dietary Evaluation Malnutrition Findings (Please click <Entered> for more info): Nutritional Asmnt/Malnutrition Start: 01/09/18 14: 36 Text: Status: Active Freq: Document 01/09/18 14:36 ANA (Rec: 01/09/18 14:50 ANA [email or web address]) Nutritional Asmnt/Malnutrition Patient General Information Nutritional Screening High Risk Consult Diagnosis Anemia, liver cirrhosis Pertinent Medical Hx/Surgical Hx DM, hypothyroidism, chronic liver disease, CKD, psychosis, chronic anemai Subjective Information Consult received for high blood sugar. Pt seen sitting up in bed at time of visit, somewhat confused. Pt appeared thin. Observed lunch consumed about 75% including supplements. Pt has no teeth noted, may need [facility] soft diet . Per EMR, PO intake 25-50%. Current Diet Order/ Nutrition Support 1800kcal, boost glucose control TID Pertinent Medications vit C, colace, iron, folate, novolog, levemir, culturelle, cephulac, synthroid, 0.9% ns w .20 meq kcl, seroquel, renvela Pertinent Labs 01/09 cl 110, BUN 74 (improved) , Cr 3.3 (improved), Glucose 90, POC 105-123 01/06 A1c 6.2 Nutritional Hx/Data Height 1.63 m Height (Calculated Centimeters) 162.6 Current Weight (lbs) 70.76 kg Weight (Calculated Kilograms) 70.8 Weight (Calculated Grams) 23424.4 [place] Body Weight 120 Body Mass Index (BMI) 26.7 Weight Status Overweight GI Symptoms GI Symptoms Diarrhea Last BM 01/08 multiple times Difficult in: None Skin Integrity/Comment: reddened to buttock Current %PO Fair (50-74%) Estimated Nutritional Goals Calories/Kcals/Kg 25-30 Kcals Calculated 6015-4196 Protein g/k-1.2 Protein Calculated 59-71 Fluid: ml 1475-1770ml (1ml/kcal) Nutritional Problem 1. Problem Problem altered nutrition related labs Etiology CKD, DM Signs/Symptoms: BUN 74, Cr 3.3, Glucose 90, POC 105-123, A1c 6.2 Malnutrition Alert Muscle Mass (Non-Severe) Mild Depletion Protein-Calorie Malnutrition N/A Is there a minimum of two criteria No selected? Query Text:Check all the applicable criteria. A minimum of two criteria are recommended for diagnosis of either severe or non-severe malnutrition. Intervention/Recommendation Comments 1. Recommend renal mech soft ground diet. RN notified. 2. Monitor PO intake, wt, labs and skin integrity 3. F/U as moderate risk in 3-5 days, 01/12-01/14 Expected Outcomes/Goals Expected Outcomes/Goals 1. PO intake to meet at least 75% of nutritional needs. 2. Wt stability, skin to remain intact, labs to approach WNL.
[2018-01-09] MEDS: 0.9% NS w/20 mEq KCL 1,000 ML IV SCH (18:03)
--- NOTE | 2018-01-09 21:38 | Internal Medicine Prog Note ---
Internal Medicine Subjective - Subjective Service Date: 01/09/18 Patient seen and examined:: with staff Patient is:: awake, in bed, talking, confused Per staff patient has:: no adverse event (SHE IS VERY CONFUSED) Internal Medicine Objective - Results Result Diagrams: 01/09/18 05:25 01/09/18 05:25 Recent Labs: Laboratory Last Values WBC 7.0 Th/cmm (4.8-10.8) 01/09/18 05:25 RBC 2.96 Mil/cmm (3.80-5.10) L 01/09/18 05:25 Hgb 8.7 gm/dL (12-16) L 01/09/18 05:25 Hct 26.0 % (41.0-60) L 01/09/18 05:25 MCV 88.0 fl (81-100) 01/09/18 05:25 MCH 29.5 pg (27.0-31.0) 01/09/18 05:25 MCHC Differential 33.6 pg (28.0-36.0) 01/09/18 05:25 RDW 14.0 % (11.5-20.0) 01/09/18 05:25 Plt Count 272 Th/cmm (150-400) 01/09/18 05:25 MPV 6.6 fl 01/09/18 05:25 Neutrophils % 85.5 % (40.0-80.0) H 01/09/18 05:25 Band Neutrophils % 1 % (0-10) 01/08/18 07:25 Lymphocytes % 8.1 % (20.0-50.0) L 01/09/18 05:25 Monocytes % 5.3 % (2.0-10.0) 01/09/18 05:25 Eosinophils % 1.0 % (0.0-5.0) 01/09/18 05:25 Basophils % 0.1 % (0.0-2.0) 01/09/18 05:25 Neutrophils (Manual) 79 % (40-80) 01/08/18 07:25 Lymphocytes 13 % (20-50) L 01/08/18 07:25 Monocytes 7 % (2-10) 01/08/18 07:25 Eosinophils 1 % (0-5) 01/06/18 18:55 Platelet Estimate ADEQUATE (NORMAL) 01/08/18 07:25 PT 10.1 SECONDS (9.5-11.5) 01/06/18 18:55 INR 0.97 (0.5-1.4) 01/06/18 18:55 PTT (Actin FS) 22.7 SECONDS (26.0-38.0) L 01/06/18 18:55 Sodium 136 mEq/L (136-145) 01/09/18 05:25 Potassium 4.9 mEq/L (3.5-5.1) 01/09/18 05:25 Chloride 110 mEq/L (98-107) H 01/09/18 05:25 Carbon Dioxide 16.3 mEq/L (21.0-31.0) L 01/09/18 05:25 Anion Gap 14.6 (7.0-16.0) 01/09/18 05:25 BUN 74 mg/dL (7-25) H 01/09/18 05:25 Creatinine 3.3 mg/dL (0.6-1.2) H 01/09/18 05:25 Est GFR ( Amer) 18.2 ml/min (>90) 01/09/18 05:25 Est GFR (Non-Af Amer) 15.0 ml/min 01/09/18 05:25 BUN/Creatinine Ratio 22.4 01/09/18 05:25 Glucose 90 mg/dL (70-105) 01/09/18 05:25 POC Glucose 84 MG/DL (70 - 105) 01/09/18 17:59 Hemoglobin A1c % 6.2 % (4.0-6.0) H 01/06/18 18:55 Calcium 9.9 mg/dL (8.6-10.3) 01/09/18 05:25 Iron 59 ug/dL (27-139) 01/07/18 09:30 TIBC 166 ug/dL (250-450) L 01/07/18 09:30 Iron Saturation 36 % (15-55) 01/07/18 09:30 Unsaturated IBC 107 ug/dL (118-369) L 01/07/18 09:30 Total Bilirubin 0.3 mg/dL (0.3-1.0) 01/08/18 07:25 AST 13 U/L (13-39) 01/08/18 07:25 ALT 6 U/L (7-52) L 01/08/18 07:25 Alkaline Phosphatase 140 U/L (34-104) H 01/08/18 07:25 Ammonia 71 umol/L (16-53) H 01/08/18 07:25 Total Protein 6.4 gm/dL (6.0-8.3) 01/08/18 07:25 Albumin 2.8 gm/dL (3.7-5.3) L 01/08/18 07:25 Globulin 3.6 gm/dL 01/08/18 07:25 Albumin/Globulin Ratio 0.8 (1.0-1.8) L 01/08/18 07:25 Lipase 27 U/L (11-82) 01/06/18 18:55 TSH 2.40 uIU/ml (0.34-5.60) 01/08/18 07:25 Stool Occult Blood POSITIVE (NEGATIVE) H 01/09/18 14:48 Blood Type A POSITIVE 01/07/18 10:40 Antibody Screen NEGATIVE 01/07/18 10:40 Crossmatch See Detail 01/07/18 10:40 - Physical Exam Vitals and I&O: Vital Signs Temp 97.4 F 01/09/18 20:00 Pulse 104 01/09/18 20:00 Resp 19 01/09/18 20:00 BP 125/69 01/09/18 20:00 Pulse Ox 99 01/09/18 20:00 Intake & Output 01/09/18 01/09/18 01/10/18 06:59 18:59 06:59 Intake Total 800 1000 Output Total 1100 Balance -300 1000 Weight (lbs) 70.67 kg Intake: Intake, IV Amount 1000 0.9% NS w/20 mEq KCL 1, 1000 000 ml @ 75 mls/hr IV . [id number] [facility] Rx#:[id number] Oral 800 Output: Urine 1100 Other: # Bowel Movements 3 Stool Characteristics Liquid Active Medications: Current Medications Acetaminophen (Tylenol) 650 mg PO Q4HR PRN PRN Reason: MILD Pain or Fever >101 Stop: 03/07/18 22:42 Albuterol/Ipratropium (Duoneb Neb) 3 ml HHN Q4H PRN PRN Reason: Wheezing Stop: 03/07/18 20:43 Last Admin: 01/07/18 07:06 Dose: 3 ml Ascorbic Acid (Vitamin C) 500 mg PO DAILY [facility] Stop: 03/08/18 08:59 Last Admin: 01/09/18 10:12 Dose: 500 mg Atorvastatin Calcium (Lipitor) 20 mg PO HS [facility] Stop: 03/08/18 20:59 Last Admin: 01/08/18 21:59 Dose: 20 mg Docusate Sodium (Colace) 100 mg PO BID [facility] Stop: 03/08/18 08:59 Last Admin: 01/09/18 17:52 Dose: Not Given Epoetin Brad (Epogen) 5,000 units SUBQ TuThSa [facility] Stop: 03/08/18 15:59 Last Admin: 01/07/18 16:13 Dose: 5,000 units Famotidine (Pepcid) 20 mg PO DAILY [facility] Stop: 03/08/18 08:59 Last Admin: 01/09/18 10:12 Dose: 20 mg Ferrous Sulfate (Iron) 325 mg PO DAILY [facility] Stop: 03/08/18 08:59 Last Admin: 01/09/18 10:13 Dose: 325 mg Folic Acid (Folate) 1 mg PO DAILY [facility] Stop: 03/08/18 08:59 Last Admin: 01/09/18 10:13 Dose: 1 mg Haloperidol (Haldol) 5 mg PO DAILY [facility] PRN Reason: Protocol Stop: 03/08/18 13:59 Last Admin: 01/09/18 10:13 Dose: 5 mg Potassium Chloride/Sodium Chloride (0.9% Ns W/20 Meq Kcl) 1,000 mls @ 75 mls/ hr IV .[id number] [facility] Stop: 03/07/18 23:14 Last Admin: 01/09/18 18:03 Dose: 75 mls/hr Insulin Aspart (Novolog Insulin Sliding Scale) 0 units SUBQ ACHS [facility] PRN Reason: Protocol Stop: 03/08/18 12:46 Last Admin: 01/09/18 18:00 Dose: Not Given Insulin Detemir (Levemir Insulin) 10 units SUBQ Q12HR [facility] PRN Reason: Protocol Stop: 03/08/18 08:59 Last Admin: 01/09/18 10:53 Dose: 10 unit Lactobacillus Rhamnosus (Culturelle 15b) 1 each PO DAILY [facility] Stop: 03/09/18 08:59 Last Admin: 01/09/18 10:13 Dose: 1 each Lactulose (Cephulac) 30 gm PO BID [facility] Stop: 03/08/18 16:59 Last Admin: 01/09/18 17:52 Dose: 30 gm Levothyroxine Sodium (Synthroid) 0.075 mg PO QDAC [facility] Stop: 03/08/18 07:29 Last Admin: 01/09/18 07:54 Dose: 0.075 mg Magnesium Hydroxide (Milk Of Magnesia) 30 ml PO DAILY [facility] PRN Reason: Constipation Stop: 03/07/18 22:44 Miscellaneous (Vte Chemical Prophylaxis Screen/ Admission) 1 ea [facility] PRN PRN PRN Reason: PROTOCOL Stop: 03/08/18 10:29 Quetiapine Fumarate (Seroquel) 200 mg PO BID [facility] PRN Reason: Protocol Stop: 03/08/18 16:59 Last Admin: 01/09/18 17:52 Dose: 200 mg Sevelamer Carbonate (Renvela) 800 mg PO TIDWM [facility] Stop: 03/08/18 11:59 Last Admin: 01/09/18 17:53 Dose: 800 mg Sodium Bicarbonate (Sodium Bicarbonate) 650 mg PO QID [facility] PRN Reason: Protocol Stop: 03/09/18 16:59 Last Admin: 01/09/18 17:53 Dose: 650 mg General: weak, demented HEENT: NC/AT, PERRLA, EOMI, anicteric sclerae, throat clear Neck: Supple, No JVD, No thyromegaly, +2 carotid pulse wo bruit Lungs: CTAB Cardiovascular: RRR, Normal S1, Normal S2, without murmur Abdomen: soft, non-tender, non-distended Extremities: clear Neurological: no change - Procedures Procedures: Procedures Procedure Code Date BLOOD TRANSFUSION SERVICE 45197 01/06/18 TRANSFUSE NONAUT RED BLOOD CELLS IN PERIPH VEIN, [facility] [id number] 01/06/18 Internal Medicine Assmt/Plan - Assessment Assessment: 1.SEVER ANEMIA 2.ACUTE HEPATOENCEPHALOPATHY. 3.CHRONIC LIVER DISEASE. 4.MALNUTRITIN. - Plan Plan: CONTINUE ON CURRENT MEDICATION AND DIET. Nutritional Asmnt/Malnutr-PDOC - Dietary Evaluation Malnutrition Findings (Please click <Entered> for more info): Nutritional Asmnt/Malnutrition Start: 01/09/18 14: 36 Text: Status: Active Freq: Document 01/09/18 14:36 LCHENG (Rec: 01/09/18 14:50 LCHENG [email or web address]) Nutritional Asmnt/Malnutrition Patient General Information Nutritional Screening High Risk Consult Diagnosis Anemia, liver cirrhosis Pertinent Medical Hx/Surgical Hx DM, hypothyroidism, chronic liver disease, CKD, psychosis, chronic anemai Subjective Information Consult received for high blood sugar. Pt seen sitting up in bed at time of visit, somewhat confused. Pt appeared thin. Observed lunch consumed about 75% including supplements. Pt has no teeth noted, may need mech soft diet . Per EMR, PO intake 25-50%. Current Diet Order/ Nutrition Support 1800kcal, boost glucose control TID Pertinent Medications vit C, colace, iron, folate, novolog, levemir, culturelle, cephulac, synthroid, 0.9% ns w .20 meq kcl, seroquel, renvela Pertinent Labs 01/09 cl 110, BUN 74 (improved) , Cr 3.3 (improved), Glucose 90, POC 105-123 01/06 A1c 6.2 Nutritional Hx/Data Height 1.63 m Height (Calculated Centimeters) 162.6 Current Weight (lbs) 70.76 kg Weight (Calculated Kilograms) 70.8 Weight (Calculated Grams) 93199.4 [place] Body Weight 120 Body Mass Index (BMI) 26.7 Weight Status Overweight GI Symptoms GI Symptoms Diarrhea Last BM 01/08 multiple times Difficult in: None Skin Integrity/Comment: reddened to buttock Current %PO Fair (50-74%) Estimated Nutritional Goals Calories/Kcals/Kg 25-30 Kcals Calculated 8084-2607 Protein g/k-1.2 Protein Calculated 59-71 Fluid: ml 1475-1770ml (1ml/kcal) Nutritional Problem 1. Problem Problem altered nutrition related labs Etiology CKD, DM Signs/Symptoms: BUN 74, Cr 3.3, Glucose 90, POC 105-123, A1c 6.2 Malnutrition Alert Muscle Mass (Non-Severe) Mild Depletion Protein-Calorie Malnutrition N/A Is there a minimum of two criteria No selected? Query Text:Check all the applicable criteria. A minimum of two criteria are recommended for diagnosis of either severe or non-severe malnutrition. Intervention/Recommendation Comments 1. Recommend renal mech soft ground diet. RN notified. 2. Monitor PO intake, wt, labs and skin integrity 3. F/U as moderate risk in 3-5 days, 01/12-01/14 Expected Outcomes/Goals Expected Outcomes/Goals 1. PO intake to meet at least 75% of nutritional needs. 2. Wt stability, skin to remain intact, labs to approach WNL.
[2018-01-09] MEDS: Atorvastatin Calcium 10 MG TAB PO SCH (22:02)
[2018-01-09] MEDS: Sodium Chloride 0.9% 1,000 ML IV SCH (22:06)
--- NOTE | 2018-01-09 23:08 | Progress Notes ---
DATE: 01/09/2018 Case was discussed with staff of the patient, reviewed records. The patient is alert now, able to speak, express herself. She is no longer confused. She is able to carry on a conversation. She denies any intent to harm herself or anybody. She denies any hallucination or paranoia. She is still being worked up and treated for anemia and no side effects to the medication, no sedation, no nausea, no extrapyramidal symptoms. The patient ____ blood transfusion. We will continue outpatient group therapy, milieu therapy, and adjust medications. JOB# [id number]
[2018-01-10 02:18] LABS: FOLIC ACID >20.0 ng/mL (>3.0)
[2018-01-10 06:24] LABS: % BASOPHILS 0.2 % (0.0-2.0); % EOSINOPHILS 1.3 % (0.0-5.0); % LYMPHOCYTES 8.9 % (20.0-50.0); % MONOCYTES 5.8 % (2.0-10.0); % NEUTROPHILS 83.8 % (40.0-80.0); EOSINOPHILE ABSOLUTE 0.1 Th/cmm (0.1-0.4); HEMATOCRIT 25.3 % (41.0-60); HEMOGLOBIN 8.4 gm/dL (12-16); LYMPHOCYTE ABSOLUTE 0.7 Th/cmm (1.5-3.0); MEAN CELL VOLUME 88.4 fl (81-100); MEAN CORPUSCULAR HEMOGLOBIN 29.5 pg (27.0-31.0); MEAN CORPUSCULAR HGB CONC 33.4 pg (28.0-36.0); MEAN PLATELET VOLUME 6.5 fl; MONOCYTE ABSOLUTE 0.5 Th/cmm (0.3-1.0); NEUTROPHILE ABSOLUTE 6.6 Th/cmm (1.8-8.0); PLATELET COUNT 279 Th/cmm (150-400); RED BLOOD COUNT 2.86 Mil/cmm (3.80-5.10); WHITE BLOOD COUNT 7.9 Th/cmm (4.8-10.8)
[2018-01-10 07:01] LABS: ANION GAP 14.2 (7.0-16.0); CALCIUM SERUM 10.3 mg/dL (8.6-10.3); CARBON DIOXIDE 16.5 mEq/L (21.0-31.0); CREATININE - SERUM 3.2 mg/dL (0.6-1.2); GFR AFRICAN-AMERICAN 18.8 ml/min (>90); GFR NON AFRICAN-AMERICAN 15.5 ml/min; POTASSIUM SERUM 4.7 mEq/L (3.5-5.1)
[2018-01-10] MEDS: INSULIN ASPART SLIDING SCALE 100 UNITS/ML UNIT SUBQ SCH ×4 (07:57→21:37)
[2018-01-10] MEDS: Ferrous Sulfate 325 MG TAB PO SCH (08:39)
[2018-01-10] MEDS: Levothyroxine 0.075 Mg Tab PO SCH (08:40)
[2018-01-10] MEDS: Multivitamin w/ Minerals Tab PO SCH (08:40)
[2018-01-10] MEDS: Lactulose 10 Gm/15 mL 30mL UDC PO SCH ×3 (08:40→16:41)
[2018-01-10] MEDS: Lactobacillus Rhamnosus GG 15 Billion CFU CAP.SPRINK PO SCH (08:40)
[2018-01-10] MEDS: Insulin Detemir 100 units/mL 10mL Vial SUBQ SCH ×2 (08:41→21:37)
--- NOTE | 2018-01-10 12:02 | Diagnostic Imaging Report ---
CT abdomen and pelvis without intravenous contrast Indication: Hydronephrosis Comparison: Renal ultrasound on 01/08/2018, Technique: Axial images were obtained from the lung bases to the bilateral proximal femurs without IV contrast. Coronal reconstructions were made. total DLP: 466, CTDI10.5 FINDINGS: Bibasal infiltrates and atelectatic changes are noted. Evaluation of solid organs is limited due to lack of IV contrast. No evidence of focal hepatic or splenic lesions. Assessment of the pancreas is limited due to patient's distended stomach. No obvious focal lesions identified. Pancreatic gland atrophy is noted. No focal adrenal lesions. Multiple bilateral renal calculi are noted the largest within the right kidney measuring 5 mm. There is severe right hydronephrosis with severe right-sided perinephric inflammatory changes. There are small stones within the proximal right ureter measuring up to 5 mm. There are 2 large stones within the distal left ureter. The most proximal measures 5 mm. The most distal stone measures 2.5 cm. This is the cause of patient's severe hydronephrosis. The urinary bladder is collapsed containing pockets of gas and Dunlap catheter. There is slight irregularity involving the left side of the urinary bladder wall. Mild stool is noted. Distended stomach is noted with fluid contents an air-fluid level. There is mild bowel wall thickening of the descending colon. No appendicitis. Moderate atherosclerotic vascular disease noted. Injection granulomas of the bilateral buttocks are noted. No evidence of free air or free fluid. There is diffuse abnormal bony mineralization due to metastatic disease. There are nondisplaced fractures of the bilateral sacral alae, left greater than right. There is also there are also multiple lesions within the vertebral bodies and the would appear to be pathologic fracture of L3 with 40% loss of height and no significant retropulsion. Extensive degenerative changes of the spine are noted. IMPRESSION: Severe right-sided hydronephrosis and right hydroureter with perinephric and periureteral inflammatory changes. There are 2 large stones within the distal right ureter the largest most distally measuring 2.5 cm. This is likely the cause of patient's severe hydronephrosis. Additional smaller nonobstructive proximal right ureteral stones are noted. Additional small bilateral renal calculi are also noted. Dunlap catheter with pockets of gas in the urinary bladder wall irregularity of left-side of the urinary bladder wall. The significance of this finding should be correlated clinical history and findings. Severe osseous metastatic disease with moderate pathological compression fracture of L3 with no significant retropulsion. Nondisplaced sacral fractures are also noted, most pronounced on the left side. Mild bowel wall thickening of the ascending colon. Inflammatory or infiltrative process cannot be excluded. Distended stomach. Atherosclerotic vascular disease.
[2018-01-10] MEDS: Sodium Chloride 0.9% 1,000 ML IV SCH (14:08)
--- NOTE | 2018-01-10 16:15 | General Progress Note ---
Subjective - Review of Systems Service Date: 01/10/18 Subjective: pt seen and examined renal us and ct scan of abd results noted Objective - Results Result Diagrams: 01/10/18 05:30 01/10/18 05:30 Recent Labs: Laboratory Last Values WBC 7.9 Th/cmm (4.8-10.8) 01/10/18 05:30 RBC 2.86 Mil/cmm (3.80-5.10) L 01/10/18 05:30 Hgb 8.4 gm/dL (12-16) L 01/10/18 05:30 Hct 25.3 % (41.0-60) L 01/10/18 05:30 MCV 88.4 fl (81-100) 01/10/18 05:30 MCH 29.5 pg (27.0-31.0) 01/10/18 05:30 MCHC Differential 33.4 pg (28.0-36.0) 01/10/18 05:30 RDW 14.0 % (11.5-20.0) 01/10/18 05:30 Plt Count 279 Th/cmm (150-400) 01/10/18 05:30 MPV 6.5 fl 01/10/18 05:30 Neutrophils % 83.8 % (40.0-80.0) H 01/10/18 05:30 Band Neutrophils % 1 % (0-10) 01/08/18 07:25 Lymphocytes % 8.9 % (20.0-50.0) L 01/10/18 05:30 Monocytes % 5.8 % (2.0-10.0) 01/10/18 05:30 Eosinophils % 1.3 % (0.0-5.0) 01/10/18 05:30 Basophils % 0.2 % (0.0-2.0) 01/10/18 05:30 Neutrophils (Manual) 79 % (40-80) 01/08/18 07:25 Lymphocytes 13 % (20-50) L 01/08/18 07:25 Monocytes 7 % (2-10) 01/08/18 07:25 Eosinophils 1 % (0-5) 01/06/18 18:55 Platelet Estimate ADEQUATE (NORMAL) 01/08/18 07:25 PT 10.1 SECONDS (9.5-11.5) 03 18:55 INR 0.97 (0.5-1.4) 01/06/18 18:55 PTT (Actin FS) 22.7 SECONDS (26.0-38.0) L 01/06/18 18:55 Sodium 139 mEq/L (136-145) 01/10/18 05:30 Potassium 4.7 mEq/L (3.5-5.1) 01/10/18 05:30 Chloride 113 mEq/L (98-107) H 01/10/18 05:30 Carbon Dioxide 16.5 mEq/L (21.0-31.0) L 01/10/18 05:30 Anion Gap 14.2 (7.0-16.0) 01/10/18 05:30 BUN 68 mg/dL (7-25) H 01/10/18 05:30 Creatinine 3.2 mg/dL (0.6-1.2) H 01/10/18 05:30 Est GFR ( Amer) 18.8 ml/min (>90) 01/10/18 05:30 Est GFR (Non-Af Amer) 15.5 ml/min 01/10/18 05:30 BUN/Creatinine Ratio 21.3 01/10/18 05:30 Glucose 65 mg/dL (70-105) L 01/10/18 05:30 POC Glucose 153 MG/DL (70 - 105) H 01/10/18 11:31 Hemoglobin A1c % 6.2 % (4.0-6.0) H 01/06/18 18:55 Calcium 10.3 mg/dL (8.6-10.3) 01/10/18 05:30 Iron 59 ug/dL (27-139) 01/07/18 09:30 TIBC 166 ug/dL (250-450) L 01/07/18 09:30 Iron Saturation 36 % (15-55) 01/07/18 09:30 Unsaturated IBC 107 ug/dL (118-369) L 01/07/18 09:30 Ferritin 1553 ng/mL (15-150) H 01/07/18 09:30 Total Bilirubin 0.3 mg/dL (0.3-1.0) 01/08/18 07:25 AST 13 U/L (13-39) 01/08/18 07:25 ALT 6 U/L (7-52) L 01/08/18 07:25 Alkaline Phosphatase 140 U/L (34-104) H 01/08/18 07:25 Ammonia 71 umol/L (16-53) H 01/08/18 07:25 Total Protein 6.4 gm/dL (6.0-8.3) 01/08/18 07:25 Albumin 2.8 gm/dL (3.7-5.3) L 01/08/18 07:25 Globulin 3.6 gm/dL 01/08/18 07:25 Albumin/Globulin Ratio 0.8 (1.0-1.8) L 01/08/18 07:25 Lipase 27 U/L (11-82) 01/06/18 18:55 Vitamin B12 788 pg/mL (232-1245) 01/08/18 07:25 Folic Acid >20.0 ng/mL (>3.0) 01/08/18 07:25 TSH 2.40 uIU/ml (0.34-5.60) 01/08/18 07:25 Stool Occult Blood POSITIVE (NEGATIVE) H 01/09/18 14:48 Blood Type A POSITIVE 01/07/18 10:40 Antibody Screen NEGATIVE 01/07/18 10:40 Crossmatch See Detail 01/07/18 10:40 - Physical Exam Vitals and I&O: Vital Signs Temp 98.6 F 01/10/18 12:18 Pulse 103 01/10/18 12:18 Resp 18 01/10/18 12:18 BP 119/68 01/10/18 12:18 Pulse Ox 91 01/10/18 12:18 Intake & Output 01/09/18 01/10/18 01/10/18 18:59 06:59 18:59 Intake Total 8835 162 7090 Balance 4903 805 8877 Weight (lbs) 55.565 kg Intake: Intake, IV Amount 1000 1000 0.9% NS w/20 mEq KCL 1, 1000 000 ml @ 75 mls/hr IV . [id number] [facility] Rx#:[id number] Sodium Chloride 0.9% 1, 1000 000 ml @ 75 mls/hr IV . [id number] [facility] Rx#:[id number] Oral 550 Active Medications: Current Medications Acetaminophen (Tylenol) 650 mg PO Q4HR PRN PRN Reason: MILD Pain or Fever >101 Stop: 03/07/18 22:42 Albuterol/Ipratropium (Duoneb Neb) 3 ml HHN Q4H PRN PRN Reason: Wheezing Stop: 03/07/18 20:43 Last Admin: 01/07/18 07:06 Dose: 3 ml Ascorbic Acid (Vitamin C) 500 mg PO DAILY [facility] Stop: 03/08/18 08:59 Last Admin: 01/10/18 08:39 Dose: 500 mg Atorvastatin Calcium (Lipitor) 20 mg PO HS PABLO Stop: 03/08/18 20:59 Last Admin: 01/09/18 22:02 Dose: 20 mg Docusate Sodium (Colace) 100 mg PO BID PABLO Stop: 03/08/18 08:59 Last Admin: 01/10/18 08:39 Dose: 100 mg Epoetin Brad (Epogen) 5,000 units SUBQ TuThSa [facility] Stop: 03/08/18 15:59 Last Admin: 01/07/18 16:13 Dose: 5,000 units Famotidine (Pepcid) 20 mg PO DAILY [facility] Stop: 03/08/18 08:59 Last Admin: 01/10/18 08:39 Dose: 20 mg Ferrous Sulfate (Iron) 325 mg PO DAILY [facility] Stop: 03/08/18 08:59 Last Admin: 01/10/18 08:39 Dose: 325 mg Folic Acid (Folate) 1 mg PO DAILY [facility] Stop: 03/08/18 08:59 Last Admin: 01/10/18 08:40 Dose: 1 mg Haloperidol (Haldol) 5 mg PO DAILY [facility] PRN Reason: Protocol Stop: 03/08/18 13:59 Last Admin: 01/10/18 08:40 Dose: 5 mg Sodium Chloride (Nacl 0.9%) 1,000 mls @ 75 mls/hr IV .[id number] [facility] Stop: 03/10/18 21:44 Last Admin: 01/10/18 14:08 Dose: 75 mls/hr Insulin Aspart (Novolog Insulin Sliding Scale) 0 units SUBQ ACHS [facility] PRN Reason: Protocol Stop: 03/08/18 12:46 Last Admin: 01/10/18 11:48 Dose: 2 units Insulin Detemir (Levemir Insulin) 10 units SUBQ Q12HR [facility] PRN Reason: Protocol Stop: 03/08/18 08:59 Last Admin: 01/10/18 08:41 Dose: Not Given Lactobacillus Rhamnosus (Culturelle 15b) 1 each PO DAILY [facility] Stop: 03/09/18 08:59 Last Admin: 01/10/18 08:40 Dose: 1 each Lactulose (Cephulac) 30 gm PO BID PABLO Stop: 03/08/18 16:59 Last Admin: 01/10/18 08:40 Dose: 30 gm Levothyroxine Sodium (Synthroid) 0.075 mg PO QDAC [facility] Stop: 03/08/18 07:29 Last Admin: 01/10/18 08:40 Dose: 0.075 mg Magnesium Hydroxide (Milk Of Magnesia) 30 ml PO DAILY PRN PRN Reason: Constipation Stop: 03/07/18 22:44 Miscellaneous (Vte Chemical Prophylaxis Screen/ Admission) 1 ea [facility] PRN PRN PRN Reason: PROTOCOL Stop: 03/08/18 10:29 Quetiapine Fumarate (Seroquel) 200 mg PO BID [facility]ABLO PRN Reason: Protocol Stop: 03/08/18 16:59 Last Admin: 01/10/18 08:39 Dose: 200 mg Sevelamer Carbonate (Renvela) 800 mg PO TIDWM [facility] Stop: 03/08/18 11:59 Last Admin: 01/10/18 12:00 Dose: 800 mg Sodium Bicarbonate (Sodium Bicarbonate) 650 mg PO QID PABLO PRN Reason: Protocol Stop: 03/09/18 16:59 Last Admin: 01/10/18 12:04 Dose: 650 mg General: Alert (frail), Cooperative, No acute distress HEENT: Atraumatic, PERRLA Neck: Supple, JVD Cardiovascular: Regular rate, Normal S1, Normal S2 Lungs: Clear to auscultation Abdomen: Bowel sounds, Soft, Distended Neurological: Normal speech Psych/Mental Status: Mood NL - Procedures Procedures: Procedures Procedure Code Date BLOOD TRANSFUSION SERVICE 14815 01/06/18 TRANSFUSE NONAUT RED BLOOD CELLS IN PERIPH VEIN, PERC 61214Z2 01/06/18 Assessment/Plan - Assessment Assessment: CIERRA CKD SEVERE ANEMIA obstructive uropathy liver disease ? bone mets on CT scan - Plan Plan: RENAL FUNCTION IMPROVING CONTINUE IVF CHECK LABS IN AM need urology evaluation Nutritional Asmnt/Malnutr-PDOC - Dietary Evaluation Malnutrition Findings (Please click <Entered> for more info): Nutritional Asmnt/Malnutrition Start: 01/09/18 14: 36 Text: Status: Active Freq: Document 01/09/18 14:36 ANA (Rec: 01/09/18 14:50 ANA [email or web address]) Nutritional Asmnt/Malnutrition Patient General Information Nutritional Screening High Risk Consult Diagnosis Anemia, liver cirrhosis Pertinent Medical Hx/Surgical Hx DM, hypothyroidism, chronic liver disease, CKD, psychosis, chronic anemai Subjective Information Consult received for high blood sugar. Pt seen sitting up in bed at time of visit, somewhat confused. Pt appeared thin. Observed lunch consumed about 75% including supplements. Pt has no teeth noted, may need [facility] soft diet . Per EMR, PO intake 25-50%. Current Diet Order/ Nutrition Support 1800kcal, boost glucose control TID Pertinent Medications vit C, colace, iron, folate, novolog, levemir, culturelle, cephulac, synthroid, 0.9% ns w .20 meq kcl, seroquel, renvela Pertinent Labs 01/09 cl 110, BUN 74 (improved) , Cr 3.3 (improved), Glucose 90, POC 105-123 01/06 A1c 6.2 Nutritional Hx/Data Height 1.63 m Height (Calculated Centimeters) 162.6 Current Weight (lbs) 70.76 kg Weight (Calculated Kilograms) 70.8 Weight (Calculated Grams) [address]458.4 [place] Body Weight 120 Body Mass Index (BMI) 26.7 Weight Status Overweight GI Symptoms GI Symptoms Diarrhea Last BM 01/08 multiple times Difficult in: None Skin Integrity/Comment: reddened to buttock Current %PO Fair (50-74%) Estimated Nutritional Goals Calories/Kcals/Kg 25-30 Kcals Calculated 6785-2188 Protein g/k-1.2 Protein Calculated 59-71 Fluid: ml 1475-1770ml (1ml/kcal) Nutritional Problem 1. Problem Problem altered nutrition related labs Etiology CKD, DM Signs/Symptoms: BUN 74, Cr 3.3, Glucose 90, POC 105-123, A1c 6.2 Malnutrition Alert Muscle Mass (Non-Severe) Mild Depletion Protein-Calorie Malnutrition N/A Is there a minimum of two criteria No selected? Query Text:Check all the applicable criteria. A minimum of two criteria are recommended for diagnosis of either severe or non-severe malnutrition. Intervention/Recommendation Comments 1. Recommend renal mech soft ground diet. RN notified. 2. Monitor PO intake, wt, labs and skin integrity 3. F/U as moderate risk in 3-5 days, 01/12-01/14 Expected Outcomes/Goals Expected Outcomes/Goals 1. PO intake to meet at least 75% of nutritional needs. 2. Wt stability, skin to remain intact, labs to approach WNL.
[2018-01-10] MEDS: Epoetin Alfa 20000 Units/mL Vial SUBQ SCH (16:24)
--- NOTE | 2018-01-10 16:35 | General Progress Note ---
Subjective - Review of Systems Service Date: 01/10/18 Subjective: awake, lethargic minimal response to verb sti Objective - Results Result Diagrams: 01/10/18 05:30 01/10/18 05:30 Recent Labs: Laboratory Last Values WBC 7.9 Th/cmm (4.8-10.8) 01/10/18 05:30 RBC 2.86 Mil/cmm (3.80-5.10) L 01/10/18 05:30 Hgb 8.4 gm/dL (12-16) L 01/10/18 05:30 Hct 25.3 % (41.0-60) L 01/10/18 05:30 MCV 88.4 fl (81-100) 01/10/18 05:30 MCH 29.5 pg (27.0-31.0) 01/10/18 05:30 MCHC Differential 33.4 pg (28.0-36.0) 01/10/18 05:30 RDW 14.0 % (11.5-20.0) 01/10/18 05:30 Plt Count 279 Th/cmm (150-400) 01/10/18 05:30 MPV 6.5 fl 01/10/18 05:30 Neutrophils % 83.8 % (40.0-80.0) H 01/10/18 05:30 Band Neutrophils % 1 % (0-10) 01/08/18 07:25 Lymphocytes % 8.9 % (20.0-50.0) L 01/10/18 05:30 Monocytes % 5.8 % (2.0-10.0) 01/10/18 05:30 Eosinophils % 1.3 % (0.0-5.0) 01/10/18 05:30 Basophils % 0.2 % (0.0-2.0) 01/10/18 05:30 Neutrophils (Manual) 79 % (40-80) 01/08/18 07:25 Lymphocytes 13 % (20-50) L 01/08/18 07:25 Monocytes 7 % (2-10) 01/08/18 07:25 Eosinophils 1 % (0-5) 01/06/18 18:55 Platelet Estimate ADEQUATE (NORMAL) 01/08/18 07:25 PT 10.1 SECONDS (9.5-11.5) 01/06/18 18:55 INR 0.97 (0.5-1.4) 01/06/18 18:55 PTT (Actin FS) 22.7 SECONDS (26.0-38.0) L 01/06/18 18:55 Sodium 139 mEq/L (136-145) 01/10/18 05:30 Potassium 4.7 mEq/L (3.5-5.1) 01/10/18 05:30 Chloride 113 mEq/L (98-107) H 01/10/18 05:30 Carbon Dioxide 16.5 mEq/L (21.0-31.0) L 01/10/18 05:30 Anion Gap 14.2 (7.0-16.0) 01/10/18 05:30 BUN 68 mg/dL (7-25) H 01/10/18 05:30 Creatinine 3.2 mg/dL (0.6-1.2) H 01/10/18 05:30 Est GFR ( Amer) 18.8 ml/min (>90) 01/10/18 05:30 Est GFR (Non-Af Amer) 15.5 ml/min 01/10/18 05:30 BUN/Creatinine Ratio 21.3 01/10/18 05:30 Glucose 65 mg/dL (70-105) L 01/10/18 05:30 POC Glucose 153 MG/DL (70 - 105) H 01/10/18 11:31 Hemoglobin A1c % 6.2 % (4.0-6.0) H 01/06/18 18:55 Calcium 10.3 mg/dL (8.6-10.3) 01/10/18 05:30 Iron 59 ug/dL (27-139) 01/07/18 09:30 TIBC 166 ug/dL (250-450) L 01/07/18 09:30 Iron Saturation 36 % (15-55) 01/07/18 09:30 Unsaturated IBC 107 ug/dL (118-369) L 01/07/18 09:30 Ferritin 1553 ng/mL (15-150) H 01/07/18 09:30 Total Bilirubin 0.3 mg/dL (0.3-1.0) 01/08/18 07:25 AST 13 U/L (13-39) 01/08/18 07:25 ALT 6 U/L (7-52) L 01/08/18 07:25 Alkaline Phosphatase 140 U/L (34-104) H 01/08/18 07:25 Ammonia 71 umol/L (16-53) H 01/08/18 07:25 Total Protein 6.4 gm/dL (6.0-8.3) 01/08/18 07:25 Albumin 2.8 gm/dL (3.7-5.3) L 01/08/18 07:25 Globulin 3.6 gm/dL 01/08/18 07:25 Albumin/Globulin Ratio 0.8 (1.0-1.8) L 01/08/18 07:25 Lipase 27 U/L (11-82) 01/06/18 18:55 Vitamin B12 788 pg/mL (232-1245) 01/08/18 07:25 Folic Acid >20.0 ng/mL (>3.0) 01/08/18 07:25 TSH 2.40 uIU/ml (0.34-5.60) 01/08/18 07:25 Stool Occult Blood POSITIVE (NEGATIVE) H 01/09/18 14:48 Blood Type A POSITIVE 01/07/18 10:40 Antibody Screen NEGATIVE 01/07/18 10:40 Crossmatch See Detail 01/07/18 10:40 - Physical Exam Vitals and I&O: Vital Signs Temp 98.6 F 01/10/18 12:18 Pulse 103 01/10/18 12:18 Resp 18 01/10/18 12:18 BP 119/68 01/10/18 12:18 Pulse Ox 91 01/10/18 12:18 Intake & Output 01/09/18 01/10/18 01/10/18 18:59 06:59 18:59 Intake Total 5144 772 9156 Balance 8782 852 7640 Weight (lbs) 55.565 kg Intake: Intake, IV Amount 1000 1000 0.9% NS w/20 mEq KCL 1, 1000 000 ml @ 75 mls/hr IV . [id number] REPLACED BY [facility] Rx#:[id number] Sodium Chloride 0.9% 1, 1000 000 ml @ 75 mls/hr IV . [id number] [facility]PLACED [facility] Rx#:[id number] Oral 550 Active Medications: Current Medications Acetaminophen (Tylenol) 650 mg PO Q4HR PRN PRN Reason: MILD Pain or Fever >101 Stop: 05/15/18 22:42 Albuterol/Ipratropium (Duoneb Neb) 3 ml HHN Q4H PRN PRN Reason: Wheezing Stop: 03/07/18 20:43 Last Admin: 01/07/18 07:06 Dose: 3 ml Ascorbic Acid (Vitamin C) 500 mg PO DAILY [facility] Stop: 03/08/18 08:59 Last Admin: 01/10/18 08:39 Dose: 500 mg Atorvastatin Calcium (Lipitor) 20 mg PO HS PABLO Stop: 03/08/18 20:59 Last Admin: 01/09/18 22:02 Dose: 20 mg Docusate Sodium (Colace) 100 mg PO BID [facility] Stop: 03/08/18 08:59 Last Admin: 01/10/18 16:25 Dose: 100 mg Epoetin Brad (Epogen) 5,000 units SUBQ TuThSa [facility] Stop: 03/08/18 15:59 Last Admin: 01/10/18 16:24 Dose: 5,000 units Famotidine (Pepcid) 20 mg PO DAILY [facility] Stop: 03/08/18 08:59 Last Admin: 01/10/18 08:39 Dose: 20 mg Ferrous Sulfate (Iron) 325 mg PO DAILY [facility] Stop: 03/08/18 08:59 Last Admin: 01/10/18 08:39 Dose: 325 mg Folic Acid (Folate) 1 mg PO DAILY [facility] Stop: 03/08/18 08:59 Last Admin: 01/10/18 08:40 Dose: 1 mg Haloperidol (Haldol) 5 mg PO DAILY [facility] PRN Reason: Protocol Stop: 03/08/18 13:59 Last Admin: 01/10/18 08:40 Dose: 5 mg Sodium Chloride (Nacl 0.9%) 1,000 mls @ 75 mls/hr IV .[id number] REPLACED BY [facility] Stop: 03/10/18 21:44 Last Admin: 01/10/18 14:08 Dose: 75 mls/hr Insulin Aspart (Novolog Insulin Sliding Scale) 0 units SUBQ ACHS [facility] PRN Reason: Protocol Stop: 03/08/18 12:46 Last Admin: 01/10/18 11:48 Dose: 2 units Insulin Detemir (Levemir Insulin) 10 units SUBQ Q12HR [facility] PRN Reason: Protocol Stop: 03/08/18 08:59 Last Admin: 01/10/18 08:41 Dose: Not Given Lactobacillus Rhamnosus (Culturelle 15b) 1 each PO DAILY [facility] Stop: 03/09/18 08:59 Last Admin: 01/10/18 08:40 Dose: 1 each Lactulose (Cephulac) 30 gm PO BID PABLO Stop: 03/08/18 16:59 Last Admin: 01/10/18 16:24 Dose: 30 gm Levothyroxine Sodium (Synthroid) 0.075 mg PO QDAC [facility] Stop: 03/08/18 07:29 Last Admin: 01/10/18 08:40 Dose: 0.075 mg Magnesium Hydroxide (Milk Of Magnesia) 30 ml PO DAILY PRN PRN Reason: Constipation Stop: 03/07/18 22:44 Miscellaneous (Vte Chemical Prophylaxis Screen/ Admission) 1 ea [facility] PRN PRN PRN Reason: PROTOCOL Stop: 03/08/18 10:29 Quetiapine Fumarate (Seroquel) 200 mg PO BID [facility]ABLO PRN Reason: Protocol Stop: 03/08/18 16:59 Last Admin: 01/10/18 16:24 Dose: 200 mg Sevelamer Carbonate (Renvela) 800 mg PO TIDWM [facility] Stop: 03/08/18 11:59 Last Admin: 01/10/18 16:25 Dose: 800 mg Sodium Bicarbonate (Sodium Bicarbonate) 650 mg PO QID PABLO PRN Reason: Protocol Stop: 03/09/18 16:59 Last Admin: 01/10/18 16:24 Dose: 650 mg General: Alert (frail), Cooperative, No acute distress HEENT: Atraumatic, PERRLA Neck: Supple, JVD Cardiovascular: Regular rate, Normal S1, Normal S2 Lungs: Clear to auscultation Abdomen: Bowel sounds, Soft, Distended Neurological: Normal speech Psych/Mental Status: Mood NL - Procedures Procedures: Procedures Procedure Code Date BLOOD TRANSFUSION SERVICE 88987 01/06/18 TRANSFUSE NONAUT RED BLOOD CELLS IN PERIPH VEIN, PERC 83369U6 01/06/18 Assessment/Plan - Assessment Assessment: * Hypercalcemia likely of malignancy * Anemia of GI blood loss and chronic disease; no evidence of fe deficiency * Osseous metastases * renal failure; hydronephrosis per nephrology will need gi evaluation for endoscopy; possible GI malignancy Nutritional Asmnt/Malnutr-PDOC - Dietary Evaluation Malnutrition Findings (Please click <Entered> for more info): Nutritional Asmnt/Malnutrition Start: 01/09/18 14: 36 Text: Status: Active Freq: Document 01/09/18 14:36 ANA (Rec: 01/09/18 14:50 ANA [email or web address]) Nutritional Asmnt/Malnutrition Patient General Information Nutritional Screening High Risk Consult Diagnosis Anemia, liver cirrhosis Pertinent Medical Hx/Surgical Hx DM, hypothyroidism, chronic liver disease, CKD, psychosis, chronic anemai Subjective Information Consult received for high blood sugar. Pt seen sitting up in bed at time of visit, somewhat confused. Pt appeared thin. Observed lunch consumed about 75% including supplements. Pt has no teeth noted, may need [facility] soft diet . Per EMR, PO intake 25-50%. Current Diet Order/ Nutrition Support 1800kcal, boost glucose control TID Pertinent Medications vit C, colace, iron, folate, novolog, levemir, culturelle, cephulac, synthroid, 0.9% ns w .20 meq kcl, seroquel, renvela Pertinent Labs 01/09 cl 110, BUN 74 (improved) , Cr 3.3 (improved), Glucose 90, POC 105-123 01/06 A1c 6.2 Nutritional Hx/Data Height 1.63 m Height (Calculated Centimeters) 162.6 Current Weight (lbs) 70.76 kg Weight (Calculated Kilograms) 70.8 Weight (Calculated Grams) 43679.4 [place] Body Weight 120 Body Mass Index (BMI) 26.7 Weight Status Overweight GI Symptoms GI Symptoms Diarrhea Last BM 01/08 multiple times Difficult in: None Skin Integrity/Comment: reddened to buttock Current %PO Fair (50-74%) Estimated Nutritional Goals Calories/Kcals/Kg 25-30 Kcals Calculated 7935-3665 Protein g/k-1.2 Protein Calculated 59-71 Fluid: ml 1475-1770ml (1ml/kcal) Nutritional Problem 1. Problem Problem altered nutrition related labs Etiology CKD, DM Signs/Symptoms: BUN 74, Cr 3.3, Glucose 90, POC 105-123, A1c 6.2 Malnutrition Alert Muscle Mass (Non-Severe) Mild Depletion Protein-Calorie Malnutrition N/A Is there a minimum of two criteria No selected? Query Text:Check all the applicable criteria. A minimum of two criteria are recommended for diagnosis of either severe or non-severe malnutrition. Intervention/Recommendation Comments 1. Recommend renal mech soft ground diet. RN notified. 2. Monitor PO intake, wt, labs and skin integrity 3. F/U as moderate risk in 3-5 days, 01/12-01/14 Expected Outcomes/Goals Expected Outcomes/Goals 1. PO intake to meet at least 75% of nutritional needs. 2. Wt stability, skin to remain intact, labs to approach WNL.
[2018-01-10] MEDS: Atorvastatin Calcium 10 MG TAB PO SCH (21:36)
--- NOTE | 2018-01-10 22:02 | Internal Medicine Prog Note ---
Internal Medicine Subjective - Subjective Service Date: 01/10/18 Patient seen and examined:: with staff (SHE IS SCHEDUALED FOR RENAL STENT IN AM) Patient is:: awake, in bed, talking, confused Per staff patient has:: no adverse event (SHE IS VERY CONFUSED) Internal Medicine Objective - Results Result Diagrams: 01/10/18 05:30 01/10/18 05:30 Recent Labs: Laboratory Last Values WBC 7.9 Th/cmm (4.8-10.8) 01/10/18 05:30 RBC 2.86 Mil/cmm (3.80-5.10) L 01/10/18 05:30 Hgb 8.4 gm/dL (12-16) L 01/10/18 05:30 Hct 25.3 % (41.0-60) L 01/10/18 05:30 MCV 88.4 fl (81-100) 01/10/18 05:30 MCH 29.5 pg (27.0-31.0) 01/10/18 05:30 MCHC Differential 33.4 pg (28.0-36.0) 01/10/18 05:30 RDW 14.0 % (11.5-20.0) 01/10/18 05:30 Plt Count 279 Th/cmm (150-400) 01/10/18 05:30 MPV 6.5 fl 01/10/18 05:30 Neutrophils % 83.8 % (40.0-80.0) H 01/10/18 05:30 Band Neutrophils % 1 % (0-10) 01/08/18 07:25 Lymphocytes % 8.9 % (20.0-50.0) L 01/10/18 05:30 Monocytes % 5.8 % (2.0-10.0) 01/10/18 05:30 Eosinophils % 1.3 % (0.0-5.0) 01/10/18 05:30 Basophils % 0.2 % (0.0-2.0) 01/10/18 05:30 Neutrophils (Manual) 79 % (40-80) 01/08/18 07:25 Lymphocytes 13 % (20-50) L 01/08/18 07:25 Monocytes 7 % (2-10) 01/08/18 07:25 Eosinophils 1 % (0-5) 01/06/18 18:55 Platelet Estimate ADEQUATE (NORMAL) 01/08/18 07:25 PT 10.1 SECONDS (9.5-11.5) 01/06/18 18:55 INR 0.97 (0.5-1.4) 01/06/18 18:55 PTT (Actin FS) 22.7 SECONDS (26.0-38.0) L 01/06/18 18:55 Sodium 139 mEq/L (136-145) 01/10/18 05:30 Potassium 4.7 mEq/L (3.5-5.1) 01/10/18 05:30 Chloride 113 mEq/L (98-107) H 01/10/18 05:30 Carbon Dioxide 16.5 mEq/L (21.0-31.0) L 01/10/18 05:30 Anion Gap 14.2 (7.0-16.0) 01/10/18 05:30 BUN 68 mg/dL (7-25) H 01/10/18 05:30 Creatinine 3.2 mg/dL (0.6-1.2) H 01/10/18 05:30 Est GFR ( Amer) 18.8 ml/min (>90) 01/10/18 05:30 Est GFR (Non-Af Amer) 15.5 ml/min 01/10/18 05:30 BUN/Creatinine Ratio 21.3 01/10/18 05:30 Glucose 65 mg/dL (70-105) L 01/10/18 05:30 POC Glucose 108 MG/DL (70 - 105) H 01/10/18 21:30 Hemoglobin A1c % 6.2 % (4.0-6.0) H 01/06/18 18:55 Calcium 10.3 mg/dL (8.6-10.3) 01/10/18 05:30 Iron 59 ug/dL (27-139) 01/07/18 09:30 TIBC 166 ug/dL (250-450) L 01/07/18 09:30 Iron Saturation 36 % (15-55) 01/07/18 09:30 Unsaturated IBC 107 ug/dL (118-369) L 01/07/18 09:30 Ferritin 1553 ng/mL (15-150) H 01/07/18 09:30 Total Bilirubin 0.3 mg/dL (0.3-1.0) 01/08/18 07:25 AST 13 U/L (13-39) 01/08/18 07:25 ALT 6 U/L (7-52) L 01/08/18 07:25 Alkaline Phosphatase 140 U/L (34-104) H 01/08/18 07:25 Ammonia 71 umol/L (16-53) H 01/08/18 07:25 Total Protein 6.4 gm/dL (6.0-8.3) 01/08/18 07:25 Albumin 2.8 gm/dL (3.7-5.3) L 01/08/18 07:25 Globulin 3.6 gm/dL 01/08/18 07:25 Albumin/Globulin Ratio 0.8 (1.0-1.8) L 01/08/18 07:25 Lipase 27 U/L (11-82) 01/06/18 18:55 Vitamin B12 788 pg/mL (232-1245) 01/08/18 07:25 Folic Acid >20.0 ng/mL (>3.0) 01/08/18 07:25 TSH 2.40 uIU/ml (0.34-5.60) 01/08/18 07:25 Stool Occult Blood POSITIVE (NEGATIVE) H 01/09/18 14:48 Blood Type A POSITIVE 01/07/18 10:40 Antibody Screen NEGATIVE 01/07/18 10:40 Crossmatch See Detail 01/07/18 10:40 - Physical Exam Vitals and I&O: Vital Signs Temp 98.4 F 01/10/18 17:21 Pulse 101 01/10/18 19:51 Resp 18 01/10/18 19:51 BP 112/59 01/10/18 17:21 Pulse Ox 99 01/10/18 19:51 Intake & Output 01/10/18 01/10/18 01/11/18 06:59 18:59 06:59 Intake Total 550 1000 Balance 550 1000 Weight (lbs) 55.565 kg Intake: Intake, IV Amount 1000 Sodium Chloride 0.9% 1, 1000 000 ml @ 75 mls/hr IV . [id number] [facility] Rx#:[id number] Oral 550 Active Medications: Current Medications Acetaminophen (Tylenol) 650 mg PO Q4HR PRN PRN Reason: MILD Pain or Fever >101 Stop: 03/07/18 22:42 Albuterol/Ipratropium (Duoneb Neb) 3 ml HHN Q4H PRN PRN Reason: Wheezing Stop: 03/07/18 20:43 Last Admin: 01/07/18 07:06 Dose: 3 ml Ascorbic Acid (Vitamin C) 500 mg PO DAILY [facility] Stop: 03/08/18 08:59 Last Admin: 01/10/18 08:39 Dose: 500 mg Atorvastatin Calcium (Lipitor) 20 mg PO HS [facility] Stop: 03/08/18 20:59 Last Admin: 01/10/18 21:36 Dose: 20 mg Docusate Sodium (Colace) 100 mg PO BID [facility] Stop: 03/08/18 08:59 Last Admin: 01/10/18 16:41 Dose: Not Given Epoetin Brad (Epogen) 5,000 units SUBQ TuThSa [facility] Stop: 03/08/18 15:59 Last Admin: 01/10/18 16:24 Dose: 5,000 units Famotidine (Pepcid) 20 mg PO DAILY [facility] Stop: 03/08/18 08:59 Last Admin: 01/10/18 08:39 Dose: 20 mg Ferrous Sulfate (Iron) 325 mg PO DAILY [facility] Stop: 03/08/18 08:59 Last Admin: 01/10/18 08:39 Dose: 325 mg Folic Acid (Folate) 1 mg PO DAILY [facility] Stop: 03/08/18 08:59 Last Admin: 01/10/18 08:40 Dose: 1 mg Haloperidol (Haldol) 5 mg PO DAILY [facility] PRN Reason: Protocol Stop: 03/08/18 13:59 Last Admin: 01/10/18 08:40 Dose: 5 mg Sodium Chloride (Nacl 0.9%) 1,000 mls @ 75 mls/hr IV .[id number] [facility] Stop: 03/10/18 21:44 Last Admin: 01/10/18 14:08 Dose: 75 mls/hr Insulin Aspart (Novolog Insulin Sliding Scale) 0 units SUBQ ACHS [facility] PRN Reason: Protocol Stop: 03/08/18 12:46 Last Admin: 01/10/18 21:37 Dose: Not Given Insulin Detemir (Levemir Insulin) 10 units SUBQ Q12HR [facility] PRN Reason: Protocol Stop: 03/08/18 08:59 Last Admin: 01/10/18 21:37 Dose: Not Given Lactobacillus Rhamnosus (Culturelle 15b) 1 each PO DAILY [facility] Stop: 03/09/18 08:59 Last Admin: 01/10/18 08:40 Dose: 1 each Lactulose (Cephulac) 30 gm PO BID [facility] Stop: 03/08/18 16:59 Last Admin: 01/10/18 16:41 Dose: Not Given Levothyroxine Sodium (Synthroid) 0.075 mg PO QDAC [facility] Stop: 03/08/18 07:29 Last Admin: 01/10/18 08:40 Dose: 0.075 mg Magnesium Hydroxide (Milk Of Magnesia) 30 ml PO DAILY PRN PRN Reason: Constipation Stop: 03/07/18 22:44 Miscellaneous (Vte Chemical Prophylaxis Screen/ Admission) 1 ea [facility] PRN PRN PRN Reason: PROTOCOL Stop: 03/08/18 10:29 Quetiapine Fumarate (Seroquel) 200 mg PO BID [facility] PRN Reason: Protocol Stop: 03/08/18 16:59 Last Admin: 01/10/18 16:41 Dose: Not Given Sevelamer Carbonate (Renvela) 800 mg PO TIDWM [facility] Stop: 03/08/18 11:59 Last Admin: 01/10/18 16:40 Dose: Not Given Sodium Bicarbonate (Sodium Bicarbonate) 650 mg PO QID [facility] PRN Reason: Protocol Stop: 03/09/18 16:59 Last Admin: 01/10/18 21:36 Dose: 650 mg General: weak, demented HEENT: NC/AT, PERRLA, EOMI, anicteric sclerae, throat clear Neck: Supple, No JVD, No thyromegaly, +2 carotid pulse wo bruit Lungs: CTAB Cardiovascular: RRR, Normal S1, Normal S2, without murmur Abdomen: soft, non-tender, non-distended Extremities: clear Neurological: no change - Procedures Procedures: Procedures Procedure Code Date BLOOD TRANSFUSION SERVICE 85724 01/06/18 TRANSFUSE NONAUT RED BLOOD CELLS IN PERIPH VEIN, PERC 19088H7 01/06/18 Internal Medicine Assmt/Plan - Assessment Assessment: 1.SEVER ANEMIA 2.ACUTE HEPATOENCEPHALOPATHY. 3.CHRONIC LIVER DISEASE. 4.MALNUTRITIN. 5.HYPERCACEMIA. 6.RT SIDE OBSTRACTED HYDRONEPHROSIS. 7.SACRAL BONE FRACTURE. 8.L3 COMPRESSION FRACTURE. 9.METASTATIC BONE DISEASE. - Plan Plan: CONTINUE ON CURRENT MEDICATION AND DIET. Nutritional Asmnt/Malnutr-PDOC - Dietary Evaluation Malnutrition Findings (Please click <Entered> for more info): Nutritional Asmnt/Malnutrition Start: 01/09/18 14: 36 Text: Status: Active Freq: Document 01/09/18 14:36 NIDA (Rec: 01/09/18 14:50 NIDA [email or web address]) Nutritional Asmnt/Malnutrition Patient General Information Nutritional Screening High Risk Consult Diagnosis Anemia, liver cirrhosis Pertinent Medical Hx/Surgical Hx DM, hypothyroidism, chronic liver disease, CKD, psychosis, chronic anemai Subjective Information Consult received for high blood sugar. Pt seen sitting up in bed at time of visit, somewhat confused. Pt appeared thin. Observed lunch consumed about 75% including supplements. Pt has no teeth noted, may need mech soft diet . Per EMR, PO intake 25-50%. Current Diet Order/ Nutrition Support 1800kcal, boost glucose control TID Pertinent Medications vit C, colace, iron, folate, novolog, levemir, culturelle, cephulac, synthroid, 0.9% ns w .20 meq kcl, seroquel, renvela Pertinent Labs 01/09 cl 110, BUN 74 (improved) , Cr 3.3 (improved), Glucose 90, POC 105-123 01/06 A1c 6.2 Nutritional Hx/Data Height 1.63 m Height (Calculated Centimeters) 162.6 Current Weight (lbs) 70.76 kg Weight (Calculated Kilograms) 70.8 Weight (Calculated Grams) 70971.4 [place] Body Weight 120 Body Mass Index (BMI) 26.7 Weight Status Overweight GI Symptoms GI Symptoms Diarrhea Last BM 01/08 multiple times Difficult in: None Skin Integrity/Comment: reddened to buttock Current %PO Fair (50-74%) Estimated Nutritional Goals Calories/Kcals/Kg 25-30 Kcals Calculated 2051-5865 Protein g/k-1.2 Protein Calculated 59-71 Fluid: ml 1475-1770ml (1ml/kcal) Nutritional Problem 1. Problem Problem altered nutrition related labs Etiology CKD, DM Signs/Symptoms: BUN 74, Cr 3.3, Glucose 90, POC 105-123, A1c 6.2 Malnutrition Alert Muscle Mass (Non-Severe) Mild Depletion Protein-Calorie Malnutrition N/A Is there a minimum of two criteria No selected? Query Text:Check all the applicable criteria. A minimum of two criteria are recommended for diagnosis of either severe or non-severe malnutrition. Intervention/Recommendation Comments 1. Recommend renal mech soft ground diet. RN notified. 2. Monitor PO intake, wt, labs and skin integrity 3. F/U as moderate risk in 3-5 days, 01/12-01/14 Expected Outcomes/Goals Expected Outcomes/Goals 1. PO intake to meet at least 75% of nutritional needs. 2. Wt stability, skin to remain intact, labs to approach WNL.
--- NOTE | 2018-01-10 22:03 | Progress Notes ---
DATE: 01/10/2018 Case was discussed with staff of the patient, reviewed records. The patient has been internally preoccupied. Continues to be dealing with anemia and acute hepatic encephalopathy with malnutrition and chronic liver disease. Unable to carry a conversation though she is alert. She is sleeping better. She did have a blood transfusion and she stays internally preoccupied. I am not sure if this is because of hepatic encephalopathy or her psychosis. However, she continues to be on her psychotropic medication with no side effects. Thank you very much for allowing me to participate in the care of this most interesting lady. JOB# [id number]
[2018-01-11 07:45] LABS: % LYMPHOCYTES 10.8 % (20.0-50.0); % NEUTROPHILS 80.2 % (40.0-80.0); EOSINOPHILE ABSOLUTE 0.1 Th/cmm (0.1-0.4); HEMATOCRIT 26.4 % (41.0-60); HEMOGLOBIN 8.8 gm/dL (12-16); LYMPHOCYTE ABSOLUTE 0.7 Th/cmm (1.5-3.0); MEAN CELL VOLUME 88.9 fl (81-100); MEAN CORPUSCULAR HEMOGLOBIN 29.6 pg (27.0-31.0); MEAN CORPUSCULAR HGB CONC 33.3 pg (28.0-36.0); MEAN PLATELET VOLUME 6.7 fl; MONOCYTE ABSOLUTE 0.4 Th/cmm (0.3-1.0); NEUTROPHILE ABSOLUTE 4.9 Th/cmm (1.8-8.0); PLATELET COUNT 265 Th/cmm (150-400); RED BLOOD COUNT 2.97 Mil/cmm (3.80-5.10); WHITE BLOOD COUNT 6.1 Th/cmm (4.8-10.8)
[2018-01-11] MEDS: INSULIN ASPART SLIDING SCALE 100 UNITS/ML UNIT SUBQ SCH ×4 (07:51→21:49)
[2018-01-11 07:57] LABS: ANION GAP 14.4 (7.0-16.0); CALCIUM SERUM 10.1 mg/dL (8.6-10.3); CARBON DIOXIDE 17.4 mEq/L (21.0-31.0); GFR AFRICAN-AMERICAN 20.3 ml/min (>90); GFR NON AFRICAN-AMERICAN 16.8 ml/min; POTASSIUM SERUM 4.8 mEq/L (3.5-5.1)
[2018-01-11] MEDS: Insulin Detemir 100 units/mL 10mL Vial SUBQ SCH ×3 (08:05→21:51)
[2018-01-11] MEDS: Sodium Chloride 0.9% 1,000 ML IV SCH (08:28)
[2018-01-11] MEDS: Ferrous Sulfate 325 MG TAB PO SCH (08:28)
[2018-01-11] MEDS: Lactobacillus Rhamnosus GG 15 Billion CFU CAP.SPRINK PO SCH (08:29)
[2018-01-11] MEDS: Levothyroxine 0.075 Mg Tab PO SCH (08:29)
[2018-01-11] MEDS: Multivitamin w/ Minerals Tab PO SCH (08:29)
[2018-01-11] MEDS: Lactulose 10 Gm/15 mL 30mL UDC PO SCH ×2 (08:30→16:35)
--- NOTE | 2018-01-11 11:48 | General Progress Note ---
Subjective - Review of Systems Service Date: 01/11/18 Subjective: pt seen and examined. unable to get info from patient renal us and ct scan of abd results noted Objective - Results Result Diagrams: 01/11/18 06:12 01/11/18 06:12 Recent Labs: Laboratory Last Values WBC 6.1 Th/cmm (4.8-10.8) 01/11/18 06:12 RBC 2.97 Mil/cmm (3.80-5.10) L 01/11/18 06:12 Hgb 8.8 gm/dL (12-16) L 01/11/18 06:12 Hct 26.4 % (41.0-60) L 01/11/18 06:12 MCV 88.9 fl (81-100) 01/11/18 06:12 MCH 29.6 pg (27.0-31.0) 01/11/18 06:12 MCHC Differential 33.3 pg (28.0-36.0) 01/11/18 06:12 RDW 14.0 % (11.5-20.0) 01/11/18 06:12 Plt Count 265 Th/cmm (150-400) 01/11/18 06:12 MPV 6.7 fl 01/11/18 06:12 Neutrophils % 80.2 % (40.0-80.0) H 01/11/18 06:12 Band Neutrophils % 1 % (0-10) 01/08/18 07:25 Lymphocytes % 10.8 % (20.0-50.0) L 01/11/18 06:12 Monocytes % 7.0 % (2.0-10.0) 01/11/18 06:12 Eosinophils % 2.0 % (0.0-5.0) 01/11/18 06:12 Basophils % 0.0 % (0.0-2.0) 01/11/18 06:12 Neutrophils (Manual) 79 % (40-80) 01/08/18 07:25 Lymphocytes 13 % (20-50) L 01/08/18 07:25 Monocytes 7 % (2-10) 01/08/18 07:25 Eosinophils 1 % (0-5) 01/06/18 18:55 Platelet Estimate ADEQUATE (NORMAL) 01/08/18 07:25 PT 10.1 SECONDS (9.5-11.5) 01/06/18 18:55 INR 0.97 (0.5-1.4) 01/06/18 18:55 PTT (Actin FS) 22.7 SECONDS (26.0-38.0) L 01/06/18 18:55 Sodium 137 mEq/L (136-145) 01/11/18 06:12 Potassium 4.8 mEq/L (3.5-5.1) 01/11/18 06:12 Chloride 110 mEq/L (98-107) H 01/11/18 06:12 Carbon Dioxide 17.4 mEq/L (21.0-31.0) L 01/11/18 06:12 Anion Gap 14.4 (7.0-16.0) 01/11/18 06:12 BUN 58 mg/dL (7-25) H 01/11/18 06:12 Creatinine 3.0 mg/dL (0.6-1.2) H 01/11/18 06:12 Est GFR ( Amer) 20.3 ml/min (>90) 01/11/18 06:12 Est GFR (Non-Af Amer) 16.8 ml/min 01/11/18 06:12 BUN/Creatinine Ratio 19.3 01/11/18 06:12 Glucose 87 mg/dL (70-105) 01/11/18 06:12 POC Glucose 108 MG/DL (70 - 105) H 01/10/18 21:30 Hemoglobin A1c % 6.2 % (4.0-6.0) H 01/06/18 18:55 Calcium 10.1 mg/dL (8.6-10.3) 01/11/18 06:12 Iron 59 ug/dL (27-139) 01/07/18 09:30 TIBC 166 ug/dL (250-450) L 01/07/18 09:30 Iron Saturation 36 % (15-55) 01/07/18 09:30 Unsaturated IBC 107 ug/dL (118-369) L 01/07/18 09:30 Ferritin 1553 ng/mL (15-150) H 01/07/18 09:30 Total Bilirubin 0.3 mg/dL (0.3-1.0) 01/08/18 07:25 AST 13 U/L (13-39) 01/08/18 07:25 ALT 6 U/L (7-52) L 01/08/18 07:25 Alkaline Phosphatase 140 U/L (34-104) H 01/08/18 07:25 Ammonia 71 umol/L (16-53) H 01/08/18 07:25 Total Protein 6.4 gm/dL (6.0-8.3) 01/08/18 07:25 Albumin 2.8 gm/dL (3.7-5.3) L 01/08/18 07:25 Globulin 3.6 gm/dL 01/08/18 07:25 Albumin/Globulin Ratio 0.8 (1.0-1.8) L 01/08/18 07:25 Lipase 27 U/L (11-82) 01/06/18 18:55 Vitamin B12 788 pg/mL (232-1245) 01/08/18 07:25 Folic Acid >20.0 ng/mL (>3.0) 01/08/18 07:25 TSH 2.40 uIU/ml (0.34-5.60) 01/08/18 07:25 Stool Occult Blood POSITIVE (NEGATIVE) H 01/09/18 14:48 Blood Type A POSITIVE 01/07/18 10:40 Antibody Screen NEGATIVE 01/07/18 10:40 Crossmatch See Detail 01/07/18 10:40 - Physical Exam Vitals and I&O: Vital Signs Temp 98.6 F 01/11/18 04:00 Pulse 98 01/11/18 07:39 Resp 18 01/11/18 07:39 BP 114/63 01/11/18 04:00 Pulse Ox 98 01/11/18 07:39 Intake & Output 01/10/18 01/11/18 01/11/18 18:59 06:59 18:59 Intake Total 1000 1200 Output Total 1300 Balance 1000 -100 Weight (lbs) 57.153 kg Intake: Intake, IV Amount 1000 1000 Sodium Chloride 0.9% 1, 1000 1000 000 ml @ 75 mls/hr IV . [id number] [facility] Rx#:[id number] Oral 200 Output: Urine 1300 Other: # Voids 2 # Bowel Movements 1 Stool Characteristics Brown Active Medications: Current Medications Acetaminophen (Tylenol) 650 mg PO Q4HR PRN PRN Reason: MILD Pain or Fever >101 Stop: 03/07/18 22:42 Last Admin: 01/10/18 23:58 Dose: 650 mg Albuterol/Ipratropium (Duoneb Neb) 3 ml HHN Q4H PRN PRN Reason: Wheezing Stop: 03/07/18 20:43 Last Admin: 01/07/18 07:06 Dose: 3 ml Ascorbic Acid (Vitamin C) 500 mg PO DAILY [facility] Stop: 03/08/18 08:59 Last Admin: 01/11/18 08:29 Dose: 500 mg Atorvastatin Calcium (Lipitor) 20 mg PO HS [facility] Stop: 03/08/18 20:59 Last Admin: 01/10/18 21:36 Dose: 20 mg Docusate Sodium (Colace) 100 mg PO BID [facility] Stop: 03/08/18 08:59 Last Admin: 01/11/18 08:29 Dose: 100 mg Epoetin Brad (Epogen) 5,000 units SUBQ TuThSa [facility] Stop: 03/08/18 15:59 Last Admin: 01/10/18 16:24 Dose: 5,000 units Famotidine (Pepcid) 20 mg PO DAILY [facility] Stop: 03/08/18 08:59 Last Admin: 01/11/18 08:29 Dose: 20 mg Ferrous Sulfate (Iron) 325 mg PO DAILY [facility] Stop: 03/08/18 08:59 Last Admin: 01/11/18 08:28 Dose: 325 mg Folic Acid (Folate) 1 mg PO DAILY [facility] Stop: 03/08/18 08:59 Last Admin: 01/11/18 08:29 Dose: 1 mg Haloperidol (Haldol) 5 mg PO DAILY [facility] PRN Reason: Protocol Stop: 03/08/18 13:59 Last Admin: 01/11/18 08:29 Dose: 5 mg Sodium Chloride (Nacl 0.9%) 1,000 mls @ 75 mls/hr IV .[id number] [facility] Stop: 03/10/18 21:44 Last Admin: 01/11/18 08:28 Dose: 75 mls/hr Insulin Aspart (Novolog Insulin Sliding Scale) 0 units SUBQ ACHS [facility] PRN Reason: Protocol Stop: 03/08/18 12:46 Last Admin: 01/11/18 07:51 Dose: Not Given Insulin Detemir (Levemir Insulin) 10 units SUBQ Q12HR [facility] PRN Reason: Protocol Stop: 03/08/18 08:59 Last Admin: 01/11/18 08:05 Dose: Not Given Lactobacillus Rhamnosus (Culturelle 15b) 1 each PO DAILY [facility] Stop: 03/09/18 08:59 Last Admin: 01/11/18 08:29 Dose: 1 each Lactulose (Cephulac) 30 gm PO BID [facility] Stop: 03/08/18 16:59 Last Admin: 01/11/18 08:30 Dose: 30 gm Levothyroxine Sodium (Synthroid) 0.075 mg PO QDAC [facility] Stop: 03/08/18 07:29 Last Admin: 01/11/18 08:29 Dose: 0.075 mg Magnesium Hydroxide (Milk Of Magnesia) 30 ml PO DAILY PRN PRN Reason: Constipation Stop: 03/07/18 22:44 Miscellaneous (Vte Chemical Prophylaxis Screen/ Admission) 1 ea [facility] PRN PRN PRN Reason: PROTOCOL Stop: 03/08/18 10:29 Quetiapine Fumarate (Seroquel) 200 mg PO BID [facility] PRN Reason: Protocol Stop: 03/08/18 16:59 Last Admin: 01/11/18 08:47 Dose: 200 mg Sevelamer Carbonate (Renvela) 800 mg PO TIDWM [facility] Stop: 03/08/18 11:59 Last Admin: 01/11/18 08:31 Dose: 800 mg Sodium Bicarbonate (Sodium Bicarbonate) 650 mg PO QID [facility] PRN Reason: Protocol Stop: 03/09/18 16:59 Last Admin: 01/11/18 08:47 Dose: 650 mg General: Alert (frail), Cooperative, No acute distress HEENT: Atraumatic, PERRLA Neck: Supple, JVD Cardiovascular: Regular rate, Normal S1, Normal S2 Lungs: Clear to auscultation Abdomen: Bowel sounds, Soft, Distended Neurological: Normal speech Psych/Mental Status: Mood NL - Procedures Procedures: Procedures Procedure Code Date BLOOD TRANSFUSION SERVICE 46312 01/06/18 TRANSFUSE NONAUT RED BLOOD CELLS IN PERIPH VEIN, PERC 47782Z9 01/06/18 Assessment/Plan - Assessment Assessment: CIERRA CKD SEVERE ANEMIA obstructive uropathy liver disease ? bone mets on CT scan - Plan Plan: RENAL FUNCTION IMPROVING CONTINUE IVF CHECK LABS IN AM need urology evaluation patient has severe right hydro due to kidney stone patient needs cysto Nutritional Asmnt/Malnutr-PDOC - Dietary Evaluation Malnutrition Findings (Please click <Entered> for more info): Nutritional Asmnt/Malnutrition Start: 01/09/18 14: 36 Text: Status: Active Freq: Document 01/09/18 14:36 ANA (Rec: 01/09/18 14:50 ANA [email or web address]) Nutritional Asmnt/Malnutrition Patient General Information Nutritional Screening High Risk Consult Diagnosis Anemia, liver cirrhosis Pertinent Medical Hx/Surgical Hx DM, hypothyroidism, chronic liver disease, CKD, psychosis, chronic anemai Subjective Information Consult received for high blood sugar. Pt seen sitting up in bed at time of visit, somewhat confused. Pt appeared thin. Observed lunch consumed about 75% including supplements. Pt has no teeth noted, may need mech soft diet . Per EMR, PO intake 25-50%. Current Diet Order/ Nutrition Support 1800kcal, boost glucose control TID Pertinent Medications vit C, colace, iron, folate, novolog, levemir, culturelle, cephulac, synthroid, 0.9% ns w .20 meq kcl, seroquel, renvela Pertinent Labs 01/09 cl 110, BUN 74 (improved) , Cr 3.3 (improved), Glucose 90, POC 105-123 01/06 A1c 6.2 Nutritional Hx/Data Height 1.63 m Height (Calculated Centimeters) 162.6 Current Weight (lbs) 70.76 kg Weight (Calculated Kilograms) 70.8 Weight (Calculated Grams) 23225.4 [place] Body Weight 120 Body Mass Index (BMI) 26.7 Weight Status Overweight GI Symptoms GI Symptoms Diarrhea Last BM 01/08 multiple times Difficult in: None Skin Integrity/Comment: reddened to buttock Current %PO Fair (50-74%) Estimated Nutritional Goals Calories/Kcals/Kg 25-30 Kcals Calculated 3588-0422 Protein g/k-1.2 Protein Calculated 59-71 Fluid: ml 1475-1770ml (1ml/kcal) Nutritional Problem 1. Problem Problem altered nutrition related labs Etiology CKD, DM Signs/Symptoms: BUN 74, Cr 3.3, Glucose 90, POC 105-123, A1c 6.2 Malnutrition Alert Muscle Mass (Non-Severe) Mild Depletion Protein-Calorie Malnutrition N/A Is there a minimum of two criteria No selected? Query Text:Check all the applicable criteria. A minimum of two criteria are recommended for diagnosis of either severe or non-severe malnutrition. Intervention/Recommendation Comments 1. Recommend renal mech soft ground diet. RN notified. 2. Monitor PO intake, wt, labs and skin integrity 3. F/U as moderate risk in 3-5 days, 01/12-01/14 Expected Outcomes/Goals Expected Outcomes/Goals 1. PO intake to meet at least 75% of nutritional needs. 2. Wt stability, skin to remain intact, labs to approach WNL.
[2018-01-11] MEDS ORDERED: IOHEXOL 300mgI/mL 50 ML VIAL ONE ×2 (13:03→13:46)
[2018-01-11] MEDS ORDERED: fentaNYL Citrate 100 mcg/2mL Vial ONE (13:50)
[2018-01-11] MEDS ORDERED: Neostigmine 10mg/10mL Vial ONE (14:19)
[2018-01-11] MEDS ORDERED: Propofol **SURGERY USE ONLY** 20 ML IV ONE (14:20)
--- NOTE | 2018-01-11 17:00 | Operative Report ---
DATE OF SURGERY: 01/11/2018 PREOPERATIVE DIAGNOSIS: Severe right hydronephrosis with a large stone in the distal ureter. POSTOPERATIVE DIAGNOSIS: Severe right hydronephrosis with a large stone in the distal ureter. Stone difficult to visualize. SURGEON: Dr. Aguilar. NAME OF PROCEDURE: 1. Cystoscopy, right retrograde pyelogram with injection of contrast and fluoroscopy. 2. Placement of double-J stent size 24 x 4.9 in the right ureter ANESTHESIA: General. INDICATIONS: The patient is a 62-year-old with schizophrenia and possibly dementia, was admitted with an elevated BUN and creatinine and altered level of consciousness. Workup has revealed obstructive uropathy, for which the procedure was recommended urgently. No history is available from the patient and there were no family members to help. FINDINGS: Bladder shows changes of catheter cystitis. The patient has had a Dunlap for unknown period of time. Retrograde showed massive dilation of the ureter down to the bladder, even though the stone is in the lower third ureter. Ureter is very tortuous and the collecting system is massively dilated. There was no filling defect that could be documented corresponding to the stone seen on the CT scan in spite of repeated injection of contrast in this area. The guidewire did not go up very easily, but required some manipulation and then the stent went easily over the wire in satisfactory position to complete the procedure without any blood loss or complication. DESCRIPTION OF PROCEDURE: The patient was brought to the operating room, prepped and draped in the dorsal lithotomy position after general anesthesia was induced. After dilating the urethra, bladder was entered and examined. The right orifice was cannulated and contrast was injected, which regurgitated many times until I was able to get the catheter up near the stone and then inject the contrast to the proximal part of the ureter and the kidney. After that, I was able to manipulate the wire into the kidney and over this advanced a 4.9 x 24 stent in satisfactory position. A lot of debris and cloudy material was drained during this procedure, which may hopefully help with the obstruction. A Dunlap was replaced and the patient returned to recovery in stable condition. JOB# [id number]
--- NOTE | 2018-01-11 21:11 | Consultation ---
DATE OF CONSULTATION: 01/11/2018 UROLOGY CONSULTATION REASON FOR CONSULTATION: The patient seen for obstructive uropathy, hydronephrosis and renal failure. HISTORY OF PRESENT ILLNESS: This is a 62-year-old woman who was brought to the Emergency Room with altered level of consciousness and elevated BUN and creatinine to 4.4 and 94 respectively. Her hemoglobin was also down to 5.5. During the evaluation, the CT scan showed severe hydronephrosis on the right side with ____ cm stone in the distal right ureter and also some small bilateral renal calculi. A stent was recommended as an urgent procedure to help protect renal function and prevent infection. MEDICAL HISTORY: The patient unable to provide due to schizophrenia and dementia. It is unknown whether she has had stone disease before or surgeries related to it. She does have documented diabetes, coronary artery disease and peptic ulcer disease. She also has thyroid disorder and dementia with schizophrenia. No documented drug, tobacco or alcohol use. HOME MEDICATIONS: Before admission listed as insulin, aspirin, Lipitor, Pepcid, iron, Haldol, haloperidol, levothyroxine, magnesium hydroxide, melatonin, quetiapine fumarate, Florastor and Renagel. ALLERGIES: None listed. SURGICAL HISTORY: Unknown and not documented. REVIEW OF SYSTEMS: Altered level of consciousness noted. No seizures described. No chest pain, coughing or shortness of breath was noted here. No vomiting or diarrhea. Apparently, she has a history of liver dysfunction or cirrhosis as well and chronic renal disease as well. PHYSICAL EXAMINATION: VITAL SIGNS: Temperature 98.3, heart rate 102 and blood pressure 150/70. No fever in the hospital since admission. HEAD AND NECK: Normocephalic. Trachea is central. Pupils equal and reactive. No jaundice. Thyroid and lymph nodes not palpable. Carotid bruit absent. CHEST: Symmetrical. LUNGS: Clear. HEART: Sounds normal, in sinus rhythm. No murmur. ABDOMEN: Soft, mildly tender in the right flank and right lower quadrant. No organomegaly, mass or hernia. Dunlap catheter draining clear, but some cloudy urine. EXTREMITIES: No edema or lymphadenopathy. NEUROLOGIC: Nonfocal. Moves all 4 limbs. PELVIC: Done later on showed absence of any masses or bleeding. LABORATORY AND DIAGNOSTIC DATA: White count 6.1, has remained normal throughout; hemoglobin 8.8 and platelets normal. BUN 58 and creatinine 3.0, improved after admission and with hydration. Glucose level is 108, 73 and 87 as documented recently. Stool occult blood is positive. PT and PTT are normal. Chest x-ray shows old rib fractures, but no other abnormalities. Deformity also involving the clavicle of unclear significance. Renal ultrasound shows hydronephrosis on the right side. CT scan showed the large stone ____ cm with two smaller stones in the proximal ureter, which are nonobstructing as the ureter is massively dilated. The bilateral small renal calculi are seen. Bladder wall is described as irregular and they described metastatic disease in the skeleton and pathological fracture at L3 level. There is also nondisplaced sacral fracture reported with a distended stomach. IMPRESSION: 1. Right-sided hydronephrosis with a large stone in the distal ureter. 2. Renal insufficiency. Recommend urgent cystoscopy and retrograde pyelogram and stent placement. Salvage renal function if possible and prevent infection from an obstructed system. The patient is unable to provide consent and this was obtained from two of her treating physicians as it is urgently needed. 3. Schizophrenia. The patient is unable to communicate very well. 4. Diabetes, controlled. 5. History of peptic ulcer, stable. 6. History of hypertension, no change. 7. Hypothyroidism, well controlled. 8. Dementia. 9. Anemia. Thank you for the referral. JOB# [id number]
[2018-01-11] MEDS: Atorvastatin Calcium 10 MG TAB PO SCH (21:45)
--- NOTE | 2018-01-11 22:53 | Internal Medicine Prog Note ---
Internal Medicine Subjective - Subjective Service Date: 01/11/18 Patient seen and examined:: with staff (SHE HAD CYSESCOPY WITH RT URETER STENT PLACEMENT) Patient is:: awake, in bed, talking, confused Per staff patient has:: no adverse event (SHE IS VERY CONFUSED) Internal Medicine Objective - Results Result Diagrams: 01/11/18 06:12 01/11/18 06:12 Recent Labs: Laboratory Last Values WBC 6.1 Th/cmm (4.8-10.8) 01/11/18 06:12 RBC 2.97 Mil/cmm (3.80-5.10) L 01/11/18 06:12 Hgb 8.8 gm/dL (12-16) L 01/11/18 06:12 Hct 26.4 % (41.0-60) L 01/11/18 06:12 MCV 88.9 fl (81-100) 01/11/18 06:12 MCH 29.6 pg (27.0-31.0) 01/11/18 06:12 MCHC Differential 33.3 pg (28.0-36.0) 01/11/18 06:12 RDW 14.0 % (11.5-20.0) 01/11/18 06:12 Plt Count 265 Th/cmm (150-400) 01/11/18 06:12 MPV 6.7 fl 01/11/18 06:12 Neutrophils % 80.2 % (40.0-80.0) H 01/11/18 06:12 Band Neutrophils % 1 % (0-10) 01/08/18 07:25 Lymphocytes % 10.8 % (20.0-50.0) L 01/11/18 06:12 Monocytes % 7.0 % (2.0-10.0) 01/11/18 06:12 Eosinophils % 2.0 % (0.0-5.0) 01/11/18 06:12 Basophils % 0.0 % (0.0-2.0) 01/11/18 06:12 Neutrophils (Manual) 79 % (40-80) 01/08/18 07:25 Lymphocytes 13 % (20-50) L 01/08/18 07:25 Monocytes 7 % (2-10) 01/08/18 07:25 Eosinophils 1 % (0-5) 01/06/18 18:55 Platelet Estimate ADEQUATE (NORMAL) 01/08/18 07:25 PT 10.1 SECONDS (9.5-11.5) 01/06/18 18:55 INR 0.97 (0.5-1.4) 01/06/18 18:55 PTT (Actin FS) 22.7 SECONDS (26.0-38.0) L 01/06/18 18:55 Sodium 137 mEq/L (136-145) 01/11/18 06:12 Potassium 4.8 mEq/L (3.5-5.1) 01/11/18 06:12 Chloride 110 mEq/L (98-107) H 01/11/18 06:12 Carbon Dioxide 17.4 mEq/L (21.0-31.0) L 01/11/18 06:12 Anion Gap 14.4 (7.0-16.0) 01/11/18 06:12 BUN 58 mg/dL (7-25) H 01/11/18 06:12 Creatinine 3.0 mg/dL (0.6-1.2) H 01/11/18 06:12 Est GFR ( Amer) 20.3 ml/min (>90) 01/11/18 06:12 Est GFR (Non-Af Amer) 16.8 ml/min 01/11/18 06:12 BUN/Creatinine Ratio 19.3 01/11/18 06:12 Glucose 87 mg/dL (70-105) 01/11/18 06:12 POC Glucose 161 MG/DL (70 - 105) H 01/11/18 21:13 Hemoglobin A1c % 6.2 % (4.0-6.0) H 01/06/18 18:55 Calcium 10.1 mg/dL (8.6-10.3) 01/11/18 06:12 Iron 59 ug/dL (27-139) 01/07/18 09:30 TIBC 166 ug/dL (250-450) L 01/07/18 09:30 Iron Saturation 36 % (15-55) 01/07/18 09:30 Unsaturated IBC 107 ug/dL (118-369) L 01/07/18 09:30 Ferritin 1553 ng/mL (15-150) H 01/07/18 09:30 Total Bilirubin 0.3 mg/dL (0.3-1.0) 01/08/18 07:25 AST 13 U/L (13-39) 01/08/18 07:25 ALT 6 U/L (7-52) L 01/08/18 07:25 Alkaline Phosphatase 140 U/L (34-104) H 01/08/18 07:25 Ammonia 71 umol/L (16-53) H 01/08/18 07:25 Total Protein 6.4 gm/dL (6.0-8.3) 01/08/18 07:25 Albumin 2.8 gm/dL (3.7-5.3) L 01/08/18 07:25 Globulin 3.6 gm/dL 01/08/18 07:25 Albumin/Globulin Ratio 0.8 (1.0-1.8) L 01/08/18 07:25 Lipase 27 U/L (11-82) 01/06/18 18:55 Vitamin B12 788 pg/mL (232-1245) 01/08/18 07:25 Folic Acid >20.0 ng/mL (>3.0) 01/08/18 07:25 TSH 2.40 uIU/ml (0.34-5.60) 01/08/18 07:25 PTH Intact 15 pg/mL (15-65) 01/08/18 07:25 Stool Occult Blood POSITIVE (NEGATIVE) H 01/09/18 14:48 Blood Type A POSITIVE 01/07/18 10:40 Antibody Screen NEGATIVE 01/07/18 10:40 Crossmatch See Detail 01/07/18 10:40 - Physical Exam Vitals and I&O: Vital Signs Temp 97.6 F 01/11/18 20:00 Pulse 105 01/11/18 20:00 Resp 18 01/11/18 20:00 BP 125/63 01/11/18 20:00 Pulse Ox 98 01/11/18 20:00 Intake & Output 01/11/18 01/11/18 01/12/18 06:59 18:59 06:59 Intake Total 1200 1290 300 Output Total 3461 317 9167 Balance -100 540 -700 Weight (lbs) 57.153 kg 57.289 kg 57.153 kg Intake: Intake, IV Amount 1000 740 Sodium Chloride 0.9% 1, 1000 740 000 ml @ 75 mls/hr IV . [id number] PABLO Rx#:[id number] Oral 200 550 300 Output: Urine 6141 728 2202 Other: # Voids 2 # Bowel Movements 1 1 Stool Characteristics Brown Soft Active Medications: Current Medications Acetaminophen (Tylenol) 650 mg PO Q4HR PRN PRN Reason: MILD Pain or Fever >101 Stop: 03/07/18 22:42 Last Admin: 01/10/18 23:58 Dose: 650 mg Albuterol/Ipratropium (Duoneb Neb) 3 ml HHN Q4H PRN PRN Reason: Wheezing Stop: 03/07/18 20:43 Last Admin: 01/07/18 07:06 Dose: 3 ml Ascorbic Acid (Vitamin C) 500 mg PO DAILY [facility] Stop: 03/08/18 08:59 Last Admin: 01/11/18 08:29 Dose: 500 mg Atorvastatin Calcium (Lipitor) 20 mg PO HS [facility] Stop: 03/08/18 20:59 Last Admin: 01/11/18 21:45 Dose: 20 mg Docusate Sodium (Colace) 100 mg PO BID [facility] Stop: 03/08/18 08:59 Last Admin: 01/11/18 16:35 Dose: 100 mg Epoetin Brad (Epogen) 5,000 units SUBQ TuThSa [facility] Stop: 03/08/18 15:59 Last Admin: 01/10/18 16:24 Dose: 5,000 units Famotidine (Pepcid) 20 mg PO DAILY [facility] Stop: 03/08/18 08:59 Last Admin: 01/11/18 08:29 Dose: 20 mg Ferrous Sulfate (Iron) 325 mg PO DAILY [facility] Stop: 03/08/18 08:59 Last Admin: 01/11/18 08:28 Dose: 325 mg Folic Acid (Folate) 1 mg PO DAILY [facility] Stop: 03/08/18 08:59 Last Admin: 01/11/18 08:29 Dose: 1 mg Haloperidol (Haldol) 5 mg PO DAILY [facility] PRN Reason: Protocol Stop: 03/08/18 13:59 Last Admin: 01/11/18 08:29 Dose: 5 mg Sodium Chloride (Nacl 0.9%) 1,000 mls @ 75 mls/hr IV .[id number] [facility] Stop: 03/10/18 21:44 Last Infusion: 01/11/18 18:20 Dose: 75 mls/hr Insulin Aspart (Novolog Insulin Sliding Scale) 0 units SUBQ ACHS [facility] PRN Reason: Protocol Stop: 03/08/18 12:46 Last Admin: 01/11/18 21:49 Dose: 2 units Insulin Detemir (Levemir Insulin) 10 units SUBQ Q12HR [facility] PRN Reason: Protocol Stop: 03/08/18 08:59 Last Admin: 01/11/18 21:51 Dose: Not Given Lactobacillus Rhamnosus (Culturelle 15b) 1 each PO DAILY [facility]LO Stop: 03/09/18 08:59 Last Admin: 01/11/18 08:29 Dose: 1 each Lactulose (Cephulac) 30 gm PO BID [facility]LO Stop: 03/08/18 16:59 Last Admin: 01/11/18 16:35 Dose: 30 gm Levothyroxine Sodium (Synthroid) 0.075 mg PO QDAC [facility] Stop: 03/08/18 07:29 Last Admin: 01/11/18 08:29 Dose: 0.075 mg Magnesium Hydroxide (Milk Of Magnesia) 30 ml PO DAILY PRN PRN Reason: Constipation Stop: 03/07/18 22:44 Miscellaneous (Vte Chemical Prophylaxis Screen/ Admission) 1 ea [facility] PRN PRN PRN Reason: PROTOCOL Stop: 03/08/18 10:29 Quetiapine Fumarate (Seroquel) 200 mg PO BID [facility]LO PRN Reason: Protocol Stop: 03/08/18 16:59 Last Admin: 01/11/18 16:34 Dose: 200 mg Sevelamer Carbonate (Renvela) 800 mg PO TIDWM [facility] Stop: 03/08/18 11:59 Last Admin: 01/11/18 16:35 Dose: 800 mg Sodium Bicarbonate (Sodium Bicarbonate) 650 mg PO QID [facility]LO PRN Reason: Protocol Stop: 03/09/18 16:59 Last Admin: 01/11/18 21:45 Dose: 650 mg General: weak, demented HEENT: NC/AT, PERRLA, EOMI, anicteric sclerae, throat clear Neck: Supple, No JVD, No thyromegaly, +2 carotid pulse wo bruit Lungs: CTAB Cardiovascular: RRR, Normal S1, Normal S2, without murmur Abdomen: soft, non-tender, non-distended Extremities: clear Neurological: no change - Procedures Procedures: Procedures Procedure Code Date BLOOD TRANSFUSION SERVICE 24303 01/06/18 TRANSFUSE NONAUT RED BLOOD CELLS IN PERIPH VEIN, PERC 89187E1 01/06/18 Internal Medicine Assmt/Plan - Assessment Assessment: 1.SEVER ANEMIA 2.ACUTE HEPATOENCEPHALOPATHY. 3.CHRONIC LIVER DISEASE. 4.MALNUTRITIN. 5.HYPERCACEMIA. 6.RT SIDE OBSTRACTED HYDRONEPHROSIS. 7.SACRAL BONE FRACTURE. 8.L3 COMPRESSION FRACTURE. 9.METASTATIC BONE DISEASE. 10.SP CYSTESCOPY AND RT URETER STENT PLACEMENT. - Plan Plan: CONTINUE ON CURRENT MEDICATION AND DIET. Nutritional Asmnt/Malnutr-PDOC - Dietary Evaluation Malnutrition Findings (Please click <Entered> for more info): Nutritional Asmnt/Malnutrition Start: 01/09/18 14: 36 Text: Status: Active Freq: Document 01/09/18 14:36 [facility] (Rec: 01/09/18 14:50 [facility]-[email or web address]) Nutritional Asmnt/Malnutrition Patient General Information Nutritional Screening High Risk Consult Diagnosis Anemia, liver cirrhosis Pertinent Medical Hx/Surgical Hx DM, hypothyroidism, chronic liver disease, CKD, psychosis, chronic anemai Subjective Information Consult received for high blood sugar. Pt seen sitting up in bed at time of visit, somewhat confused. Pt appeared thin. Observed lunch consumed about 75% including supplements. Pt has no teeth noted, may need [facility] soft diet . Per EMR, PO intake 25-50%. Current Diet Order/ Nutrition Support 1800kcal, boost glucose control TID Pertinent Medications vit C, colace, iron, folate, novolog, levemir, culturelle, cephulac, synthroid, 0.9% ns w .20 meq kcl, seroquel, renvela Pertinent Labs 01/09 cl 110, BUN 74 (improved) , Cr 3.3 (improved), Glucose 90, POC 105-123 01/06 A1c 6.2 Nutritional Hx/Data Height 1.63 m Height (Calculated Centimeters) 162.6 Current Weight (lbs) 70.76 kg Weight (Calculated Kilograms) 70.8 Weight (Calculated Grams) 66363.4 Shepherd Body Weight 120 Body Mass Index (BMI) 26.7 Weight Status Overweight GI Symptoms GI Symptoms Diarrhea Last BM 01/08 multiple times Difficult in: None Skin Integrity/Comment: reddened to buttock Current %PO Fair (50-74%) Estimated Nutritional Goals Calories/Kcals/Kg 25-30 Kcals Calculated 6965-3437 Protein g/k-1.2 Protein Calculated 59-71 Fluid: ml 1475-1770ml (1ml/kcal) Nutritional Problem 1. Problem Problem altered nutrition related labs Etiology CKD, DM Signs/Symptoms: BUN 74, Cr 3.3, Glucose 90, POC 105-123, A1c 6.2 Malnutrition Alert Muscle Mass (Non-Severe) Mild Depletion Protein-Calorie Malnutrition N/A Is there a minimum of two criteria No selected? Query Text:Check all the applicable criteria. A minimum of two criteria are recommended for diagnosis of either severe or non-severe malnutrition. Intervention/Recommendation Comments 1. Recommend renal mech soft ground diet. RN notified. 2. Monitor PO intake, wt, labs and skin integrity 3. F/U as moderate risk in 3-5 days, 01/12-01/14 Expected Outcomes/Goals Expected Outcomes/Goals 1. PO intake to meet at least 75% of nutritional needs. 2. Wt stability, skin to remain intact, labs to approach WNL.
--- NOTE | 2018-01-12 00:51 | Progress Notes ---
DATE: 01/11/2018 Case was discussed with staff of the patient, reviewed records. The patient continues to be the same. She is still recovering from malnutrition, anemia. She got blood transfusion, somewhat internally preoccupied, unable to converse for a long time, compliant with the medication with no side effects, no sedation, no nausea, no extrapyramidal symptoms. If she acts out, then she need to go to [facility], she has been since concerned. Thank you very much for allowing me to participate in the care of this most interesting lady. JOB# [id number]
[2018-01-12 05:27] LABS: % BASOPHILS 0.2 % (0.0-2.0); % EOSINOPHILS 1.3 % (0.0-5.0); % LYMPHOCYTES 11.2 % (20.0-50.0); % NEUTROPHILS 81.3 % (40.0-80.0); EOSINOPHILE ABSOLUTE 0.1 Th/cmm (0.1-0.4); HEMATOCRIT 24.4 % (41.0-60); LYMPHOCYTE ABSOLUTE 0.7 Th/cmm (1.5-3.0); MEAN CELL VOLUME 88.8 fl (81-100); MEAN CORPUSCULAR HEMOGLOBIN 29.2 pg (27.0-31.0); MEAN CORPUSCULAR HGB CONC 32.9 pg (28.0-36.0); MEAN PLATELET VOLUME 6.3 fl; MONOCYTE ABSOLUTE 0.4 Th/cmm (0.3-1.0); NEUTROPHILE ABSOLUTE 4.8 Th/cmm (1.8-8.0); PLATELET COUNT 263 Th/cmm (150-400); RED BLOOD COUNT 2.74 Mil/cmm (3.80-5.10); RED CELL DISTRIBUTION WIDTH 14.2 % (11.5-20.0)
[2018-01-12 05:44] LABS: ANION GAP 10.4 (7.0-16.0); CALCIUM SERUM 10.3 mg/dL (8.6-10.3); CARBON DIOXIDE 18.1 mEq/L (21.0-31.0); CREATININE - SERUM 3.2 mg/dL (0.6-1.2); GFR AFRICAN-AMERICAN 18.8 ml/min (>90); GFR NON AFRICAN-AMERICAN 15.5 ml/min; POTASSIUM SERUM 4.5 mEq/L (3.5-5.1)
[2018-01-12] MEDS: Sodium Chloride 0.9% 1,000 ML IV SCH (06:44)
--- NOTE | 2018-01-12 08:57 | Diagnostic Imaging Report ---
Fluoroscopy was utilized for facilitation of cystoscopy procedure. Please refer to the procedural report for complete details. The total fluoroscopic time for the exam was 3 minutes and 13 seconds.
--- NOTE | 2018-01-12 10:21 | General Progress Note ---
Subjective - Review of Systems Service Date: 01/12/18 Subjective: awake, lethargic Objective - Results Result Diagrams: 01/12/18 05:15 01/12/18 05:15 Recent Labs: Laboratory Last Values WBC 6.0 Th/cmm (4.8-10.8) 01/12/18 05:15 RBC 2.74 Mil/cmm (3.80-5.10) L 01/12/18 05:15 Hgb 8.0 gm/dL (12-16) L 01/12/18 05:15 Hct 24.4 % (41.0-60) L 01/12/18 05:15 MCV 88.8 fl (81-100) 01/12/18 05:15 MCH 29.2 pg (27.0-31.0) 01/12/18 05:15 MCHC Differential 32.9 pg (28.0-36.0) 01/12/18 05:15 RDW 14.2 % (11.5-20.0) 01/12/18 05:15 Plt Count 263 Th/cmm (150-400) 01/12/18 05:15 MPV 6.3 fl 01/12/18 05:15 Neutrophils % 81.3 % (40.0-80.0) H 01/12/18 05:15 Band Neutrophils % 1 % (0-10) 01/08/18 07:25 Lymphocytes % 11.2 % (20.0-50.0) L 01/12/18 05:15 Monocytes % 6.0 % (2.0-10.0) 01/12/18 05:15 Eosinophils % 1.3 % (0.0-5.0) 01/12/18 05:15 Basophils % 0.2 % (0.0-2.0) 01/12/18 05:15 Neutrophils (Manual) 79 % (40-80) 01/08/18 07:25 Lymphocytes 13 % (20-50) L 01/08/18 07:25 Monocytes 7 % (2-10) 01/08/18 07:25 Eosinophils 1 % (0-5) 01/06/18 18:55 Platelet Estimate ADEQUATE (NORMAL) 01/08/18 07:25 PT 10.1 SECONDS (9.5-11.5) 01/06/18 18:55 INR 0.97 (0.5-1.4) 01/06/18 18:55 PTT (Actin FS) 22.7 SECONDS (26.0-38.0) L 01/06/18 18:55 Sodium 136 mEq/L (136-145) 01/12/18 05:15 Potassium 4.5 mEq/L (3.5-5.1) 01/12/18 05:15 Chloride 112 mEq/L (98-107) H 01/12/18 05:15 Carbon Dioxide 18.1 mEq/L (21.0-31.0) L 01/12/18 05:15 Anion Gap 10.4 (7.0-16.0) 01/12/18 05:15 BUN 54 mg/dL (7-25) H 01/12/18 05:15 Creatinine 3.2 mg/dL (0.6-1.2) H 01/12/18 05:15 Est GFR ( Amer) 18.8 ml/min (>90) 01/12/18 05:15 Est GFR (Non-Af Amer) 15.5 ml/min 01/12/18 05:15 BUN/Creatinine Ratio 16.9 01/12/18 05:15 Glucose 103 mg/dL (70-105) 01/12/18 05:15 POC Glucose 161 MG/DL (70 - 105) H 01/11/18 21:13 Hemoglobin A1c % 6.2 % (4.0-6.0) H 01/06/18 18:55 Calcium 10.3 mg/dL (8.6-10.3) 01/12/18 05:15 Iron 59 ug/dL (27-139) 01/07/18 09:30 TIBC 166 ug/dL (250-450) L 01/07/18 09:30 Iron Saturation 36 % (15-55) 01/07/18 09:30 Unsaturated IBC 107 ug/dL (118-369) L 01/07/18 09:30 Ferritin 1553 ng/mL (15-150) H 01/07/18 09:30 Total Bilirubin 0.3 mg/dL (0.3-1.0) 01/08/18 07:25 AST 13 U/L (13-39) 01/08/18 07:25 ALT 6 U/L (7-52) L 01/08/18 07:25 Alkaline Phosphatase 140 U/L (34-104) H 01/08/18 07:25 Ammonia 71 umol/L (16-53) H 01/08/18 07:25 Total Protein 6.4 gm/dL (6.0-8.3) 01/08/18 07:25 Albumin 2.8 gm/dL (3.7-5.3) L 01/08/18 07:25 Globulin 3.6 gm/dL 01/08/18 07:25 Albumin/Globulin Ratio 0.8 (1.0-1.8) L 01/08/18 07:25 Lipase 27 U/L (11-82) 01/06/18 18:55 Vitamin B12 788 pg/mL (232-1245) 01/08/18 07:25 Folic Acid >20.0 ng/mL (>3.0) 01/08/18 07:25 TSH 2.40 uIU/ml (0.34-5.60) 01/08/18 07:25 PTH Intact 15 pg/mL (15-65) 01/08/18 07:25 Stool Occult Blood POSITIVE (NEGATIVE) H 01/09/18 14:48 Blood Type A POSITIVE 01/07/18 10:40 Antibody Screen NEGATIVE 01/07/18 10:40 Crossmatch See Detail 01/07/18 10:40 - Physical Exam Vitals and I&O: Vital Signs Temp 98.6 F 01/12/18 04:00 Pulse 97 01/12/18 04:00 Resp 19 01/12/18 04:00 BP 126/78 01/12/18 04:00 Pulse Ox 98 01/12/18 04:00 Intake & Output 01/11/18 01/12/18 01/12/18 18:59 06:59 18:59 Intake Total 1290 560 Output Total 750 1000 Balance 540 -440 Weight (lbs) 57.289 kg 57.153 kg Intake: Intake, IV Amount 740 260 Sodium Chloride 0.9% 1, 740 260 000 ml @ 75 mls/hr IV . [id number] [facility] Rx#:[id number] Oral 550 300 Output: Urine 750 1000 Other: # Bowel Movements 1 Stool Characteristics Soft Active Medications: Current Medications Acetaminophen (Tylenol) 650 mg PO Q4HR PRN PRN Reason: MILD Pain or Fever >101 Stop: 03/07/18 22:42 Last Admin: 01/10/18 23:58 Dose: 650 mg Albuterol/Ipratropium (Duoneb Neb) 3 ml HHN Q4H PRN PRN Reason: Wheezing Stop: 03/07/18 20:43 Last Admin: 01/07/18 07:06 Dose: 3 ml Ascorbic Acid (Vitamin C) 500 mg PO DAILY [facility] Stop: 03/08/18 08:59 Last Admin: 01/11/18 08:29 Dose: 500 mg Atorvastatin Calcium (Lipitor) 20 mg PO HS [facility] Stop: 03/08/18 20:59 Last Admin: 01/11/18 21:45 Dose: 20 mg Docusate Sodium (Colace) 100 mg PO BID [facility] Stop: 03/08/18 08:59 Last Admin: 01/11/18 16:35 Dose: 100 mg Epoetin Brad (Epogen) 5,000 units SUBQ TuThSa [facility] Stop: 03/08/18 15:59 Last Admin: 01/10/18 16:24 Dose: 5,000 units Famotidine (Pepcid) 20 mg PO DAILY [facility] Stop: 03/08/18 08:59 Last Admin: 01/11/18 08:29 Dose: 20 mg Ferrous Sulfate (Iron) 325 mg PO DAILY [facility] Stop: 03/08/18 08:59 Last Admin: 01/11/18 08:28 Dose: 325 mg Folic Acid (Folate) 1 mg PO DAILY [facility] Stop: 03/08/18 08:59 Last Admin: 01/11/18 08:29 Dose: 1 mg Haloperidol (Haldol) 5 mg PO DAILY [facility] PRN Reason: Protocol Stop: 03/08/18 13:59 Last Admin: 01/11/18 08:29 Dose: 5 mg Sodium Chloride (Nacl 0.9%) 1,000 mls @ 75 mls/hr IV .[id number] [facility] Stop: 03/10/18 21:44 Last Admin: 01/12/18 06:44 Dose: 75 mls/hr Insulin Aspart (Novolog Insulin Sliding Scale) 0 units SUBQ ACHS [facility] PRN Reason: Protocol Stop: 03/08/18 12:46 Last Admin: 01/11/18 21:49 Dose: 2 units Insulin Detemir (Levemir Insulin) 10 units SUBQ Q12HR [facility] PRN Reason: Protocol Stop: 03/08/18 08:59 Last Admin: 01/11/18 21:51 Dose: Not Given Lactobacillus Rhamnosus (Culturelle 15b) 1 each PO DAILY [facility] Stop: 03/09/18 08:59 Last Admin: 01/11/18 08:29 Dose: 1 each Lactulose (Cephulac) 30 gm PO BID [facility] Stop: 03/08/18 16:59 Last Admin: 01/11/18 16:35 Dose: 30 gm Levothyroxine Sodium (Synthroid) 0.075 mg PO QDAC [facility] Stop: 03/08/18 07:29 Last Admin: 01/11/18 08:29 Dose: 0.075 mg Magnesium Hydroxide (Milk Of Magnesia) 30 ml PO DAILY PRN PRN Reason: Constipation Stop: 03/07/18 22:44 Miscellaneous (Vte Chemical Prophylaxis Screen/ Admission) 1 ea [facility] PRN PRN PRN Reason: PROTOCOL Stop: 03/08/18 10:29 Quetiapine Fumarate (Seroquel) 200 mg PO BID [facility] PRN Reason: Protocol Stop: 03/08/18 16:59 Last Admin: 01/11/18 16:34 Dose: 200 mg Sevelamer Carbonate (Renvela) 800 mg PO TIDWM [facility] Stop: 03/08/18 11:59 Last Admin: 01/11/18 16:35 Dose: 800 mg Sodium Bicarbonate (Sodium Bicarbonate) 650 mg PO QID [facility] PRN Reason: Protocol Stop: 03/09/18 16:59 Last Admin: 01/11/18 21:45 Dose: 650 mg General: Alert (frail), Cooperative, No acute distress HEENT: Atraumatic, PERRLA Neck: Supple, JVD Cardiovascular: Regular rate, Normal S1, Normal S2 Lungs: Clear to auscultation Abdomen: Bowel sounds, Soft, Distended Neurological: Normal speech Psych/Mental Status: Mood NL - Procedures Procedures: Procedures Procedure Code Date BLOOD TRANSFUSION SERVICE 40036 01/06/18 TRANSFUSE NONAUT RED BLOOD CELLS IN PERIPH VEIN, [facility] [id number] 01/06/18 Assessment/Plan - Assessment Assessment: * Hypercalcemia likely of malignancy * Anemia of GI blood loss and chronic disease; no evidence of fe deficiency * Osseous metastases * renal failure; hydronephrosis per nephrology will need gi evaluation for endoscopy; possible GI malignancy. 01/12: hypercalcemia improving; s/p ureter stent placement; hgb stable; will need GI evaluation. Nutritional Asmnt/Malnutr-PDOC - Dietary Evaluation Malnutrition Findings (Please click <Entered> for more info): Nutritional Asmnt/Malnutrition Start: 01/09/18 14: 36 Text: Status: Active Freq: Document 01/09/18 14:36 ANA (Rec: 01/09/18 14:50 [facility]) Nutritional Asmnt/Malnutrition Patient General Information Nutritional Screening High Risk Consult Diagnosis Anemia, liver cirrhosis Pertinent Medical Hx/Surgical Hx DM, hypothyroidism, chronic liver disease, CKD, psychosis, chronic anemai Subjective Information Consult received for high blood sugar. Pt seen sitting up in bed at time of visit, somewhat confused. Pt appeared thin. Observed lunch consumed about 75% including supplements. Pt has no teeth noted, may need mech soft diet . Per EMR, PO intake 25-50%. Current Diet Order/ Nutrition Support 1800kcal, boost glucose control TID Pertinent Medications vit C, colace, iron, folate, novolog, levemir, culturelle, cephulac, synthroid, 0.9% ns w .20 meq kcl, seroquel, renvela Pertinent Labs 01/09 cl 110, BUN 74 (improved) , Cr 3.3 (improved), Glucose 90, POC 105-123 01/06 A1c 6.2 Nutritional Hx/Data Height 1.63 m Height (Calculated Centimeters) 162.6 Current Weight (lbs) 70.76 kg Weight (Calculated Kilograms) 70.8 Weight (Calculated Grams) 87164.4 Jessie Body Weight 120 Body Mass Index (BMI) 26.7 Weight Status Overweight GI Symptoms GI Symptoms Diarrhea Last BM 01/08 multiple times Difficult in: None Skin Integrity/Comment: reddened to buttock Current %PO Fair (50-74%) Estimated Nutritional Goals Calories/Kcals/Kg 25-30 Kcals Calculated 8532-8767 Protein g/k-1.2 Protein Calculated 59-71 Fluid: ml 1475-1770ml (1ml/kcal) Nutritional Problem 1. Problem Problem altered nutrition related labs Etiology CKD, DM Signs/Symptoms: BUN 74, Cr 3.3, Glucose 90, POC 105-123, A1c 6.2 Malnutrition Alert Muscle Mass (Non-Severe) Mild Depletion Protein-Calorie Malnutrition N/A Is there a minimum of two criteria No selected? Query Text:Check all the applicable criteria. A minimum of two criteria are recommended for diagnosis of either severe or non-severe malnutrition. Intervention/Recommendation Comments 1. Recommend renal mech soft ground diet. RN notified. 2. Monitor PO intake, wt, labs and skin integrity 3. F/U as moderate risk in 3-5 days, 01/12-01/14 Expected Outcomes/Goals Expected Outcomes/Goals 1. PO intake to meet at least 75% of nutritional needs. 2. Wt stability, skin to remain intact, labs to approach WNL.
[2018-01-12] MEDS: Multivitamin w/ Minerals Tab PO SCH (10:27)
[2018-01-12] MEDS: Ferrous Sulfate 325 MG TAB PO SCH (10:27)
[2018-01-12] MEDS: Lactobacillus Rhamnosus GG 15 Billion CFU CAP.SPRINK PO SCH (10:28)
[2018-01-12] MEDS: INSULIN ASPART SLIDING SCALE 100 UNITS/ML UNIT SUBQ SCH ×4 (10:30→22:23)
[2018-01-12] MEDS: Levothyroxine 0.075 Mg Tab PO SCH (13:03)
[2018-01-12] MEDS: Lactulose 10 Gm/15 mL 30mL UDC PO SCH ×2 (13:04→17:52)
[2018-01-12] MEDS: Insulin Detemir 100 units/mL 10mL Vial SUBQ SCH ×2 (13:04→22:18)
--- NOTE | 2018-01-12 16:08 | General Progress Note ---
Subjective - Review of Systems Service Date: 01/12/18 Subjective: pt seen and examined. unable to get info from patient renal us and ct scan of abd results noted s/p cysto with stent Objective - Results Result Diagrams: 01/12/18 05:15 01/12/18 05:15 Recent Labs: Laboratory Last Values WBC 6.0 Th/cmm (4.8-10.8) 01/12/18 05:15 RBC 2.74 Mil/cmm (3.80-5.10) L 01/12/18 05:15 Hgb 8.0 gm/dL (12-16) L 01/12/18 05:15 Hct 24.4 % (41.0-60) L 01/12/18 05:15 MCV 88.8 fl (81-100) 01/12/18 05:15 MCH 29.2 pg (27.0-31.0) 01/12/18 05:15 MCHC Differential 32.9 pg (28.0-36.0) 01/12/18 05:15 RDW 14.2 % (11.5-20.0) 01/12/18 05:15 Plt Count 263 Th/cmm (150-400) 01/12/18 05:15 MPV 6.3 fl 01/12/18 05:15 Neutrophils % 81.3 % (40.0-80.0) H 01/12/18 05:15 Band Neutrophils % 1 % (0-10) 01/08/18 07:25 Lymphocytes % 11.2 % (20.0-50.0) L 01/12/18 05:15 Monocytes % 6.0 % (2.0-10.0) 01/12/18 05:15 Eosinophils % 1.3 % (0.0-5.0) 01/12/18 05:15 Basophils % 0.2 % (0.0-2.0) 01/12/18 05:15 Neutrophils (Manual) 79 % (40-80) 01/08/18 07:25 Lymphocytes 13 % (20-50) L 01/08/18 07:25 Monocytes 7 % (2-10) 01/08/18 07:25 Eosinophils 1 % (0-5) 01/06/18 18:55 Platelet Estimate ADEQUATE (NORMAL) 01/08/18 07:25 PT 10.1 SECONDS (9.5-11.5) 01/06/18 18:55 INR 0.97 (0.5-1.4) 01/06/18 18:55 PTT (Actin FS) 22.7 SECONDS (26.0-38.0) L 01/06/18 18:55 Sodium 136 mEq/L (136-145) 01/12/18 05:15 Potassium 4.5 mEq/L (3.5-5.1) 01/12/18 05:15 Chloride 112 mEq/L (98-107) H 01/12/18 05:15 Carbon Dioxide 18.1 mEq/L (21.0-31.0) L 01/12/18 05:15 Anion Gap 10.4 (7.0-16.0) 01/12/18 05:15 BUN 54 mg/dL (7-25) H 01/12/18 05:15 Creatinine 3.2 mg/dL (0.6-1.2) H 01/12/18 05:15 Est GFR ( Amer) 18.8 ml/min (>90) 01/12/18 05:15 Est GFR (Non-Af Amer) 15.5 ml/min 01/12/18 05:15 BUN/Creatinine Ratio 16.9 01/12/18 05:15 Glucose 103 mg/dL (70-105) 01/12/18 05:15 POC Glucose 220 MG/DL (70 - 105) H 01/12/18 11:26 Hemoglobin A1c % 6.2 % (4.0-6.0) H 01/06/18 18:55 Calcium 10.3 mg/dL (8.6-10.3) 01/12/18 05:15 Iron 59 ug/dL (27-139) 01/07/18 09:30 TIBC 166 ug/dL (250-450) L 01/07/18 09:30 Iron Saturation 36 % (15-55) 01/07/18 09:30 Unsaturated IBC 107 ug/dL (118-369) L 01/07/18 09:30 Ferritin 1553 ng/mL (15-150) H 01/07/18 09:30 Total Bilirubin 0.3 mg/dL (0.3-1.0) 01/08/18 07:25 AST 13 U/L (13-39) 01/08/18 07:25 ALT 6 U/L (7-52) L 01/08/18 07:25 Alkaline Phosphatase 140 U/L (34-104) H 01/08/18 07:25 Ammonia 71 umol/L (16-53) H 01/08/18 07:25 Total Protein 6.4 gm/dL (6.0-8.3) 01/08/18 07:25 Albumin 2.8 gm/dL (3.7-5.3) L 01/08/18 07:25 Globulin 3.6 gm/dL 01/08/18 07:25 Albumin/Globulin Ratio 0.8 (1.0-1.8) L 01/08/18 07:25 Lipase 27 U/L (11-82) 01/06/18 18:55 Vitamin B12 788 pg/mL (232-1245) 01/08/18 07:25 Folic Acid >20.0 ng/mL (>3.0) 01/08/18 07:25 TSH 2.40 uIU/ml (0.34-5.60) 01/08/18 07:25 PTH Intact 15 pg/mL (15-65) 01/08/18 07:25 Stool Occult Blood POSITIVE (NEGATIVE) H 01/09/18 14:48 Blood Type A POSITIVE 01/07/18 10:40 Antibody Screen NEGATIVE 01/07/18 10:40 Crossmatch See Detail 01/07/18 10:40 - Physical Exam Vitals and I&O: Vital Signs Temp 98.6 F 01/12/18 04:00 Pulse 97 01/12/18 04:00 Resp 19 01/12/18 04:00 BP 126/78 01/12/18 04:00 Pulse Ox 98 01/12/18 04:00 Intake & Output 01/11/18 01/12/18 01/12/18 18:59 06:59 18:59 Intake Total 1290 560 Output Total 750 1000 Balance 540 -440 Weight (lbs) 57.289 kg 57.153 kg Intake: Intake, IV Amount 740 260 Sodium Chloride 0.9% 1, 740 260 000 ml @ 75 mls/hr IV . [id number] [facility] Rx#:[id number] Oral 550 300 Output: Urine 750 1000 Other: # Bowel Movements 1 Stool Characteristics Soft Active Medications: Current Medications Acetaminophen (Tylenol) 650 mg PO Q4HR PRN PRN Reason: MILD Pain or Fever >101 Stop: 03/07/18 22:42 Last Admin: 01/10/18 23:58 Dose: 650 mg Albuterol/Ipratropium (Duoneb Neb) 3 ml HHN Q4H PRN PRN Reason: Wheezing Stop: 03/07/18 20:43 Last Admin: 01/07/18 07:06 Dose: 3 ml Ascorbic Acid (Vitamin C) 500 mg PO DAILY [facility] Stop: 03/08/18 08:59 Last Admin: 01/12/18 10:27 Dose: 500 mg Atorvastatin Calcium (Lipitor) 20 mg PO HS [facility] Stop: 03/08/18 20:59 Last Admin: 01/11/18 21:45 Dose: 20 mg Docusate Sodium (Colace) 100 mg PO BID [facility] Stop: 03/08/18 08:59 Last Admin: 01/12/18 13:03 Dose: 100 mg Epoetin Brad (Epogen) 5,000 units SUBQ TuThSa [facility] Stop: 03/08/18 15:59 Last Admin: 01/10/18 16:24 Dose: 5,000 units Famotidine (Pepcid) 20 mg PO DAILY [facility] Stop: 03/08/18 08:59 Last Admin: 01/12/18 10:28 Dose: 20 mg Ferrous Sulfate (Iron) 325 mg PO DAILY [facility] Stop: 03/08/18 08:59 Last Admin: 01/12/18 10:27 Dose: 325 mg Folic Acid (Folate) 1 mg PO DAILY [facility] Stop: 03/08/18 08:59 Last Admin: 01/12/18 10:28 Dose: 1 mg Haloperidol (Haldol) 5 mg PO DAILY [facility] PRN Reason: Protocol Stop: 03/08/18 13:59 Last Admin: 01/12/18 10:27 Dose: 5 mg Sodium Chloride (Nacl 0.9%) 1,000 mls @ 75 mls/hr IV .[id number] [facility] Stop: 03/10/18 21:44 Last Admin: 01/12/18 06:44 Dose: 75 mls/hr Insulin Aspart (Novolog Insulin Sliding Scale) 0 units SUBQ ACHS [facility] PRN Reason: Protocol Stop: 03/08/18 12:46 Last Admin: 01/12/18 12:47 Dose: 4 units Insulin Detemir (Levemir Insulin) 10 units SUBQ Q12HR [facility] PRN Reason: Protocol Stop: 03/08/18 08:59 Last Admin: 01/12/18 13:04 Dose: Not Given Lactobacillus Rhamnosus (Culturelle 15b) 1 each PO DAILY [facility] Stop: 03/09/18 08:59 Last Admin: 01/12/18 10:28 Dose: 1 each Lactulose (Cephulac) 30 gm PO BID [facility] Stop: 03/08/18 16:59 Last Admin: 01/12/18 13:04 Dose: 30 gm Levothyroxine Sodium (Synthroid) 0.075 mg PO QDAC [facility] Stop: 03/08/18 07:29 Last Admin: 01/12/18 13:03 Dose: 0.075 mg Magnesium Hydroxide (Milk Of Magnesia) 30 ml PO DAILY PRN PRN Reason: Constipation Stop: 03/07/18 22:44 Miscellaneous (Vte Chemical Prophylaxis Screen/ Admission) 1 ea PRN PRN PRN Reason: PROTOCOL Stop: 03/08/18 10:29 Quetiapine Fumarate (Seroquel) 200 mg PO BID [facility] PRN Reason: Protocol Stop: 03/08/18 16:59 Last Admin: 01/12/18 10:26 Dose: 200 mg Sevelamer Carbonate (Renvela) 800 mg PO TIDWM [facility] Stop: 03/08/18 11:59 Last Admin: 01/12/18 15:31 Dose: 800 mg Sodium Bicarbonate (Sodium Bicarbonate) 650 mg PO QID [facility] PRN Reason: Protocol Stop: 03/09/18 16:59 Last Admin: 01/12/18 13:04 Dose: 650 mg General: Alert (frail), Cooperative, No acute distress HEENT: Atraumatic, PERRLA Neck: Supple, JVD Cardiovascular: Regular rate, Normal S1, Normal S2 Lungs: Clear to auscultation Abdomen: Bowel sounds, Soft, Distended Neurological: Normal speech Psych/Mental Status: Mood NL - Procedures Procedures: Procedures Procedure Code Date BLOOD TRANSFUSION SERVICE 02632 01/06/18 CYSTOSCOPY AND TREATMENT 68107 01/06/18 DILATION OF RIGHT URETER WITH INTRALUMINAL DEVICE, ENDO [id number] 01/06/18 TRANSFUSE NONAUT RED BLOOD CELLS IN PERIPH VEIN, [facility] 81521F7 01/06/18 Assessment/Plan - Assessment Assessment: CIERRA CKD SEVERE ANEMIA obstructive uropathy liver disease ? bone mets on CT scan - Plan Plan: RENAL FUNCTION IMPROVING CONTINUE IVF CHECK LABS IN AM Nutritional Asmnt/Malnutr-PDOC - Dietary Evaluation Malnutrition Findings (Please click <Entered> for more info): Nutritional Asmnt/Malnutrition Start: 01/09/18 14: 36 Text: Status: Active Freq: Document 01/09/18 14:36 LCHENG (Rec: 01/09/18 14:50 LCHENG [email or web address]) Nutritional Asmnt/Malnutrition Patient General Information Nutritional Screening High Risk Consult Diagnosis Anemia, liver cirrhosis Pertinent Medical Hx/Surgical Hx DM, hypothyroidism, chronic liver disease, CKD, psychosis, chronic anemai Subjective Information Consult received for high blood sugar. Pt seen sitting up in bed at time of visit, somewhat confused. Pt appeared thin. Observed lunch consumed about 75% including supplements. Pt has no teeth noted, may need [facility] soft diet . Per EMR, PO intake 25-50%. Current Diet Order/ Nutrition Support 1800kcal, boost glucose control TID Pertinent Medications vit C, colace, iron, folate, novolog, levemir, culturelle, cephulac, synthroid, 0.9% ns w .20 meq kcl, seroquel, renvela Pertinent Labs 01/09 cl 110, BUN 74 (improved) , Cr 3.3 (improved), Glucose 90, POC 105-123 01/06 A1c 6.2 Nutritional Hx/Data Height 1.63 m Height (Calculated Centimeters) 162.6 Current Weight (lbs) 70.76 kg Weight (Calculated Kilograms) 70.8 Weight (Calculated Grams) 08516.4 [place] Body Weight 120 Body Mass Index (BMI) 26.7 Weight Status Overweight GI Symptoms GI Symptoms Diarrhea Last BM 01/08 multiple times Difficult in: None Skin Integrity/Comment: reddened to buttock Current %PO Fair (50-74%) Estimated Nutritional Goals Calories/Kcals/Kg 25-30 Kcals Calculated 9456-3569 Protein g/k-1.2 Protein Calculated 59-71 Fluid: ml 1475-1770ml (1ml/kcal) Nutritional Problem 1. Problem Problem altered nutrition related labs Etiology CKD, DM Signs/Symptoms: BUN 74, Cr 3.3, Glucose 90, POC 105-123, A1c 6.2 Malnutrition Alert Muscle Mass (Non-Severe) Mild Depletion Protein-Calorie Malnutrition N/A Is there a minimum of two criteria No selected? Query Text:Check all the applicable criteria. A minimum of two criteria are recommended for diagnosis of either severe or non-severe malnutrition. Intervention/Recommendation Comments 1. Recommend renal mech soft ground diet. RN notified. 2. Monitor PO intake, wt, labs and skin integrity 3. F/U as moderate risk in 3-5 days, 01/12-01/14 Expected Outcomes/Goals Expected Outcomes/Goals 1. PO intake to meet at least 75% of nutritional needs. 2. Wt stability, skin to remain intact, labs to approach WNL.
[2018-01-12] MEDS: Epoetin Alfa 20000 Units/mL Vial SUBQ SCH (17:55)
[2018-01-12] MEDS: Albuterol/Ipratropium Neb 3 ML AERS HHN PRN (20:23)
--- NOTE | 2018-01-12 20:55 | Internal Medicine Prog Note ---
Internal Medicine Subjective - Subjective Service Date: 01/12/18 Patient seen and examined:: with staff (SHE IS CONFUSED) Patient is:: awake, in bed, talking, confused Per staff patient has:: no adverse event (SHE IS VERY CONFUSED) Internal Medicine Objective - Results Result Diagrams: 01/12/18 05:15 01/12/18 05:15 Recent Labs: Laboratory Last Values WBC 6.0 Th/cmm (4.8-10.8) 01/12/18 05:15 RBC 2.74 Mil/cmm (3.80-5.10) L 01/12/18 05:15 Hgb 8.0 gm/dL (12-16) L 01/12/18 05:15 Hct 24.4 % (41.0-60) L 01/12/18 05:15 MCV 88.8 fl (81-100) 01/12/18 05:15 MCH 29.2 pg (27.0-31.0) 01/12/18 05:15 MCHC Differential 32.9 pg (28.0-36.0) 01/12/18 05:15 RDW 14.2 % (11.5-20.0) 01/12/18 05:15 Plt Count 263 Th/cmm (150-400) 01/12/18 05:15 MPV 6.3 fl 01/12/18 05:15 Neutrophils % 81.3 % (40.0-80.0) H 01/12/18 05:15 Band Neutrophils % 1 % (0-10) 01/08/18 07:25 Lymphocytes % 11.2 % (20.0-50.0) L 01/12/18 05:15 Monocytes % 6.0 % (2.0-10.0) 01/12/18 05:15 Eosinophils % 1.3 % (0.0-5.0) 01/12/18 05:15 Basophils % 0.2 % (0.0-2.0) 01/12/18 05:15 Neutrophils (Manual) 79 % (40-80) 01/08/18 07:25 Lymphocytes 13 % (20-50) L 01/08/18 07:25 Monocytes 7 % (2-10) 01/08/18 07:25 Eosinophils 1 % (0-5) 01/06/18 18:55 Platelet Estimate ADEQUATE (NORMAL) 01/08/18 07:25 PT 10.1 SECONDS (9.5-11.5) 01/06/18 18:55 INR 0.97 (0.5-1.4) 01/06/18 18:55 PTT (Actin FS) 22.7 SECONDS (26.0-38.0) L 01/06/18 18:55 Sodium 136 mEq/L (136-145) 01/12/18 05:15 Potassium 4.5 mEq/L (3.5-5.1) 01/12/18 05:15 Chloride 112 mEq/L (98-107) H 01/12/18 05:15 Carbon Dioxide 18.1 mEq/L (21.0-31.0) L 01/12/18 05:15 Anion Gap 10.4 (7.0-16.0) 01/12/18 05:15 BUN 54 mg/dL (7-25) H 01/12/18 05:15 Creatinine 3.2 mg/dL (0.6-1.2) H 01/12/18 05:15 Est GFR ( Amer) 18.8 ml/min (>90) 01/12/18 05:15 Est GFR (Non-Af Amer) 15.5 ml/min 01/12/18 05:15 BUN/Creatinine Ratio 16.9 01/12/18 05:15 Glucose 103 mg/dL (70-105) 01/12/18 05:15 POC Glucose 107 MG/DL (70 - 105) H 01/12/18 17:14 Hemoglobin A1c % 6.2 % (4.0-6.0) H 01/06/18 18:55 Calcium 10.3 mg/dL (8.6-10.3) 01/12/18 05:15 Iron 59 ug/dL (27-139) 01/07/18 09:30 TIBC 166 ug/dL (250-450) L 01/07/18 09:30 Iron Saturation 36 % (15-55) 01/07/18 09:30 Unsaturated IBC 107 ug/dL (118-369) L 01/07/18 09:30 Ferritin 1553 ng/mL (15-150) H 01/07/18 09:30 Total Bilirubin 0.3 mg/dL (0.3-1.0) 01/08/18 07:25 AST 13 U/L (13-39) 01/08/18 07:25 ALT 6 U/L (7-52) L 01/08/18 07:25 Alkaline Phosphatase 140 U/L (34-104) H 01/08/18 07:25 Ammonia 71 umol/L (16-53) H 01/08/18 07:25 Total Protein 6.4 gm/dL (6.0-8.3) 01/08/18 07:25 Albumin 2.8 gm/dL (3.7-5.3) L 01/08/18 07:25 Globulin 3.6 gm/dL 01/08/18 07:25 Albumin/Globulin Ratio 0.8 (1.0-1.8) L 01/08/18 07:25 Lipase 27 U/L (11-82) 01/06/18 18:55 Vitamin B12 788 pg/mL (232-1245) 01/08/18 07:25 Folic Acid >20.0 ng/mL (>3.0) 01/08/18 07:25 TSH 2.40 uIU/ml (0.34-5.60) 01/08/18 07:25 PTH Intact 15 pg/mL (15-65) 01/08/18 07:25 Stool Occult Blood POSITIVE (NEGATIVE) H 01/09/18 14:48 Blood Type A POSITIVE 01/07/18 10:40 Antibody Screen NEGATIVE 01/07/18 10:40 Crossmatch See Detail 01/07/18 10:40 - Physical Exam Vitals and I&O: Vital Signs Temp 97.8 F 01/12/18 16:00 Pulse 112 01/12/18 20:19 Resp 18 01/12/18 20:19 BP 120/52 01/12/18 16:00 Pulse Ox 98 01/12/18 20:19 Intake & Output 01/12/18 01/12/18 01/13/18 06:59 18:59 06:59 Intake Total 560 Output Total 1000 350 Balance -440 -350 Weight (lbs) 57.153 kg 57.153 kg Intake: Intake, IV Amount 260 Sodium Chloride 0.9% 1, 260 000 ml @ 75 mls/hr IV . [id number] [facility] Rx#:[id number] Oral 300 Output: Urine 1000 350 Active Medications: Current Medications Acetaminophen (Tylenol) 650 mg PO Q4HR PRN PRN Reason: MILD Pain or Fever >101 Stop: 03/07/18 22:42 Last Admin: 01/10/18 23:58 Dose: 650 mg Albuterol/Ipratropium (Duoneb Neb) 3 ml HHN Q4H PRN PRN Reason: Wheezing Stop: 03/07/18 20:43 Last Admin: 01/07/18 07:06 Dose: 3 ml Ascorbic Acid (Vitamin C) 500 mg PO DAILY PABLO Stop: 03/08/18 08:59 Last Admin: 01/12/18 10:27 Dose: 500 mg Atorvastatin Calcium (Lipitor) 20 mg PO HS PABLO Stop: 03/08/18 20:59 Last Admin: 01/11/18 21:45 Dose: 20 mg Docusate Sodium (Colace) 100 mg PO BID PABLO Stop: 03/08/18 08:59 Last Admin: 01/12/18 17:52 Dose: 100 mg Epoetin Brad (Epogen) 5,000 units SUBQ TuThSa PABLO Stop: 03/08/18 15:59 Last Admin: 01/12/18 17:55 Dose: 5,000 units Famotidine (Pepcid) 20 mg PO DAILY PABLO Stop: 03/08/18 08:59 Last Admin: 01/12/18 10:28 Dose: 20 mg Ferrous Sulfate (Iron) 325 mg PO DAILY PABLO Stop: 03/08/18 08:59 Last Admin: 01/12/18 10:27 Dose: 325 mg Folic Acid (Folate) 1 mg PO DAILY PABLO Stop: 03/08/18 08:59 Last Admin: 01/12/18 10:28 Dose: 1 mg Haloperidol (Haldol) 5 mg PO DAILY PABLO PRN Reason: Protocol Stop: 03/08/18 13:59 Last Admin: 01/12/18 10:27 Dose: 5 mg Sodium Chloride (Nacl 0.9%) 1,000 mls @ 75 mls/hr IV .[id number] [facility] Stop: 03/10/18 21:44 Last Admin: 01/12/18 06:44 Dose: 75 mls/hr Insulin Aspart (Novolog Insulin Sliding Scale) 0 units SUBQ ACHS PABLO PRN Reason: Protocol Stop: 03/08/18 12:46 Last Admin: 01/12/18 12:47 Dose: 4 units Insulin Detemir (Levemir Insulin) 10 units SUBQ Q12HR PABLO PRN Reason: Protocol Stop: 03/08/18 08:59 Last Admin: 01/12/18 13:04 Dose: Not Given Lactobacillus Rhamnosus (Culturelle 15b) 1 each PO DAILY PABLO Stop: 03/09/18 08:59 Last Admin: 01/12/18 10:28 Dose: 1 each Lactulose (Cephulac) 30 gm PO BID PABLO Stop: 03/08/18 16:59 Last Admin: 01/12/18 17:52 Dose: 30 gm Levothyroxine Sodium (Synthroid) 0.075 mg PO QDAC PABLO Stop: 03/08/18 07:29 Last Admin: 01/12/18 13:03 Dose: 0.075 mg Magnesium Hydroxide (Milk Of Magnesia) 30 ml PO DAILY PRN PRN Reason: Constipation Stop: 03/07/18 22:44 Miscellaneous (Vte Chemical Prophylaxis Screen/ Admission) 1 ea PRN PRN PRN Reason: PROTOCOL Stop: 03/08/18 10:29 Quetiapine Fumarate (Seroquel) 200 mg PO BID PABLO PRN Reason: Protocol Stop: 03/08/18 16:59 Last Admin: 01/12/18 17:52 Dose: 200 mg Sevelamer Carbonate (Renvela) 800 mg PO TIDWM [facility] Stop: 03/08/18 11:59 Last Admin: 01/12/18 17:52 Dose: 800 mg Sodium Bicarbonate (Sodium Bicarbonate) 650 mg PO QID PABLO PRN Reason: Protocol Stop: 03/09/18 16:59 Last Admin: 01/12/18 17:52 Dose: 650 mg General: weak, demented HEENT: NC/AT, PERRLA, EOMI, anicteric sclerae, throat clear Neck: Supple, No JVD, No thyromegaly, +2 carotid pulse wo bruit Lungs: CTAB Cardiovascular: RRR, Normal S1, Normal S2, without murmur Abdomen: soft, non-tender, non-distended Extremities: clear Neurological: no change - Procedures Procedures: Procedures Procedure Code Date BLOOD TRANSFUSION SERVICE 06619 01/06/18 CYSTOSCOPY AND TREATMENT 01011 01/06/18 DILATION OF RIGHT URETER WITH INTRALUMINAL DEVICE, ENDO [id number] 01/06/18 TRANSFUSE NONAUT RED BLOOD CELLS IN PERIPH VEIN, PERC 89625F0 01/06/18 Internal Medicine Assmt/Plan - Assessment Assessment: 1.SEVER ANEMIA 2.ACUTE HEPATOENCEPHALOPATHY. 3.CHRONIC LIVER DISEASE. 4.MALNUTRITIN. 5.HYPERCACEMIA. 6.RT SIDE OBSTRACTED HYDRONEPHROSIS. 7.SACRAL BONE FRACTURE. 8.L3 COMPRESSION FRACTURE. 9.METASTATIC BONE DISEASE. 10.SP CYSTESCOPY AND RT URETER STENT PLACEMENT. - Plan Plan: CONTINUE ON CURRENT MEDICATION AND DIET. Nutritional Asmnt/Malnutr-PDOC - Dietary Evaluation Malnutrition Findings (Please click <Entered> for more info): Nutritional Asmnt/Malnutrition Start: 01/09/18 14: 36 Text: Status: Active Freq: Document 01/09/18 14:36 NIDA (Rec: 01/09/18 14:50 LCHENG [email or web address]) Nutritional Asmnt/Malnutrition Patient General Information Nutritional Screening High Risk Consult Diagnosis Anemia, liver cirrhosis Pertinent Medical Hx/Surgical Hx DM, hypothyroidism, chronic liver disease, CKD, psychosis, chronic anemai Subjective Information Consult received for high blood sugar. Pt seen sitting up in bed at time of visit, somewhat confused. Pt appeared thin. Observed lunch consumed about 75% including supplements. Pt has no teeth noted, may need [facility] soft diet . Per EMR, PO intake 25-50%. Current Diet Order/ Nutrition Support 1800kcal, boost glucose control TID Pertinent Medications vit C, colace, iron, folate, novolog, levemir, culturelle, cephulac, synthroid, 0.9% ns w .20 meq kcl, seroquel, renvela Pertinent Labs 01/09 cl 110, BUN 74 (improved) , Cr 3.3 (improved), Glucose 90, POC 105-123 01/06 A1c 6.2 Nutritional Hx/Data Height 1.63 m Height (Calculated Centimeters) 162.6 Current Weight (lbs) 70.76 kg Weight (Calculated Kilograms) 70.8 Weight (Calculated Grams) 38292.4 [place] Body Weight 120 Body Mass Index (BMI) 26.7 Weight Status Overweight GI Symptoms GI Symptoms Diarrhea Last BM 01/08 multiple times Difficult in: None Skin Integrity/Comment: reddened to buttock Current %PO Fair (50-74%) Estimated Nutritional Goals Calories/Kcals/Kg 25-30 Kcals Calculated 5745-3177 Protein g/k-1.2 Protein Calculated 59-71 Fluid: ml 1475-1770ml (1ml/kcal) Nutritional Problem 1. Problem Problem altered nutrition related labs Etiology CKD, DM Signs/Symptoms: BUN 74, Cr 3.3, Glucose 90, POC 105-123, A1c 6.2 Malnutrition Alert Muscle Mass (Non-Severe) Mild Depletion Protein-Calorie Malnutrition N/A Is there a minimum of two criteria No selected? Query Text:Check all the applicable criteria. A minimum of two criteria are recommended for diagnosis of either severe or non-severe malnutrition. Intervention/Recommendation Comments 1. Recommend renal mech soft ground diet. RN notified. 2. Monitor PO intake, wt, labs and skin integrity 3. F/U as moderate risk in 3-5 days, 01/12-01/14 Expected Outcomes/Goals Expected Outcomes/Goals 1. PO intake to meet at least 75% of nutritional needs. 2. Wt stability, skin to remain intact, labs to approach WNL.
[2018-01-12] MEDS: Atorvastatin Calcium 10 MG TAB PO SCH (22:03)
--- NOTE | 2018-01-12 22:16 | Progress Notes ---
DATE: SUBJECTIVE: The patient is doing well after the stent insertion yesterday, but unfortunately, we did not get any lab work to see if there was improvement in the BUN and creatinine. I have ordered some for tomorrow. She is eating well and has no pain or other complaints. OBJECTIVE: VITAL SIGNS: On exam, a [place] output has been 500 all day. It has been yellow in color. Temperature 97.8, heart rate 100, blood pressure 120/52, respirations 18, saturating 98% on room air. ABDOMEN: Soft. The right flank is nontender to percussion. EXTREMITIES: No edema. MENTAL STATUS: Somewhat unchanged and the patient remains confused secondary to dementia and schizophrenia. LABORATORY WORK: Hemoglobin 8, WBC 6000. Renal function not done and was ordered for tomorrow. IMPRESSION: 1. Right hydronephrosis from a large stone in the distal third ureter, status post stent placement. Hopefully, renal function will improve. 2. Renal insufficiency, probably acute and chronic. We will follow creatinine tomorrow. 3. Schizophrenia. No change. 4. Diabetes, fair control. 5. Hypothyroidism, stable. JOB# [id number]
--- NOTE | 2018-01-13 01:26 | Progress Notes ---
DATE: 01/12/2018 Case was discussed with staff of the patient and reviewed records. The patient was moved to another room. She was alert and feeding herself. She was pleasant, cooperative. She denies any current intent to harm herself or anybody. Denies auditory or visual hallucinations, paranoia or any side effects. Thank you very much for allowing me to participate in the care of this most interesting lady. JOB# [id number]
[2018-01-13 05:27] LABS: % EOSINOPHILS 1.9 % (0.0-5.0); % LYMPHOCYTES 11.5 % (20.0-50.0); % MONOCYTES 4.8 % (2.0-10.0); % NEUTROPHILS 81.8 % (40.0-80.0); EOSINOPHILE ABSOLUTE 0.1 Th/cmm (0.1-0.4); HEMATOCRIT 23.7 % (41.0-60); HEMOGLOBIN 8.1 gm/dL (12-16); LYMPHOCYTE ABSOLUTE 0.8 Th/cmm (1.5-3.0); MEAN CELL VOLUME 89.9 fl (81-100); MEAN CORPUSCULAR HEMOGLOBIN 30.6 pg (27.0-31.0); MEAN CORPUSCULAR HGB CONC 34.1 pg (28.0-36.0); MEAN PLATELET VOLUME 7.3 fl; MONOCYTE ABSOLUTE 0.3 Th/cmm (0.3-1.0); RED BLOOD COUNT 2.64 Mil/cmm (3.80-5.10); RED CELL DISTRIBUTION WIDTH 13.9 % (11.5-20.0); WHITE BLOOD COUNT 7.2 Th/cmm (4.8-10.8)
[2018-01-13 05:39] LABS: ANION GAP 14.1 (7.0-16.0); CALCIUM SERUM 10.2 mg/dL (8.6-10.3); CARBON DIOXIDE 17.5 mEq/L (21.0-31.0); CREATININE - SERUM 3.3 mg/dL (0.6-1.2); GFR AFRICAN-AMERICAN 18.2 ml/min (>90); POTASSIUM SERUM 3.6 mEq/L (3.5-5.1)
[2018-01-13] MEDS: Sodium Chloride 0.9% 1,000 ML IV SCH (05:39)
[2018-01-13 06:05] LABS: PLATELET COUNT 195 Th/cmm (150-400)
[2018-01-13] MEDS: Lactulose 10 Gm/15 mL 30mL UDC PO SCH ×2 (09:43→18:05)
[2018-01-13] MEDS: Multivitamin w/ Minerals Tab PO SCH (09:45)
[2018-01-13] MEDS: Ferrous Sulfate 325 MG TAB PO SCH (09:45)
[2018-01-13] MEDS: Lactobacillus Rhamnosus GG 15 Billion CFU CAP.SPRINK PO SCH (09:45)
[2018-01-13] MEDS: Levothyroxine 0.075 Mg Tab PO SCH (09:50)
[2018-01-13] MEDS: Insulin Detemir 100 units/mL 10mL Vial SUBQ SCH (09:51)
[2018-01-13] MEDS: INSULIN ASPART SLIDING SCALE 100 UNITS/ML UNIT SUBQ SCH ×3 (12:23→17:58)
--- NOTE | 2018-01-13 13:06 | General Progress Note ---
Subjective - Review of Systems Service Date: 01/13/18 Subjective: pt seen and examined. pt in bed no distress Objective - Results Result Diagrams: 01/13/18 04:55 01/13/18 04:55 Recent Labs: Laboratory Last Values WBC 7.2 Th/cmm (4.8-10.8) 01/13/18 04:55 RBC 2.64 Mil/cmm (3.80-5.10) L 01/13/18 04:55 Hgb 8.1 gm/dL (12-16) L 01/13/18 04:55 Hct 23.7 % (41.0-60) L 01/13/18 04:55 MCV 89.9 fl (81-100) 01/13/18 04:55 MCH 30.6 pg (27.0-31.0) 01/13/18 04:55 MCHC Differential 34.1 pg (28.0-36.0) 01/13/18 04:55 RDW 13.9 % (11.5-20.0) 01/13/18 04:55 Plt Count 195 Th/cmm (150-400) D 01/13/18 04:55 MPV 7.3 fl 01/13/18 04:55 Neutrophils % 81.8 % (40.0-80.0) H 01/13/18 04:55 Band Neutrophils % 1 % (0-10) 01/08/18 07:25 Lymphocytes % 11.5 % (20.0-50.0) L 01/13/18 04:55 Monocytes % 4.8 % (2.0-10.0) 01/13/18 04:55 Eosinophils % 1.9 % (0.0-5.0) 01/13/18 04:55 Basophils % 0.0 % (0.0-2.0) 01/13/18 04:55 Neutrophils (Manual) 79 % (40-80) 01/08/18 07:25 Lymphocytes 13 % (20-50) L 01/08/18 07:25 Monocytes 7 % (2-10) 01/08/18 07:25 Eosinophils 1 % (0-5) 01/06/18 18:55 Platelet Estimate ADEQUATE (NORMAL) 01/08/18 07:25 PT 10.1 SECONDS (9.5-11.5) 01/06/18 18:55 INR 0.97 (0.5-1.4) 01/06/18 18:55 PTT (Actin FS) 22.7 SECONDS (26.0-38.0) L 01/06/18 18:55 Sodium 140 mEq/L (136-145) 01/13/18 04:55 Potassium 3.6 mEq/L (3.5-5.1) 01/13/18 04:55 Chloride 112 mEq/L (98-107) H 01/13/18 04:55 Carbon Dioxide 17.5 mEq/L (21.0-31.0) L 01/13/18 04:55 Anion Gap 14.1 (7.0-16.0) 01/13/18 04:55 BUN 49 mg/dL (7-25) H 01/13/18 04:55 Creatinine 3.3 mg/dL (0.6-1.2) H 01/13/18 04:55 Est GFR ( Amer) 18.2 ml/min (>90) 01/13/18 04:55 Est GFR (Non-Af Amer) 15.0 ml/min 01/13/18 04:55 BUN/Creatinine Ratio 14.8 01/13/18 04:55 Glucose 138 mg/dL (70-105) H 01/13/18 04:55 POC Glucose 176 MG/DL (70 - 105) H 01/13/18 11:25 Hemoglobin A1c % 6.2 % (4.0-6.0) H 01/06/18 18:55 Calcium 10.2 mg/dL (8.6-10.3) 01/13/18 04:55 Iron 59 ug/dL (27-139) 01/07/18 09:30 TIBC 166 ug/dL (250-450) L 01/07/18 09:30 Iron Saturation 36 % (15-55) 01/07/18 09:30 Unsaturated IBC 107 ug/dL (118-369) L 01/07/18 09:30 Ferritin 1553 ng/mL (15-150) H 01/07/18 09:30 Total Bilirubin 0.3 mg/dL (0.3-1.0) 01/08/18 07:25 AST 13 U/L (13-39) 01/08/18 07:25 ALT 6 U/L (7-52) L 01/08/18 07:25 Alkaline Phosphatase 140 U/L (34-104) H 01/08/18 07:25 Ammonia 71 umol/L (16-53) H 01/08/18 07:25 Total Protein 6.4 gm/dL (6.0-8.3) 01/08/18 07:25 Albumin 2.8 gm/dL (3.7-5.3) L 01/08/18 07:25 Globulin 3.6 gm/dL 01/08/18 07:25 Albumin/Globulin Ratio 0.8 (1.0-1.8) L 01/08/18 07:25 Lipase 27 U/L (11-82) 01/06/18 18:55 Vitamin B12 788 pg/mL (232-1245) 01/08/18 07:25 Folic Acid >20.0 ng/mL (>3.0) 01/08/18 07:25 TSH 2.40 uIU/ml (0.34-5.60) 01/08/18 07:25 PTH Intact 15 pg/mL (15-65) 01/08/18 07:25 Stool Occult Blood POSITIVE (NEGATIVE) H 01/09/18 14:48 Blood Type A POSITIVE 01/07/18 10:40 Antibody Screen NEGATIVE 01/07/18 10:40 Crossmatch See Detail 01/07/18 10:40 - Physical Exam Vitals and I&O: Vital Signs Temp 98.7 F 01/13/18 04:00 Pulse 108 01/13/18 07:41 Resp 18 01/13/18 07:41 BP 130/78 01/13/18 04:00 Pulse Ox 98 01/13/18 07:41 Intake & Output 01/12/18 01/13/18 01/13/18 18:59 06:59 18:59 Intake Total 1550 Output Total 350 804 Balance -350 746 Weight (lbs) 57.153 kg 57.153 kg Intake: Intake, IV Amount 1000 Sodium Chloride 0.9% 1, 1000 000 ml @ 75 mls/hr IV . [id number] [facility] Rx#:[id number] Oral 550 Output: Urine 350 804 Active Medications: Current Medications Acetaminophen (Tylenol) 650 mg PO Q4HR PRN PRN Reason: MILD Pain or Fever >101 Stop: 03/07/18 22:42 Last Admin: 01/10/18 23:58 Dose: 650 mg Albuterol/Ipratropium (Duoneb Neb) 3 ml HHN Q4H PRN PRN Reason: Wheezing Stop: 03/07/18 20:43 Last Admin: 01/07/18 07:06 Dose: 3 ml Ascorbic Acid (Vitamin C) 500 mg PO DAILY [facility] Stop: 03/08/18 08:59 Last Admin: 01/13/18 09:44 Dose: 500 mg Atorvastatin Calcium (Lipitor) 20 mg PO HS [facility] Stop: 03/08/18 20:59 Last Admin: 01/12/18 22:03 Dose: 20 mg Docusate Sodium (Colace) 100 mg PO BID [facility] Stop: 03/08/18 08:59 Last Admin: 01/13/18 09:45 Dose: 100 mg Epoetin Brad (Epogen) 5,000 units SUBQ TuThSa [facility] Stop: 03/08/18 15:59 Last Admin: 01/12/18 17:55 Dose: 5,000 units Famotidine (Pepcid) 20 mg PO DAILY [facility] Stop: 03/08/18 08:59 Last Admin: 01/13/18 09:45 Dose: 20 mg Ferrous Sulfate (Iron) 325 mg PO DAILY [facility] Stop: 03/08/18 08:59 Last Admin: 01/13/18 09:45 Dose: 325 mg Folic Acid (Folate) 1 mg PO DAILY [facility] Stop: 03/08/18 08:59 Last Admin: 01/13/18 09:44 Dose: 1 mg Haloperidol (Haldol) 5 mg PO DAILY [facility] PRN Reason: Protocol Stop: 03/08/18 13:59 Last Admin: 01/13/18 09:45 Dose: 5 mg Sodium Chloride (Nacl 0.9%) 1,000 mls @ 75 mls/hr IV .[id number] [facility] Stop: 03/10/18 21:44 Last Admin: 01/13/18 05:39 Dose: 75 mls/hr Insulin Aspart (Novolog Insulin Sliding Scale) 0 units SUBQ ACHS PABLO PRN Reason: Protocol Stop: 03/08/18 12:46 Last Admin: 01/13/18 12:23 Dose: 2 units Insulin Detemir (Levemir Insulin) 10 units SUBQ Q12HR [facility] PRN Reason: Protocol Stop: 03/08/18 08:59 Last Admin: 01/13/18 09:51 Dose: Not Given Lactobacillus Rhamnosus (Culturelle 15b) 1 each PO DAILY PABLO Stop: 03/09/18 08:59 Last Admin: 01/13/18 09:45 Dose: 1 each Lactulose (Cephulac) 30 gm PO BID PABLO Stop: 03/08/18 16:59 Last Admin: 01/13/18 09:43 Dose: 30 gm Levothyroxine Sodium (Synthroid) 0.075 mg PO QDAC [facility] Stop: 03/08/18 07:29 Last Admin: 01/13/18 09:50 Dose: Not Given Magnesium Hydroxide (Milk Of Magnesia) 30 ml PO DAILY PRN PRN Reason: Constipation Stop: 03/07/18 22:44 Miscellaneous (Vte Chemical Prophylaxis Screen/ Admission) 1 ea MC PRN PRN PRN Reason: PROTOCOL Stop: 03/08/18 10:29 Quetiapine Fumarate (Seroquel) 200 mg PO BID [facility]ABLO PRN Reason: Protocol Stop: 03/08/18 16:59 Last Admin: 01/13/18 09:44 Dose: 200 mg Sevelamer Carbonate (Renvela) 800 mg PO TIDWM [facility] Stop: 03/08/18 11:59 Last Admin: 01/13/18 09:50 Dose: Not Given Sodium Bicarbonate (Sodium Bicarbonate) 650 mg PO QID PABLO PRN Reason: Protocol Stop: 03/09/18 16:59 Last Admin: 01/13/18 09:44 Dose: 650 mg General: Alert (frail), Cooperative, No acute distress HEENT: Atraumatic, PERRLA Neck: Supple, JVD Cardiovascular: Regular rate, Normal S1, Normal S2 Lungs: Clear to auscultation Abdomen: Bowel sounds, Soft, Distended Neurological: Normal speech Psych/Mental Status: Mood NL - Procedures Procedures: Procedures Procedure Code Date BLOOD TRANSFUSION SERVICE 08913 01/06/18 CYSTOSCOPY AND TREATMENT 59262 01/06/18 DILATION OF RIGHT URETER WITH INTRALUMINAL DEVICE, ENDO [id number] 01/06/18 TRANSFUSE NONAUT RED BLOOD CELLS IN PERIPH VEIN, PERC [id number] 01/06/18 Assessment/Plan - Assessment Assessment: CIERRA CKD SEVERE ANEMIA obstructive uropathy s/p cystoscopy and stent placement liver disease ? bone mets on CT scan - Plan Plan: renal function initially improved but not any more continue ivf will check labs in am Nutritional Asmnt/Malnutr-PDOC - Dietary Evaluation Malnutrition Findings (Please click <Entered> for more info): Nutritional Asmnt/Malnutrition Start: 01/09/18 14: 36 Text: Status: Active Freq: Document 01/09/18 14:36 ANA (Rec: 01/09/18 14:50 [email or web address]) Nutritional Asmnt/Malnutrition Patient General Information Nutritional Screening High Risk Consult Diagnosis Anemia, liver cirrhosis Pertinent Medical Hx/Surgical Hx DM, hypothyroidism, chronic liver disease, CKD, psychosis, chronic anemai Subjective Information Consult received for high blood sugar. Pt seen sitting up in bed at time of visit, somewhat confused. Pt appeared thin. Observed lunch consumed about 75% including supplements. Pt has no teeth noted, may need mech soft diet . Per EMR, PO intake 25-50%. Current Diet Order/ Nutrition Support 1800kcal, boost glucose control TID Pertinent Medications vit C, colace, iron, folate, novolog, levemir, culturelle, cephulac, synthroid, 0.9% ns w .20 meq kcl, seroquel, renvela Pertinent Labs 01/09 cl 110, BUN 74 (improved) , Cr 3.3 (improved), Glucose 90, POC 105-123 01/06 A1c 6.2 Nutritional Hx/Data Height 1.63 m Height (Calculated Centimeters) 162.6 Current Weight (lbs) 70.76 kg Weight (Calculated Kilograms) 70.8 Weight (Calculated Grams) 21732.4 [place] Body Weight 120 Body Mass Index (BMI) 26.7 Weight Status Overweight GI Symptoms GI Symptoms Diarrhea Last BM 01/08 multiple times Difficult in: None Skin Integrity/Comment: reddened to buttock Current %PO Fair (50-74%) Estimated Nutritional Goals Calories/Kcals/Kg 25-30 Kcals Calculated 5099-5122 Protein g/k-1.2 Protein Calculated 59-71 Fluid: ml 1475-1770ml (1ml/kcal) Nutritional Problem 1. Problem Problem altered nutrition related labs Etiology CKD, DM Signs/Symptoms: BUN 74, Cr 3.3, Glucose 90, POC 105-123, A1c 6.2 Malnutrition Alert Muscle Mass (Non-Severe) Mild Depletion Protein-Calorie Malnutrition N/A Is there a minimum of two criteria No selected? Query Text:Check all the applicable criteria. A minimum of two criteria are recommended for diagnosis of either severe or non-severe malnutrition. Intervention/Recommendation Comments 1. Recommend renal mech soft ground diet. RN notified. 2. Monitor PO intake, wt, labs and skin integrity 3. F/U as moderate risk in 3-5 days, 01/12-01/14 Expected Outcomes/Goals Expected Outcomes/Goals 1. PO intake to meet at least 75% of nutritional needs. 2. Wt stability, skin to remain intact, labs to approach WNL.
--- NOTE | 2018-01-13 14:43 | General Progress Note ---
Subjective - Review of Systems Service Date: 01/13/18 Subjective: awake, lethargic no new sxs Objective - Results Result Diagrams: 01/13/18 04:55 01/13/18 04:55 Recent Labs: Laboratory Last Values WBC 7.2 Th/cmm (4.8-10.8) 01/13/18 04:55 RBC 2.64 Mil/cmm (3.80-5.10) L 01/13/18 04:55 Hgb 8.1 gm/dL (12-16) L 01/13/18 04:55 Hct 23.7 % (41.0-60) L 01/13/18 04:55 MCV 89.9 fl (81-100) 01/13/18 04:55 MCH 30.6 pg (27.0-31.0) 01/13/18 04:55 MCHC Differential 34.1 pg (28.0-36.0) 01/13/18 04:55 RDW 13.9 % (11.5-20.0) 01/13/18 04:55 Plt Count 195 Th/cmm (150-400) D 01/13/18 04:55 MPV 7.3 fl 01/13/18 04:55 Neutrophils % 81.8 % (40.0-80.0) H 01/13/18 04:55 Band Neutrophils % 1 % (0-10) 01/08/18 07:25 Lymphocytes % 11.5 % (20.0-50.0) L 01/13/18 04:55 Monocytes % 4.8 % (2.0-10.0) 01/13/18 04:55 Eosinophils % 1.9 % (0.0-5.0) 01/13/18 04:55 Basophils % 0.0 % (0.0-2.0) 01/13/18 04:55 Neutrophils (Manual) 79 % (40-80) 01/08/18 07:25 Lymphocytes 13 % (20-50) L 01/08/18 07:25 Monocytes 7 % (2-10) 01/08/18 07:25 Eosinophils 1 % (0-5) 01/06/18 18:55 Platelet Estimate ADEQUATE (NORMAL) 01/08/18 07:25 PT 10.1 SECONDS (9.5-11.5) 01/06/18 18:55 INR 0.97 (0.5-1.4) 01/06/18 18:55 PTT (Actin FS) 22.7 SECONDS (26.0-38.0) L 01/06/18 18:55 Sodium 140 mEq/L (136-145) 01/13/18 04:55 Potassium 3.6 mEq/L (3.5-5.1) 01/13/18 04:55 Chloride 112 mEq/L (98-107) H 01/13/18 04:55 Carbon Dioxide 17.5 mEq/L (21.0-31.0) L 01/13/18 04:55 Anion Gap 14.1 (7.0-16.0) 01/13/18 04:55 BUN 49 mg/dL (7-25) H 01/13/18 04:55 Creatinine 3.3 mg/dL (0.6-1.2) H 01/13/18 04:55 Est GFR ( Amer) 18.2 ml/min (>90) 01/13/18 04:55 Est GFR (Non-Af Amer) 15.0 ml/min 01/13/18 04:55 BUN/Creatinine Ratio 14.8 01/13/18 04:55 Glucose 138 mg/dL (70-105) H 01/13/18 04:55 POC Glucose 176 MG/DL (70 - 105) H 01/13/18 11:25 Hemoglobin A1c % 6.2 % (4.0-6.0) H 01/06/18 18:55 Calcium 10.2 mg/dL (8.6-10.3) 01/13/18 04:55 Iron 59 ug/dL (27-139) 01/07/18 09:30 TIBC 166 ug/dL (250-450) L 01/07/18 09:30 Iron Saturation 36 % (15-55) 01/07/18 09:30 Unsaturated IBC 107 ug/dL (118-369) L 01/07/18 09:30 Ferritin 1553 ng/mL (15-150) H 01/07/18 09:30 Total Bilirubin 0.3 mg/dL (0.3-1.0) 01/08/18 07:25 AST 13 U/L (13-39) 01/08/18 07:25 ALT 6 U/L (7-52) L 01/08/18 07:25 Alkaline Phosphatase 140 U/L (34-104) H 01/08/18 07:25 Ammonia 71 umol/L (16-53) H 01/08/18 07:25 Total Protein 6.4 gm/dL (6.0-8.3) 01/08/18 07:25 Albumin 2.8 gm/dL (3.7-5.3) L 01/08/18 07:25 Globulin 3.6 gm/dL 01/08/18 07:25 Albumin/Globulin Ratio 0.8 (1.0-1.8) L 01/08/18 07:25 Lipase 27 U/L (11-82) 01/06/18 18:55 Vitamin B12 788 pg/mL (232-1245) 01/08/18 07:25 Folic Acid >20.0 ng/mL (>3.0) 01/08/18 07:25 TSH 2.40 uIU/ml (0.34-5.60) 01/08/18 07:25 PTH Intact 15 pg/mL (15-65) 01/08/18 07:25 Stool Occult Blood POSITIVE (NEGATIVE) H 01/09/18 14:48 Blood Type A POSITIVE 01/07/18 10:40 Antibody Screen NEGATIVE 01/07/18 10:40 Crossmatch See Detail 01/07/18 10:40 - Physical Exam Vitals and I&O: Vital Signs Temp 98.4 F 01/13/18 12:00 Pulse 89 01/13/18 12:00 Resp 18 01/13/18 12:00 BP 129/83 01/13/18 12:00 Pulse Ox 98 01/13/18 12:00 Intake & Output 01/12/18 01/13/18 01/13/18 18:59 06:59 18:59 Intake Total 1550 Output Total 350 804 Balance -350 746 Weight (lbs) 57.153 kg 57.153 kg Intake: Intake, IV Amount 1000 Sodium Chloride 0.9% 1, 1000 000 ml @ 75 mls/hr IV . [id number] [facility] Rx#:[id number] Oral 550 Output: Urine 350 804 Active Medications: Current Medications Acetaminophen (Tylenol) 650 mg PO Q4HR PRN PRN Reason: MILD Pain or Fever >101 Stop: 03/07/18 22:42 Last Admin: 01/10/18 23:58 Dose: 650 mg Albuterol/Ipratropium (Duoneb Neb) 3 ml HHN Q4H PRN PRN Reason: Wheezing Stop: 03/07/18 20:43 Last Admin: 01/07/18 07:06 Dose: 3 ml Ascorbic Acid (Vitamin C) 500 mg PO DAILY PABLO Stop: 03/08/18 08:59 Last Admin: 01/13/18 09:44 Dose: 500 mg Atorvastatin Calcium (Lipitor) 20 mg PO HS [facility] Stop: 03/08/18 20:59 Last Admin: 01/12/18 22:03 Dose: 20 mg Docusate Sodium (Colace) 100 mg PO BID [facility] Stop: 03/08/18 08:59 Last Admin: 01/13/18 09:45 Dose: 100 mg Epoetin Brad (Epogen) 5,000 units SUBQ TuThSa [facility] Stop: 03/08/18 15:59 Last Admin: 01/12/18 17:55 Dose: 5,000 units Famotidine (Pepcid) 20 mg PO DAILY [facility] Stop: 03/08/18 08:59 Last Admin: 01/13/18 09:45 Dose: 20 mg Ferrous Sulfate (Iron) 325 mg PO DAILY [facility] Stop: 03/08/18 08:59 Last Admin: 01/13/18 09:45 Dose: 325 mg Folic Acid (Folate) 1 mg PO DAILY [facility] Stop: 03/08/18 08:59 Last Admin: 01/13/18 09:44 Dose: 1 mg Haloperidol (Haldol) 5 mg PO DAILY [facility] PRN Reason: Protocol Stop: 03/08/18 13:59 Last Admin: 01/13/18 09:45 Dose: 5 mg Sodium Chloride (Nacl 0.9%) 1,000 mls @ 75 mls/hr IV .[id number] [facility] Stop: 03/10/18 21:44 Last Admin: 01/13/18 05:39 Dose: 75 mls/hr Insulin Aspart (Novolog Insulin Sliding Scale) 0 units SUBQ ACHS [facility]ABLO PRN Reason: Protocol Stop: 03/08/18 12:46 Last Admin: 01/13/18 12:23 Dose: 2 units Insulin Detemir (Levemir Insulin) 10 units SUBQ Q12HR PABLO PRN Reason: Protocol Stop: 03/08/18 08:59 Last Admin: 01/13/18 09:51 Dose: Not Given Lactobacillus Rhamnosus (Culturelle 15b) 1 each PO DAILY PABLO Stop: 03/09/18 08:59 Last Admin: 01/13/18 09:45 Dose: 1 each Lactulose (Cephulac) 30 gm PO BID PABLO Stop: 03/08/18 16:59 Last Admin: 01/13/18 09:43 Dose: 30 gm Levothyroxine Sodium (Synthroid) 0.075 mg PO QDAC [facility] Stop: 03/08/18 07:29 Last Admin: 01/13/18 09:50 Dose: Not Given Magnesium Hydroxide (Milk Of Magnesia) 30 ml PO DAILY PRN PRN Reason: Constipation Stop: 03/07/18 22:44 Miscellaneous (Vte Chemical Prophylaxis Screen/ Admission) 1 ea [facility] PRN PRN PRN Reason: PROTOCOL Stop: 03/08/18 10:29 Quetiapine Fumarate (Seroquel) 200 mg PO BID PABLO PRN Reason: Protocol Stop: 03/08/18 16:59 Last Admin: 01/13/18 09:44 Dose: 200 mg Sevelamer Carbonate (Renvela) 800 mg PO TIDWM [facility] Stop: 03/08/18 11:59 Last Admin: 01/13/18 09:50 Dose: Not Given Sodium Bicarbonate (Sodium Bicarbonate) 650 mg PO QID PABLO PRN Reason: Protocol Stop: 03/09/18 16:59 Last Admin: 01/13/18 09:44 Dose: 650 mg General: Alert (frail), Cooperative, No acute distress HEENT: Atraumatic, PERRLA Neck: Supple, JVD Cardiovascular: Regular rate, Normal S1, Normal S2 Lungs: Clear to auscultation Abdomen: Bowel sounds, Soft, Distended Neurological: Normal speech Psych/Mental Status: Mood NL - Procedures Procedures: Procedures Procedure Code Date BLOOD TRANSFUSION SERVICE 28442 01/06/18 CYSTOSCOPY AND TREATMENT 51645 01/06/18 DILATION OF RIGHT URETER WITH INTRALUMINAL DEVICE, ENDO [id number] 01/06/18 TRANSFUSE NONAUT RED BLOOD CELLS IN PERIPH VEIN, PERC 60600Y4 01/06/18 Assessment/Plan - Assessment Assessment: * Hypercalcemia likely of malignancy * Anemia of GI blood loss and chronic disease; no evidence of fe deficiency * Osseous metastases * renal failure; hydronephrosis per nephrology will need gi evaluation for endoscopy; possible GI malignancy. 01/12: hypercalcemia improving; s/p ureter stent placement; hgb stable; will need GI evaluation. 01/13: hgb stable, renal function better. will need GI eval for possible metastatic ca from gi source Nutritional Asmnt/Malnutr-PDOC - Dietary Evaluation Malnutrition Findings (Please click <Entered> for more info): Nutritional Asmnt/Malnutrition Start: 01/09/18 14: 36 Text: Status: Active Freq: Document 01/09/18 14:36 LCHENG (Rec: 01/09/18 14:50 LCHENG [email or web address]) Nutritional Asmnt/Malnutrition Patient General Information Nutritional Screening High Risk Consult Diagnosis Anemia, liver cirrhosis Pertinent Medical Hx/Surgical Hx DM, hypothyroidism, chronic liver disease, CKD, psychosis, chronic anemai Subjective Information Consult received for high blood sugar. Pt seen sitting up in bed at time of visit, somewhat confused. Pt appeared thin. Observed lunch consumed about 75% including supplements. Pt has no teeth noted, may need mech soft diet . Per EMR, PO intake 25-50%. Current Diet Order/ Nutrition Support 1800kcal, boost glucose control TID Pertinent Medications vit C, colace, iron, folate, novolog, levemir, culturelle, cephulac, synthroid, 0.9% ns w .20 meq kcl, seroquel, renvela Pertinent Labs 01/09 cl 110, BUN 74 (improved) , Cr 3.3 (improved), Glucose 90, POC 105-123 01/06 A1c 6.2 Nutritional Hx/Data Height 1.63 m Height (Calculated Centimeters) 162.6 Current Weight (lbs) 70.76 kg Weight (Calculated Kilograms) 70.8 Weight (Calculated Grams) 25123.4 [place] Body Weight 120 Body Mass Index (BMI) 26.7 Weight Status Overweight GI Symptoms GI Symptoms Diarrhea Last BM 01/08 multiple times Difficult in: None Skin Integrity/Comment: reddened to buttock Current %PO Fair (50-74%) Estimated Nutritional Goals Calories/Kcals/Kg 25-30 Kcals Calculated 3174-3624 Protein g/k-1.2 Protein Calculated 59-71 Fluid: ml 1475-1770ml (1ml/kcal) Nutritional Problem 1. Problem Problem altered nutrition related labs Etiology CKD, DM Signs/Symptoms: BUN 74, Cr 3.3, Glucose 90, POC 105-123, A1c 6.2 Malnutrition Alert Muscle Mass (Non-Severe) Mild Depletion Protein-Calorie Malnutrition N/A Is there a minimum of two criteria No selected? Query Text:Check all the applicable criteria. A minimum of two criteria are recommended for diagnosis of either severe or non-severe malnutrition. Intervention/Recommendation Comments 1. Recommend renal mech soft ground diet. RN notified. 2. Monitor PO intake, wt, labs and skin integrity 3. F/U as moderate risk in 3-5 days, 01/12-01/14 Expected Outcomes/Goals Expected Outcomes/Goals 1. PO intake to meet at least 75% of nutritional needs. 2. Wt stability, skin to remain intact, labs to approach WNL.
--- NOTE | 2018-01-13 20:05 | Progress Notes ---
DATE: SUBJECTIVE: The patient is stable after the stent, but the creatinine has not improved. She remains confused and altered, close to her baseline. She has not had a fever and is eating well. OBJECTIVE: VITAL SIGNS: On exam, temperature 98.4, heart rate 89, and blood pressure 129/83. ABDOMEN: Soft and nontender. Flank, mildly tender on the right side. Bladder nondistended. Dunlap catheter putting out about 8211-0954 daily, clear, no blood and no discomfort reported. EXTREMITIES: No edema. LABORATORY DATA: White count 7.2, has remained normal throughout. Hemoglobin 8.1, stable, no bands and creatinine 3.3. No significant change from admission. Chloride elevated at 112, CO2 down to 17.5. Sugar [address] scan was discussed with the radiologist to verify that the stone is indeed present and dense and he measured the Hounsfield unit for me at 1100 indicating it should be quite dense and calcified, but it is difficult to see on the fluoroscopy. He also confirmed that the renal cortex is preserved and therefore it may be worthwhile to remove the stone and try to save the kidney. I have therefore recommended ESWL with ureteroscopy to tackle this big stone in the ureter near the sacroiliac joint with stent exchange as a definitive procedure to be carried out next week. IMPRESSION: 1. History of renal insufficiency, may be chronic. 2. Schizophrenia, no change. 3. Diabetes. Sugars not very well controlled as yet. 4. Hypothyroidism, stable. JOB# [id number]
--- NOTE | 2018-01-14 04:05 | Progress Notes ---
DATE: 01/13/2018 Case discussed with staff of the patient, reviewed records. The patient has been acting out. She called me a witch today. I asked the staff to make sure she is compliant with the medication. She denies any current intent to harm self or anybody. If she need to go to [facility] if she continues to do that, then please do so. She is already on her medication that does not helping her. I hope the staff will be making sure she is compliant as she was doing very well before. Thank you very much for allowing me to participate in the care of this most interesting lady. JOB# [id number]
--- NOTE | 2018-01-25 23:07 | Discharge Summary ---
DATE OF DISCHARGE: 01/13/2018 FINAL DIAGNOSES: 1. Acute metabolic encephalopathy. 2. Severe anemia. 3. Diabetes mellitus. 4. Hypothyroidism. 5. Chronic kidney failure. REVIEW OF HISTORY: The patient is a 62-year-old female with long history of diabetes mellitus, hypothyroidism, chronic liver disease, psychosis, chronic kidney disease, presented to the Emergency Room with acute altered level of consciousness, evaluated by the ER physician. Initial workup significant for acute metabolic encephalopathy. The patient admitted to the hospital, started on IV fluid. Nephrology consult has been obtained. PHYSICAL EXAMINATION: VITAL SIGNS: Temperature was 96.9, heart rate 94, blood pressure 105/53. CHEST: Clear to auscultation. ABDOMEN: Soft, bowel sounds positive. EXTREMITIES: No edema. LABORATORY DATA: White blood cell 5.8, hemoglobin 6, hematocrit 18. Sodium 127, potassium 3.7. The patient is started on IV fluid, 1800 kilocalorie diet, sliding scale with regular insulin coverage. Hematology consultation requested. ordered psychiatric consult on the case. COURSE OF HOSPITALIZATION: During hospitalization, the patient was evaluated by the certified rehabilitation counselor, diagnosed with iron deficiency anemia. The patient had blood transfused and on 01/10/2018, the patient was feeling better, no chest pain, no shortness of breath, no nausea, no vomiting. On 01/12/2018, Chest clear to auscultation. Abdomen soft, bowel sounds positive. DISPOSITION: On 01/13/2018, the patient transferred to the rehab center to continue his medication and diet. CONDITION ON DISCHARGE: Stable. MEDICATIONS: Follow discharge reconciliation. [facility]# [id number]
== END 2018-01-13 19:15 | DRG 441 ==
LOC: ER 18:26 → MSI 20:02
PROVIDERS: ADMIT Family Medicine; ATTEND Family Medicine
PROC: 30233N1 Transfusion of Nonautologous Red Blood Cells into Peripheral Vein, Percutaneous Approach (ICD-10-PCS; principal; 2018-01-07)
PROC: 3E0234Z Introduction of Serum, Toxoid and Vaccine into Muscle, Percutaneous Approach (ICD-10-PCS; 2018-01-07)
PROC: 0T768DZ Dilation of Right Ureter with Intraluminal Device, Via Natural or Artificial Opening Endoscopic (ICD-10-PCS; 2018-01-11)
PROC: BT1D1ZZ Fluoroscopy of Right Kidney, Ureter and Bladder using Low Osmolar Contrast (ICD-10-PCS; 2018-01-11)
DX: K72.00 Acute and subacute hepatic failure without coma (principal); G93.41 Metabolic encephalopathy; N18.6 End stage renal disease; N17.9 Acute kidney failure, unspecified; C41.9 Malignant neoplasm of bone and articular cartilage, unspecified; E46 Unspecified protein-calorie malnutrition; E87.2 Acidosis; F20.0 Paranoid schizophrenia; M48.56XA Collapsed vertebra, not elsewhere classified, lumbar region, initial encounter for fracture; N13.2 Hydronephrosis with renal and ureteral calculous obstruction; E11.22 Type 2 diabetes mellitus with diabetic chronic kidney disease; E83.52 Hypercalcemia; F29 Unspecified psychosis not due to a substance or known physiological condition; E03.9 Hypothyroidism, unspecified; K76.9 Liver disease, unspecified; X58.XXXA Exposure to other specified factors, initial encounter; I12.9 Hypertensive chronic kidney disease with stage 1 through stage 4 chronic kidney disease, or unspecified chronic kidney disease; I25.10 Atherosclerotic heart disease of native coronary artery without angina pectoris; F03.90 Unspecified dementia, unspecified severity, without behavioral disturbance, psychotic disturbance, mood disturbance, and anxiety; F41.9 Anxiety disorder, unspecified; D63.8 Anemia in other chronic diseases classified elsewhere; D50.0 Iron deficiency anemia secondary to blood loss (chronic); Z79.4 Long term (current) use of insulin; Z87.11 Personal history of peptic ulcer disease; Z68.21 Body mass index [BMI] 21.0-21.9, adult; Z87.891 Personal history of nicotine dependence; Z79.899 Other long term (current) drug therapy; Z23 Encounter for immunization; Y93.89 Activity, other specified; Y92.89 Other specified places as the place of occurrence of the external cause; Y99.8 Other external cause status
CPT/HCPCS: 36415-UA; 71045-TC; 76000-TC; 76770-TC; 80048-TC; 80053-TC; 82140-TC; 82270-TC; 82607-90; 82728-90; 82746-90; 82948-90; 83036-90; 83540-90; 83550-90; 83690-TC; 83970-90; 84443-TC; 85007-TC; 85025-TC; 85027-TC; 85610-TC; 86850-TC; 86900-TC; 86901-TC; 86922-TC; 93005; 94640; 94760; 96372; J0690; J0885; J1815; J2001; J2405; J2704; J2710; J3010; J3480; J7030; J7040; P9016; Q9967; X6258; Z7610